=== PATIENT | female | born 1960 | race Caucasian/White ===

== ENCOUNTER → 2019-12-22 09:54 | Outpatient (BNVA) | payer BC, SELFPAY | PROVIDERS: Family Provider Family Medicine; PCP Family Medicine; Visit Provider Anesthesiology | DX: G89.29 Other chronic pain (principal); M54.2 Cervicalgia; M25.511 Pain in right shoulder; M25.512 Pain in left shoulder; M54.5 Low back pain; Z79.891 Long term (current) use of opiate analgesic | CPT/HCPCS: 99214 ==

== ENCOUNTER → 2020-03-27 11:39 | Outpatient (BNVA) | payer BC, SELFPAY | PROVIDERS: Family Provider Family Medicine; PCP Family Medicine; Visit Provider Internal Medicine Cardiovascular Disease | DX: I50.32 Chronic diastolic (congestive) heart failure (principal); E78.5 Hyperlipidemia, unspecified; G45.9 Transient cerebral ischemic attack, unspecified; I74.9 Embolism and thrombosis of unspecified artery; I65.29 Occlusion and stenosis of unspecified carotid artery; I65.22 Occlusion and stenosis of left carotid artery; I10 Essential (primary) hypertension; E87.6 Hypokalemia; R06.02 Shortness of breath | CPT/HCPCS: 80048; 80061; 83880 ==

== ENCOUNTER → 2020-04-01 10:58 | Outpatient (BNVA) | payer BC, SELFPAY | PROVIDERS: Family Provider Family Medicine; PCP Family Medicine; Visit Provider Internal Medicine Cardiovascular Disease | DX: E87.6 Hypokalemia (principal) | CPT/HCPCS: 80048 ==

== ENCOUNTER → 2020-04-03 09:43 | Outpatient (BNVA) | payer BC, SELFPAY | PROVIDERS: Family Provider Family Medicine; PCP Family Medicine; Visit Provider Nurse Practitioner | DX: G89.29 Other chronic pain (principal); M54.41 Lumbago with sciatica, right side; M54.42 Lumbago with sciatica, left side; M54.2 Cervicalgia; Z79.891 Long term (current) use of opiate analgesic | CPT/HCPCS: 99213; 99214 ==

== ENCOUNTER → 2020-06-20 12:54 | Outpatient (BNVA) | payer BC, SELFPAY | PROVIDERS: Family Provider Family Medicine; PCP Family Medicine; Visit Provider Anesthesiology | DX: G89.29 Other chronic pain (principal); M54.42 Lumbago with sciatica, left side; M54.41 Lumbago with sciatica, right side; M54.2 Cervicalgia; Z79.891 Long term (current) use of opiate analgesic | CPT/HCPCS: 99213; 99214 ==

== ENCOUNTER → 2020-08-21 13:11 | Outpatient (BNVA) | payer BC, SELFPAY | PROVIDERS: Family Provider Family Medicine; PCP Family Medicine; Visit Provider Anesthesiology | DX: G89.29 Other chronic pain (principal); M54.5 Low back pain; M54.2 Cervicalgia; Z79.891 Long term (current) use of opiate analgesic | CPT/HCPCS: 99213; 99214 ==

== ENCOUNTER → 2020-10-18 12:56 | Outpatient (BNVA) | payer BC, SELFPAY | PROVIDERS: Family Provider Family Medicine; PCP Family Medicine; Visit Provider Nurse Practitioner | DX: G89.29 Other chronic pain (principal); M54.42 Lumbago with sciatica, left side; M54.41 Lumbago with sciatica, right side; M54.2 Cervicalgia; Z79.891 Long term (current) use of opiate analgesic | CPT/HCPCS: 99213 ==

== ENCOUNTER → 2020-12-18 12:06 | Outpatient (BNVA) | payer OTHER, SELFPAY | PROVIDERS: Family Provider Family Medicine; PCP Family Medicine; Visit Provider Anesthesiology | DX: G89.29 Other chronic pain (principal); M54.5 Low back pain; M54.2 Cervicalgia; J43.1 Panlobular emphysema; Z79.891 Long term (current) use of opiate analgesic | CPT/HCPCS: 99214 ==

== ENCOUNTER → 2021-02-07 13:01 | Outpatient (BNVA) | payer OTHER, SELFPAY | PROVIDERS: Family Provider Family Medicine; PCP Family Medicine; Visit Provider Anesthesiology | DX: G89.29 Other chronic pain (principal); M54.5 Low back pain; M54.2 Cervicalgia; Z79.891 Long term (current) use of opiate analgesic | CPT/HCPCS: 99214 ==

== ENCOUNTER → 2021-03-06 13:11 | Outpatient (BNVA) | payer OTHER, SELFPAY | PROVIDERS: Family Provider Family Medicine; PCP Family Medicine; Visit Provider Family Medicine | DX: E78.5 Hyperlipidemia, unspecified (principal); Z79.899 Other long term (current) drug therapy | CPT/HCPCS: 80053; 85025 ==

== ENCOUNTER → 2021-04-17 13:29 | Outpatient (BNVA) | payer OTHER, SELFPAY | PROVIDERS: Family Provider Family Medicine; PCP Family Medicine; Visit Provider Nurse Practitioner | DX: G89.29 Other chronic pain (principal); M54.2 Cervicalgia; M54.5 Low back pain; Z79.891 Long term (current) use of opiate analgesic; Z79.1 Long term (current) use of non-steroidal anti-inflammatories (NSAID); Z87.891 Personal history of nicotine dependence | CPT/HCPCS: 99214 ==

== ENCOUNTER → 2021-05-08 08:10 | Outpatient (BNVA) | payer OTHER, SELFPAY | PROVIDERS: Family Provider Family Medicine; PCP Family Medicine; Visit Provider Anesthesiology | DX: G89.29 Other chronic pain (principal); M54.2 Cervicalgia; Z79.891 Long term (current) use of opiate analgesic; Z87.891 Personal history of nicotine dependence | CPT/HCPCS: 62321; J1040 ==

== ENCOUNTER → 2021-06-17 15:35 | Outpatient (BNVA) | payer OTHER, SELFPAY | PROVIDERS: Family Provider Family Medicine; PCP Family Medicine; Visit Provider Internal Medicine Cardiovascular Disease | DX: I77.9 Disorder of arteries and arterioles, unspecified (principal); I65.22 Occlusion and stenosis of left carotid artery; E78.5 Hyperlipidemia, unspecified; R06.02 Shortness of breath; I50.33 Acute on chronic diastolic (congestive) heart failure; I50.32 Chronic diastolic (congestive) heart failure; N18.9 Chronic kidney disease, unspecified | CPT/HCPCS: 80048; 83880; 84443 ==

== ENCOUNTER → 2021-06-18 12:34 | Outpatient (BNVA) | payer OTHER, SELFPAY | PROVIDERS: Family Provider Family Medicine; PCP Family Medicine; Visit Provider Nurse Practitioner | DX: G89.29 Other chronic pain (principal); M54.5 Low back pain; M54.2 Cervicalgia; Z79.891 Long term (current) use of opiate analgesic | CPT/HCPCS: 99214 ==

== ENCOUNTER → 2021-07-10 08:36 | Outpatient (BNVA) | payer OTHER, SELFPAY | PROVIDERS: Family Provider Family Medicine; PCP Family Medicine; Visit Provider Anesthesiology | DX: G89.29 Other chronic pain (principal); M54.5 Low back pain; Z79.891 Long term (current) use of opiate analgesic | CPT/HCPCS: 62323; J1040; J3490 ==

== ENCOUNTER 2021-08-11 07:11 | Outpatient (CLI) | payer OTHER, SELFPAY ==
--- NOTE | 2021-08-11 07:15 | USCV_ITS ---
Kaela Sanchez Age: 61 Gender: F : 1960 Exam Date: 08/11/2021 07:24 Ordering Phys: Tom Chu MD ([email or web address]) Technologist: CARLO Exam Location: [facility] Indication: CAROTID STENOSIS Risk Factors: Previous Vascular Surgery: Right Brachial BP: / Left Brachial BP: / Right Left Velocity (cm/s) Spectral Plaque Velocity (cm/s) Spectral Plaque Syst/Diast Broadening Syst/Diast Broadening 102.20/25.30 Prox CCA 99.40 / 27.20 86.00/ 24.30 Mid CCA 111.10/ 26.50 78.30/ 25.40 Distal CCA 67.50 / 17.10 89.30/ 30.30 Prox ICA 74.30 / 29.90 82.30/ 26.40 Mid ICA 67.50 / 23.90 73.00/ 26.40 Distal ICA 103.40/ 34.20 89.30 ECA 92.30 0.96 ICA/CCA 0.61 Antegrade Vertebral Antegrade 59.00/ 17.10 cm/s 54.70/ 19.70 cm/s Tri Subclavian Tri 102.5 100.0 0 0 FINDINGS Minimal intimal thickening in the common carotid, bifurcation and internal carotid arteries bilaterally Antegrade flow in the vertebral arteries bilaterally. Normal Doppler velocities in the external carotid, vertebral and subclavian arteries bilaterally CONCLUSIONS Minimal intimal thickening in the common carotid, bifurcation and internal carotid arteries bilaterally. No significant stenosis or unstable lesions based on the above Dr Tom Chu MD [facility] (Electronically Signed) Final Date: 12 August 2021 09:10 S
== END 2021-08-11 07:12 | disposition home or self-care (01) ==
PROVIDERS: PCP Family Medicine; Visit Provider Internal Medicine Cardiovascular Disease
DX: I77.9 Disorder of arteries and arterioles, unspecified (principal); I65.23 Occlusion and stenosis of bilateral carotid arteries
CPT/HCPCS: 93880

== ENCOUNTER → 2021-08-15 12:51 | Outpatient (BNVA) | payer OTHER, SELFPAY | PROVIDERS: PCP Family Medicine; Visit Provider Anesthesiology | DX: G89.29 Other chronic pain (principal); M54.50 Low back pain, unspecified; M54.2 Cervicalgia; Z79.891 Long term (current) use of opiate analgesic | CPT/HCPCS: 99214 ==

== ENCOUNTER → 2021-09-04 14:12 | Outpatient (BNVA) | payer OTHER, SELFPAY | PROVIDERS: PCP Family Medicine; Visit Provider Family Medicine | DX: E78.5 Hyperlipidemia, unspecified (principal) | CPT/HCPCS: 80053; 80061 ==

== ENCOUNTER 2021-11-28 14:35 | Inpatient (IN) | payer OTHER, SELFPAY ==
[2021-11-28 14:43] VITALS: BP 140/90; PULSE 99; RESP 19; TEMP 37.3; O2SAT 91; BMI 25.0
--- NOTE | 2021-11-28 15:00 | CT_ITS ---
WS: [id number] CT HEAD NONCONTRAST HISTORY: AMS TECHNIQUE: Contiguous axial imaging performed through the brain in 2.5 mm imaging. Bone and soft tiss ue windows. Sagittal and coronal reformats reviewed. All CT scans at [facility] use at least one of these dose optimization techniques: automated exposure control; mA and/or kV adjustment per pa tient size (includes targeted exams where dose is matched to clinical indication); or iterative recon struction. DLP: 739.7 mGy.cm COMPARISON: None available. No acute intracranial hemorrhage, midline shift or mass effect. Mild atrophy and mild chronic microvascular ischemic disease. Partial obscuration of the posterior fo ssa due to beam hardening artifact. Ventricles: Normal size with no hydrocephalus. Paranasal sinuses: Small air-fluid level in the LEFT sphenoid sinus. Mastoid air cells: Well pneumatized. Calvarium and scalp: Skull is intact with no soft tissue edema or swelling. CT/CT head wo con* [id number] IMPRESSION: 1. No acute intracranial hemorrhage or edema. 2. Mild atrophy and mild chronic microvascular ischemic type changes.
[2021-11-28 15:08] LABS: Basophils % 0.1 %; Lymphocytes # 0.9 10^3/uL (0.8-4.8); Lymphocytes % 9.6 %; Mean Corpuscular Hemoglobin 29.3 pg (28.0-34.0); Mean Corpuscular Volume 86.2 fl (81-99); Mean Platelet Volume 10.6 fL (7.4-10.4); Monocytes # 1.3 10^3/uL (0.2-0.9); Monocytes % 15.1 %; Neutrophils % 74.5 %; Nucleated Red Blood Cells % 0 %; Platelet Count 354 10^3/cmm (130-400); Red Blood Count 6.15 10^6/uL (4.1-5.3); Red Cell Distribution Width 14.1 % (12.1-15.1); White Blood Count 8.9 10^3/uL (4.0-10.0)
--- NOTE | 2021-11-28 15:13 | CTR_ITS ---
PROCEDURE INFORMATION: Exam: CT Abdomen And Pelvis With Contrast Exam date and time: 11/28/2021 3:13 PM Age: 61 years old Clinical indication: Abdominal pain; Patient HX: PT very confused; Additional info: Abd pain TECHNIQUE: Imaging protocol: Computed tomography of the abdomen and pelvis with contrast. Sagittal and coronal reformatted images were created and reviewed. Radiation optimization: All CT scans at this facility use at least one of these dose optimization techniques: automated exposure control; mA and/or kV adjustment per patient size (includes targeted exams where dose is matched to clinical indication); or iterative reconstruction. Contrast material: OMNI 300; Contrast volume: 75 ml; Contrast route: INTRAVENOUS (IV); COMPARISON: No relevant prior studies available. RADIATION DOSE METRICS: Total DLP (mGy-cm): 1054.71 FINDINGS: Lungs: Dependent atelectasis in the lungs bilaterally. Pleural spaces: No pleural effusion. Heart: Visualized portions of the heart are mildly enlarged. Liver: The liver is unremarkable. Gallbladder and bile ducts: The gallbladder is unremarkable. No biliary ductal dilatation. Pancreas: Mild atrophy of the pancreatic parenchyma. No pancreatic ductal dilatation. Spleen: Multiple splenules in the left upper quadrant. Adrenal glands: The right and left adrenal glands are unremarkable. Kidneys and ureters: The right and left kidneys are unremarkable. The right and left ureters are unremarkable. Stomach and bowel: Fluid within the small bowel and colon without evidence of bowel wall thickening. Fatty infiltration of the wall of the proximal colon. Findings suggest sequela of chronic inflammation. Appendix: The appendix is visualized and is unremarkable. No findings to suggest acute appendicitis. Intraperitoneal space: No free intraperitoneal air. No ascites. No loculated fluid collections to suggest an abscess. Vasculature: Moderate atherosclerotic changes in the visualized arteries. No evidence for aortic aneurysm or aortic dissection. Hepatic veins, portal veins, splenic vein, and SMV are patent. Lymph nodes: No lymphadenopathy. Urinary bladder: Unremarkable as visualized. Reproductive: Patient has had a previous hysterectomy. The right and left ovaries are unremarkable. Bones/joints: Degenerative changes in the spine, sacroiliac joints, and hips. Grade I anterolisthesis of L4 on L5, likely due to facet degenerative change. Moderate spinal canal stenosis at L4-L5. Multilevel foraminal stenosis of varying severity in the lumbar spine. Soft tissues: No acute abnormality in the extra-abdominal soft tissues. CT/CT abdomen pelvis w con* [id number] IMPRESSION: 1. Fluid within the small bowel and colon without evidence of bowel wall thickening. This may reflect viral gastroenteritis in the appropriate clinical situation. 2. Incidental/nonacute findings are listed in the report.
[2021-11-28 15:21] VITALS: BP 135/83
[2021-11-28 15:34] LABS: Troponin(5th) Baseline 12 ng/L (0-10)
[2021-11-28 15:41] LABS: Alanine Aminotransferase 28 U/L (0-33); Albumin Level 4.5 g/dL (3.5-5.2); Alkaline Phosphatase 150 IU/L (35-105); Anion Gap 23.6 (5-19); Aspartate Amino Transferase 54 U/L (0-32); Blood Urea Nitrogen 17 mg/dL (6-20); Calcium 8.4 mg/dL (8.5-10.5); Carbon Dioxide 19 mmol/L (22-29); Chloride 108 mmol/L (98-107); Creatinine Clr Calc Pharmacy 104.0993; Globulin 2.3 g/dL (1.3-4.6); Glomerular Filtration Rate 126.3 mL/min (90-130); Glucose 115 mg/dL (65-115); Lipase 42 U/L (13-60); Magnesium 2.9 mg/dL (1.7-2.3); Osmolality Calculated 306 mOsm/kg (285-295); Potassium 3.6 mmol/L (3.5-5.1); Sodium 147 mmol/L (136-145); Total Bilirubin 0.6 mg/dL (0.15-1.2); Total Protein 6.8 g/dL (6.6-8.7)
[2021-11-28 15:42] LABS: Acetaminophen < 5.0 ug/mL (10-30); Salicylate < 0.3 mg/dL (3-10)
[2021-11-28 15:43] LABS: Creatine Phosphokinase 497 U/L (26-192)
[2021-11-28] MEDS: ondansetron 2 mg/ML SDV 2 mL 4 MG IVP (15:43)
[2021-11-28] MEDS: naloxone 0.4 mg/ml SDV IVP (15:43)
--- NOTE | 2021-11-28 15:44 | ED_ITS ---
HPI - Altered Mental Status General: Chief Complaint: Altered Mental Status Stated Complaint: AMS Time Seen by Provider: 11/28/21 14:37 History of Present Illness: 61-year-old female presents emergency room via EMS with altered mental status. Unable to get any history from her whatsoever EMS reported that they were called to the scene her referred him to a bedroom without really give any other history. She will not answer any questions she will follow a few simple commands such as squeezing hands. She has no focal neurologic deficits noted on that are obvious. When she is touched in her chest abdomen or any of her proximal extremities even she screams out and is mildly combative. MD complaint: altered mental status and confusion Onset (ago): unknown Severity: severe Consistency of symptoms: Constant Review of Systems General: Reports: ROS unobtainable due to mental status PFSH ED PFSH: Medical History Anxiety and depression Benign essential hypertension with target blood pressure below 140/90 Carotid artery stenosis without cerebral infarction Chronic bronchitis Chronic cervical pain Chronic diastolic heart failure Chronic diastolic heart failure Chronic lumbosacral pain COPD (chronic obstructive pulmonary disease) Dyslipidemia Encounter for long-term use of opiate analgesic Fibromyalgia GERD (gastroesophageal reflux disease) Heart failure Hypertension Hypoxia care home (current) use of non-steroidal anti-inflammatories (nsaid) Opioid contract exists TIA due to embolism Surgical History H/O section H/O hemorrhoidectomy H/O rotator cuff surgery History of hysterectomy Family History Sister Anesthesia complication Father CAD (coronary artery disease) Grandmother CAD (coronary artery disease) Grandfather Cancer Mother Dementia Lung disease Denies family history of Diabetes Clotting disorder Chronic kidney disease (CKD) Suicide Bleeding disorder Stroke Social History Smoking and tobacco status: former smoker Second hand smoke exposure: Yes Alcohol intake: never History of recent travel: No Physical Exam Const: EXAM LIMITATIONS: altered mental status HENMT: COMMON NORMALS: normocephalic, atraumatic and hearing grossly normal bilaterally HEAD & SCALP: normocephalic and atraumatic Neck/C-Spine: COMMON NORMALS: full ROM, no lymphadenopathy, supple and no JVD Resp: COMMON NORMALS: normal respiratory effort, No retractions and No use of accessory muscles Cardio: COMMON NORMALS: no JVD, regular rate and regular rhythm RATE: regular rate RHYTHM: regular rhythm Course Vital Signs: Vital signs: Vital Signs Temperature 99.2 F 11/28/21 14:43 Pulse Rate 99 11/28/21 14:43 Respiratory Rate 19 H 11/28/21 14:43 Blood Pressure 135/83 11/28/21 15:21 Pulse Oximetry 91 11/28/21 14:43 MDM - Altered Mental Status Medical Decision Making Altered mental status CT of the head and abdomen are unremarkable she has some fluid-filled loops of bowel. There is a mild rhabdomyolysis we did give her so me Narcan early on but she had only minimal improvement. Discussed with hospitalist orders written. Admit for acute encephalopathy as well as rhabdomyolysis. Medical Records I reviewed the patient's medical records. Lab Data I reviewed the patient's lab results. : 11/28/21 14:20 11/28/21 14:[address] 11/28/21 15:00 IMPRESSION: 1. No acute intracranial hemorrhage or edema. 2. Mild atrophy and mild chronic microvascular ischemic type changes. Abdomen/Pelvis CT 11/28/21 15:13 IMPRESSION: 1. Fluid within the small bowel and colon without evidence of bowel wall thickening. This may reflect viral gastroenteritis in the appropriate clinical situation. 2. Incidental/nonacute findings are listed in the report. Laboratory Results WBC 8.9 10^3/uL (4.0-10.0) 11/28/21 14:20 RBC 6.15 10^6/uL (4.1-5.3) H 11/28/21 14:20 Hgb 18.0 g/dL (11.5-15.3) H 11/28/21 14:20 Hct 53.0 % (37.0-47.0) H 11/28/21 14:20 MCV 86.2 fl (81-99) 11/28/21 14:20 MCH 29.3 pg (28.0-34.0) 11/28/21 14:20 MCHC 34.0 g/dL (30.0-36.0) 11/28/21 14:20 RDW 14.1 % (12.1-15.1) 11/28/21 14:20 Plt Count 354 10^3/cmm (130-400) 11/28/21 14:20 MPV 10.6 fL (7.4-10.4) H 11/28/21 14:20 Neut % (Auto) 74.5 % 11/28/21 14:20 Lymph % (Auto) 9.6 % 11/28/21 14:20 [place] % (Auto) 15.1 % 11/28/21 14:20 Eos % (Auto) 0.0 % 11/28/21 14:20 Baso % (Auto) 0.1 % 11/28/21 14:20 Neut # (Auto) 6.60 10^3/uL (1.8-7.7) 11/28/21 14:20 Lymph # (Auto) 0.9 10^3/uL (0.8-4.8) 11/28/21 14:20 [place] # (Auto) 1.3 10^3/uL (0.2-0.9) H 11/28/21 14:20 Eos # (Auto) 0.0 10^3/uL (0.0-0.8) 11/28/21 14:20 Baso # (Auto) 0.0 10^3/uL (0.0-0.1) 11/28/21 14:20 Nucleated RBC % (auto) 0 % 11/28/21 14:20 Nucleated RBCs # 0.0 /100WBC 11/28/21 14:20 Specimen Type Arterial 11/28/21 15:40 Sample Site Radial, left 11/28/21 15:40 ABG pH 7.51 (7.35-7.45) H 11/28/21 15:40 ABG pCO2 24.8 mmHg (35-45) L 11/28/21 15:40 ABG pO2 61.2 mmHg (80.0-100.0) L 11/28/21 15:40 ABG HCO3 19.7 mmol/L (22-26) L 11/28/21 15:40 ABG O2 Saturation 95.7 11/28/21 15:40 ABG Base Excess -1.4 mmol/L (-2.0-2.0) 11/28/21 15:40 [place] Test Pos 11/28/21 15:40 A-a O2 Gradient 7.6 mmHg (5-10) 11/28/21 15:40 Hematocrit 50.4 % (37-47) H 11/28/21 15:40 Hgb O2 Saturation 94.5 % (95-100) L 11/28/21 15:40 Carboxyhemoglobin 0.5 %THgb (0.4-20.1) 11/28/21 15:40 Methemoglobin 0.7 % (0.4-1.5) 11/28/21 15:40 Total Hemoglobin 16.5 g/dL (12-16) H 11/28/21 15:40 Sodium 147.0 mmol/L (131-143) H 11/28/21 15:40 Potassium 3.1 mmol/L (3.5-5.0) L 11/28/21 15:40 Glucose 110.0 mg/dL (70-115) 11/28/21 15:40 Ionized Calcium 1.1 mmol/L (1.1-1.4) 11/28/21 15:40 O2 Delivery Device Room air 11/28/21 15:40 FiO2 21.0 % 11/28/21 15:40 [employer] ID Cak 11/28/21 15:40 Sodium 147 mmol/L (136-145) H 11/28/21 14:20 Potassium 3.6 mmol/L (3.5-5.1) 11/28/21 14:20 Chloride 108 mmol/L (98-107) H 11/28/21 14:20 Carbon Dioxide 19 mmol/L (22-29) L 11/28/21 14:20 Anion Gap 23.6 (5-19) H 11/28/21 14:20 BUN 17 mg/dL (6-20) 11/28/21 14:20 Creatinine 0.5 mg/dL (0.5-0.9) 11/28/21 14:20 GFR Calculation 126.3 mL/min (90-130) 11/28/21 14:20 Glucose 115 mg/dL (65-115) 11/28/21 14:20 Calculated Osmolality 306 mOsm/kg (285-295) H 11/28/21 14:20 Lactic Acid 2.1 mmol/L (0.5-2.2) 11/28/21 16:04 Calcium 8.4 mg/dL (8.5-10.5) L 11/28/21 14:20 Magnesium 2.9 mg/dL (1.7-2.3) H 11/28/21 14:20 Total Bilirubin 0.6 mg/dL (0.15-1.2) 11/28/21 14:20 AST 54 U/L (0-32) H 11/28/21 14:20 ALT 28 U/L (0-33) 11/28/21 14:20 Alkaline Phosphatase 150 IU/L (35-105) H 11/28/21 14:20 Ammonia Cancelled 11/28/21 16:04 Creatine Kinase 497 U/L (26-192) H* 11/28/21 14:20 CK-MB (CK-2) 13.4 ng/mL (0-5.34) H 11/28/21 14:20 CK-MB (CK-2) Rel Index 2.6 % (0.0-10.4) 11/28/21 14:20 Troponin T Baseline 12 ng/L (0-10) H 11/28/21 14:20 Total Protein 6.8 g/dL (6.6-8.7) 11/28/21 14:20 Albumin 4.5 g/dL (3.5-5.2) 11/28/21 14:20 Globulin 2.3 g/dL (1.3-4.6) 11/28/21 14:20 Lipase 42 U/L (13-60) 11/28/21 14:20 Salicylates < 0.3 mg/dL (3-10) L 11/28/21 14:20 Acetaminophen < 5.0 ug/mL (10-30) L 11/28/21 14:20 Discharge Plan Discharge Patient Disposition: Admitted As Inpatient Clinical Impression: Acute encephalopathy, Rhabdomyolysis Condition: Stable Coding Level of Care Code ED Gynecological Assistant for Kyleigh Seals
[2021-11-28 15:51] LABS: ABG PCO2 24.8 mmHg (35-45); ABG PH Result 7.51 (7.35-7.45); Alveolar-Arterial Oxygen Gradi 7.6 mmHg (5-10); Arterial Blood Gas Hematocrit 50.4 % (37-47); Base Excess ABG -1.4 mmol/L (-2.0-2.0); Blood Gas Allen Test Pos; Blood Gas Operator Identificat CAK; Blood Gas Sample Site Radial, left; Blood Gas Sample Type Arterial; Carboxyhemoglobin 0.5 %THgb (0.4-20.1); HCO3 ABG 19.7 mmol/L (22-26); HGB O2 Sat 94.5 % (95-100); Ionized Calcium Level - ABG 1.1 mmol/L (1.1-1.4); Methemoglobin 0.7 % (0.4-1.5); Oxygen Device ROOM AIR; Oxygen Saturation ABG 95.7; PO2 ABG 61.2 mmHg (80.0-100.0); Potassium Level - ABG 3.1 mmol/L (3.5-5.0); Total Hemoglobin 16.5 g/dL (12-16)
--- NOTE | 2021-11-28 15:51 | PC.PHAR ---
PT UNABLE TO VERIFY MEDICATIONS-MEDICATIONS ENTERED ARE WHAT SHOWS HAS BEEN FILLED ON EXT MED HISTORY RECENTLY AND SOME MEDS WERE FROM A PREVIOUS ENTERED MED LIST
[2021-11-28 16:33] LABS: CKMB 13.4 ng/mL (0-5.34); CKMB Relative Index 2.6 % (0.0-10.4)
[2021-11-28] MEDS: LORazepam 2 mg/mL INJ 1 mL 1 MG IVP (16:40)
[2021-11-28] MEDS: sodium chloride 0.9% 1,000 ML 999 ML IV (16:41)
[2021-11-28] MEDS: iohexol 300 mg/mL 100 mL Btl IV (16:52)
[2021-11-28 16:55] LABS: Lactic Sepsis W/Reflex 2.1 mmol/L (0.5-2.2)
--- NOTE | 2021-11-28 17:00 | ECG_ITS ---
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
[2021-11-28 17:54] LABS: Alcohol Level < 10 mg/dL (0-10)
[2021-11-28 17:59] LABS: Reflex Lactate Order REFLEX LACTIC ORDERD
[2021-11-28 18:04] LABS: Troponin 5 2HR 10.61 ng/L (0-10)
[2021-11-28 18:07] LABS: Troponin 5 2HR Delta -1.39 ABS# (0-10)
--- NOTE | 2021-11-28 18:25 | P.HP_ITS ---
Providers/Chief Complaint Primary Care Provider: Iman Galo DO Chief Complaint: AMS History of Present Illness History limited as taken through chart review and conversation through ER physician and daughter at bedside who lives at [place]. Kaela Sanchez is a 61 year old female with past medical history of anxiety, diastolic heart failure, COPD, fibromyalgia, hypertension on chronic opiates was brought into the ER by EMS today for altered mental status. As per the history EMS was called and mother today because patient has been behaving oddly for last few days and not answering. As per EMS when they arrived at home was sitting outside the room and he disappointed. During gait the patient is and patient was directed to the ER. In the ER patient was only following simple commands like squeezing hands but not able to have any conversation or follow any extensive commands. On examination when touched in chest or abdomen patient would scream out in pain. Patient's daughter is at bedside who states last he saw her was in [place] and after that spoke to her was on first week of November and at that time she had no complaint. Daughter states she seems to have lost a lot of weight since [place]. Patient has soiled her bed during examination with copious green-colored foul-smelling bowel movements. Blood work in the ER showed hemoglobin of 18, white count of 8.9, ABG showing a pH of 7.5, PCO2 of 24, PO2 of 61, chemistry showing a sodium of 147, chloride of 108, creatinine of 0.5, CPK of 497, alkaline phosphatase of 150, alcohol level, salicylate and acetaminophen level negative with CT abdomen pelvis as below. In the ER tonight she received 1 dose of Narcan and Ativan. Review of Systems General: Reports: ROS unobtainable due to mental status Medications/Allergies Home Medications Medication Instructions Recorded Confirmed Last Taken Type aspirin 81 mg tablet,delayed 81 mg PO DAILY 12/22/19 11/28/21 Unknown History release (Adult Aspirin Regimen) furosemide 20 mg tablet 20 mg PO DAILY PRN #90 tab 06/18/21 11/28/21 Unknown Rx ibuprofen 800 mg tablet 800 mg PO TID PRN 30 Days #90 tab 06/19/21 11/28/21 Unknown Rx potassium chloride 10 mEq 20 meq PO DAILY #180 tab 07/03/21 11/28/21 Unknown Rx tablet,extended release albuterol sulfate 90 mcg/actuation 2 puff INHALATION QID PRN #8.5 g 09/04/21 11/28/21 Unknown Rx aerosol inhaler (ProAir HFA) budesonide-formoterol HFA 160 2 puff INHALATION BID #10.2 gm 10/09/21 11/28/21 Unknown Rx mcg-4.5 mcg/actuation aerosol inhaler (Symbicort) methocarbamol 750 mg tablet 750 mg PO TID #90 tab 10/09/21 11/28/21 Unknown Rx pregabalin 300 mg capsule (Lyrica) 300 mg PO BID 30 Days #60 cap 10/09/21 11/28/21 Unknown Rx tiotropium bromide 2.5 2 puff INHALATION DAILY #4 gm 10/09/21 11/28/21 Unknown Rx mcg/actuation mist for inhalation (Spiriva Respimat) atorvastatin 40 mg tablet 40 mg PO DAILY 90 Days #90 tab 10/17/21 11/28/21 Unknown Rx bupropion HCl 200 mg tablet,12 hr 200 mg PO BID #60 tab 10/17/21 11/28/21 Unknown Rx sustained-release (Wellbutrin SR) omeprazole 40 mg capsule,delayed 40 mg PO DAILY 30 Days #90 cap 10/20/21 11/28/21 Unknown Rx release metoprolol tartrate 25 mg tablet 25 mg PO BID #60 tab 10/27/21 11/28/21 Unknown Rx oxycodone 15 mg tablet 15 mg PO .6 times a day PRN 3 Days 11/13/21 11/28/21 Unknown Rx #18 tab Allergies Allergy/AdvReac Type Severity Reaction Status Date / Time No Known Allergies Allergy Verified 10/09/21 13:07 PFSH Acute PFSH: Medical History (Updated 11/28/21 @ 18:39 by Jose Washington MD) Anxiety and depression Benign essential hypertension with target blood pressure below 140/90 Carotid artery stenosis without cerebral infarction Chronic bronchitis Chronic cervical pain Chronic diastolic heart failure Chronic diastolic heart failure Chronic lumbosacral pain Chronic prescription opiate use COPD (chronic obstructive pulmonary disease) Dyslipidemia Encounter for long-term use of opiate analgesic Fibromyalgia GERD (gastroesophageal reflux disease) Heart failure Hypertension Hypoxia residential (current) use of non-steroidal anti-inflammatories (nsaid) Opioid contract exists Strain of right trapezius muscle TIA due to embolism Surgical History H/O section H/O hemorrhoidectomy H/O rotator cuff surgery History of hysterectomy Family History Sister Anesthesia complication Father CAD (coronary artery disease) Grandmother CAD (coronary artery disease) Grandfather Cancer Mother Dementia Lung disease Denies family history of Diabetes Clotting disorder Chronic kidney disease (CKD) Suicide Bleeding disorder Stroke Social History Smoking and tobacco status: former smoker Second hand smoke exposure: Yes Alcohol intake: never History of recent travel: No Vitals/I&O/Wt Last Vital Signs Temp 99.2 F 11/28/21 14:43 Pulse 99 11/28/21 14:43 Resp 19 H 11/28/21 14:43 BP 135/83 11/28/21 15:21 Pulse Ox 91 11/28/21 14:43 Weight last 48 hrs Weight 54.431 kg Physical Exam Narrative: EXAM NARRATIVE: General: Altered, awake, complaining of abdominal pain, no distress, tremulous HEENT: PERRLA, pupils bilaterally equal and reactive Chest: Normal vesicular breath sounds, no added sounds, equal good air entry bilaterally CVS: S1-S2 regular, no murmurs, no tachycardia, no gallops, no rubs Abdomen: Bowel sounds hyperactive, guarding present Neuro: No focal deficits, no facial deformity, moving all 4 limbs Data : 11/28/21 14:20 11/28/21 14:20 A&P Assessment and plan (1) Acute encephalopathy: Status: Acute (2) Diarrhea: Status: Acute (3) Hypernatremia: Status: Acute (4) Dehydration: Status: Acute (5) Rhabdomyolysis: Status: Acute (6) Benign essential hypertension with target blood pressure below 140/90: Status: Acute (7) Carotid artery stenosis without cerebral infarction: Status: Acute Qualifiers: Laterality: left Qualified Code(s): I65.22 - Occlusion and stenosis of left carotid artery (8) Chronic prescription opiate use: Status: Acute (9) Anxiety and depression: Status: Chronic Plan Acute metabolic encephalopathy: Unclear etiology at present. Could be secondary to drug overdose versus secondary to hypernatremia from dehydration or could be secondary to metabolic encephalopathy from sepsis. CT head results appreciated. No acute abnormality. Check urine drug screen, ammonia levels, vitamin B12, folate level, TSH level. For dehydration/hypernatremia start patient on D5 NS at 75 cc/h. Check urine lites, urinalysis. BMP every 8 hourly. Ro. For now hold off on chronic home medications including bupropion, methocarbamol, chronic oxycodone. Switch to Dilaudid 0.5 every 6 hours as needed to avoid withdrawal. Frequent reorientation, fall precaution Sitter at bedside. Diarrhea: Check C. difficile. For now start patient on Zosyn. Check CT abdomen pelvis. Rhabdomyolysis: Secondary dehydration: IV fluids as above. If does not improve can check CTA head and neck given history of carotid artery stenosis in past for further evaluation to rule out stroke though unlikely at present. We will change medications as per clinical picture and results of the labs. Check iron panel, TSH, lipid panel, A1c Care discussed in detail with patient's daughter at bedside. Full code. NPO. Famotidine for PUD prophylaxis. Lovenox for DVT prophylaxis. Attestations Medical Necessity Statement*: For more than 2 midnights for management of altered mental status of unknown etiology Time Spent in Patient Care: Greater than 35 minutes Coding Level of Care Code Acute [employer] Airspace Officer for [facility] Fwd Diagnoses Acute encephalopathy G93.40 Diarrhea R19.7 Hypernatremia E87.0 Dehydration E86.0 Rhabdomyolysis M62.82 Benign essential hypertension with target blood pressure below 140/90 I10 Carotid artery stenosis without cerebral infarction I65.22 Laterality: left Chronic prescription opiate use Z79.891 Anxiety and depression F41.9; F32.9
[2021-11-28 18:44] LABS: Amphetamines Screen Urine Negative (Negative); Barbiturates Screen Urine Negative (Negative); Benzodiazepines Screen Urine Negative (Negative); Cocaine Screen Urine Negative (Negative); Opiate Screen Urine Negative (Negative); PCP Screen Urine Negative (Negative); THC Screen Urine Negative (Negative)
[2021-11-28 18:55] LABS: Bilirubin Urine 1+ (Negative); Blood Urine 2+ (Negative); Glucose Urine UA Norm (Normal); Ketones Urine 2+ (Negative); Leukocyte Esterase Urine Negative (Negative); Nitrate Urine Negative (Negative); Protein Urine 2+ (Negative); Urine Appearance Hazy (CLEAR); Urine Color Amber (Yellow); Urobilinogen Urine 1 mg/dL (Negative); pH Urine 7 (5-7)
[2021-11-28 18:57] LABS: Add Urine Microscopic? YES; RBC Urine 0-4 /hpf (0-2); Squamous Epithelial Cell Urine 0-4 /hpf (0-5)
[2021-11-28 18:58] LABS: Add Urine Culture? No; Mucus Urine 2+ /hpf
[2021-11-28 19:32] LABS: Lactic Acid level (Lactate) 1.2 mmol/L (0.5-2.2)
[2021-11-28 19:33] LABS: Ammonia 72 umol/L (11-51)
[2021-11-28 19:39] LABS: Blood Urea Nitrogen 15 mg/dL (6-20); Calcium 7.8 mg/dL (8.5-10.5); Carbon Dioxide 13 mmol/L (22-29); Chloride 113 mmol/L (98-107); Glomerular Filtration Rate 227.7 mL/min (90-130); Glucose 88 mg/dL (65-115); Osmolality Calculated 296 mOsm/kg (285-295); Sodium 143 mmol/L (136-145)
[2021-11-28 19:43] LABS: Anion Gap 20.5 (5-19); Potassium 3.5 mmol/L (3.5-5.1)
[2021-11-28 19:54] LABS: NT Pro B Type Natriuretic Pept 285 pg/mL (0-125); Procalcitonin 0.04 ng/mL (0-0.5); Thyroid Stimulating Hormone 0.18 uIU/mL (0.27-4.20); Vitamin B12 493 pg/mL (232-1245)
[2021-11-28 19:56] LABS: Folate Level 8.2 ng/mL (4.8-37.3)
[2021-11-28 20:05] LABS: Iron 37 ug/dL (37-145); Percent Saturation 12.8 % (20-50); Total Iron Binding Capacity 287 mcg/dl; Unsaturated Iron Binding 250 ug/dL (112-347)
[2021-11-28 20:31] LABS: Adenovirus Not Detected (NOT DETECT); Chlamydia Pneumoniae Not Detected (NOT DETECT); Coronavirus 229E,HKU1,NL63,OC4 Not Detected (NOT DETECT); Human Metapneumovirus Not Detected (NOT DETECT); Human Rhinovirus/Enterovirus Not Detected (NOT DETECT); Influenza A Not Detected (NOT DETECT); Influenza A H1 Not Detected (NOT DETECT); Influenza A H1-2009 Not Detected (NOT DETECT); Influenza A H3 Not Detected (NOT DETECT); Influenza B Not Detected (NOT DETECT); Mycoplasma Pneumoniae Not Detected (NOT DETECT); Parainfluenza Virus Type 1 Not Detected (NOT DETECT); Parainfluenza Virus Type 2 Not Detected (NOT DETECT); Parainfluenza Virus Type 3 Not Detected (NOT DETECT); Parainfluenza Virus Type 4 Not Detected (NOT DETECT); Respiratory Syncytial Virus A Not Detected (NOT DETECT); Respiratory Syncytial Virus B Not Detected (NOT DETECT); SARS-COV-2 Detected (NOT DETECT)
[2021-11-28 20:48] LABS: Potassium, Radom Urine 67 mmol/L; Urine Random Chloride 47 mmol/L; Urine Random Sodium 40 mmol/L
[2021-11-28 20:49] VITALS: RESP 20
[2021-11-28] MEDS: HYDROmorphone 1 mg/mL INJ 1 mL IVP (20:49)
--- NOTE | 2021-11-28 21:00 | ECG_ITS ---
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: : 1960 Requested By: Volodymyr Lynn Order Number: [id number] Reading MD: TANNER MCCRAY Measurements Intervals [place] Rate: 51 P: 58 [place]: 135 QRS: 18 QRSD: 78 T: 10 QT: 392 QTc: 362 Interpretive Statements SINUS BRADYCARDIA NONSPECIFIC T-WAVE ABNORMALITY Compared to ECG 11/28/2021 17:07:04 T-wave abnormality now present Intraventricular conduction delay no longer present Electronically Signed On 11-30-2021 19:19:56 KITCHEN BATH DESIGNER by TANNER MCCRAY [id number]
[2021-11-28 21:09] VITALS: BP 166/71; PULSE 91; RESP 18; TEMP 36.6; O2SAT 90
[2021-11-28 21:28] LABS: Troponin 5 6HR 27.72 ng/L (0-10)
[2021-11-28 21:30] LABS: Troponin 5 6HR Delta 15.72 ng/L (0-12)
[2021-11-28] MEDS: dextrose 5%-ns + KCl 20 20 MEQ/1,000 ML BAG 75 MEQ IV (22:57)
[2021-11-28] MEDS: piperacillin-tazobactam 3.375 GM in sodium chloride 0.9% (plus) 50 ML IV (22:59)
[2021-11-28] MEDS: famotidine 20 mg/2 mL INJ IVP (23:06)
[2021-11-29] VITALS (46 sets, daily range): BP systolic 126–163; BP diastolic 61–102; PULSE 48–98; RESP 16–33; TEMP 36.8–37.7; O2SAT 84–100
--- NOTE | 2021-11-29 00:55 | PC.NURSE ---
Pt confused and resistant to care. Unable to obtain blood pressure reading due to patient refusal. RN notified of low reading on pulse ox.
[2021-11-29] MEDS: haloperidol inj 5 mg/mL INJ 1 mL 1 MG IVP ×5 (00:57→17:19)
[2021-11-29] MEDS: HYDROmorphone 1 mg/mL INJ 1 mL 0.5 MG IVP ×4 (02:37→17:11)
[2021-11-29 03:29] LABS: Basophils % 0.1 %; Hematocrit 42.3 % (37.0-47.0); Hemoglobin 14.2 g/dL (11.5-15.3); Lymphocytes % 11.5 %; Mean Corpuscular HGB Conc 33.6 g/dL (30.0-36.0); Mean Corpuscular Hemoglobin 29.2 pg (28.0-34.0); Mean Corpuscular Volume 86.9 fl (81-99); Mean Platelet Volume 10.5 fL (7.4-10.4); Monocytes # 1.3 10^3/uL (0.2-0.9); Monocytes % 14.9 %; Neutrophils # 6.25 10^3/uL (1.8-7.7); Nucleated Red Blood Cells % 0 %; Platelet Count 320 10^3/cmm (130-400); Red Blood Count 4.87 10^6/uL (4.1-5.3); Red Cell Distribution Width 14.1 % (12.1-15.1); White Blood Count 8.6 10^3/uL (4.0-10.0)
[2021-11-29 03:54] LABS: Estmated Average Glucose 120; Hemoglobin A1C 5.8 % (4.0-6.0)
[2021-11-29 03:56] LABS: Alanine Aminotransferase 23 U/L (0-33); Albumin Level 3.5 g/dL (3.5-5.2); Alkaline Phosphatase 114 IU/L (35-105); Anion Gap 15.8 (5-19); Aspartate Amino Transferase 47 U/L (0-32); Blood Urea Nitrogen 14 mg/dL (6-20); Calcium 7.2 mg/dL (8.5-10.5); Carbon Dioxide 20 mmol/L (22-29); Chloride 118 mmol/L (98-107); Chol HDL Ratio 4.72 mg/dL (0.0-4.40); Cholesterol 137 mg/dL (0-200); Glomerular Filtration Rate 163.4 mL/min (90-130); Glucose 91 mg/dL (65-115); HDL Cholesterol 29 mg/dL (60-100); LDL Cholesterol Calculated 77 mg/dL (50-129); Osmolality Calculated 312 mOsm/kg (285-295); Sodium 151 mmol/L (136-145); Total Bilirubin 0.4 mg/dL (0.15-1.2); Total Protein 5.5 g/dL (6.6-8.7); Triglycerides 156 mg/dL (0-150); VLDL Cholestrol Calculation 31 mg/dL (0-30)
[2021-11-29 03:58] LABS: Potassium 2.8 mmol/L (3.5-5.1)
--- NOTE | 2021-11-29 04:46 | PC.NURSE ---
Abnormal PO2 levels reported to RN.
[2021-11-29] MEDS: piperacillin-tazobactam 3.375 GM in sodium chloride 0.9% (plus) 50 ML IV ×2 (06:18→11:06)
[2021-11-29] MEDS: famotidine 20 mg/2 mL INJ IVP ×2 (07:47→22:49)
[2021-11-29 11:34] LABS: Anion Gap 16.8 (5-19); Blood Urea Nitrogen 13 mg/dL (6-20); Carbon Dioxide 17 mmol/L (22-29); Chloride 117 mmol/L (98-107); Glomerular Filtration Rate 163.4 mL/min (90-130); Glucose 98 mg/dL (65-115); Osmolality Calculated 306 mOsm/kg (285-295); Sodium 148 mmol/L (136-145)
[2021-11-29 11:45] LABS: Potassium 2.8 mmol/L (3.5-5.1)
[2021-11-29 11:50] LABS: Glucose Point of Care 96 mg/dL (70-110)
[2021-11-29] MEDS: HYDROmorphone 1 mg/mL INJ 1 mL IVP (11:59)
[2021-11-29] MEDS: dexamethasone 10 mg/mL INJ 6 MG IVP (12:18)
--- NOTE | 2021-11-29 13:16 | XRR_ITS ---
PROCEDURE INFORMATION: Exam: XR Chest Exam date and time: 11/29/2021 1:16 PM Age: 61 years old Clinical indication: Device placement; Ng tube; Additional info: Ngt placement TECHNIQUE: Imaging protocol: XR of the chest. Views: 1 view. COMPARISON: CT chest con [id number] 02/09/2018 4:38 PM FINDINGS: Tubes, catheters and devices: NG tube terminates in the stomach. Lungs: Hyperinflated, emphysematous changes of the lungs. No consolidation. Pleural spaces: No pleural effusion. No pneumothorax. Heart/Mediastinum: No cardiomegaly. Bones/joints: Rotator cuff anchor noted in the right humeral head. Visualized osseous structures are intact. XR/XR chest 1V portable [id number] IMPRESSION: NG tube terminates in the stomach.
[2021-11-29] MEDS: remdesivir 200 MG in sodium chloride 0.9% (100 ml) 60 ML 100 MG IV (14:12)
[2021-11-29] MEDS: lactulose oral liq 20 gm/30 mL UDC 30 GM PO ×3 (15:06→22:48)
[2021-11-29 15:17] LABS: Glucose Point of Care 114 mg/dL (70-110)
[2021-11-29 15:51] LABS: Influenza A by IFA Negative (Negative); Influenza B by IFA Negative (Negative)
--- NOTE | 2021-11-29 16:40 | PM.PN ---
Subjective Subjective: Interval history: Today morning patient seen with daughter at bedside. Overnight patient continues to remain delirious. Pulling out IV lines, has not been getting any dose of oral medication including lactulose. No bowel movements overnight. Did not get IV fluids overnight. Sodium worsening. Discussed with daughter at bedside that unfortunately not able to block because of patient being agitated. Daughter for now is agreeable for soft restraints so that NG tube can be placed and patient can be given oral lactulose, continuous IV fluids as patient is at high risk of pulling out lines. Vitals/I&O/Wt Last Vital Signs Temp 99.9 F H 11/29/21 15:12 Pulse 92 11/29/21 15:13 Resp 18 11/29/21 15:13 BP 147/75 11/29/21 15:12 Pulse Ox 96 11/29/21 15:13 11/29/21 11/29/21 11/29/21 06:59 14:59 22:59 Intake Total 1050 / 1050 50 / 50 Output Total 350 / 350 Balance 700 / 700 50 / 50 Weight last 48 hrs Weight 54.431 kg Physical Exam Narrative: EXAM NARRATIVE: General: Altered, awake, complaining of abdominal pain, no distress, tremulous HEENT: PERRLA, pupils bilaterally equal and reactive Chest: Normal vesicular breath sounds, no added sounds, equal good air entry bilaterally CVS: S1-S2 regular, no murmurs, no tachycardia, no gallops, no rubs Abdomen: Bowel sounds hyperactive, guarding present Neuro: No focal deficits, no facial deformity, moving all 4 limbs Urinary Catheter Management: Ro: Cath Placed During This Visit: no Reason for Continuing Indwelling Catheter: Accurate Measurement of Urinary Output in Critically Ill Patients Data : 11/29/21 02:45 11/29/21 10:47 Micro: Microbiology 11/28/21 18:10 Bacterial Antigens - Final Urine Kidney 11/28/21 18:10 Legionella Urinary Antigen - Final Urine Catheterized 11/28/21 19:00 Blood Culture - Preliminary Blood SPECIMEN COLLECTED 11/28/21 19:02 Blood Culture - Preliminary Blood SPECIMEN COLLECTED A&P Assessment and plan (1) Acute encephalopathy: Status: Acute (2) COVID-19: Status: Acute (3) Hepatic encephalopathy: Status: Acute (4) Hypernatremia: Status: Acute (5) Diarrhea: Status: Acute (6) Dehydration: Status: Acute (7) Rhabdomyolysis: Status: Acute (8) Benign essential hypertension with target blood pressure below 140/90: Status: Acute (9) Carotid artery stenosis without cerebral infarction: Status: Acute Qualifiers: Laterality: left Qualified Code(s): I65.22 - Occlusion and stenosis of left carotid artery (10) Chronic prescription opiate use: Status: Acute (11) Anxiety and depression: Status: Chronic (12) Hypokalemia: Status: Acute Plan Acute metabolic encephalopathy: Multifactorial including hypernatremia, hepatic encephalopathy with elevated ammonia levels and COVID-19. Cannot safely rule out withdrawal from multiple psych medications including bupropion, Lyrica and oxycodone which she takes 15 mg 6 times a day. NG tube placement. Soft restraints. Agreeable with family. If possible Precedex drip. Otherwise can do Haldol 1 mg IV every 4 hours. Takes 15 mg of oxycodone 6 times a day. For now we will change to Dilaudid 0.5 mg every 2 hourly as needed as per conversion to prevent withdrawal. Lactulose 30 mg every 6 hours till patient at least has 1 good bowel movement a shift. Rifampin 300 mg twice daily Continue with D5 NS with 40 mEq of potassium at 100 cc/h. Check BMP q. 8 hourly. Repeat ammonia levels every morning. Hypokalemia/hypernatremia: Fluid as above. Once NG tube in place can give 40 mEq of potassium chloride liquid 3 doses spaced out over 1 hour. Ro catheterization, strict input output charting. Frequent orientation, fall precaution. Sitter at bedside Infectious cause so far unlikely. Check stool studies for C. difficile. Blood cultures sent. So far negative. Pro-Vin negative. Urine Legionella, bacterial antigen negative. Continue with Zosyn for now. CT abdomen pelvis results appreciated. COVID-19: No requirement of oxygen for now. But as patient is an encephalopathy we will start with treatment. Dexamethasone 6 mg IV daily. Remdesivir to finish a 5-day course. Monitor inflammatory markers. DuoNebs every 6 hour, budesonide twice daily. Rhabdomyolysis: Secondary dehydration: IV fluids as above. If does not improve can check CTA head and neck given history of carotid artery stenosis in past for further evaluation to rule out stroke though unlikely at present. Care discussed in detail with patient's daughter at bedside. transfer patient to [facility] for Precedex drip. Full code. NPO. Famotidine for PUD prophylaxis. Lovenox for DVT prophylaxis. Discussed in detail with patient's family at bedside and her daughter Tigist separately. Discussed etiology. All the questions were answered. Attestations Medical Necessity Statement*: Requires further hospitalization for management of acute metabolic encephalopathy secondary to hypernatremia, hepatic encephalopathy, COVID-19, hypokalemia Critical Care Time: The high probability of a clinically significant, sudden or life threatening deterioration of the patient's neurological, GI, multiple discussions with family system(s) required my full and direct attention, intervention and personal management. The critical care time is as shown. 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
[2021-11-29] MEDS: ferrous gluconate 324 mg Tablet PO (17:19)
[2021-11-29] MEDS: metoprolol tartrate 25 mg Tablet PO (17:24)
[2021-11-29] MEDS: rifAMPin 300 mg Capsule PO (17:42)
[2021-11-29 18:26] LABS: Anion Gap 14.7 (5-19); Blood Urea Nitrogen 11 mg/dL (6-20); Calcium 7.7 mg/dL (8.5-10.5); Carbon Dioxide 19 mmol/L (22-29); Chloride 120 mmol/L (98-107); Glomerular Filtration Rate 227.7 mL/min (90-130); Glucose 154 mg/dL (65-115); Lactate Dehydrogenase 510 U/L (135-214); Osmolality Calculated 314 mOsm/kg (285-295); Sodium 151 mmol/L (136-145)
[2021-11-29 18:29] LABS: Potassium 2.7 mmol/L (3.5-5.1)
[2021-11-29] MEDS: potassium chloride oral liq 20 mEq/15 mL UDC 40 MEQ PO ×2 (18:33→19:15)
--- NOTE | 2021-11-29 20:30 | PC.NURSE ---
11/29/212029, Dr. Thomas paged for danny red blood in NGT and issues with bradycardia with precedex. Physician notified of severe AMS. Orders received to hold lovenox, repeat labs, ativan IVP PRN, and geodon
--- NOTE | 2021-11-29 20:38 | PC.NURSE ---
report given to Layla and patient taken down via bed with daughter and PSA
[2021-11-29] MEDS: ziprasidone 20 mg/mL SDV IM (20:45)
[2021-11-29 21:46] LABS: Basophils % 0.1 %; Hematocrit 43.7 % (37.0-47.0); Hemoglobin 14.4 g/dL (11.5-15.3); Lymphocytes # 0.8 10^3/uL (0.8-4.8); Lymphocytes % 8.4 %; Mean Corpuscular Hemoglobin 29.1 pg (28.0-34.0); Mean Corpuscular Volume 88.3 fl (81-99); Mean Platelet Volume 10.1 fL (7.4-10.4); Monocytes # 0.9 10^3/uL (0.2-0.9); Monocytes % 8.9 %; Neutrophils # 8.09 10^3/uL (1.8-7.7); Neutrophils % 82.2 %; Nucleated Red Blood Cells % 0 %; Platelet Count 310 10^3/cmm (130-400); Red Blood Count 4.95 10^6/uL (4.1-5.3); Red Cell Distribution Width 14.4 % (12.1-15.1); White Blood Count 9.9 10^3/uL (4.0-10.0)
[2021-11-29 22:08] LABS: Alanine Aminotransferase 30 U/L (0-33); Albumin Level 3.6 g/dL (3.5-5.2); Alkaline Phosphatase 103 IU/L (35-105); Aspartate Amino Transferase 66 U/L (0-32); Blood Urea Nitrogen 10 mg/dL (6-20); Calcium 7.9 mg/dL (8.5-10.5); Carbon Dioxide 18 mmol/L (22-29); Chloride 123 mmol/L (98-107); Globulin 2.2 g/dL (1.3-4.6); Glomerular Filtration Rate 227.7 mL/min (90-130); Glucose 95 mg/dL (65-115); Osmolality Calculated 313 mOsm/kg (285-295); Sodium 152 mmol/L (136-145); Total Bilirubin 0.5 mg/dL (0.15-1.2); Total Protein 5.8 g/dL (6.6-8.7)
[2021-11-29] MEDS: dextrose 5%-ns + KCl 20 20 MEQ/1,000 ML BAG 100 MEQ IV (22:48)
[2021-11-29] MEDS: LORazepam 2 mg/mL INJ 1 mL 1 MG IVP (22:57)
[2021-11-30] VITALS (91 sets, daily range): BP systolic 112–174; BP diastolic 61–104; PULSE 43–72; RESP 16–39; TEMP 36.4–37.9; O2SAT 89–100
[2021-11-30 00:13] LABS: Glucose Point of Care 74 mg/dL (70-110)
[2021-11-30 03:58] LABS: Hematocrit 45.8 % (37.0-47.0); Lymphocytes % 9.5 %; Mean Corpuscular HGB Conc 32.8 g/dL (30.0-36.0); Mean Corpuscular Hemoglobin 29.3 pg (28.0-34.0); Mean Corpuscular Volume 89.5 fl (81-99); Mean Platelet Volume 10.2 fL (7.4-10.4); Monocytes # 1.2 10^3/uL (0.2-0.9); Monocytes % 11.7 %; Neutrophils # 7.81 10^3/uL (1.8-7.7); Neutrophils % 78.3 %; Nucleated Red Blood Cells % 0 %; Platelet Count 320 10^3/cmm (130-400); Red Blood Count 5.12 10^6/uL (4.1-5.3); Red Cell Distribution Width 14.6 % (12.1-15.1)
[2021-11-30 04:07] LABS: Anion Gap 13.3 (5-19); Blood Urea Nitrogen 10 mg/dL (6-20); Calcium 7.7 mg/dL (8.5-10.5); Carbon Dioxide 21 mmol/L (22-29); Chloride 126 mmol/L (98-107); Creatinine Clr Calc Pharmacy 104.0993; Glomerular Filtration Rate 126.3 mL/min (90-130); Glucose 111 mg/dL (65-115); Osmolality Calculated 324 mOsm/kg (285-295); Potassium 3.3 mmol/L (3.5-5.1); Sodium 157 mmol/L (136-145)
[2021-11-30 04:08] LABS: Ammonia 33 umol/L (11-51)
[2021-11-30 04:19] LABS: Procalcitonin 0.04 ng/mL (0-0.5)
[2021-11-30 04:31] LABS: Magnesium 2.7 mg/dL (1.7-2.3); Phosphorus 1.4 mg/dL (2.5-4.5)
[2021-11-30] MEDS: piperacillin-tazobactam 3.375 GM in sodium chloride 0.9% (plus) 50 ML IV ×3 (04:47→20:43)
[2021-11-30 04:49] LABS: Creatine Phosphokinase 798 U/L (26-192)
[2021-11-30 06:47] LABS: D Dimer 0.83 ug/mIFEU (0-0.59)
[2021-11-30] MEDS: ipratropium-albuterol 3 mL Neb INHALATION ×2 (08:58→20:17)
[2021-11-30] MEDS: budesonide 0.5 mg/2 mL Neb INHALATION ×2 (08:58→20:17)
[2021-11-30] MEDS: dextrose 5% + KCl 20 mEq 20 MEQ/1,000 ML BAG 125 MEQ IV ×2 (10:03→20:44)
[2021-11-30] MEDS: pregabalin 150 mg Capsule 300 MG PO ×2 (10:03→17:59)
[2021-11-30] MEDS: rifAMPin 300 mg Capsule PO ×2 (10:03→17:59)
[2021-11-30] MEDS: aspirin 81 mg EC Tablet PO (10:03)
[2021-11-30] MEDS: ferrous gluconate 324 mg Tablet PO ×2 (10:04→17:59)
[2021-11-30] MEDS: metoprolol tartrate 25 mg Tablet PO (10:04)
[2021-11-30] MEDS: pantoprazole 40 mg SDV IVP ×2 (10:05→20:43)
[2021-11-30 10:44] LABS: Blood Urea Nitrogen 9 mg/dL (6-20); Calcium 7.2 mg/dL (8.5-10.5); Carbon Dioxide 19 mmol/L (22-29); Chloride 127 mmol/L (98-107); Glomerular Filtration Rate 163.4 mL/min (90-130); Glucose 150 mg/dL (65-115); Osmolality Calculated 326 mOsm/kg (285-295); Sodium 157 mmol/L (136-145)
[2021-11-30 10:48] LABS: Free T4 Free Thyroxine 1.29 ng/dL (0.82-1.77); T3 Free 1.7 PG/ML (2.0-4.4)
[2021-11-30 10:49] LABS: Glucose Point of Care 109 mg/dL (70-110)
[2021-11-30 10:49] LABS: Anion Gap 14.5 (5-19); Potassium 3.5 mmol/L (3.5-5.1)
[2021-11-30 12:23] LABS: Glucose Point of Care 112 mg/dL (70-110)
[2021-11-30] MEDS: dexamethasone 10 mg/mL INJ 6 MG IVP (12:46)
--- NOTE | 2021-11-30 13:54 | PM.PN ---
Subjective Subjective: Interval history: Overnight patient was transferred to ICU for Precedex drip. She was given Geodon. She has remained on D5 NS with 20 mg of potassium at 100 cc/h. She is currently on Precedex of 0.2 with heart rate in low 60s to high 50s. Because of bradycardia Precedex was stopped. Patient is less fidgety, more calm today. Sleeping. Wakes up to physical touch. NG tube in place. Has remained hemodynamically stable and afebrile. On 5 L Oxymizer saturating 99%. Turned down to 3 L continues to maintain at 94%. Vitals/I&O/Wt Last Vital Signs Temp 97.6 F 11/30/21 04:05 Pulse 60 11/30/21 09:03 Resp 20 H 11/30/21 08:58 BP 150/88 11/30/21 04:35 Pulse Ox 100 11/30/21 08:58 11/29/21 11/30/21 11/30/21 22:59 06:59 14:59 Intake Total 1150 / 1200 50 / 50 Output Total 450 / 450 Balance 700 / 750 50 / 50 Weight last 48 hrs Weight 54.431 kg Weight 54.431 kg Physical Exam Narrative: EXAM NARRATIVE: General: Sleeping, wakes up to physical stimulus, tremulous HEENT: PERRLA, pupils bilaterally equal and reactive Chest: Normal vesicular breath sounds, no added sounds, equal good air entry bilaterally CVS: S1-S2 regular, no murmurs, no tachycardia, no gallops, no rubs Abdomen: Bowel sounds hyperactive, guarding present Neuro: No focal deficits, no facial deformity, moving all 4 limbs Urinary Catheter Management: Ro: Cath Placed During This Visit: no Reason for Continuing Indwelling Catheter: Accurate Measurement of Urinary Output in Critically Ill Patients Data : 11/30/21 02:50 11/30/21 10:00 Micro: Microbiology 11/28/21 19:00 Blood Culture - Preliminary Blood NEGATIVE TO DATE 11/28/21 19:02 Blood Culture - Preliminary Blood NEGATIVE TO DATE 11/28/21 18:10 Bacterial Antigens - Final Urine Kidney 11/28/21 18:10 Legionella Urinary Antigen - Final Urine Catheterized A&P Assessment and plan (1) Acute encephalopathy: Status: Acute (2) COVID-19: Status: Acute (3) Hepatic encephalopathy: Status: Acute (4) Hypernatremia: Status: Acute (5) Diarrhea: Status: Acute (6) Dehydration: Status: Acute (7) Rhabdomyolysis: Status: Acute (8) Benign essential hypertension with target blood pressure below 140/90: Status: Acute (9) Carotid artery stenosis without cerebral infarction: Status: Acute Qualifiers: Laterality: left Qualified Code(s): I65.22 - Occlusion and stenosis of left carotid artery (10) Chronic prescription opiate use: Status: Acute (11) Anxiety and depression: Status: Chronic (12) Hypokalemia: Status: Acute Plan Acute metabolic encephalopathy: Multifactorial including hypernatremia, hepatic encephalopathy with elevated ammonia levels and COVID-19. Cannot safely rule out withdrawal from multiple psych medications including bupropion, Lyrica and oxycodone which she takes 15 mg 6 times a day. Continue with Haldol 1 mg every 4 hours as needed, Dilaudid 0.5 every 2 hours as needed and Dilaudid 0.5 every 4 hours to avoid withdrawal as patient takes 15 mg of oxycodone 6 times a day which she supposed to take on as-needed basis. Hepatic encephalopathy/ammonia levels back to normal level. Change lactulose to twice daily to be given through NG tube Target 1 soft bowl bowel movement per shift. For hypernatremia switch fluid to D5W with 20 mg of potassium at 125 cc/h. Start on free water flush to 50 cc every 4 hours. Check BMP at 3 PM and then every 8 hours. Repeat ammonia levels every morning. Hypokalemia has resolved. Ro catheterization, strict input output charting. Frequent orientation, fall precaution. Sitter at bedside Infectious cause so far unlikely. Check stool studies for C. difficile. Blood cultures sent. So far negative. Pro-Vin negative. Urine Legionella, bacterial antigen negative. Continue with Zosyn for now. CT abdomen pelvis results appreciated. COVID-19: Dexamethasone 6 mg IV daily. Remdesivir to finish a 5-day course. Monitor inflammatory markers. DuoNebs every 12 hour, budesonide twice daily. Rhabdomyolysis: Secondary dehydration: IV fluids as above. If does not improve can check CTA head and neck given history of carotid artery stenosis in past for further evaluation to rule out stroke though unlikely at present. Full code. NPO. Protonix for PUD prophylaxis. Lovenox for DVT prophylaxis. Discussed in detail with patient's family at bedside and her daughter Tigist sheehan. Discussed etiology. All the questions were answered. Attestations Medical Necessity Statement*: Requires further hospitalization for management of acute metabolic encephalopathy secondary to hypernatremia, COVID-19, hepatic encephalopathy, possible drug withdrawal Critical Care Time: The high probability of a clinically significant, sudden or life threatening deterioration of the patient's [Renal, GI, neurological system(s) required my full and direct attention, intervention and personal management. The critical care time is as shown. 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
[2021-11-30] MEDS: HYDROmorphone 1 mg/mL INJ 1 mL 0.5 MG IVP ×3 (15:07→22:14)
[2021-11-30] MEDS: dextrose 5%-ns + KCl 20 20 MEQ/1,000 ML BAG 100 MEQ IV (15:11)
[2021-11-30 15:21] LABS: Glucose Point of Care 137 mg/dL (70-110)
[2021-11-30 18:02] LABS: Alanine Aminotransferase 29 U/L (0-33); Albumin Level 3.2 g/dL (3.5-5.2); Alkaline Phosphatase 91 IU/L (35-105); Anion Gap 17.3 (5-19); Aspartate Amino Transferase 58 U/L (0-32); Blood Urea Nitrogen 10 mg/dL (6-20); Calcium 7.6 mg/dL (8.5-10.5); Carbon Dioxide 20 mmol/L (22-29); Chloride 118 mmol/L (98-107); Glomerular Filtration Rate 163.4 mL/min (90-130); Glucose 150 mg/dL (65-115); Osmolality Calculated 316 mOsm/kg (285-295); Potassium 3.3 mmol/L (3.5-5.1); Sodium 152 mmol/L (136-145); Total Bilirubin 0.7 mg/dL (0.15-1.2); Total Protein 5.2 g/dL (6.6-8.7)
[2021-11-30] MEDS: remdesivir 100 MG in sodium chloride 0.9% (100 ml) 80 ML IV (18:20)
[2021-11-30] MEDS: lactulose oral liq 20 gm/30 mL UDC 30 GM PO (18:20)
--- NOTE | 2021-11-30 20:14 | PC.NURSE ---
Shift Note: Pt remained in bed throughout shift. She only responded to her name twice earlier in the shift. She is less restless at end of shift the Dilaudid and Lyrica seem to be helping her comfort level. She has been bradycardic throughout shift. respirations even and unlabored but wheezing audible at bedside at times. called for updat, so did Colleen her daughter. Urine is orange, 450ml this shift. No Bm this shift Frequent safety and comfort rounds continue. Orders and/or nursing care completed as indicated. Patient monitored for response to intervention and treatment(s). Education provided includes Lyrica, Encephalopathy and plan of care. Patient's family verbalized understanding of plan of care, medications and condition. Will continue to monitor.
[2021-11-30 21:08] LABS: Glucose Point of Care 97 mg/dL (70-110)
[2021-11-30 23:26] LABS: Glucose Point of Care 106 mg/dL (70-110)
[2021-12-01] VITALS (53 sets, daily range): BP systolic 123–183; BP diastolic 67–113; PULSE 53–102; RESP 16–41; TEMP 36.7–37.3; O2SAT 88–97; BMI 25.0
[2021-12-01] MEDS: HYDROmorphone 1 mg/mL INJ 1 mL 0.5 MG IVP ×6 (01:52→19:53)
[2021-12-01 02:46] LABS: Basophils % 0.1 %; Hematocrit 44.9 % (37.0-47.0); Mean Corpuscular HGB Conc 31.2 g/dL (30.0-36.0); Mean Platelet Volume 10.4 fL (7.4-10.4); Monocytes # 1.2 10^3/uL (0.2-0.9); Monocytes % 7.3 %; Neutrophils # 13.18 10^3/uL (1.8-7.7); Neutrophils % 80.3 %; Nucleated Red Blood Cells % 0 %; Platelet Count 245 10^3/cmm (130-400); Red Blood Count 4.83 10^6/uL (4.1-5.3); White Blood Count 16.4 10^3/uL (4.0-10.0)
[2021-12-01 04:46] LABS: Ammonia 103 umol/L (11-51)
[2021-12-01 04:56] LABS: Anion Gap 14.3 (5-19); Blood Urea Nitrogen 10 mg/dL (6-20); Carbon Dioxide 20 mmol/L (22-29); Chloride 114 mmol/L (98-107); Glomerular Filtration Rate 227.7 mL/min (90-130); Glucose 102 mg/dL (65-115); Osmolality Calculated 299 mOsm/kg (285-295); Potassium 3.3 mmol/L (3.5-5.1); Sodium 145 mmol/L (136-145)
[2021-12-01 05:03] LABS: Creatine Phosphokinase 709 U/L (26-192)
[2021-12-01] MEDS: lactulose oral liq 20 gm/30 mL UDC 30 GM PO ×3 (05:40→15:36)
[2021-12-01] MEDS: piperacillin-tazobactam 3.375 GM in sodium chloride 0.9% (plus) 50 ML IV ×3 (05:40→19:54)
[2021-12-01] MEDS: aspirin 81 mg EC Tablet PO (08:51)
[2021-12-01] MEDS: ferrous gluconate 324 mg Tablet PO ×2 (08:51→17:22)
[2021-12-01] MEDS: rifAMPin 300 mg Capsule PO ×2 (08:51→17:22)
[2021-12-01] MEDS: pregabalin 150 mg Capsule 300 MG PO ×2 (08:51→17:22)
[2021-12-01] MEDS: pantoprazole 40 mg SDV IVP (08:52)
[2021-12-01] MEDS: ipratropium-albuterol 3 mL Neb INHALATION ×2 (08:59→20:22)
[2021-12-01] MEDS: budesonide 0.5 mg/2 mL Neb INHALATION ×2 (08:59→20:23)
[2021-12-01 09:10] LABS: Glucose Point of Care 102 mg/dL (70-110)
--- NOTE | 2021-12-01 09:24 | PC.CHAP ---
Pastoral Care Encounter/Spiritual Assessment Type of Contact [] Declined assembler liquid center visit [] Patient/Family/Request visit [] Outpatient visit [] Follow-up visit [] Physician referral [] Code/Alert [x] Routine visit [] Staff referral [] Actively dying [] Patient sleeping [] Family support [] [] Out of room [] Palliative care [] [x] Receiving care in room [] Pre-surgical visit [] Trauma [] Long length of stay [x] ICU visit [] Other: Relational/Emotional Strength [] Patient feels connected with others/family/visitors/staff [] Distress [] Loneliness/isolation [] Abandonment Spirituality of Patient [] Person of Nahed [] Attends Scientology of their Nahed [] Believes in Prayer [] Reads Bible or Cheondoism materials [] There are Spiritual issues to be addressed Shaker Out Interventions [x] Prayer [] Active listening [] Non-anxious presence [] Spiritual/emotional support [] Crisis/trauma care [] Spiritual counseling [] Bereavement support [] Provided bereavement packet [] Provided Bible/devotional materials [] Provided toy/stuffed animal, coloring book to patient or family member [] Provided Communion [] Anointing/[place] [] Salvation [x] Completed spiritual assessment [] Other: Impact on Illness or Injury [] Angry [] Fearful [] Anxious [] Often cries [] Exhaustion [] Unable to work [] Unable to attend congregation [] Unable to walk/stand [] Unable to read [] Unable to drive [] Unable to eat/drink [] Unable to sleep [] Unable to be with family [] Patient intubated [] Other: Summary Time spent with patient
[2021-12-01] MEDS: potassium chloride oral liq 20 mEq/15 mL UDC 40 MEQ PO ×2 (10:49→11:32)
[2021-12-01] MEDS: levothyroxine 25 mcg Tablet PO (10:50)
[2021-12-01] MEDS: dexamethasone 10 mg/mL INJ 6 MG IVP (10:51)
[2021-12-01 11:00] LABS: Anion Gap 14.5 (5-19); Blood Urea Nitrogen 7 mg/dL (6-20); Calcium 7.1 mg/dL (8.5-10.5); Carbon Dioxide 24 mmol/L (22-29); Chloride 106 mmol/L (98-107); Glomerular Filtration Rate 363.6 mL/min (90-130); Glucose 115 mg/dL (65-115); Magnesium 1.9 mg/dL (1.7-2.3); Osmolality Calculated 291 mOsm/kg (285-295); Phosphorus 1.7 mg/dL (2.5-4.5); Potassium 3.5 mmol/L (3.5-5.1); Sodium 141 mmol/L (136-145)
[2021-12-01 11:13] LABS: Glucose Point of Care 80 mg/dL (70-110)
[2021-12-01] MEDS: dextrose 5% + KCl 20 mEq 20 MEQ/1,000 ML BAG 125 MEQ IV (15:33)
[2021-12-01 15:46] LABS: Glucose Point of Care 104 mg/dL (70-110)
--- NOTE | 2021-12-01 15:57 | PM.PN ---
Subjective Subjective: Interval history: No acute events overnight. Seen with RN at bedside. Sitter at bedside. Had 2 bowel movements today morning. Less agitated. Has not required Precedex. Last Haldol and Ativan given on 11/29. Still altered. Vitals/I&O/Wt Last Vital Signs Temp 99.1 F 12/01/21 04:00 Pulse 74 12/01/21 13:41 Resp 17 12/01/21 12:00 BP 140/82 12/01/21 12:00 Pulse Ox 93 12/01/21 12:00 12/01/21 12/01/21 12/01/21 06:59 14:59 22:59 Intake Total 150.000 / 3105.000 1050 / 1050 50 / 1100 Output Total 225 / 875 Balance -75.000 / 2230.000 1050 / 1050 50 / 1100 Weight last 48 hrs Weight 54.431 kg Weight 54.431 kg Physical Exam Narrative: EXAM NARRATIVE: General: Sleeping, wakes up to physical stimulus, tremulous HEENT: PERRLA, pupils bilaterally equal and reactive Chest: Normal vesicular breath sounds, no added sounds, equal good air entry bilaterally CVS: S1-S2 regular, no murmurs, no tachycardia, no gallops, no rubs Abdomen: Bowel sounds hyperactive, guarding present Neuro: No focal deficits, no facial deformity, moving all 4 limbs Urinary Catheter Management: Ro: Cath Placed During This Visit: no Reason for Continuing Indwelling Catheter: Accurate Measurement of Urinary Output in Critically Ill Patients Data : 12/01/21 02:34 12/01/21 10:05 A&P Assessment and plan (1) Acute encephalopathy: Status: Acute (2) COVID-19: Status: Acute (3) Hepatic encephalopathy: Status: Acute (4) Hypernatremia: Status: Acute (5) Diarrhea: Status: Acute (6) Dehydration: Status: Acute (7) Rhabdomyolysis: Status: Acute (8) Benign essential hypertension with target blood pressure below 140/90: Status: Acute (9) Carotid artery stenosis without cerebral infarction: Status: Acute Qualifiers: Laterality: left Qualified Code(s): I65.22 - Occlusion and stenosis of left carotid artery (10) Chronic prescription opiate use: Status: Acute (11) Anxiety and depression: Status: Chronic (12) Hypokalemia: Status: Acute Plan Acute metabolic encephalopathy: Multifactorial including hypernatremia, hepatic encephalopathy with elevated ammonia levels and COVID-19. Cannot safely rule out withdrawal from multiple psych medications including bupropion, Lyrica and oxycodone which she takes 15 mg 6 times a day. History of 12 pack beer weekly intact. As per daughter is not a current alcohol drinker. Continue with Haldol 1 mg every 4 hours as needed, Dilaudid 0.5 every 2 hours as needed and Dilaudid 0.5 every 4 hours to avoid withdrawal as patient takes 15 mg of oxycodone 6 times a day which she supposed to take on as-needed basis. Hepatic encephalopathy/ammonia elevated again today to 103. Lactulose 30 every 6 hourly. If needed can do rectal tube. For hypernatremia: Resolving. Continue with D5W with 20 mg of potassium at 125 cc/h and free water flush to 50 cc every 4 hours. Check BMP at 3 PM and then every 8 hours. Repeat ammonia levels every morning. Hypokalemia has resolved. Ro catheterization, strict input output charting. Frequent orientation, fall precaution. Sitter at bedside Infectious cause so far unlikely. Check stool studies for C. difficile. Blood cultures sent. So far negative. Pro-Vin negative. Urine Legionella, bacterial antigen negative. Continue with Zosyn for now. CT abdomen pelvis results appreciated. COVID-19: Dexamethasone 6 mg IV daily. Remdesivir to finish a 5-day course. Monitor inflammatory markers. DuoNebs every 12 hour, budesonide twice daily. Rhabdomyolysis: Secondary dehydration: IV fluids as above. If does not improve can check CTA head and neck given history of carotid artery stenosis in past for further evaluation to rule out stroke though unlikely at present. Full code. NPO. Protonix for PUD prophylaxis. Lovenox for DVT prophylaxis. Patient's daughter Ms. Escoto has been updated in detail. We also discussed that DPOA would be her in case any medical decisions needed to be made. They verbalized understanding. All the questions were answered. Attestations Medical Necessity Statement*: Requires further hospitalization for management of acute metabolic encephalopathy in setting of COVID-19, hypernatremia, hepatic encephalopathy Critical Care Time: The high probability of a clinically significant, sudden or life threatening deterioration of the patient's [renal, GI system(s) required my full and direct attention, intervention and personal management. The critical care time is as shown. 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
[2021-12-01] MEDS: remdesivir 100 MG in sodium chloride 0.9% (100 ml) 80 ML IV (17:23)
[2021-12-01 17:32] LABS: Glucose Point of Care 127 mg/dL (70-110)
[2021-12-01 17:49] LABS: Gamma Glutamyl Transferase 26 U/L (5-36)
[2021-12-01] MEDS: enoxaparin 40 mg/0.4 mL Syringe SUBCUT (19:54)
[2021-12-01 21:31] LABS: Anion Gap 13.3 (5-19); Blood Urea Nitrogen 4 mg/dL (6-20); Calcium 7.1 mg/dL (8.5-10.5); Carbon Dioxide 22 mmol/L (22-29); Chloride 107 mmol/L (98-107); Glomerular Filtration Rate 227.7 mL/min (90-130); Glucose 96 mg/dL (65-115); Osmolality Calculated 285 mOsm/kg (285-295); Potassium 3.3 mmol/L (3.5-5.1); Sodium 139 mmol/L (136-145)
[2021-12-01 21:46] LABS: HIV 1 & 2 Antibody Non-Reactive (Non-Reactiv); HIV 1 & 2 Antigen Non-Reactive (Non-Reactiv)
[2021-12-01 21:48] LABS: Hepatitis A Antibody IgM Non-Reactive (Nonreactive); Hepatitis B Core AB, Total Non-Reactive (Nonreactive); Hepatitis B Surface AB 7.8 (11.5-1000); Hepatitis B Surface Antigen Non-Reactive (Nonreactive); Hepatitis C Virus Antibody Non-Reactive (Nonreactive)
[2021-12-02] VITALS (56 sets, daily range): BP systolic 89–189; BP diastolic 53–123; PULSE 73–141; RESP 17–37; TEMP 36.9–37.2; O2SAT 83–100
[2021-12-02] MEDS: HYDROmorphone 1 mg/mL INJ 1 mL 0.5 MG IVP ×8 (00:30→21:55)
[2021-12-02] MEDS: lactulose oral liq 20 gm/30 mL UDC 30 GM PO ×5 (02:06→21:56)
[2021-12-02] MEDS: pantoprazole 40 mg SDV IVP ×2 (02:06→21:55)
[2021-12-02] MEDS: dextrose 5% + KCl 20 mEq 20 MEQ/1,000 ML BAG 125 MEQ IV ×2 (02:07→08:32)
[2021-12-02 03:38] LABS: Basophils % 0.1 %; Eosinophils % 0.1 %; Hematocrit 47.7 % (37.0-47.0); Lymphocytes % 13.9 %; Mean Corpuscular HGB Conc 33.5 g/dL (30.0-36.0); Mean Corpuscular Hemoglobin 28.9 pg (28.0-34.0); Mean Corpuscular Volume 86.1 fl (81-99); Mean Platelet Volume 10.3 fL (7.4-10.4); Monocytes % 7.3 %; Neutrophils # 10.92 10^3/uL (1.8-7.7); Neutrophils % 78.1 %; Nucleated Red Blood Cells % 0 %; Platelet Count 282 10^3/cmm (130-400); Red Blood Count 5.54 10^6/uL (4.1-5.3); Red Cell Distribution Width 13.9 % (12.1-15.1)
[2021-12-02 03:52] LABS: INR 1.64 (0.8-1.2)
[2021-12-02 04:01] LABS: Ammonia 61 umol/L (11-51)
[2021-12-02 04:04] LABS: Alanine Aminotransferase 34 U/L (0-33); Albumin Level 3.1 g/dL (3.5-5.2); Alkaline Phosphatase 117 IU/L (35-105); Anion Gap 16.2 (5-19); Aspartate Amino Transferase 55 U/L (0-32); Blood Urea Nitrogen 3 mg/dL (6-20); Calcium 8.2 mg/dL (8.5-10.5); Carbon Dioxide 20 mmol/L (22-29); Chloride 104 mmol/L (98-107); Globulin 2.6 g/dL (1.3-4.6); Glomerular Filtration Rate 227.7 mL/min (90-130); Glucose 97 mg/dL (65-115); Magnesium 1.7 mg/dL (1.7-2.3); Osmolality Calculated 280 mOsm/kg (285-295); Phosphorus 1.8 mg/dL (2.5-4.5); Potassium 3.2 mmol/L (3.5-5.1); Sodium 137 mmol/L (136-145); Total Protein 5.7 g/dL (6.6-8.7)
[2021-12-02] MEDS: piperacillin-tazobactam 3.375 GM in sodium chloride 0.9% (plus) 50 ML IV ×3 (04:25→19:47)
[2021-12-02] MEDS: levothyroxine 25 mcg Tablet PO (04:26)
[2021-12-02 07:53] LABS: Glucose Point of Care 142 mg/dL (70-110)
[2021-12-02] MEDS: pregabalin 150 mg Capsule 300 MG PO ×2 (08:06→18:17)
[2021-12-02] MEDS: aspirin 81 mg EC Tablet PO (08:06)
[2021-12-02] MEDS: ferrous gluconate 324 mg Tablet PO ×2 (08:06→18:17)
[2021-12-02] MEDS: budesonide 0.5 mg/2 mL Neb INHALATION ×2 (08:20→20:05)
[2021-12-02] MEDS: ipratropium-albuterol 3 mL Neb INHALATION ×2 (08:20→20:05)
[2021-12-02] MEDS: rifAMPin 300 mg Capsule PO (08:32)
[2021-12-02] MEDS: insulin lispro 100 unit/1 mL SUBCUT ×2 (08:33→16:45)
[2021-12-02 11:00] LABS: Glucose Point of Care 109 mg/dL (70-110)
[2021-12-02] MEDS: dexamethasone 10 mg/mL INJ 6 MG IVP (12:35)
--- NOTE | 2021-12-02 13:07 | USCV_ITS ---
Kaela Sanchez Age: 61 Gender: F : 1960 Exam Date: 12/02/2021 14:20 Ordering Phys: Damian Thomas MD Technologist: Ann Rios Exam Location: [facility] – [place]_ Indication: AMS Risk Factors: Previous Vascular Surgery: Right Brachial BP: / Left Brachial BP: / Right Left Velocity (cm/s) Spectral Plaque Velocity (cm/s) Spectral Plaque Syst/Diast Broadening Syst/Diast Broadening 83.50/ 18.40 Prox CCA 90.90 / 17.10 73.50/ 22.20 Mid CCA 67.10 / 17.50 67.50/ 18.80 Distal CCA 67.10 / 21.30 61.50/ 17.10 Prox ICA 37.40 / 14.20 44.00/ 12.20 Mid ICA 47.80 / 16.80 56.20/ 19.00 Distal ICA 54.90 / 21.30 61.50 ECA 43.90 0.74 ICA/CCA 0.60 Antegrade Vertebral Antegrade 35.00/ 12.40 cm/s 34.20/ 9.30 cm/s Tri Subclavian Bi 67.60 83.10 FINDINGS Comparison:. 08/11/21. No significant elevation of systolic or diastolic velocities. Waveforms are normal. Minimal bilateral, intimal thickening and plaque with no elevation of velocity. Antegrade vertebral arteries. CONCLUSIONS No change seen from prior study. Bilateral ICA stenosis less than 50%. Dr. Jessica Willoughby DO (Electronically Signed) Final Date: 02 December 2021 15:45 S
--- NOTE | 2021-12-02 13:17 | USCV_ITS ---
Kaela Sanchez Age: 61 Gender: F : 1960 Exam Date: 12/02/2021 13:46 Ordering Phys: Damian Thomas MD Technologist: SHAD [place] [facility] [place]ication: AMS BP: 147 / 100 HR: 119 Rhythm: Sinus Technical Quality: Technically difficult study MEASUREMENTS (Male / Female) Normal Values 2D ECHO LV Diastolic Diameter PLAX 3.2 cm 4.2 - 5.9 / 3.9 - 5.3 cm LV Systolic Diameter PLAX 2.1 cm IVS Diastolic Thickness 1.7 cm 0.6 - 1.0 / 0.6 - 0.9 cm IVS Systolic Thickness 2.0 cm LVPW Diastolic Thickness 1.3 cm 0.6 - 1.0 / 0.6 - 0.9 cm LVPW Systolic Thickness 1.8 cm LVOT Diameter 2.0 cm LV Ejection Fraction 2D Teich 64.7 % LV Ejection Fraction MOD 2C 54.4 % LV Ejection Fraction 2C AL 54.4 % LA Diameter 2.7 cm LA Width 2.6 cm LA Height 3.1 cm RA Width 2.0 cm RA Height 3.4 cm Aorta at Sinotubular Diameter 2.4 cm M-MODE Aortic Annulus Diameter 2.7 cm LA Ao Ratio MM 1.1 DOPPLER AV Peak Velocity 92.0 cm/s LVOT Peak Velocity 80.0 cm/s AV Area Cont Eq vti 3.3 cm squared AV Area Cont Eq pk 2.8 cm squared MV Area PHT 5.0 cm squared Mitral E to A Ratio 0.8 MV E' Velocity 44.0 cm/s TR Peak Velocity 229.0 cm/s TR Peak Gradient 21.0 mmHg TR Mean Velocity 165.7 cm/s TR Mean Gradient 11.5 mmHg TR Velocity Time Integral 38.0 cm TV Peak E Velocity 46.0 cm/s Right Atrial Pressure 3.0 mmHg Pulmonary Artery Systolic Pressu 24.0 mmHg PV Peak Velocity 82.0 cm/s RV Acceleration Time 0.0 s RV Ejection Time 0.2 s RV AcT/ET 0.1 FINDINGS Left Ventricle Technically difficult study because of poor ultrasonic windows. Grossly LV systolic function is normal. Diastolic function is indeterminate because of tachycardia. Right Ventricle Grossly normal in size and function Right Atrium Grossly normal Left Atrium Grossly normal Mitral Valve Not well-visualized Aortic Valve Not well-visualized Tricuspid Valve Not well visualized Pulmonic Valve Not well-visualized Pericardium Normal pericardium without effusion. Aorta Normal ascending aorta dimension. CONCLUSIONS This is technically limited quality echocardiogram because of poor ultrasonic windows. Grossly LV systolic function is normal. Diastolic function is indeterminate because of tachycardia. Valvular structures are not well-visualized. Comparison with prior echocardiogram is not possible because of limited quality images. Morro Mota MD (Electronically Signed) Final Date: 03 December 2021 11:44 S
--- NOTE | 2021-12-02 13:17 | US_ITS ---
WS: [id number] ULTRASOUND ABDOMEN LIMITED CLINICAL INFORMATION: hepatic encepa COMPARISON: CT November 28, 2021 FINDINGS: Technically difficult examination due to bowel gas and patient motion due to pain Liver Size: Normal. Craniocaudal length: 13.2 cm. Echogenicity: Fatty infiltration Surface nodularity: None. Mass (size and location): None. Bile ducts Intrahepatic ducts: Normal. Common bile duct diameter: 0.6 cm. Gallbladder Normal. Gallstones: None. Gallbladder sludge: None. Gallbladder wall thickening: None. Pericholecystic fluid: None. Sonographic Aly sign: Absent. Pancreas Normal as visualized. Right kidney: Normal. Hydronephrosis: None. Size: 11.2 cm x 5.0 cm x 4.1 cm. Abdominal aorta and IVC Visualized portions are normal. Ascites: None. US/US liver [id number] IMPRESSION: Technically difficult examination due to bowel gas and patient braulio on due to pain. 1. Diffuse fatty infiltration of the liver. 2. Normal gallbladder. 3. Normal common bile duct measuring 5.9 mm. 4. No hydronephrosis in right kidney. 5. No ascites.
--- NOTE | 2021-12-02 13:21 | ECG_ITS ---
[facility] Test Date: 2021-12-02 Pat Name: Kaela Sanchez Department: Room: ICU12 Gender: Female Primary Care Md: : 1960 Requested By: Damian Thomas Order Number: [id number] Michael MD: Ana Nugent M.D. Measurements Intervals [place] Rate: 117 P: 62 [place]: 125 QRS: 5 QRSD: 67 T: 52 QT: 303 QTc: 423 Interpretive Statements SINUS TACHYCARDIA MODERATE ST DEPRESSION [0.05+ mV ST DEPRESSION] Compared to ECG 11/29/2021 21:58:13 ST (T wave) deviation now present Sinus bradycardia no longer present T-wave abnormality no longer present Electronically Signed On 12-02-2021 17:08:05 STEAMBOAT INSPECTOR by Ana Nugent M.D. [id number]
--- NOTE | 2021-12-02 14:05 | PM.PN ---
Subjective Subjective: Interval history: Patient was seen early this morning, currently is on oxygen mask, is on Precedex, NG tube in place, she had episodes of agitation overnight, pulling at her lines, this morning she is alert to person, not to place, not to time, she does not follow commands, when asked what is going on with her if she is in pain, she looks at them he does not really respond, she is moaning, she is trying to verbalize something, but I cannot make it out, she is spontaneous movement upper and lower extremities, no facial droop, no slurring of her words, has a rectal tube in place, Vitals/I&O/Wt Last Vital Signs Temp 98.6 F 12/02/21 07:30 Pulse 125 H 12/02/21 09:00 Resp 20 H 12/02/21 09:36 BP 147/100 12/02/21 09:00 Pulse Ox 94 12/02/21 09:00 12/01/21 12/02/21 12/02/21 22:59 06:59 14:59 Intake Total 400 / 1950 1050 / 3000 852.083 / 852.083 Output Total 1300 / 1300 800 / 2100 Balance -900 / 650 250 / 900 852.083 / 852.083 Weight last 48 hrs Weight 53.977 kg Weight 54.431 kg Physical Exam Const: COMMON NORMALS: no acute distress EXAM LIMITATIONS: altered mental status and behavioral limitations ORIENTATION/CONSCIOUSNESS: Yes awake, Yes oriented to person and Yes confused; not oriented to place and not oriented to time HENMT: COMMON NORMALS: normocephalic HEAD & SCALP: normocephalic Eye: COMMON NORMALS: Equal, round and reactive pupils present PUPIL: Yes Equal, round and reactive pupils present Resp: COMMON NORMALS: normal respiratory effort, No retractions, No use of accessory muscles and clear to auscultation bilaterally AUSCULTATION: clear to auscultation bilaterally Cardio: COMMON NORMALS: regular rate, regular rhythm, S1 normal heart sound present and S2 normal heart sound present RATE: regular rate RHYTHM: regular rhythm HEART SOUNDS: S1 normal heart sound present and S2 normal heart sound present GI: COMMON NORMALS: Normal to inspection, nondistended, normoactive bowel sounds present, Soft to palpation, non-tender, No hepatosplenomegaly present and no masses PALPATION: Yes Soft to palpation and Yes No hepatosplenomegaly present Extremity: COMMON NORMALS: no pedal edema Neuro: SENSORIUM/ORIENTATION: Yes oriented to person, No oriented to place and No oriented to time OTHER: Does not follow neurologic testing, has spontaneous movement upper lower extremities, good strength, Urinary Catheter Management: Ro: Cath Placed During This Visit: no Reason for Continuing Indwelling Catheter: Accurate Measurement of Urinary Output in Critically Ill Patients Data : 12/02/21 03:08 12/02/21 03:08 A&P Assessment and plan (1) Acute encephalopathy: Status: Acute (2) COVID-19: Status: Acute (3) Hepatic encephalopathy: Status: Acute (4) Hypernatremia: Status: Acute (5) Diarrhea: Status: Acute (6) Dehydration: Status: Acute (7) Rhabdomyolysis: Status: Acute (8) Benign essential hypertension with target blood pressure below 140/90: Status: Acute (9) Carotid artery stenosis without cerebral infarction: Status: Acute Qualifiers: Laterality: left Qualified Code(s): I65.22 - Occlusion and stenosis of left carotid artery (10) Chronic prescription opiate use: Status: Acute (11) Anxiety and depression: Status: Chronic (12) Hypokalemia: Status: Acute (13) Hyperammonemia: Status: Acute (14) Opiate withdrawal: Status: Acute Plan Acute metabolic encephalopathy: Etiology unclear Has hepatic encephalopathy, serum ammonia levels 103 Hypernatremia, resolved COVID-19 Chest x-ray no focal pneumonia CT of abdomen pelvis Possible opiate withdrawal, takes Lyrica, oxycodone 15 every 6, Robaxin History of alcohol consumption Lungs: Dependent atelectasis in the lungs bilaterally. Pleural spaces: No pleural effusion. Heart: Visualized portions of the heart are mildly enlarged. Liver: The liver is unremarkable. Gallbladder and bile ducts: The gallbladder is unremarkable. No biliary ductal dilatation. Pancreas: Mild atrophy of the pancreatic parenchyma. No pancreatic ductal dilatation. Spleen: Multiple splenules in the left upper quadrant. Adrenal glands: The right and left adrenal glands are unremarkable. Kidneys and ureters: The right and left kidneys are unremarkable. The right and left ureters are unremarkable. Stomach and bowel: Fluid within the small bowel and colon without evidence of bowel wall thickening. Fatty infiltration of the wall of the proximal colon. Findings suggest sequela of chronic inflammation. Appendix: The appendix is visualized and is unremarkable. No findings to suggest acute appendicitis. Intraperitoneal space: No free intraperitoneal air. No ascites. No loculated fluid collections to suggest an abscess. Vasculature: Moderate atherosclerotic changes in the visualized arteries. No evidence for aortic aneurysm or aortic dissection. Hepatic veins, portal veins, splenic vein, and SMV are patent. Lymph nodes: No lymphadenopathy. Urinary bladder: Unremarkable as visualized. Reproductive: Patient has had a previous hysterectomy. The right and left ovaries are unremarkable. Bones/joints: Degenerative changes in the spine, sacroiliac joints, and hips. Grade I anterolisthesis of L4 on L5, likely due to facet degenerative change. Moderate spinal canal stenosis at L4-L5. Multilevel foraminal stenosis of varying severity in the lumbar spine. CT of the head No acute intracranial hemorrhage, midline shift or mass effect. Mild atrophy and mild chronic microvascular ischemic disease. Partial obscuration of the posterior fossa due to beam hardening artifact. Ventricles:? Normal size with no hydrocephalus. Paranasal sinuses: Small air-fluid level in the LEFT sphenoid sinus. Mastoid air cells: Well pneumatized. Calvarium and scalp: Skull is intact with no soft tissue edema or swelling. -Blood culture negative today, urine bacterial antigens negative to date Plan: -Has a history of carotid artery stenosis, will do carotid artery ultrasound -Cardiac echo for possible endocarditis -Has hyperammonemia, continue lactulose, rectal tube in place -Follow urine cultures, blood cultures, sputum cultures, urine bacterial antigens, blood work -So far infectious markers have been unremarkable, did have a low-grade temperature 100.3 11/30/2021, continue Zosyn -Will schedule lumbar puncture later on this afternoon -MRI of the brain -Schedule Dilaudid for possible withdrawal -Haldol and Ativan as needed for agitation -Currently in nonviolent restraints, de-escalate as per protocol COVID-19 pneumonia -Currently on oxygen mask -Continue Decadron -Continue remdesivir -Monitor respiratory status closely -DuoNebs, budesonide Hypothyroidism continue levothyroxine 25 mcg, TSH 0.18 Hyperammonemia -Etiology unclear -Possibly hypoxia -CT scan of the abdomen pelvis does not show any radiographic evidence of cirrhosis -Elevated alk phos at 117, AST 55, ALT 34, INR 1.64, GGT 26 -We will do a right upper quadrant ultrasound to reevaluate liver, intra and extrahepatic bile ducts for possible acute ascending cholangitis -Continue lactulose 30 every 6, rectal tube Hyponatremia, resolving -Likely hypovolemic -Discontinue D5 water at 125 cc an hour with free water flushes 50 cc every 4 hours Hypokalemia has resolved. Ro catheterization, strict input output charting. Frequent orientation, fall precaution. Sitter at bedside Rhabdomyolysis: Secondary dehydration, agitation Full code. NPO. Protonix for PUD prophylaxis. Lovenox for DVT prophylaxis. Patient's daughter Ms. Escoto has been updated in detail. We also discussed that DPOA would be her in case any medical decisions needed to be made. They verbalized understanding. All the questions were answered. Attestations Medical Necessity Statement*: Patient requires hospitalization for encephalopathy, hyperammonemia, leukocytosis, hypernatremia, COVID-19 Critical Care Time: Over 1 hour Coding Level of Care Code Acute Extra Gang Supervisor for Chg Fwd History Comprehensive Exam Comprehensive Medical Decision Making High Complexity Diagnoses Acute encephalopathy G93.40 COVID-19 U07.1 Hepatic encephalopathy K72.90 Hypernatremia E87.0 Diarrhea R19.7 Dehydration E86.0 Rhabdomyolysis M62.82 Benign essential hypertension with target blood pressure below 140/90 I10 Carotid artery stenosis without cerebral infarction I65.22 Laterality: left Chronic prescription opiate use Z79.891 Anxiety and depression F41.9; F32.9 Hypokalemia E87.6 Hyperammonemia E72.20 Opiate withdrawal F11.23 Time Spent (min) 55
[2021-12-02 14:13] LABS: Blood Gas Sample Type Arterial
[2021-12-02] MEDS: dexmedeTOMIDine 0.9 % NaCL 400 MCG/100 ML PREMIX IV (14:56)
--- NOTE | 2021-12-02 15:21 | ECG_ITS ---
[facility] Test Date: 2021-12-02 Pat Name: Kaela Sanchez Department: Room: ICU12 Gender: Female Clerk Stenographer: : 1960 Requested By: Damian Thomsa Order Number: [id number] Michael MD: Ana Nugent M.D. Measurements Intervals [place] Rate: 129 P: 60 [place]: 164 QRS: -8 QRSD: 61 T: 62 QT: 283 QTc: 415 Interpretive Statements SINUS TACHYCARDIA MODERATE ST DEPRESSION [0.05+ mV ST DEPRESSION] Compared to ECG 12/02/2021 14:08:25 No significant changes Electronically Signed On 12-02-2021 17:10:55 TEACHER OF THE DEAF/HARD OF HEARING by Ana Nugent M.D. [id number]
[2021-12-02 15:39] LABS: Glucose Point of Care 143 mg/dL (70-110)
[2021-12-02 16:03] LABS: Basophils % 0.1 %; Hematocrit 48.8 % (37.0-47.0); Hemoglobin 16.7 g/dL (11.5-15.3); Lymphocytes # 0.9 10^3/uL (0.8-4.8); Lymphocytes % 5.5 %; Mean Corpuscular HGB Conc 34.2 g/dL (30.0-36.0); Mean Corpuscular Hemoglobin 28.9 pg (28.0-34.0); Mean Corpuscular Volume 84.6 fl (81-99); Mean Platelet Volume 10.4 fL (7.4-10.4); Monocytes # 1.3 10^3/uL (0.2-0.9); Monocytes % 7.4 %; Neutrophils # 14.67 10^3/uL (1.8-7.7); Neutrophils % 86.4 %; Nucleated Red Blood Cells % 0 %; Platelet Count 294 10^3/cmm (130-400); Red Blood Count 5.77 10^6/uL (4.1-5.3); Red Cell Distribution Width 13.7 % (12.1-15.1)
[2021-12-02] MEDS: LORazepam 2 mg/mL INJ 1 mL 1 MG IVP (16:22)
[2021-12-02 16:37] LABS: Erythrocyte Sedimentation Rate 17 mm/hr (0-15); Troponin(5th) Baseline 12 ng/L (0-10)
[2021-12-02 16:45] LABS: INR 1.87 (0.8-1.2)
[2021-12-02] MEDS: phytonadione (ADULT) 10 mg/mL Ampule 1 mL SUBCUT (16:57)
[2021-12-02 17:01] LABS: ABG PCO2 27.8 mmHg (35-45); ABG PH Result 7.51 (7.35-7.45); Arterial Blood Gas Hematocrit 51.5 % (37-47); Base Excess ABG 0.7 mmol/L (-2.0-2.0); Blood Gas Operator Identificat AMH; Blood Gas Sample Site Brachial, left; HCO3 ABG 22.2 mmol/L (22-26); Oxygen Device OXY MASK
[2021-12-02] MEDS: OLANZapine 10 mg VIAL IM (17:12)
[2021-12-02] MEDS: acyclovir 500 MG in sodium chloride 0.9% (100 ml) 100 ML 110 MG IV (18:16)
[2021-12-02] MEDS: remdesivir 100 MG in sodium chloride 0.9% (100 ml) 80 ML IV (18:20)
[2021-12-02 18:22] LABS: NT Pro B Type Natriuretic Pept 1231 pg/mL (0-125); Procalcitonin 0.09 ng/mL (0-0.5)
[2021-12-02 18:41] LABS: Troponin 5 2HR 11.25 ng/L (0-10)
[2021-12-02 18:42] LABS: Troponin 5 2HR Delta -0.75 ABS# (0-10)
[2021-12-02 18:45] LABS: Alanine Aminotransferase 31 U/L (0-33); Alkaline Phosphatase 115 IU/L (35-105); Amylase 65 U/L (28-100); Anion Gap 19.5 (5-19); Aspartate Amino Transferase 39 U/L (0-32); Blood Urea Nitrogen 4 mg/dL (6-20); C Reactive Protein 159.4 mg/L (0.0-4.9); Calcium 7.8 mg/dL (8.5-10.5); Carbon Dioxide 15 mmol/L (22-29); Chloride 106 mmol/L (98-107); Creatine Phosphokinase 225 U/L (26-192); Gamma Glutamyl Transferase 27 U/L (5-36); Glomerular Filtration Rate 227.7 mL/min (90-130); Glucose 138 mg/dL (65-115); Lipase 19 U/L (13-60); Osmolality Calculated 283 mOsm/kg (285-295); Potassium 3.5 mmol/L (3.5-5.1); Sodium 137 mmol/L (136-145)
--- NOTE | 2021-12-02 19:21 | ECG_ITS ---
[facility] Test Date: 2021-12-02 Pat Name: Kaela Sanchez Department: Room: ICU12 Gender: Female Seo Strategist: : 1960 Requested By: Damian Thomas Order Number: [id number] Michael MD: Morro Mota M.D. Measurements Intervals [place] Rate: 111 P: 56 [place]: 132 QRS: -9 QRSD: 73 T: 82 QT: 315 QTc: 429 Interpretive Statements SINUS TACHYCARDIA WITH FREQUENT VENTRICULAR PREMATURE COMPLEXES NONSPECIFIC ST & T-WAVE ABNORMALITY Compared to ECG 12/02/2021 16:53:02 Ventricular premature complex(es) now present T-wave abnormality now present ST (T wave) deviation no longer present Electronically Signed On 12-03-2021 18:38:36 PROFESSOR OF BUSINESS by Morro Mota M.D. [id number]
[2021-12-02] MEDS: vancomycin 1,000 MG in sodium chloride 0.9% 250 ML 250 MG IV (19:44)
[2021-12-02 22:15] LABS: Troponin 5 6HR 12.87 ng/L (0-10); Troponin 5 6HR Delta 0.87 ng/L (0-12)
[2021-12-03] VITALS (40 sets, daily range): BP systolic 87–137; BP diastolic 61–101; PULSE 84–141; RESP 20–39; TEMP 36.6–37.2; O2SAT 65–98
[2021-12-03] MEDS: HYDROmorphone 1 mg/mL INJ 1 mL 0.5 MG IVP ×2 (01:24→06:06)
[2021-12-03] MEDS: acyclovir 500 MG in sodium chloride 0.9% (100 ml) 100 ML 110 MG IV ×2 (01:25→09:29)
[2021-12-03] MEDS: dextrose 5% + KCl 20 mEq 20 MEQ/1,000 ML BAG 125 MEQ IV (03:25)
[2021-12-03] MEDS: piperacillin-tazobactam 3.375 GM in sodium chloride 0.9% (plus) 50 ML IV ×3 (03:30→20:58)
[2021-12-03] MEDS: lactulose oral liq 20 gm/30 mL UDC 30 GM PO ×3 (03:30→20:58)
[2021-12-03 03:40] LABS: Basophils % 0.1 %; Eosinophils % 0.1 %; Hematocrit 45.4 % (37.0-47.0); Hemoglobin 15.2 g/dL (11.5-15.3); Lymphocytes # 1.5 10^3/uL (0.8-4.8); Lymphocytes % 9.9 %; Mean Corpuscular HGB Conc 33.5 g/dL (30.0-36.0); Mean Corpuscular Hemoglobin 28.7 pg (28.0-34.0); Mean Corpuscular Volume 85.8 fl (81-99); Mean Platelet Volume 11.1 fL (7.4-10.4); Monocytes # 1.1 10^3/uL (0.2-0.9); Monocytes % 7.2 %; Neutrophils # 12.61 10^3/uL (1.8-7.7); Neutrophils % 82.1 %; Nucleated Red Blood Cells % 0 %; Platelet Count 294 10^3/cmm (130-400); Red Blood Count 5.29 10^6/uL (4.1-5.3); Red Cell Distribution Width 13.7 % (12.1-15.1); White Blood Count 15.4 10^3/uL (4.0-10.0)
[2021-12-03 04:07] LABS: Lactate (Lactic Acid level) 2.2 mmol/L (0.5-2.2)
[2021-12-03 04:08] LABS: Blood Urea Nitrogen 7 mg/dL (6-20)
[2021-12-03 04:13] LABS: NT Pro B Type Natriuretic Pept 992 pg/mL (0-125); Procalcitonin 0.11 ng/mL (0-0.5)
[2021-12-03 04:26] LABS: Creatine Phosphokinase 169 U/L (26-192)
[2021-12-03 04:34] LABS: INR 1.52 (0.8-1.2)
[2021-12-03 05:02] LABS: Alanine Aminotransferase 27 U/L (0-33); C Reactive Protein 206.9 mg/L (0.0-4.9); Calcium 7.5 mg/dL (8.5-10.5); Carbon Dioxide 16 mmol/L (22-29); Glomerular Filtration Rate 227.7 mL/min (90-130); Glucose 128 mg/dL (65-115); Osmolality Calculated 280 mOsm/kg (285-295); Phosphorus 2.5 mg/dL (2.5-4.5); Sodium 135 mmol/L (136-145)
[2021-12-03 05:10] LABS: Alkaline Phosphatase 105 IU/L (35-105); Chloride 103 mmol/L (98-107); Magnesium 1.7 mg/dL (1.7-2.3); Total Bilirubin 0.7 mg/dL (0.15-1.2)
[2021-12-03 05:12] LABS: Aspartate Amino Transferase 40 U/L (0-32)
[2021-12-03 05:45] LABS: Ammonia 85 umol/L (11-51)
[2021-12-03] MEDS: vancomycin 1,000 MG in sodium chloride 0.9% 250 ML 250 MG IV ×2 (06:06→20:56)
[2021-12-03] MEDS: levothyroxine 25 mcg Tablet PO (06:07)
--- NOTE | 2021-12-03 07:00 | XR_ITS ---
WS: [id number] XR chest 1V portable [id number] REASON FOR EXAM: sob FINDINGS: Nasogastric tube remains in position distal to the fundus of the stomach. Mild cardiomegaly. Compared to the previous examination of 11/29/2021 there are coarse reticular interstitial changes in the right lung and likely the left lung as well. There is a more confluent area of lung opacity in th e mid right lower lung. No other interval change or new finding. XR/XR chest 1V portable [id number] IMPRESSION: Interval development of lung opacities as above. Pneumonitis versus congestive heart failure. Findings favor pneumonitis. Correlate clinically.
[2021-12-03 08:10] LABS: Glucose Point of Care 90 mg/dL (70-110)
[2021-12-03] MEDS: ipratropium-albuterol 3 mL Neb INHALATION ×3 (08:29→20:55)
[2021-12-03] MEDS: budesonide 0.5 mg/2 mL Neb INHALATION ×2 (08:29→20:55)
[2021-12-03] MEDS: ferrous gluconate 324 mg Tablet PO ×2 (09:10→18:41)
[2021-12-03] MEDS: pregabalin 150 mg Capsule 300 MG PO ×2 (09:10→18:42)
[2021-12-03] MEDS: FUROsemide 10 mg/mL SDV 4mL 40 MG IVP (09:11)
[2021-12-03] MEDS: LORazepam 2 mg/mL INJ 1 mL 1 MG IVP (09:11)
[2021-12-03] MEDS: pantoprazole 40 mg SDV IVP ×2 (09:11→20:58)
--- NOTE | 2021-12-03 09:15 | PC.CHAP ---
Pastoral Care Encounter/Spiritual Assessment Type of Contact [] Declined adult remedial education instructor visit [] Patient/Family/Request visit [] Outpatient visit [] Follow-up visit [] Physician referral [] Code/Alert [x] Routine visit [] Staff referral [] Actively dying [] Patient sleeping [] Family support [] [] Out of room [] Palliative care [] [x] Receiving care in room [] Pre-surgical visit [] Trauma [] Long length of stay [x] ICU visit [x] Other: sitter Relational/Emotional Strength [] Patient feels connected with others/family/visitors/staff [] Distress [] Loneliness/isolation [] Abandonment Spirituality of Patient [] Person of Nahed [] Attends Faith of their Nahed [] Believes in Prayer [] Reads Bible or Denominational materials [] There are Spiritual issues to be addressed Healthcare Management Interventions [x] Prayer [] Active listening [] Non-anxious presence [] Spiritual/emotional support [] Crisis/trauma care [] Spiritual counseling [] Bereavement support [] Provided bereavement packet [] Provided Bible/devotional materials [] Provided toy/stuffed animal, coloring book to patient or family member [] Provided Communion [] Anointing/[place] [] Salvation [x] Completed spiritual assessment [] Other: Impact on Illness or Injury [] Angry [] Fearful [] Anxious [] Often cries [] Exhaustion [] Unable to work [] Unable to attend buddhist [] Unable to walk/stand [] Unable to read [] Unable to drive [] Unable to eat/drink [] Unable to sleep [] Unable to be with family [] Patient intubated [] Other: Summary Time spent with patient
[2021-12-03 09:43] LABS: Glucose Point of Care 123 mg/dL (70-110)
[2021-12-03] MEDS: OLANZapine 10 mg VIAL IM (10:57)
[2021-12-03 11:12] LABS: Glucose Point of Care 126 mg/dL (70-110)
--- NOTE | 2021-12-03 12:28 | ECG_ITS ---
[facility] Test Date: 2021-12-03 Pat Name: Kaela Sanchez Department: Room: ICU12 Gender: Female Burlap Spreader: : 1960 Requested By: Damian Thomas Order Number: [id number] Rodriguez MD: Morro Mota M.D. Measurements Intervals [place] Rate: 135 P: 146 [place]: 126 QRS: -28 QRSD: 94 T: 151 QT: 288 QTc: 432 Interpretive Statements ECTOPIC ATRIAL TACHYCARDIA BORDERLINE LEFT AXIS DEVIATION [QRS AXIS < -20] NONSPECIFIC ST & T-WAVE ABNORMALITY Compared to ECG 12/02/2021 21:23:30 Sinus tachycardia no longer present Ventricular premature complex(es) no longer present T-wave abnormality still present Electronically Signed On 12-03-2021 18:27:53 SUPERINTENDENT QUARRY by Morro Mota M.D. [id number]
--- NOTE | 2021-12-03 12:57 | PC.NUTR ---
TF consult received. When medically appropriate, recommend Jevity 1.2 starting @ 10 mls/hr advancing 10 mls/hr Q8H as tolerated until goal rate of 35 mls/hr is reached, with flushes 100 mls Q6H. Details in RD assessment.
[2021-12-03 13:12] LABS: Cytomegalovirus Antibody (IGM) <30.00 AU/mL
[2021-12-03] MEDS: dexamethasone 10 mg/mL INJ 6 MG IVP (13:54)
[2021-12-03 14:06] LABS: ABG PCO2 23.1 mmHg (35-45); ABG PH Result 7.55 (7.35-7.45); Arterial Blood Gas Hematocrit 48.9 % (37-47); Base Excess ABG 0.1 mmol/L (-2.0-2.0); Blood Gas Allen Test Pos; Blood Gas Operator Identificat CAK; Blood Gas Sample Site Brachial, left; Blood Gas Sample Type Arterial; HCO3 ABG 20.3 mmol/L (22-26); Oxygen Device OXY MASK; PO2 ABG 56.6 mmHg (80.0-100.0)
[2021-12-03] MEDS: ondansetron 2 mg/ML SDV 2 mL 4 MG IVP (15:05)
[2021-12-03] MEDS: dexmedeTOMIDine 0.9 % NaCL 400 MCG/100 ML PREMIX IV (15:16)
[2021-12-03] MEDS: lanolin oint 7 gm 1 APPLIC TOPICAL (15:45)
[2021-12-03 15:46] LABS: Glucose Point of Care 136 mg/dL (70-110)
--- NOTE | 2021-12-03 17:08 | PM.CONSULT ---
Providers/Reason For Consult Consulting Physician/Specialty*: Dr. Thomas; Hospitalist Reason for Consult*: Encephalopathy Requesting Physician: Dr. Thomas Attending Physician: Damian Thomas MD Primary Care Provider: Iman Galo DO History of Present Illness History of Present Illness Kaela Sanchez is a 61 year old female who has altered mental status and a Covid infection. She presented here 11/28/2021 via EMS. She was called to the scene by her and was not answering questions but had no neurologic deficit. She was screaming and mildly combative. Her CT scan of the head was unremarkable. She had no focal findings in the emergency department but she was hypoxic and was observed to have copious green foul-smelling diarrhea. Further information from Dr. Thomson indicated that the patient was on chronic high-dose opioids through the pain clinic Dr. Palencia, 15 mg oxycodone No. 1 180/month with her last prescription administered 08/15/2021 and 09/17/2021 along with pregabalin 300 mg twice daily. Her daughter had not talked with her since and she was fine then but lost a lot of weight. She saw Dr. Galo 10/09/2021 and ask for referral to Dr. Sanchez and at that time Dr. Galo gave her a 1 month prescription for oxycodone 15 mg #180 so she should not have been in withdrawal. She was alert and her exam was unremarkable except for her emphysema at that time. Since her arrival on 11/28 her exam is been very consistent according to the nurses who have been taking care of her and according to Dr. Ruiz and Dr. Thomas. The patient has not answered questions. She has been wildly restless and following no commands. She has not verbalized except reportedly to say ow ow ow. She has not at any time had any focal neurologic findings. Her CT scan of the head was normal and I reviewed those images. Her CT of the abdomen did not show any abnormalities of the liver but her ammonia was high on arrival (72) and peaked at 103 on 12/01, this morning. INR elevated (1.87 yesterday). Her Covid test was positive. Review of Systems Narrative: She has a long history of COPD. She is still having profuse liquid green foul-smelling diarrhea and she has a rectal tube in place. Medications/Allergies Home Medications Medication Instructions Recorded Confirmed Last Taken Type aspirin 81 mg tablet,delayed 81 mg PO DAILY 12/22/19 11/28/21 Unknown History release (Adult Aspirin Regimen) furosemide 20 mg tablet 20 mg PO DAILY PRN #90 tab 06/18/21 11/28/21 Unknown Rx ibuprofen 800 mg tablet 800 mg PO TID PRN 30 Days #90 tab 06/19/21 11/28/21 Unknown Rx potassium chloride 10 mEq 20 meq PO DAILY #180 tab 07/03/21 11/28/21 Unknown Rx tablet,extended release albuterol sulfate 90 mcg/actuation 2 puff INHALATION QID PRN #8.5 g 09/04/21 11/28/21 Unknown Rx aerosol inhaler (ProAir HFA) budesonide-formoterol HFA 160 2 puff INHALATION BID #10.2 gm 10/09/21 11/28/21 Unknown Rx mcg-4.5 mcg/actuation aerosol inhaler (Symbicort) methocarbamol 750 mg tablet 750 mg PO TID #90 tab 10/09/21 11/28/21 Unknown Rx pregabalin 300 mg capsule (Lyrica) 300 mg PO BID 30 Days #60 cap 10/09/21 11/28/21 Unknown Rx tiotropium bromide 2.5 2 puff INHALATION DAILY #4 gm 10/09/21 11/28/21 Unknown Rx mcg/actuation mist for inhalation (Spiriva Respimat) atorvastatin 40 mg tablet 40 mg PO DAILY 90 Days #90 tab 10/17/21 11/28/21 Unknown Rx bupropion HCl 200 mg tablet,12 hr 200 mg PO BID #60 tab 10/17/21 11/28/21 Unknown Rx sustained-release (Wellbutrin SR) omeprazole 40 mg capsule,delayed 40 mg PO DAILY 30 Days #90 cap 10/20/21 11/28/21 Unknown Rx release metoprolol tartrate 25 mg tablet 25 mg PO BID #60 tab 10/27/21 11/28/21 Unknown Rx oxycodone 15 mg tablet 15 mg PO .6 times a day PRN 3 Days 11/13/21 11/28/21 Unknown Rx #18 tab Allergies Allergy/AdvReac Type Severity Reaction Status Date / Time No Known Allergies Allergy Verified 10/09/21 13:07 Current Medications Generic Name Dose Route Start Last Admin Trade Name Freq PRN Reason Stop Dose Admin Albuterol/Ipratropium 3 ml 11/30/21 21:00 12/03/21 08:29 Ipratropium-Albuterol 3 Ml Neb INHALATION 3 ml Q12H BIA Administration Albuterol/Ipratropium 3 ml 12/01/21 09:24 12/03/21 13:53 Ipratropium-Albuterol 3 Ml Neb INHALATION 3 ml Q6H PRN Administration SHORTNESS OF BREATH Aspirin 81 mg 11/29/21 09:00 12/02/21 08:06 Aspirin 81 Mg Ec Tablet PO 81 mg DAILY BIA Administration Budesonide 0.5 mg 11/28/21 20:00 12/03/21 08:29 Budesonide 0.5 Mg/2 Ml Neb INHALATION 0.5 mg BID.RESPIRATORY BIA Administration Dexamethasone 6 mg 11/29/21 11:30 12/03/21 13:54 Dexamethasone 10 Mg/Ml Inj IVP 6 mg Q24H BIA Administration Enoxaparin Sodium 40 mg 11/28/21 20:00 12/01/21 19:54 Enoxaparin 40 Mg/0.4 Ml Syringe SUBCUT 40 mg Q24H BIA Administration Ferrous Gluconate 324 mg 11/29/21 08:00 12/03/21 09:10 Ferrous Gluconate 324 Mg Tablet PO 324 mg BIDWM BIA Administration Hydromorphone HCl 0.5 mg 11/29/21 13:46 12/02/21 19:44 Hydromorphone 1 Mg/Ml Inj 1 Ml IVP 0.5 mg Q2H PRN Administration pain, anxiety Hydromorphone HCl 0.5 mg 11/30/21 14:00 12/03/21 10:34 Hydromorphone 1 Mg/Ml Inj 1 Ml IVP Not Given Q4H BIA Piperacillin Sod/Tazobactam 50 mls @ 12.5 mls/hr 11/28/21 20:00 12/03/21 13:53 Sod 3.375 gm/ Sodium Chloride IV 12.5 mls/hr Q8H BIA Administration Protocol Remdesivir 100 mg/ Sodium 100 mls @ 100 mls/hr 11/30/21 18:00 12/02/21 19:20 Chloride IV 12/03/21 18:59 Infused Q24H BIA Infusion dexmedeTOMIDine 0.9 % NaCL 400 mcg in 100 mls @ 0 mls/hr 11/29/21 16:45 12/03/21 15:16 Precedex IV 0.3 mcg/kg/hr .Q0M BIA 4.08 mls/hr Administration Protocol Per Protocol Acyclovir 500 mg/ Sodium 110 mls @ 110 mls/hr 12/02/21 17:15 12/03/21 09:29 Chloride IV 110 mls/hr Q8H BIA Administration Vancomycin HCl 1,000 mg/ 250 mls @ 250 mls/hr 12/02/21 19:00 12/03/21 06:06 Sodium Chloride IV 250 mls/hr Q12H BIA Administration Insulin Human Lispro 0 unit 11/29/21 11:15 12/03/21 15:46 Insulin Lispro 100 Unit/1 Ml SUBCUT Not Given Q4H [facility] Protocol Lactulose 30 gm 12/01/21 09:30 12/03/21 09:11 Lactulose Oral Liq 20 Gm/30 Ml Udc PO 30 gm Q6H BIA Administration Lanolin 1 applic 12/03/21 15:10 12/03/21 15:45 Lanolin Oint 7 Gm TOPICAL 1 applic PRN PRN Administration DRYNESS Levothyroxine Sodium 25 mcg 12/01/21 09:25 12/03/21 06:07 Levothyroxine 25 Mcg Tablet PO 25 mcg QAM BIA Administration Lorazepam 1 mg 11/29/21 20:33 12/03/21 09:11 Lorazepam 2 Mg/Ml Inj 1 Ml IVP 1 mg Q8H PRN Administration ANXIETY Metoprolol Tartrate 25 mg 11/29/21 09:00 11/30/21 10:04 Metoprolol Tartrate 25 Mg Tablet PO 25 mg BID BIA Administration Olanzapine 10 mg 12/02/21 14:31 12/03/21 10:57 Olanzapine 10 Mg Vial IM 10 mg Q6H PRN Administration SEVERE AGITATION Ondansetron HCl 4 mg 11/28/21 18:32 12/03/21 15:05 Ondansetron 2 Mg/Ml Sdv 2 Ml IVP 4 mg Q6H PRN Administration NAUSEA AND VOMITING Pantoprazole Sodium 40 mg 11/30/21 09:30 12/03/21 09:11 Pantoprazole 40 Mg Sdv IVP 40 mg Q12H BIA Administration Pregabalin 300 mg 11/29/21 09:00 12/03/21 09:10 Pregabalin 150 Mg Capsule PO 300 mg BID BIA Administration Rifampin 300 mg 11/28/21 19:50 12/02/21 08:32 Rifampin 300 Mg Capsule PO 300 mg BID BIA Administration PFSH Acute PFSH: Medical History Anxiety and depression Benign essential hypertension with target blood pressure below 140/90 Carotid artery stenosis without cerebral infarction Chronic bronchitis Chronic cervical pain Chronic diastolic heart failure Chronic diastolic heart failure Chronic lumbosacral pain Chronic prescription opiate use COPD (chronic obstructive pulmonary disease) Dyslipidemia Encounter for long-term use of opiate analgesic Fibromyalgia GERD (gastroesophageal reflux disease) Heart failure Hypertension Hypoxia FPC (current) use of non-steroidal anti-inflammatories (nsaid) Opioid contract exists Strain of right trapezius muscle TIA due to embolism Surgical History H/O section H/O hemorrhoidectomy H/O rotator cuff surgery History of hysterectomy Family History Sister Anesthesia complication Father CAD (coronary artery disease) Grandmother CAD (coronary artery disease) Grandfather Cancer Mother Dementia Lung disease Denies family history of Diabetes Clotting disorder Chronic kidney disease (CKD) Suicide Bleeding disorder Stroke Social History Smoking and tobacco status: former smoker Second hand smoke exposure: Yes Alcohol intake: never History of recent travel: No Vitals/I&O/Wt Last Vital Signs Temp 98.9 F 12/03/21 04:00 Pulse 123 H 12/03/21 14:30 Resp 35 H 12/03/21 14:30 BP 89/67 12/03/21 14:30 Pulse Ox 93 12/03/21 14:30 12/03/21 12/03/21 12/03/21 06:59 14:59 22:59 Intake Total 1170 / 3641.1739 50 / 50 33.093 / 83.093 Output Total 400 / 2850 1250 / 1250 Balance 770 / 791.1739 -1200 / -1200 33.093 / -1166.907 Weight last 48 hrs Weight 119 lb Physical Exam Narrative: EXAM NARRATIVE: General: Thin woman who looks her age or older. She was laying quietly in the bed in ICU. Mental status exam: She does not respond to commands. She does not open her eyes to the examiner. She was moderately agitated with any stimulation but quiets down quickly. Cranial nerves: She does not open her eyes but her eyes are midline. Oculocephalic movements absent because she appears to alert. She responds to orbital stimulation with grimace bilaterally. Tongue and palate midline and she is managing her own secretions. Motor: She withdraws vigorously from any kind of stimulation including noxious. She responds in all 4 extremities to sensory stimulation. Toes downgoing. Chest: Clear to auscultation. Peugh cardiovascular: S1 and S2 normal without murmur or gallop. Extremities: She has a little bit of petechial rash over the chest. CT scan of the head 11/28/2021 was reviewed and that study is unremarkable. Liver ultrasound from 12/02 showed no ascites. There was diffuse fatty infiltration of the liver. Urinary Catheter Management: Ro: Cath Placed During This Visit: no Reason for Continuing Indwelling Catheter: Accurate Measurement of Urinary Output in Critically Ill Patients Data : 12/03/21 03:11 12/03/21 03:11 Micro: Microbiology 12/02/21 15:38 Blood Culture - Preliminary Blood NEGATIVE TO DATE 12/02/21 15:45 Blood Culture - Preliminary Blood NEGATIVE TO DATE 12/03/21 03:30 Stool Lactoferrin - Final Stool Enteric Pathogens (PCR) - Final Parasite Antigen Panel - Final C.difficile Toxin B Gene (PCR) - Final Occult Blood (FIT) - Final 12/03/21 08:45 MRSA Culture - Final Nose A&P Assessment and plan (1) Opiate withdrawal: This patient should not have run out of oxycodone even though she was on a massive dose of 180 tablets of 15 mg/month, she was given a recent prescription from Dr. Galo that should have tide her over through the current date. She presents with diffuse encephalopathy that may be Covid related. Her symptoms are nonspecific though profound. She has no focal findings. Supportive care is indicated. I talked with Dr. Thomas and we agreed that because of her prolonged encephalopathy, spinal fluid should be obtained to make sure there is no sign of an underlying [employer] infection. CSF was obtained with difficulty. Lumbar puncture was performed using sterile technique. The patient was bucking and wiggling. I was only able to get 5 mL of spinal fluid and I did not feel safe to perform an opening pressure but that did not seem to be under pressure. She tolerated the procedure well. Her spinal fluid was clear. I sent for routine studies and save tube for for esoteric's in case her spinal fluid contains an unusual number of white blood cells. I would recommend Zyprexa 10 mg twice daily, which the nurses report has had a positive effect on her agitation and I would wean her from opioids at this point. 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
[2021-12-03 17:54] LABS: CSF Mononuclear # 0.001 10^3/uL (50-90); Mononuclear WBC CSF % 50 % (50-90); Polynuclear Cells ,CSF # 0.001 10^3/uL (0-10); Polynuclear WBC CSF % 50 % (0-10); Red Blood Cell CSF 0 10^3/uL (0-0); White Blood Cell CSF 2 /uL (0-5)
[2021-12-03 18:03] LABS: Appearance CSF CLEAR (CLEAR); Color CSF COLORLESS (COLORLESS)
[2021-12-03 18:17] LABS: Glucose CSF 75 mg/dL (40-70); Total Protein CSF 24 mg/dL (15-45)
[2021-12-03 18:54] LABS: Glucose Point of Care 130 mg/dL (70-110)
--- NOTE | 2021-12-03 18:56 | P.PN_ITS ---
Subjective Subjective: Interval history: Patient was seen this morning, she is quite drowsy, she does awaken open her eyes, she does not groan, she vocalizes, but her speech does not make any sense, she is able to turn in bed, she moves her upper and lower extremities, overnight no fevers, remains on oxygen mask, 10 L, intermittent episodes of sinus tachycardia, afebrile, continues to have depressed mentation Vitals/I&O/Wt Last Vital Signs Temp 98.9 F 12/03/21 04:00 Pulse 123 H 12/03/21 14:30 Resp 35 H 12/03/21 14:30 BP 89/67 12/03/21 14:30 Pulse Ox 93 12/03/21 14:30 12/03/21 12/03/21 12/03/21 06:59 14:59 22:59 Intake Total 1170 / 3641.1739 50 / 50 33.093 / 83.093 Output Total 400 / 2850 1250 / 1250 Balance 770 / 791.1739 -1200 / -1200 33.093 / -1166.907 Weight last 48 hrs Weight 53.977 kg Physical Exam Narrative: EXAM NARRATIVE: Alert to person, not to place, not to time, Eye: COMMON NORMALS: Equal, round and reactive pupils present PUPIL: Yes Equal, round and reactive pupils present Chest: COMMONS NORMALS: normal inspection of the chest Resp: COMMON NORMALS: normal respiratory effort, No retractions and No use of accessory muscles Cardio: COMMON NORMALS: regular rate, regular rhythm, S1 normal heart sound present and S2 normal heart sound present RATE: regular rate RHYTHM: regular rhythm HEART SOUNDS: S1 normal heart sound present and S2 normal heart sound present GI: COMMON NORMALS: Normal to inspection, nondistended, normoactive bowel sounds present, Soft to palpation and non-tender PALPATION: Yes Soft to palpation Neuro: MANUEL COMA SCALE: document GCS findings [place] coma scale eye opening: Spontaneous [place] coma scale verbal response: Confused [place] coma scale motor response: Localising [place] coma scale total score: 13 Urinary Catheter Management: Ro: Cath Placed During This Visit: no Reason for Continuing Indwelling Catheter: Accurate Measurement of Urinary Output in Critically Ill Patients Data : 12/03/21 03:11 12/03/21 03:11 Micro: Microbiology 12/02/21 15:38 Blood Culture - Preliminary Blood NEGATIVE TO DATE 12/02/21 15:45 Blood Culture - Preliminary Blood NEGATIVE TO DATE 12/03/21 03:30 Stool Lactoferrin - Final Stool Enteric Pathogens (PCR) - Final Parasite Antigen Panel - Final C.difficile Toxin B Gene (PCR) - Final Occult Blood (FIT) - Final 12/03/21 08:45 MRSA Culture - Final Nose A&P Assessment and plan (1) Acute encephalopathy: Status: Acute (2) COVID-19: Status: Acute (3) Hepatic encephalopathy: Status: Acute (4) Hypernatremia: Status: Acute (5) Diarrhea: Status: Acute (6) Dehydration: Status: Acute (7) Rhabdomyolysis: Status: Acute (8) Benign essential hypertension with target blood pressure below 140/90: Status: Acute (9) Carotid artery stenosis without cerebral infarction: Status: Acute Qualifiers: Laterality: left Qualified Code(s): I65.22 - Occlusion and stenosis of left carotid artery (10) Chronic prescription opiate use: Status: Acute (11) Anxiety and depression: Status: Chronic (12) Hypokalemia: Status: Acute (13) Hyperammonemia: Status: Acute (14) Opiate withdrawal: Status: Acute Plan Acute metabolic encephalopathy: Etiology unclear Has hepatic encephalopathy, serum ammonia levels 103 Hypernatremia, resolved COVID-19 Chest x-ray no focal pneumonia CT of abdomen pelvis Possible opiate withdrawal, takes Lyrica, oxycodone 15 every 6, Robaxin History of alcohol consumption Lungs: Dependent atelectasis in the lungs bilaterally. Pleural spaces: No pleural effusion. Heart: Visualized portions of the heart are mildly enlarged. Liver: The liver is unremarkable. Gallbladder and bile ducts: The gallbladder is unremarkable. No biliary ductal dilatation. Pancreas: Mild atrophy of the pancreatic parenchyma. No pancreatic ductal dilatation. Spleen: Multiple splenules in the left upper quadrant. Adrenal glands: The right and left adrenal glands are unremarkable. Kidneys and ureters: The right and left kidneys are unremarkable. The right and left ureters are unremarkable. Stomach and bowel: Fluid within the small bowel and colon without evidence of bowel wall thickening. Fatty infiltration of the wall of the proximal colon. Findings suggest sequela of chronic inflammation. Appendix: The appendix is visualized and is unremarkable. No findings to suggest acute appendicitis. Intraperitoneal space: No free intraperitoneal air. No ascites. No loculated fluid collections to suggest an abscess. Vasculature: Moderate atherosclerotic changes in the visualized arteries. No evidence for aortic aneurysm or aortic dissection. Hepatic veins, portal veins, splenic vein, and SMV are patent. Lymph nodes: No lymphadenopathy. Urinary bladder: Unremarkable as visualized. Reproductive: Patient has had a previous hysterectomy. The right and left ovaries are unremarkable. Bones/joints: Degenerative changes in the spine, sacroiliac joints, and hips. Grade I anterolisthesis of L4 on L5, likely due to facet degenerative change. Moderate spinal canal stenosis at L4-L5. Multilevel foraminal stenosis of varying severity in the lumbar spine. CT of the head No acute intracranial hemorrhage, midline shift or mass effect. Mild atrophy and mild chronic microvascular ischemic disease. Partial obscuration of the posterior fossa due to beam hardening artifact. Ventricles:? Normal size with no hydrocephalus. Paranasal sinuses: Small air-fluid level in the LEFT sphenoid sinus. Mastoid air cells: Well pneumatized. Calvarium and scalp: Skull is intact with no soft tissue edema or swelling. -Blood culture negative today, urine bacterial antigens negative to date -Carotid artery stenosis No change seen from prior study. ?Bilateral ICA stenosis less than 50% -Cardiac echocardiogram This is technically limited quality echocardiogram because of ?poor ultrasonic windows. ?Grossly LV systolic function is normal.? Diastolic function is ?indeterminate because of tachycardia. ?Valvular structures are not well-visualized. ?Comparison with prior echocardiogram is not possible because of ?limited quality images. Plan -Has hyperammonemia, continue lactulose, rectal tube in place -Follow urine cultures, blood cultures, sputum cultures, urine bacterial antigens, blood work -So far infectious markers have been unremarkable, did have a low-grade temperature 100.3 11/30/2021, continue Zosyn -We will add on vancomycin -Add on acyclovir for encephalitis -Will schedule lumbar puncture later on this afternoon -MRI of the brain -Stop Dilaudid -Scheduled Zyprexa 10 every 12 hours, Ativan as needed -Currently in nonviolent restraints, de-escalate as per protocol COVID-19 pneumonia -Currently on oxygen mask -Continue Decadron -Continue remdesivir -Monitor respiratory status closely -DuoNebs, budesonide Hypothyroidism continue levothyroxine 25 mcg, TSH 0.18 Hyperammonemia -Etiology unclear -Possibly hypoxia -CT scan of the abdomen pelvis does not show any radiographic evidence of cirrhosis -Elevated alk phos at 117, AST 55, ALT 34, INR 1.64, GGT 26 -Continue lactulose 30 every 6, rectal tube Hyponatremia, resolving -Likely hypovolemic -Discontinue D5 water at 125 cc an hour with free water flushes 50 cc every 4 hours Hypokalemia has resolved. Ro catheterization, strict input output charting. Frequent orientation, fall precaution. Sitter at bedside Rhabdomyolysis: Secondary dehydration, agitation Start tube feeds Full code. NPO. Protonix for PUD prophylaxis. Lovenox for DVT prophylaxis. Patient's daughter Ms. Escoto has been updated in detail. We also discussed that DPOA would be her in case any medical decisions needed to be made. They verbalized understanding. All the questions were answered. Attestations Medical Necessity Statement*: Patient requires hospitalization for altered mental status Critical Care Time: 55 Coding Level of Care Code Acute Exploitation Analyst for g Fwd Diagnoses Acute encephalopathy G93.40 COVID-19 U07.1 Hepatic encephalopathy K72.90 Hypernatremia E87.0 Diarrhea R19.7 Dehydration E86.0 Rhabdomyolysis M62.82 Benign essential hypertension with target blood pressure below 140/90 I10 Carotid artery stenosis without cerebral infarction I65.22 Laterality: left Chronic prescription opiate use Z79.891 Anxiety and depression F41.9; F32.9 Hypokalemia E87.6 Hyperammonemia E72.20 Opiate withdrawal F11.23
--- NOTE | 2021-12-03 19:00 | PC.NURSE ---
IV line occluded. Multiple attempts to restart IV unsuccessful. Will attempt at a later time if unable to obtain central placement. Dr Thomas notified at 1315. Central line request made. Notified that pt vomited while at bedside. Was able to assist pt in sitting upright. Suctioned mouth. Pt able to cough appropriately. Zofran administered per order. All info left on physician's voicemail. No response the remainder of shift. notified again per lab's request. Lab has enough CSF to complete current orders. If physician wishes to order additional tests, orders need to be prioritized. answered call and gave no new orders. MRSA nare positive swab relayed. Extensive oral care performed on this shift.
--- NOTE | 2021-12-03 20:08 | PC.NURSE ---
Tube Feeding started at 1500. Jevity 1.2 10mls/hr with 100mls of water q 4 hours. Pt tolerated well thus far. 15 mls residual amount after two hours. 31 mls of residual at 1900.
[2021-12-03] MEDS: remdesivir 100 MG in sodium chloride 0.9% (100 ml) 80 ML IV (20:34)
[2021-12-03 20:54] LABS: Glucose Point of Care 117 mg/dL (70-110)
[2021-12-03] MEDS: midodrine 5 mg TABLET 10 MG PO (21:00)
[2021-12-03] MEDS: OLANZapine 10 mg TABLET PO (21:00)
[2021-12-03] MEDS: acyclovir 500 MG in sodium chloride 0.9% (plus) 100 ML 110 MG IV (21:15)
[2021-12-03 23:48] LABS: Glucose Point of Care 100 mg/dL (70-110)
[2021-12-04] VITALS (79 sets, daily range): BP systolic 80–123; BP diastolic 54–91; PULSE 71–145; RESP 21–47; TEMP 36.4–38.9; O2SAT 86–98
[2021-12-04] MEDS: lactulose oral liq 20 gm/30 mL UDC 30 GM PO ×4 (03:16→21:22)
[2021-12-04] MEDS: midodrine 5 mg TABLET 10 MG PO ×3 (03:16→14:58)
[2021-12-04] MEDS: piperacillin-tazobactam 3.375 GM in sodium chloride 0.9% (plus) 50 ML IV ×3 (03:17→20:00)
[2021-12-04] MEDS: acyclovir 500 MG in sodium chloride 0.9% (plus) 100 ML 110 MG IV ×3 (03:56→22:44)
[2021-12-04 04:09] LABS: Glucose Point of Care 91 mg/dL (70-110)
[2021-12-04] MEDS: dexmedeTOMIDine 0.9 % NaCL 400 MCG/100 ML PREMIX 9.53 MCG IV (05:24)
[2021-12-04] MEDS: levothyroxine 25 mcg Tablet PO (05:24)
[2021-12-04 05:37] LABS: ABG PCO2 30.3 mmHg (35-45); ABG PH Result 7.48 (7.35-7.45); Arterial Blood Gas Hematocrit 41.3 % (37-47); Blood Gas Operator Identificat JB; Blood Gas Sample Site Brachial, right; Blood Gas Sample Type Arterial; HCO3 ABG 22.7 mmol/L (22-26); Oxygen Device OXY MASK; PO2 ABG 46.6 mmHg (80.0-100.0)
[2021-12-04 06:38] LABS: Basophils % 0.2 %; Eosinophils % 0.1 %; Hematocrit 41.7 % (37.0-47.0); Hemoglobin 13.8 g/dL (11.5-15.3); Lymphocytes # 1.5 10^3/uL (0.8-4.8); Mean Corpuscular HGB Conc 33.1 g/dL (30.0-36.0); Mean Corpuscular Hemoglobin 28.5 pg (28.0-34.0); Mean Corpuscular Volume 86.2 fl (81-99); Mean Platelet Volume 11.6 fL (7.4-10.4); Monocytes # 1.7 10^3/uL (0.2-0.9); Monocytes % 7.9 %; Neutrophils # 18.27 10^3/uL (1.8-7.7); Nucleated Red Blood Cells % 0 %; Platelet Count 287 10^3/cmm (130-400); Red Blood Count 4.84 10^6/uL (4.1-5.3); Red Cell Distribution Width 13.7 % (12.1-15.1); White Blood Count 21.8 10^3/uL (4.0-10.0)
[2021-12-04 06:43] LABS: INR 1.22 (0.8-1.2)
[2021-12-04 06:51] LABS: Lactate (Lactic Acid level) 1.3 mmol/L (0.5-2.2)
[2021-12-04 06:54] LABS: Ammonia 67 umol/L (11-51); Vancomycin Trough 15.9 ug/mL (10-15)
[2021-12-04 06:59] LABS: Alanine Aminotransferase 30 U/L (0-33); Albumin Level 2.4 g/dL (3.5-5.2); Alkaline Phosphatase 97 IU/L (35-105); Anion Gap 15.2 (5-19); Aspartate Amino Transferase 53 U/L (0-32); Blood Urea Nitrogen 12 mg/dL (6-20); C Reactive Protein 252.3 mg/L (0.0-4.9); Calcium 7.1 mg/dL (8.5-10.5); Carbon Dioxide 20 mmol/L (22-29); Chloride 111 mmol/L (98-107); Globulin 2.5 g/dL (1.3-4.6); Glomerular Filtration Rate 73.4 mL/min (90-130); Glucose 116 mg/dL (65-115); Osmolality Calculated 297 mOsm/kg (285-295); Phosphorus 2.4 mg/dL (2.5-4.5); Potassium 3.2 mmol/L (3.5-5.1); Sodium 143 mmol/L (136-145); Total Bilirubin 0.5 mg/dL (0.15-1.2); Total Protein 4.9 g/dL (6.6-8.7)
[2021-12-04 07:17] LABS: NT Pro B Type Natriuretic Pept 379 pg/mL (0-125); Procalcitonin 0.34 ng/mL (0-0.5)
--- NOTE | 2021-12-04 07:49 | XR_ITS ---
WS: [id number] XR chest 1V portable [id number] REASON FOR EXAM: sob FINDINGS: Nasogastric tube remains in place beyond the fundus of the stomach. Diffuse reticular lung opacities, predominating on the right are unchanged compared to examination of 12/03/2021. No new findings. XR/XR chest 1V portable [id number] IMPRESSION: Stable abnormal chest.
[2021-12-04 07:51] LABS: Creatine Phosphokinase 928 U/L (26-192)
[2021-12-04] MEDS: budesonide 0.5 mg/2 mL Neb INHALATION ×2 (08:07→19:33)
[2021-12-04] MEDS: ipratropium-albuterol 3 mL Neb INHALATION ×3 (08:07→19:33)
[2021-12-04 08:34] LABS: Glucose Point of Care 146 mg/dL (70-110)
[2021-12-04] MEDS: pregabalin 150 mg Capsule 300 MG PO (08:48)
[2021-12-04] MEDS: ferrous gluconate 324 mg Tablet PO ×2 (08:48→17:47)
[2021-12-04] MEDS: OLANZapine 10 mg TABLET PO ×2 (08:48→17:47)
[2021-12-04] MEDS: pantoprazole 40 mg SDV IVP ×2 (08:49→21:21)
[2021-12-04] MEDS: vancomycin 750 MG in sodium chloride 0.9% 250 ML 250 MG IV (08:49)
[2021-12-04] MEDS: insulin lispro 100 unit/1 mL SUBCUT (08:49)
[2021-12-04] MEDS: acetaminophen 325 mg Tablet 650 MG PO ×2 (08:56→20:00)
--- NOTE | 2021-12-04 08:57 | XR_ITS ---
WS: [id number] XR KUB portable [id number] REASON FOR EXAM: ABD tenderness FINDINGS: No free air is identified. There is mild to moderate gaseous distention of the colon. The right abdomen there is a somewhat mottled bowel gas pattern in relation to the hepatic flexure. T here also appears to be separation of gas filled colonic lumen from the properitoneal fat line. No urinary tract calculi are identified. No mass identified. XR/XR KUB portable [id number] IMPRESSION: Findings in the right abdomen as above. Review of CT scan of 11/28/2021 reveals bowel wall thickening with mild hyperenhancement of the mucosa. (Images 27 thro ugh 50 on the axial images and images 21 through 32 on the coronal images.). Th paige findings may be due to subacute inflammation change and edema. The CT findi ngs would account for the plain film findings.
--- NOTE | 2021-12-04 09:50 | PC.CHAP ---
Pastoral Care Encounter/Spiritual Assessment Type of Contact [] Declined auto tester visit [] Patient/Family/Request visit [] Outpatient visit [] Follow-up visit [] Physician referral [] Code/Alert [x] Routine visit [] Staff referral [] Actively dying [] Patient sleeping [] Family support [] [] Out of room [] Palliative care [] [] Receiving care in room [] Pre-surgical visit [] Trauma [] Long length of stay [x] ICU visit [x] Other: sitter Relational/Emotional Strength [] Patient feels connected with others/family/visitors/staff [] Distress [] Loneliness/isolation [] Abandonment Spirituality of Patient [] Person of Nahed [] Attends [employer] of their Nahed [] Believes in Prayer [] Reads Bible or Episcopalian materials [] There are Spiritual issues to be addressed 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 [x] Prayer [] Active listening [] Non-anxious presence [] Spiritual/emotional support [] Crisis/trauma care [] Spiritual counseling [] Bereavement support [] Provided bereavement packet [] Provided Bible/devotional materials [] Provided toy/stuffed animal, coloring book to patient or family member [] Provided Communion [] Anointing/Sidney [] Salvation [x] Completed spiritual assessment [] Other: Impact on Illness or Injury [] Angry [] Fearful [] Anxious [] Often cries [] Exhaustion [] Unable to work [] Unable to attend latter-day [] Unable to walk/stand [] Unable to read [] Unable to drive [] Unable to eat/drink [] Unable to sleep [] Unable to be with family [] Patient intubated [] Other: Summary Time spent with patient
[2021-12-04 10:05] LABS: ABG PCO2 25.8 mmHg (35-45); Alveolar-Arterial Oxygen Gradi 43.6 mmHg (5-10); Base Excess ABG -1.3 mmol/L (-2.0-2.0); Blood Gas Allen Test Pos; Blood Gas Operator Identificat CAK; Blood Gas Sample Site Brachial, left; Blood Gas Sample Type Arterial; Carboxyhemoglobin 0.6 %THgb (0.4-20.1); HCO3 ABG 20.3 mmol/L (22-26); Ionized Calcium Level - ABG 1.1 mmol/L (1.1-1.4); Methemoglobin 0.6 % (0.4-1.5); Oxygen Device BIPAP; PO2 ABG 60.3 mmHg (80.0-100.0); Potassium Level - ABG 2.7 mmol/L (3.5-5.0); Total Hemoglobin 13.7 g/dL (12-16)
[2021-12-04] MEDS: dexamethasone 10 mg/mL INJ 6 MG IVP (10:50)
[2021-12-04 11:10] LABS: Glucose Point of Care 108 mg/dL (70-110)
--- NOTE | 2021-12-04 12:53 | CTR_ITS ---
PROCEDURE INFORMATION: Exam: CT Abdomen And Pelvis With Contrast Exam date and time: 12/04/2021 12:53 PM Age: 61 years old Clinical indication: Other: Abd distention; Additional info: Abdomina distention, confusion, SOB TECHNIQUE: Imaging protocol: Computed tomography of the abdomen and pelvis with contrast. Radiation optimization: All CT scans at this facility use at least one of these dose optimization techniques: automated exposure control; mA and/or kV adjustment per patient size (includes targeted exams where dose is matched to clinical indication); or iterative reconstruction. Contrast material: OMNI 300; Contrast volume: 95 ml; Contrast route: INTRAVENOUS (IV); COMPARISON: CT abdomen pelvis w con* [id number] 11/28/2021 4:53 PM RADIATION DOSE METRICS: Total DLP (mGy-cm): 863.05 FINDINGS: Limitations: Study is significantly limited by patient respiratory motion. Tubes, catheters and devices: Rectal tube is in place. Nasogastric tube tip is in the stomach. Lungs: There is some partial atelectasis at both lung bases. May also be ground-glass infiltrate but this is difficult to evaluate due to the respiratory motion. Liver: There is a diffuse decrease in hepatic parenchymal density, consistent with mild fatty infiltration. There is no focal abnormality within the liver. Gallbladder and bile ducts: Gallbladder not well seen due to motion artifact. Pancreas: The pancreas is normal. Spleen: The spleen is normal. Adrenal glands: The adrenal glands are normal. Kidneys and ureters: The kidneys are normal. There is no evidence of hydronephrosis. Stomach and bowel: There is suggestion of fluid throughout the colon which is a nonspecific finding but could be related to enteritis. There is no gross evidence for diverticulitis. Appendix: Not identified Intraperitoneal space: Unremarkable. No free air. No significant fluid collection. Vasculature: The aorta demonstrates moderate atherosclerotic calcification. There is no evidence of an abdominal aortic aneurysm. Lymph nodes: There is no evidence of lymphadenopathy. Urinary bladder: Urinary bladder is drained by Ro catheter. Reproductive: There has been a hysterectomy. Bones/joints: Lumbar degenerative changes unchanged from 11/28/2021. Soft tissues: Unremarkable. CT/CT abdomen pelvis w con* [id number] IMPRESSION: 1. Very limited examination due to patient respiratory motion. 2. Basilar atelectasis and question of new basilar pulmonary infiltrates. 3. Findings of new Ro catheter, rectal tube and nasogastric tube. 4. Fluid in the colon which could represent enteritis.
[2021-12-04 15:20] LABS: Glucose Point of Care 128 mg/dL (70-110)
--- NOTE | 2021-12-04 16:08 | PM.PN ---
Subjective Subjective: Interval history: Overnight patient had lumbar puncture This morning, patient was alert, did not follow commands, falls back asleep, has spontaneous movement upper lower extremities, does not follow commands, pupils equal round reactive to light, She was reexamined, on ABG, continues to be hypoxic, was placed on BiPAP, repeat ABG shows improving PO2 on BiPAP Continues to be alert, does awaken, spontaneous movement of upper lower extremity, but does not follow commands, is febrile, blood pressure are soft Vitals/I&O/Wt Last Vital Signs Temp 101.1 F H 12/04/21 08:00 Pulse 88 12/04/21 14:29 Resp 24 H 12/04/21 14:29 BP 123/77 12/04/21 14:01 Pulse Ox 95 12/04/21 14:29 12/04/21 12/04/21 12/04/21 06:59 14:59 22:59 Intake Total 1007.581 / 1408.626 300 / 598 513.5044 / 409.0909 Output Total 950 / 3250 Balance 57.581 / -1841.374 300 / 052 519.5032 / 409.0909 Weight last 48 hrs Weight 52.98 kg Physical Exam Const: COMMON NORMALS: no acute distress OTHER: She opens her eyes to her name, does not follow commands, pupils equal round reactive to light, Spontaneous movement upper lower extremities She often will take her fall her knees, and keep them up near her chest Resp: COMMON NORMALS: normal respiratory effort, No retractions, No use of accessory muscles and clear to auscultation bilaterally AUSCULTATION: clear to auscultation bilaterally Cardio: COMMON NORMALS: regular rate, regular rhythm, S1 normal heart sound present and S2 normal heart sound present RATE: regular rate RHYTHM: regular rhythm HEART SOUNDS: S1 normal heart sound present and S2 normal heart sound present GI: COMMON NORMALS: Soft to palpation INSPECTION: Yes abdominal distension AUSCULTATION: Yes Hypoactive bowel sounds present PALPATION: Yes Soft to palpation, No Tenderness to palpation present (GI), No Guarding due to palpation present (GI) and No Rigid due to palpation Extremity: COMMON NORMALS: no pedal edema Urinary Catheter Management: Ro: Cath Placed During This Visit: no Reason for Continuing Indwelling Catheter: Accurate Measurement of Urinary Output in Critically Ill Patients Data : 12/04/21 06:11 12/04/21 06:11 Micro: Microbiology 12/03/21 17:01 Gram Stain - Final Cerebrospinal Fluid CSF Culture - Preliminary 11/28/21 19:00 Blood Culture - Final Blood NO GROWTH AFTER 5 DAYS 11/28/21 19:02 Blood Culture - Final Blood NO GROWTH AFTER 5 DAYS 12/03/21 17:01 Cryptococcal Antigen - Final Cerebrospinal Fluid 12/02/21 15:38 Blood Culture - Preliminary Blood NEGATIVE TO DATE 12/02/21 15:45 Blood Culture - Preliminary Blood NEGATIVE TO DATE 12/03/21 03:30 Stool Lactoferrin - Final Stool Enteric Pathogens (PCR) - Final Parasite Antigen Panel - Final C.difficile Toxin B Gene (PCR) - Final Occult Blood (FIT) - Final 12/03/21 08:45 MRSA Culture - Final Nose A&P Assessment and plan (1) Acute encephalopathy: Status: Acute (2) COVID-19: Status: Acute (3) Hepatic encephalopathy: Status: Acute (4) Hypernatremia: Status: Acute (5) Diarrhea: Status: Acute (6) Dehydration: Status: Acute (7) Rhabdomyolysis: Status: Acute (8) Benign essential hypertension with target blood pressure below 140/90: Status: Acute (9) Carotid artery stenosis without cerebral infarction: Status: Acute Qualifiers: Laterality: left Qualified Code(s): I65.22 - Occlusion and stenosis of left carotid artery (10) Chronic prescription opiate use: Status: Acute (11) Anxiety and depression: Status: Chronic (12) Hypokalemia: Status: Acute (13) Hyperammonemia: Status: Acute (14) Opiate withdrawal: Status: Acute Plan Acute metabolic encephalopathy: Etiology unclear Has hepatic encephalopathy, elevated serum ammonia levels Possible drug withdrawal from oxycodone, Lyrica, Robaxin Hypernatremia, resolved COVID-19 Chest x-ray no focal pneumonia CT of abdomen pelvis Possible opiate withdrawal, takes Lyrica, oxycodone 15 every 6, Robaxin History of alcohol consumption Lungs: Dependent atelectasis in the lungs bilaterally. Pleural spaces: No pleural effusion. Heart: Visualized portions of the heart are mildly enlarged. Liver: The liver is unremarkable. Gallbladder and bile ducts: The gallbladder is unremarkable. No biliary ductal dilatation. Pancreas: Mild atrophy of the pancreatic parenchyma. No pancreatic ductal dilatation. Spleen: Multiple splenules in the left upper quadrant. Adrenal glands: The right and left adrenal glands are unremarkable. Kidneys and ureters: The right and left kidneys are unremarkable. The right and left ureters are unremarkable. Stomach and bowel: Fluid within the small bowel and colon without evidence of bowel wall thickening. Fatty infiltration of the wall of the proximal colon. Findings suggest sequela of chronic inflammation. Appendix: The appendix is visualized and is unremarkable. No findings to suggest acute appendicitis. Intraperitoneal space: No free intraperitoneal air. No ascites. No loculated fluid collections to suggest an abscess. Vasculature: Moderate atherosclerotic changes in the visualized arteries. No evidence for aortic aneurysm or aortic dissection. Hepatic veins, portal veins, splenic vein, and SMV are patent. Lymph nodes: No lymphadenopathy. Urinary bladder: Unremarkable as visualized. Reproductive: Patient has had a previous hysterectomy. The right and left ovaries are unremarkable. Bones/joints: Degenerative changes in the spine, sacroiliac joints, and hips. Grade I anterolisthesis of L4 on L5, likely due to facet degenerative change. Moderate spinal canal stenosis at L4-L5. Multilevel foraminal stenosis of varying severity in the lumbar spine. CT of the head No acute intracranial hemorrhage, midline shift or mass effect. Mild atrophy and mild chronic microvascular ischemic disease. Partial obscuration of the posterior fossa due to beam hardening artifact. Ventricles:? Normal size with no hydrocephalus. Paranasal sinuses: Small air-fluid level in the LEFT sphenoid sinus. Mastoid air cells: Well pneumatized. Calvarium and scalp: Skull is intact with no soft tissue edema or swelling. -Blood culture negative today, urine bacterial antigens negative to date -Carotid artery stenosis No change seen from prior study. ?Bilateral ICA stenosis less than 50% -Cardiac echocardiogram This is technically limited quality echocardiogram because of ?poor ultrasonic windows. ?Grossly LV systolic function is normal.? Diastolic function is ?indeterminate because of tachycardia. ?Valvular structures are not well-visualized. ?Comparison with prior echocardiogram is not possible because of ?limited quality images. -Status post lumbar puncture clear, colorless, 2 WBCs, 0 RBCs, glucose 75, LDH 28, total protein 24, albumin 0.2 -White blood cell count 21.8, febrile, pro-Vin 0.34 Plan -Has hyperammonemia, continue lactulose, rectal tube in place -Follow urine cultures, blood cultures, sputum cultures, urine bacterial antigens, blood work -Start Levophed, maintain map around 65, midline to be placed -So far infectious markers have been unremarkable, febrile, -continue Zosyn -Continue vancomycin -Will schedule lumbar puncture later on this afternoon -MRI of the brain -Scheduled Zyprexa 10 every 12 hours, Ativan as needed -Hold Lyrica, Robaxin, oxycodone -Currently in nonviolent restraints, de-escalate as per protocol Acute hypoxic respiratory failure secondary to COVID-19 pneumonia, possible aspiration -currently on BiPAP -pH 7.5, PO2 60.3, PCO2 25.8, on 60% BiPAP -High risk of intubation the next 24 hours -Continue Decadron -Continue remdesivir -Monitor respiratory status closely -DuoNebs, budesonide Abdomen distended, decreased bowel sounds, will do CT abdomen and pelvis, hold tube feedings Hypothyroidism continue levothyroxine 25 mcg, TSH 0.18 Hyperammonemia -Etiology unclear -Possibly hypoxia -CT scan of the abdomen pelvis does not show any radiographic evidence of cirrhosis -Continue lactulose 30 every 6, rectal tube Hyponatremia, resolved -Likely hypovolemic Hypokalemia, potassium 3.2 Ro catheterization, strict input output charting. Frequent orientation, fall precaution. Sitter at bedside Rhabdomyolysis: Secondary dehydration, agitation Start tube feeds Full code. NPO. Protonix for PUD prophylaxis. Lovenox for DVT prophylaxis. Patient's daughter Ms. Escoto has been updated in detail. We also discussed that DPILIANA would be her in case any medical decisions needed to be made. They verbalized understanding. All the questions were answered. Attestations Medical Necessity Statement*: Patient requires hospitalization for acute encephalopathy, COVID-19 Coding Level of Care Code Acute Advanced Manufacturing Engineer for [facility] Fwd Diagnoses Acute encephalopathy G93.40 COVID-19 U07.1 Hepatic encephalopathy K72.90 Hypernatremia E87.0 Diarrhea R19.7 Dehydration E86.0 Rhabdomyolysis M62.82 Benign essential hypertension with target blood pressure below 140/90 I10 Carotid artery stenosis without cerebral infarction I65.22 Laterality: left Chronic prescription opiate use Z79.891 Anxiety and depression F41.9; F32.9 Hypokalemia E87.6 Hyperammonemia E72.20 Opiate withdrawal F11.23
[2021-12-04] MEDS: iohexol 300 mg/mL 100 mL Btl IV (17:08)
[2021-12-04] MEDS: ondansetron 2 mg/ML SDV 2 mL 4 MG IVP (17:47)
[2021-12-04] MEDS: bumetanide 0.25 mg/mL SDV 4 mL 1 MG IVP (17:47)
[2021-12-04] MEDS: LORazepam 2 mg/mL INJ 1 mL 1 MG IVP (19:27)
[2021-12-04 20:00] LABS: Glucose Point of Care 91 mg/dL (70-110)
[2021-12-04] MEDS: enoxaparin 40 mg/0.4 mL Syringe SUBCUT (20:00)
[2021-12-04] MEDS: dexmedeTOMIDine 0.9 % NaCL 400 MCG/100 ML PREMIX 5.44 MCG IV (21:22)
[2021-12-04 23:16] LABS: Glucose Point of Care 103 mg/dL (70-110)
[2021-12-05] VITALS (63 sets, daily range): BP systolic 90–137; BP diastolic 60–93; PULSE 75–132; RESP 18–45; TEMP 36.1–38.3; O2SAT 82–100
[2021-12-05] MEDS: LORazepam 2 mg/mL INJ 1 mL 1 MG IVP ×2 (02:34→18:38)
[2021-12-05] MEDS: insulin lispro 100 unit/1 mL SUBCUT ×2 (04:03→20:50)
[2021-12-05] MEDS: piperacillin-tazobactam 3.375 GM in sodium chloride 0.9% (plus) 50 ML IV ×3 (04:04→20:02)
[2021-12-05] MEDS: lactulose oral liq 20 gm/30 mL UDC 30 GM PO ×4 (04:04→21:44)
[2021-12-05 04:06] LABS: Glucose Point of Care 171 mg/dL (70-110)
[2021-12-05 04:06] LABS: Glucose Point of Care 195 mg/dL (70-110)
[2021-12-05 05:10] LABS: Basophils # 0.1 10^3/uL (0.0-0.1); Basophils % 0.3 %; Hematocrit 40.5 % (37.0-47.0); Hemoglobin 13.4 g/dL (11.5-15.3); Lymphocytes # 1.5 10^3/uL (0.8-4.8); Lymphocytes % 4.8 %; Mean Corpuscular HGB Conc 33.1 g/dL (30.0-36.0); Mean Corpuscular Hemoglobin 28.8 pg (28.0-34.0); Mean Corpuscular Volume 87.1 fl (81-99); Mean Platelet Volume 12.5 fL (7.4-10.4); Monocytes # 2.5 10^3/uL (0.2-0.9); Neutrophils # 27.12 10^3/uL (1.8-7.7); Neutrophils % 85.7 %; Nucleated Red Blood Cells % 0 %; Platelet Count 391 10^3/cmm (130-400); Red Blood Count 4.65 10^6/uL (4.1-5.3); Red Cell Distribution Width 14.1 % (12.1-15.1)
[2021-12-05 05:24] LABS: INR 1.42 (0.8-1.2)
[2021-12-05 05:27] LABS: Lactate (Lactic Acid level) 2.4 mmol/L (0.5-2.2)
[2021-12-05] MEDS: levothyroxine 25 mcg Tablet PO (05:30)
[2021-12-05 05:32] LABS: White Blood Count 31.6 10^3/uL (4.0-10.0)
[2021-12-05] MEDS: acyclovir 500 MG in sodium chloride 0.9% (plus) 100 ML 110 MG IV ×2 (07:54→16:06)
[2021-12-05] MEDS: vancomycin 750 MG in sodium chloride 0.9% 250 ML 250 MG IV ×2 (07:55→20:07)
[2021-12-05] MEDS: ferrous gluconate 324 mg Tablet PO ×2 (07:57→17:17)
[2021-12-05] MEDS: OLANZapine 10 mg TABLET PO ×2 (07:57→18:39)
[2021-12-05 08:15] LABS: Glucose Point of Care 135 mg/dL (70-110)
[2021-12-05 08:17] LABS: Basophils % 0.1 %; Hematocrit 39.1 % (37.0-47.0); Hemoglobin 13.1 g/dL (11.5-15.3); Lymphocytes # 1.9 10^3/uL (0.8-4.8); Lymphocytes % 6.1 %; Mean Corpuscular HGB Conc 33.5 g/dL (30.0-36.0); Mean Corpuscular Hemoglobin 29.1 pg (28.0-34.0); Mean Corpuscular Volume 86.9 fl (81-99); Mean Platelet Volume 11.6 fL (7.4-10.4); Monocytes # 2.3 10^3/uL (0.2-0.9); Monocytes % 7.5 %; Neutrophils # 26.38 10^3/uL (1.8-7.7); Neutrophils % 85.7 %; Nucleated Red Blood Cells % 0 %; Platelet Count 394 10^3/cmm (130-400)
[2021-12-05 08:19] LABS: White Blood Count 30.8 10^3/uL (4.0-10.0)
[2021-12-05 08:39] LABS: Ammonia 27 umol/L (11-51)
[2021-12-05] MEDS: pantoprazole 40 mg SDV IVP ×2 (08:48→21:44)
[2021-12-05] MEDS: aspirin 81 mg EC Tablet PO (08:48)
[2021-12-05 08:50] LABS: NT Pro B Type Natriuretic Pept 421 pg/mL (0-125); Procalcitonin 11.21 ng/mL (0-0.5)
[2021-12-05 08:52] LABS: NT Pro B Type Natriuretic Pept 438 pg/mL (0-125); Procalcitonin 11.28 ng/mL (0-0.5)
[2021-12-05 09:02] LABS: Alanine Aminotransferase 33 U/L (0-33); Albumin Level 2.4 g/dL (3.5-5.2); Alkaline Phosphatase 97 IU/L (35-105); Anion Gap 19.4 (5-19); Aspartate Amino Transferase 37 U/L (0-32); Blood Urea Nitrogen 19 mg/dL (6-20); C Reactive Protein 325.6 mg/L (0.0-4.9); Calcium 7.6 mg/dL (8.5-10.5); Carbon Dioxide 20 mmol/L (22-29); Chloride 115 mmol/L (98-107); Globulin 2.8 g/dL (1.3-4.6); Glomerular Filtration Rate 38.5 mL/min (90-130); Glucose 139 mg/dL (65-115); Magnesium 2.2 mg/dL (1.7-2.3); Osmolality Calculated 317 mOsm/kg (285-295); Potassium 3.4 mmol/L (3.5-5.1); Sodium 151 mmol/L (136-145); Total Bilirubin 0.5 mg/dL (0.15-1.2); Total Protein 5.2 g/dL (6.6-8.7)
[2021-12-05 09:03] LABS: Magnesium 2.2 mg/dL (1.7-2.3); Phosphorus 2.9 mg/dL (2.5-4.5)
[2021-12-05 09:08] LABS: Creatine Phosphokinase 347 U/L (26-192)
[2021-12-05] MEDS: ipratropium-albuterol 3 mL Neb INHALATION ×3 (09:13→20:58)
[2021-12-05] MEDS: budesonide 0.5 mg/2 mL Neb INHALATION ×2 (09:13→20:58)
[2021-12-05] MEDS: dexamethasone 10 mg/mL INJ 6 MG IVP (11:00)
[2021-12-05] MEDS: metroNIDAZOLE IV 500 MG/100 ML PREMIX 100 MG IV ×2 (11:00→17:18)
[2021-12-05] MEDS: dexmedeTOMIDine 0.9 % NaCL 400 MCG/100 ML PREMIX 9.53 MCG IV (11:00)
[2021-12-05 13:20] LABS: Glucose Point of Care 122 mg/dL (70-110)
[2021-12-05] MEDS: acetaminophen 325 mg Tablet 650 MG PO (13:26)
--- NOTE | 2021-12-05 15:00 | P.PN_ITS ---
Subjective Subjective: Interval history: Yesterday evening, correct nursing staff patient was much more alert, awake, much more responsive, this morning she is a bit drowsy, has received sedating medications on Precedex, she does awaken, but does not follow commands, pupils equal round reactive to light, febrile overnight as high as 102, continues to have diarrhea, no abdominal pain complaints, did have episodes of sinus tachycardia overnight heart rates in the 150s which resolved, she is on 4 of Levophed Vitals/I&O/Wt Last Vital Signs Temp 99.0 F 12/05/21 13:00 Pulse 88 12/05/21 14:39 Resp 24 H 12/05/21 14:34 BP 128/86 12/05/21 13:00 Pulse Ox 99 12/05/21 14:34 12/05/21 12/05/21 12/05/21 06:59 14:59 22:59 Intake Total 337.130 / 997.1789 235.737 / 235.737 Output Total 150 / 1725 200 / 200 Balance 187.130 / -727.8211 35.737 / 35.737 Weight last 48 hrs Weight 52.481 kg Weight 52.98 kg Physical Exam Const: COMMON NORMALS: no acute distress EXAM LIMITATIONS: altered mental status ORIENTATION/CONSCIOUSNESS: Yes awake and Yes oriented to person; not oriented to place and not oriented to time Resp: COMMON NORMALS: normal respiratory effort, No retractions, No use of accessory muscles and clear to auscultation bilaterally AUSCULTATION: clear to auscultation bilaterally Cardio: COMMON NORMALS: regular rate, regular rhythm, S1 normal heart sound present and S2 normal heart sound present RATE: regular rate RHYTHM: r egular rhythm HEART SOUNDS: S1 normal heart sound present and S2 normal heart sound present GI: COMMON NORMALS: Normal to inspection, nondistended, normoactive bowel sounds present, Soft to palpation and non-tender PALPATION: Yes Soft to palpation Extremity: COMMON NORMALS: no pedal edema Neuro: SENSORIUM/ORIENTATION: Yes oriented to person, No oriented to place and No oriented to time Urinary Catheter Management: Ro: Cath Placed During This Visit: no Reason for Continuing Indwelling Catheter: Accurate Measurement of Urinary Output in Critically Ill Patients Data : 12/05/21 08:06 12/05/21 08:06 Micro: Microbiology 02/02/22 17:01 Gram Stain - Final Cerebrospinal Fluid CSF Culture - Preliminary 12/03/21 13:00 Urine Culture - Preliminary Urine,Clean Catch A&P Assessment and plan (1) Acute encephalopathy: Status: Acute (2) COVID-19: Status: Acute (3) Hepatic encephalopathy: Status: Acute (4) Hypernatremia: Status: Acute (5) Diarrhea: Status: Acute (6) Dehydration: Status: Acute (7) Rhabdomyolysis: Status: Acute (8) Benign essential hypertension with target blood pressure below 140/90: Status: Acute (9) Carotid artery stenosis without cerebral infarction: Status: Acute Qualifiers: Laterality: left Qualified Code(s): I65.22 - Occlusion and stenosis of left carotid artery (10) Chronic prescription opiate use: Status: Acute (11) Anxiety and depression: Status: Chronic (12) Hypokalemia: Status: Acute (13) Hyperammonemia: Status: Acute (14) Opiate withdrawal: Status: Acute Plan Acute metabolic encephalopathy: Etiology unclear Has hepatic encephalopathy, elevated serum ammonia levels, currently 24 Possible drug withdrawal from oxycodone, Lyrica, Robaxin Hypernatremia, now increased to 151, likely secondary dehydration COVID-19 Chest x-ray no focal pneumonia CT of abdomen pelvis Possible opiate withdrawal, takes Lyrica, oxycodone 15 every 6, Robaxin History of alcohol consumption Lungs: Dependent atelectasis in the lungs bilaterally. Pleural spaces: No pleural effusion. Heart: Visualized portions of the heart are mildly enlarged. Liver: The liver is unremarkable. Gallbladder and bile ducts: The gallbladder is unremarkable. No biliary ductal dilatation. Pancreas: Mild atrophy of the pancreatic parenchyma. No pancreatic ductal dilatation. Spleen: Multiple splenules in the left upper quadrant. Adrenal glands: The right and left adrenal glands are unremarkable. Kidneys and ureters: The right and left kidneys are unremarkable. The right and left ureters are unremarkable. Stomach and bowel: Fluid within the small bowel and colon without evidence of bowel wall thickening. Fatty infiltration of the wall of the proximal colon. Findings suggest sequela of chronic inflammation. Appendix: The appendix is visualized and is unremarkable. No findings to suggest acute appendicitis. Intraperitoneal space: No free intraperitoneal air. No ascites. No loculated fluid collections to suggest an abscess. Vasculature: Moderate atherosclerotic changes in the visualized arteries. No evidence for aortic aneurysm or aortic dissection. Hepatic veins, portal veins, splenic vein, and SMV are patent. Lymph nodes: No lymphadenopathy. Urinary bladder: Unremarkable as visualized. Reproductive: Patient has had a previous hysterectomy. The right and left ovaries are unremarkable. Bones/joints: Degenerative changes in the spine, sacroiliac joints, and hips. Grade I anterolisthesis of L4 on L5, likely due to facet degenerative change. Moderate spinal canal stenosis at L4-L5. Multilevel foraminal stenosis of varying severity in the lumbar spine. CT of the head No acute intracranial hemorrhage, midline shift or mass effect. Mild atrophy and mild chronic microvascular ischemic disease. Partial obscuration of the posterior fossa due to beam hardening artifact. Ventricles:? Normal size with no hydrocephalus. Paranasal sinuses: Small air-fluid level in the LEFT sphenoid sinus. Mastoid air cells: Well pneumatized. Calvarium and scalp: Skull is intact with no soft tissue edema or swelling. -Blood culture negative today, urine bacterial antigens negative to date -Carotid artery stenosis No change seen from prior study. ?Bilateral ICA stenosis less than 50% -Cardiac echocardiogram This is technically limited quality echocardiogram because of ?poor ultrasonic windows. ?Grossly LV systolic function is normal.? Diastolic function is ?indeterminate because of tachycardia. ?Valvular structures are not well-visualized. ?Comparison with prior echocardiogram is not possible because of ?limited quality images. -Status post lumbar puncture clear, colorless, 2 WBCs, 0 RBCs, glucose 75, LDH 28, total protein 24, albumin 0.2 -White blood cell count 21.8, febrile, pro-Vin 0.34 Plan -Has hyperammonemia, continue lactulose, rectal tube in place -Follow urine cultures, blood cultures, sputum cultures, urine bacterial antigens, CSF studies, also for negative -Start Levophed, maintain map around 65, midline placed -So far infectious markers have been unremarkable, however febrile, white blood cell count greater than 30,000, will start on p.o. vancomycin for possible C. di fficile, stool studies -continue Zosyn -Continue vancomycin -MRI of the brain -Scheduled Zyprexa 10 every 12 hours, Ativan as needed -Hold Lyrica, Robaxin, oxycodone -Currently in nonviolent restraints, de-escalate as per protocol Acute hypoxic respiratory failure secondary to COVID-19 pneumonia, possible aspiration -currently on BiPAP -pH 7.5, PO2 60.3, on 60% FiO2 -High risk of intubation the next 24 hours -Continue Decadron -Continue remdesivir -Monitor respiratory status closely -DuoNebs, budesonide Abdomen abdomen less distended today, has moderate bowel sounds, CT scan findings show evidence of enteritis Hypothyroidism continue levothyroxine 25 mcg, TSH 0.18 Hyperammonemia -Etiology unclear -Possibly hypoxia -CT scan of the abdomen pelvis does not show any radiographic evidence of cirrhosis -Continue lactulose 30 every 6, rectal tube Hyponatremia, resolved -Likely hypovolemic Hypokalemia, Ro catheterization, strict input output charting. Frequent orientation, fall precaution. Sitter at bedside Rhabdomyolysis: Secondary dehydration, agitation Stop tube feeds due to risk of aspiration, start TPN Full code. NPO. Protonix for PUD prophylaxis. Lovenox for DVT prophylaxis. Patient's daughter Ms. Escoto has been updated in detail. We also discussed that DPOA would be her in case any medical decisions needed to be made. They verbalized understanding. All the questions were answered. Attestations Medical Necessity Statement*: Patient requires hospitalization for acute encephalopathy, critical care time spent over 35 minutes Coding Level of Care Code Acute Staffing Program Manager for g Fwd Diagnoses Acute encephalopathy G93.40 COVID-19 U07.1 Hepatic encephalopathy K72.90 Hypernatremia E87.0 Diarrhea R19.7 Dehydration E86.0 Rhabdomyolysis M62.82 Benign essential hypertension with target blood pressure below 140/90 I10 Carotid artery stenosis without cerebral infarction I65.22 Laterality: left Chronic prescription opiate use Z79.891 Anxiety and depression F41.9; F32.9 Hypokalemia E87.6 Hyperammonemia E72.20 Opiate withdrawal F11.23
[2021-12-05] MEDS: dextrose 5%-ns + KCl 20 20 MEQ/1,000 ML BAG 75 MEQ IV (16:07)
[2021-12-05 16:28] LABS: Glucose Point of Care 116 mg/dL (70-110)
[2021-12-05 19:37] LABS: Vancomycin Trough 13.1 ug/mL (10-15)
[2021-12-05] MEDS: enoxaparin 40 mg/0.4 mL Syringe SUBCUT (20:02)
--- NOTE | 2021-12-05 20:38 | PC.NURSE ---
Pt increasingly restless, constant observer at bedside. Pt turns self in bed despite being in bilateral soft wrist restraints. PICC line is in right upper arm.
[2021-12-05 20:48] LABS: Glucose Point of Care 165 mg/dL (70-110)
[2021-12-05] MEDS: dexmedeTOMIDine 0.9 % NaCL 400 MCG/100 ML PREMIX 10.89 MCG IV (22:14)
--- NOTE | 2021-12-05 22:21 | PC.NURSE ---
PSA in place at bedside. Pt's rectal tube leaking. Pads under patient changed and yaz/collins care performed.
[2021-12-05] MEDS: acyclovir 500 MG in sodium chloride 0.9% (plus) 100 ML 100 MG IV (23:11)
--- NOTE | 2021-12-05 23:45 | PC.NURSE ---
Pt thrashing and moaning in bed. Precedex titrated. Pt repositioned. Bed straightened and partial linen changed. Kalli care provided. PSA at bedside.
[2021-12-06] VITALS (103 sets, daily range): BP systolic 76–174; BP diastolic 47–113; PULSE 76–134; RESP 18–94; TEMP 36.4–37.7; O2SAT 79–100
[2021-12-06] MEDS: metroNIDAZOLE IV 500 MG/100 ML PREMIX 100 MG IV ×3 (00:26→17:39)
[2021-12-06 00:35] LABS: Glucose Point of Care 130 mg/dL (70-110)
[2021-12-06] MEDS: LORazepam 2 mg/mL INJ 1 mL 1 MG IVP (02:35)
[2021-12-06 03:26] LABS: Glucose Point of Care 142 mg/dL (70-110)
[2021-12-06] MEDS: lactulose oral liq 20 gm/30 mL UDC 30 GM PO ×2 (03:28→21:44)
[2021-12-06] MEDS: insulin lispro 100 unit/1 mL SUBCUT ×4 (03:28→23:30)
[2021-12-06] MEDS: piperacillin-tazobactam 3.375 GM in sodium chloride 0.9% (plus) 50 ML IV ×3 (03:29→19:30)
[2021-12-06 04:51] LABS: Basophils % 0.1 %; Lymphocytes # 1.6 10^3/uL (0.8-4.8); Lymphocytes % 7.1 %; Mean Corpuscular HGB Conc 32.4 g/dL (30.0-36.0); Mean Corpuscular Hemoglobin 28.5 pg (28.0-34.0); Mean Corpuscular Volume 87.9 fl (81-99); Mean Platelet Volume 11.7 fL (7.4-10.4); Monocytes # 1.5 10^3/uL (0.2-0.9); Monocytes % 6.6 %; Neutrophils # 19.23 10^3/uL (1.8-7.7); Neutrophils % 85.5 %; Nucleated Red Blood Cells % 0 %; Platelet Count 462 10^3/cmm (130-400); Red Blood Count 4.21 10^6/uL (4.1-5.3); Red Cell Distribution Width 14.3 % (12.1-15.1); White Blood Count 22.5 10^3/uL (4.0-10.0)
[2021-12-06 04:58] LABS: INR 1.41 (0.8-1.2)
[2021-12-06 05:06] LABS: Ammonia 64 umol/L (11-51); Lactate (Lactic Acid level) 1.8 mmol/L (0.5-2.2)
--- NOTE | 2021-12-06 05:09 | XRR_ITS ---
PROCEDURE INFORMATION: Exam: XR Chest Exam date and time: 12/06/2021 5:09 AM Age: 61 years old Clinical indication: Shortness of breath; Patient HX: F/u covid pneumonia. ; Additional info: SOB TECHNIQUE: Imaging protocol: XR of the chest. Views: 1 view. COMPARISON: CR XR chest 1V portable [id number] 12/04/2021 8:01 AM FINDINGS: Tubes, catheters and devices: Enteric tube tip is over the body of the stomach (mid stomach). Lungs: Increased moderate to severe right pneumonia and stable moderate left pneumonia. Pleural spaces: Unremarkable. No pleural effusion. No pneumothorax. Heart/Mediastinum: Increased heart size which is borderline cardiomegaly. Bones/joints: Unremarkable. XR/XR chest 1V portable [id number] IMPRESSION: 1. Increased moderate to severe right pneumonia and stable moderate left pneumonia. 2. Increased heart size which is borderline cardiomegaly. 3. Enteric tube tip is over the body of the stomach (mid stomach).
[2021-12-06 05:11] LABS: ABG PCO2 28.4 mmHg (35-45); ABG PH Result 7.45 (7.35-7.45); Arterial Blood Gas Hematocrit 48.4 % (37-47); Blood Gas Allen Test Pos; Blood Gas Operator Identificat JB; Blood Gas Sample Site Brachial, left; Blood Gas Sample Type Arterial; HCO3 ABG 19.5 mmol/L (22-26); Oxygen Device BIPAP; PO2 ABG 51.6 mmHg (80.0-100.0)
[2021-12-06] MEDS: LORazepam 2 mg/mL INJ 1 mL IVP (05:15)
[2021-12-06 05:17] LABS: NT Pro B Type Natriuretic Pept 294 pg/mL (0-125); Procalcitonin 6.74 ng/mL (0-0.5)
--- NOTE | 2021-12-06 05:20 | PC.NURSE ---
Pt thrashing in bed and screaming, HR elevated, BP elevated, SP02 decreased.
[2021-12-06 05:30] LABS: Alanine Aminotransferase 30 U/L (0-33); Albumin Level 2.3 g/dL (3.5-5.2); Alkaline Phosphatase 101 IU/L (35-105); Blood Urea Nitrogen 22 mg/dL (6-20); C Reactive Protein 269.3 mg/L (0.0-4.9); Calcium 8.2 mg/dL (8.5-10.5); Carbon Dioxide 14 mmol/L (22-29); Chloride 133 mmol/L (98-107); Creatine Phosphokinase 289 U/L (26-192); Globulin 2.9 g/dL (1.3-4.6); Glucose 116 mg/dL (65-115); Magnesium 2.5 mg/dL (1.7-2.3); Osmolality Calculated 328 mOsm/kg (285-295); Phosphorus 1.3 mg/dL (2.5-4.5); Sodium 157 mmol/L (136-145); Total Bilirubin 0.4 mg/dL (0.15-1.2); Total Protein 5.2 g/dL (6.6-8.7)
[2021-12-06 05:56] LABS: Anion Gap 13.1 (5-19)
[2021-12-06 05:57] LABS: Aspartate Amino Transferase 31 U/L (0-32); Potassium 3.1 mmol/L (3.5-5.1)
--- NOTE | 2021-12-06 06:00 | ECG_ITS ---
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 Measurements Intervals [place] Rate: 101 P: 70 DC: 135 QRS: 27 QRSD: 78 T: 88 QT: 275 QTc: 358 Interpretive Statements SINUS TACHYCARDIA NONSPECIFIC ST & T-WAVE ABNORMALITY ABNORMAL RHYTHM ECG Compared to ECG 12/03/2021 13:02:37 No significant changes Electronically Signed On 12-08-2021 8:56:36 [employer]ASTEW[employer] PROJECT ENGINEER by Ana Nugent M.D. [id number]
[2021-12-06] MEDS: levothyroxine 25 mcg Tablet PO (06:24)
[2021-12-06] MEDS: OLANZapine 10 mg TABLET PO (06:24)
[2021-12-06] MEDS: dextrose 5%-ns + KCl 20 20 MEQ/1,000 ML BAG 75 MEQ IV (06:24)
[2021-12-06] MEDS: dexmedeTOMIDine 0.9 % NaCL 400 MCG/100 ML PREMIX 16.33 MCG IV (06:36)
[2021-12-06] MEDS: succinylcholine 20 mg/mL SDV 10mL 100 MG IVP (06:48)
[2021-12-06] MEDS: midazolam 1 mg/mL INJ 2 mL 2 MG IVP (06:49)
[2021-12-06] MEDS: fentaNYL 50 mcg/mL INJ 2mL 25 MCG IVP (06:49)
--- NOTE | 2021-12-06 07:03 | XRR_ITS ---
PROCEDURE INFORMATION: Exam: XR Chest Exam date and time: 12/06/2021 7:03 AM Age: 61 years old Clinical indication: Device placement; Other: Et and ng placement; Additional info: S/P e/t tube placement check TECHNIQUE: Imaging protocol: XR of the chest. Views: 1 view. COMPARISON: CR (CHEST, ) 12/06/2021 5:32 AM FINDINGS: Tubes, catheters and devices: Stable enteric tube tip over the gastric body. Endotracheal tube tip over the proximal portion of the ramirez. This could be pulled back 1.5 cm. Lungs: Moderate bilateral perihilar and basilar pneumonia. Pleural spaces: Unremarkable. No pleural effusion. No pneumothorax. Heart/Mediastinum: Unremarkable. No cardiomegaly. Bones/joints: Unremarkable. XR/XR chest 1V portable [id number] IMPRESSION: 1. Stable enteric tube tip over the gastric body. 2. Endotracheal tube tip over the proximal portion of the ramirez. This could be pulled back 1.5 cm. 3. Moderate bilateral perihilar and basilar pneumonia.
[2021-12-06] MEDS: propofol 1,000 MG/100 ML INJ 12.6 MG IV (07:20)
--- NOTE | 2021-12-06 07:30 | PC.NURSE ---
Dr. Petit present on unit at 0630. Pt remains tachypneic, hypertensive, tachycardic, and hypoxic. Pt successfully intubated with a #8 ETT at 0650. Bilateral lung sounds auscultated, color change CO2 detected, CXR confirmation of placement. Dr. Petit at bedside until after 0740. He has called pt's and updated on her condition.
--- NOTE | 2021-12-06 07:57 | PC.NURSE ---
Fentanyl 25 mcg given at 0649. Pyxis will not allow this nurse to waste full 75 mcg. 25 mcg was administered as ordered, and 75 mcg was wasted with a witness.
[2021-12-06 09:00] LABS: Glucose Point of Care 179 mg/dL (70-110)
[2021-12-06] MEDS: ferrous gluconate 324 mg Tablet PO ×2 (09:07→17:39)
[2021-12-06] MEDS: aspirin 81 mg EC Tablet PO (09:07)
[2021-12-06] MEDS: pantoprazole 40 mg SDV IVP ×2 (09:07→21:44)
[2021-12-06] MEDS: vancomycin 750 MG in sodium chloride 0.9% 250 ML 250 MG IV ×2 (09:09→21:00)
[2021-12-06] MEDS: ipratropium-albuterol 3 mL Neb INHALATION ×3 (09:12→20:01)
[2021-12-06] MEDS: budesonide 0.5 mg/2 mL Neb INHALATION ×2 (09:12→20:01)
[2021-12-06] MEDS: acyclovir 500 MG in sodium chloride 0.9% (plus) 100 ML 110 MG IV ×3 (09:12→23:29)
[2021-12-06] MEDS: dextrose 5% 1,000 ML 75 ML IV (10:30)
[2021-12-06] MEDS: dexamethasone 10 mg/mL INJ 6 MG IVP (10:31)
--- NOTE | 2021-12-06 10:35 | PC.NUTR ---
TF consult received. When medically appropriate, recommend Jevity 1.2 starting @ 10 mls/hr advancing 10 mls/hr Q8H as tolerated until goal rate of 30 mls/hr is reached, with water flushes 100 mls Q6H. Details in RD assessment.
[2021-12-06 10:40] LABS: Glucose Point of Care 122 mg/dL (70-110)
[2021-12-06 11:12] LABS: Sodium 166 mmol/L (136-145)
--- NOTE | 2021-12-06 11:49 | XRR_ITS ---
PROCEDURE INFORMATION: Exam: XR Chest Exam date and time: 12/06/2021 11:49 AM Age: 61 years old Clinical indication: Shortness of breath; Additional info: SOB TECHNIQUE: Imaging protocol: XR of the chest. Views: 1 view. Total images: 1 COMPARISON: CR XR chest 1V portable [id number] 12/06/2021 6:56 AM FINDINGS: Tubes, catheters and devices: Tubes and catheters are unchanged from the prior exam. Lungs: Stable bilateral pleuroparenchymal disease. Pleural spaces: No pneumothorax. Heart/Mediastinum: Heart size is stable when compared to the prior exam. Bones/joints: Osseous structures are unchanged from the prior exam. XR/XR chest 1V portable [id number] IMPRESSION: 1. Tubes and catheters are unchanged from the prior exam. 2. Stable bilateral pleuroparenchymal disease.
--- NOTE | 2021-12-06 11:49 | XRR_ITS ---
PROCEDURE INFORMATION: Exam: XR Abdomen Exam date and time: 12/06/2021 11:49 AM Age: 61 years old Clinical indication: Other: Abominal distention TECHNIQUE: Imaging protocol: XR of the abdomen. Views: Frontal supine view of the abdomen. 1 View. Total images: 1 COMPARISON: CT abdomen pelvis w con* [id number] 12/04/2021 5:08 PM FINDINGS: Tubes, catheters and devices: Nasogastric tube has its proximal port at GE junction, recommend advancement by 7-10 cm. Lungs: Stable bilateral pleuroparenchymal disease. Pleural space: No pneumothorax. Gastrointestinal tract: There is gaseous distention of the stomach noted. Bowel gas pattern is mildly distended but nonobstructive. Bones/joints: Unremarkable. XR/XR KUB portable [id number] IMPRESSION: 1. Nasogastric tube has its proximal port at GE junction, recommend advancement by 7-10 cm. 2. Stable bilateral pleuroparenchymal disease. 3. There is gaseous distention of the stomach noted. 4. Bowel gas pattern is mildly distended but nonobstructive.
[2021-12-06] MEDS: cisatracurium 100 MG in sodium chloride 0.9% 50 ML IV (12:50)
[2021-12-06] MEDS: propofol 1,000 MG/100 ML INJ 9.45 MG IV (14:24)
--- NOTE | 2021-12-06 14:31 | PC.NURSE ---
Tube feedings on hold per physician's orders- patient to prone first and when patient placed supine restart feedings.
--- NOTE | 2021-12-06 14:47 | P.PN_ITS ---
Subjective Subjective: Interval history: Early in the morning, patient developed respiratory distress, increase respiratory rate, drop in her O2 sats, was less responsive though she was intubated by Dr. Petit Currently she is intubated, sedated on 100% FiO2, suctioning has revealed a lot of mucus plugging, currently on Levophed Vitals/I&O/Wt Last Vital Signs Temp 97.5 F L 12/06/21 11:00 Pulse 115 H 12/06/21 12:30 Resp 43 H 12/06/21 14:00 BP 96/60 12/06/21 12:30 Pulse Ox 91 12/06/21 14:00 12/05/21 12/06/21 12/06/21 22:59 06:59 14:59 Intake Total 793.175 / 2315.758 0989.450 / 2840.954 977.3686 / 876.1549 Output Total 475 / 675 900 / 1575 550 / 550 Balance 318.175 / 472.784 792.450 / 1265.052 365.9973 / 326.1549 Weight last 48 hrs Weight 52.481 kg Physical Exam Const: COMMON NORMALS: no acute distress OTHER: Intubated, sedated on mechanical ventilation Orogastric tube in place Peripheral PICC line in place Rectal tube in place Ro catheter in place Eye: COMMON NORMALS: Equal, round and reactive pupils present PUPIL: Yes Equal, round and reactive pupils present Resp: COMMON NORMALS: normal respiratory effort, No retractions, No use of accessory muscles and clear to auscultation bilaterally AUSCULTATION: clear to auscultation bilaterally Cardio: COMMON NORMALS: regular rate, regular rhythm, S1 normal heart sound present and S2 normal heart sound present RATE: regular rate RHYTHM: regular rhythm HEART SOUNDS: S1 normal heart sound present and S2 normal heart sound present GI: COMMON NORMALS: Normal to inspection, nondistended, normoactive bowel sounds present, Soft to palpation, non-tender and No hepatosplenomegaly present PALPATION: Yes Soft to palpation and Yes No hepatosplenomegaly present OTHER: Rectal tube in place Extremity: COMMON NORMALS: no pedal edema Urinary Catheter Management: Ro: Cath Placed During This Visit: no Reason for Continuing Indwelling Catheter: Accurate Measurement of Urinary Output in Critically Ill Patients Data : 12/06/21 04:29 12/06/21 09:27 Micro: Microbiology 12/03/21 17:01 Gram Stain - Final Cerebrospinal Fluid CSF Culture - Final 12/03/21 13:00 Urine Culture - Final Urine,Clean Catch A&P Assessment and plan (1) Acute encephalopathy: Status: Acute (2) COVID-19: Status: Acute (3) Hepatic encephalopathy: Status: Acute (4) Hypernatremia: Status: Acute (5) Diarrhea: Status: Acute (6) Dehydration: Status: Acute (7) Rhabdomyolysis: Status: Acute (8) Benign essential hypertension with target blood pressure below 140/90: Status: Acute (9) Carotid artery stenosis without cerebral infarction: Status: Acute Qualifiers: Laterality: left Qualified Code(s): I65.22 - Occlusion and stenosis of left carotid artery (10) Chronic prescription opiate use: Status: Acute (11) Anxiety and depression: Status: Chronic (12) Hypokalemia: Status: Acute (13) Hyperammonemia: Status: Acute (14) Opiate withdrawal: Status: Acute Plan Acute hypoxic respiratory failure secondary to COVID-19 pneumonia, possible aspiration, with developing -Intubated, sedated on mechanical ventilation -Minimize tidal volume, minimize FiO2 -Propofol, fentanyl, Versed for sedation -We will prone today, Nimbex -Continue Levophed, midline in place, maintain MAP more than 65 -Consult pulmonary -Completed remdesivir -Continue Decadron -Hold off on Actemra as there is concerns for secondary infection -On vancomycin, Zosyn -All cultures so far have been unremarkable -Fever trend has decreased -Ipratropium, budesonide -Protonix for GI prophylaxis -Lovenox for DVT prophylaxis -Full code Hypernatremia, serum sodium 166 -Likely secondary to dehydration -Start D5 water at 125 cc -Check serum sodiums every 6 hours -Nephrology consulted Acute renal failure, creatinine 1.2 -Likely secondary to COVID-19 pneumonia, dehydration -Receiving D5 water as above, monitor urine output, avoid nephrotoxic agents Acute metabolic encephalopathy: Likely secondary to COVID-19 pneumonia, drug withdrawal, hyperammonemia Has hepatic encephalopathy, elevated serum ammonia levels, currently 24 Possible drug withdrawal from oxycodone, Lyrica, Robaxin Hypernatremia, now increased to 166, likely secondary dehydration COVID-19 CT of abdomen pelvis Possible opiate withdrawal, takes Lyrica, oxycodone 15 every 6, Robaxin History of alcohol consumption Lungs: Dependent atelectasis in the lungs bilaterally. Pleural spaces: No pleural effusion. Heart: Visualized portions of the heart are mildly enlarged. Liver: The liver is unremarkable. Gallbladder and bile ducts: The gallbladder is unremarkable. No biliary ductal dilatation. Pancreas: Mild atrophy of the pancreatic parenchyma. No pancreatic ductal dilatation. Spleen: Multiple splenules in the left upper quadrant. Adrenal glands: The right and left adrenal glands are unremarkable. Kidneys and ureters: The right and left kidneys are unremarkable. The right and left ureters are unremarkable. Stomach and bowel: Fluid within the small bowel and colon without evidence of bowel wall thickening. Fatty infiltration of the wall of the proximal colon. Findings suggest sequela of chronic inflammation. Appendix: The appendix is visualized and is unremarkable. No findings to suggest acute appendicitis. Intraperitoneal space: No free intraperitoneal air. No ascites. No loculated fluid collections to suggest an abscess. Vasculature: Moderate atherosclerotic changes in the visualized arteries. No evidence for aortic aneurysm or aortic dissection. Hepatic veins, portal veins, splenic vein, and SMV are patent. Lymph nodes: No lymphadenopathy. Urinary bladder: Unremarkable as visualized. Reproductive: Patient has had a previous hysterectomy. The right and left ovaries are unremarkable. Bones/joints: Degenerative changes in the spine, sacroiliac joints, and hips. Grade I anterolisthesis of L4 on L5, likely due to facet degenerative change. Moderate spinal canal stenosis at L4-L5. Multilevel foraminal stenosis of varying severity in the lumbar spine. CT of the head No acute intracranial hemorrhage, midline shift or mass effect. Mild atrophy and mild chronic microvascular ischemic disease. Partial obscuration of the posterior fossa due to beam hardening artifact. Ventricles:? Normal size with no hydrocephalus. Paranasal sinuses: Small air-fluid level in the LEFT sphenoid sinus. Mastoid air cells: Well pneumatized. Calvarium and scalp: Skull is intact with no soft tissue edema or swelling. -Blood culture negative today, urine bacterial antigens negative to date -Carotid artery stenosis No change seen from prior study. ?Bilateral ICA stenosis less than 50% -Cardiac echocardiogram This is technically limited quality echocardiogram because of ?poor ultrasonic windows. ?Grossly LV systolic function is normal.? Diastolic function is ?indeterminate because of tachycardia. ?Valvular structures are not well-visualized. ?Comparison with prior echocardiogram is not possible because of ?limited quality images. -Status post lumbar puncture clear, colorless, 2 WBCs, 0 RBCs, glucose 75, LDH 28, total protein 24, albumin 0.2 Plan -Has hyperammonemia, improving, hold lactulose given hyponatremia, rectal tube in place -Follow urine cultures, blood cultures, sputum cultures, urine bacterial antigens, CSF studies, also for negative -Start Levophed, maintain map around 65, midline placed -So far infectious markers have been unremarkable, however febrile, white blood cell count has trended downwards since starting p.o. vancomycin for possible C. difficile, stool studies -continue Zosyn -Continue vancomycin -On acyclovir for possible HSV meningitis/encephalitis -MRI of the brain cannot be obtained -Hold Lyrica, Robaxin, oxycodone -Currently in nonviolent restraints, de-escalate as per protocol Abdomen abdomen less distended today, has moderate bowel sounds, CT scan findings show evidence of enteritis, once supine will start tube feeds Hypothyroidism continue levothyroxine 25 mcg, TSH 0.18 Hyperammonemia -Etiology unclear -Possibly hypoxia -CT scan of the abdomen pelvis does not show any radiographic evidence of cirrhosis -Lactulose on hold Hypokalemia, Ro catheterization, strict input output charting. Frequent orientation, fall precaution. Sitter at bedside Rhabdomyolysis: Secondary dehydration, agitation Full code. NPO. Protonix for PUD prophylaxis. Lovenox for DVT prophylaxis. 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
--- NOTE | 2021-12-06 14:50 | P.CONIM_ITS ---
Providers/Reason For Consult Consulting Physician/Specialty*: Nephrology Reason for Consult*: Hypernatremia Attending Physician: Damian Thomas MD Primary Care Provider: Iman Galo DO History of Present Illness History of Present Illness Thank you for consultation, today had the pleasure of reviewing this unfortunate 61-year-old female for evaluation of acute kidney injury and hyponatremia. She originally presented on 11/28/2021 with altered mental status, diarrhea, apparent opioid withdrawal. It became evident that she had Covid positivity as well. Evalauted by Neuro, underwent LP. Continue to do poorly, is actually intubated and mechanically ventilated this today. With chest x-ray which demonstrates worsening bilateral infiltrates. She received lactulose for hypera mmonemia, with some improvement in her ammonia levels, however, this did worsen her diarrhea. She received combination therapy for COVID including Decadron, remdesivir, budesonide and duo nebs. She ruled out for C. difficile, CT of the abdomen pelvis demonstrated no evidence of enteritis, and of note showed unremarkable kidneys. She is now intubated and mechanically ventilated since this morning. Difficulty maintaining her oxygen levels, currently on FiO2 100% and she is about to be pronated. Over the last few days sodium level has been drifting up, sodium is now 166, equivalent to a free water deficit of 4.9 L. Creatinine noted to be slightly elevated, 1.4 yesterday and 1.2 today. Urine output has not been overwhelming i.e. ~1025 mL recorded over the last 24 hours, from what I can see. Review of Systems Narrative: Unobtainable due to clinical condition Medications/Allergies Home Medications Medication Instructions Recorded Confirmed Last Taken Type aspirin 81 mg tablet,delayed 81 mg PO DAILY 12/22/19 11/28/21 Unknown History release (Adult Aspirin Regimen) furosemide 20 mg tablet 20 mg PO DAILY PRN #90 tab 06/18/21 11/28/21 Unknown Rx ibuprofen 800 mg tablet 800 mg PO TID PRN 30 Days #90 tab 06/19/21 11/28/21 Unknown Rx potassium chloride 10 mEq 20 meq PO DAILY #180 tab 07/03/21 11/28/21 Unknown Rx tablet,extended release albuterol sulfate 90 mcg/actuation 2 puff INHALATION QID PRN #8.5 g 09/04/21 11/28/21 Unknown Rx aerosol inhaler (ProAir HFA) budesonide-formoterol HFA 160 2 puff INHALATION BID #10.2 gm 10/09/21 11/28/21 Unknown Rx mcg-4.5 mcg/actuation aerosol inhaler (Symbicort) methocarbamol 750 mg tablet 750 mg PO TID #90 tab 10/09/21 11/28/21 Unknown Rx pregabalin 300 mg capsule (Lyrica) 300 mg PO BID 30 Days #60 cap 10/09/21 11/28/21 Unknown Rx tiotropium bromide 2.5 2 puff INHALATION DAILY #4 gm 10/09/21 11/28/21 Unknown Rx mcg/actuation mist for inhalation (Spiriva Respimat) atorvastatin 40 mg tablet 40 mg PO DAILY 90 Days #90 tab 10/17/21 11/28/21 Unknown Rx bupropion HCl 200 mg tablet,12 hr 200 mg PO BID #60 tab 10/17/21 11/28/21 Unknown Rx sustained-release (Wellbutrin SR) omeprazole 40 mg capsule,delayed 40 mg PO DAILY 30 Days #90 cap 10/20/21 11/28/21 Unknown Rx release metoprolol tartrate 25 mg tablet 25 mg PO BID #60 tab 10/27/21 11/28/21 Unknown Rx oxycodone 15 mg tablet 15 mg PO .6 times a day PRN 3 Days 11/13/21 11/28/21 Unknown Rx #18 tab Allergies Allergy/AdvReac Type Severity Reaction Status Date / Time No Known Allergies Allergy Verified 10/09/21 13:07 Current Medications Generic Name Dose Route Start Last Admin Trade Name Avelq PRN Reason Stop Dose Admin Acetaminophen 650 mg 11/28/21 18:32 12/05/21 13:26 Acetaminophen 325 Mg Tablet PO 650 mg Q6H PRN Administration Mild/Mod Pain Or Temp >/= 101 Albuterol/Ipratropium 3 ml 11/30/21 21:00 12/06/21 09:12 Ipratropium-Albuterol 3 Ml Neb INHALATION 3 ml Q12H BIA Administration Albuterol/Ipratropium 3 ml 12/01/21 09:24 12/05/21 14:34 Ipratropium-Albuterol 3 Ml Neb INHALATION 3 ml Q6H PRN Administration SHORTNESS OF BREATH Aspirin 81 mg 11/29/21 09:00 12/06/21 09:07 Aspirin 81 Mg Ec Tablet PO 81 mg DAILY BIA Administration Budesonide 0.5 mg 11/28/21 20:00 12/06/21 09:12 Budesonide 0.5 Mg/2 Ml Neb INHALATION 0.5 mg BID.RESPIRATORY BIA Administration Dexamethasone 6 mg 11/29/21 11:30 12/06/21 10:31 Dexamethasone 10 Mg/Ml Inj IVP 6 mg Q24H IBA Administration Enoxaparin Sodium 40 mg 11/28/21 20:00 12/05/21 20:02 Enoxaparin 40 Mg/0.4 Ml Syringe SUBCUT 40 mg Q24H BIA Administration Ferrous Gluconate 324 mg 11/29/21 08:00 12/06/21 09:07 Ferrous Gluconate 324 Mg Tablet PO 324 mg BIDWM BIA Administration Hydromorphone HCl 0.5 mg 11/30/21 14:00 12/03/21 10:34 Hydromorphone 1 Mg/Ml Inj 1 Ml IVP Not Given Q4H BIA Piperacillin Sod/Tazobactam 50 mls @ 12.5 mls/hr 11/28/21 20:00 12/06/21 1 2:07 Sod 3.375 gm/ Sodium Chloride IV 12.5 mls/hr Q8H BIA Administration Protocol dexmedeTOMIDine 0.9 % NaCL 400 mcg in 100 mls @ 0 mls/hr 11/29/21 16:45 12/06/21 14:26 Precedex IV Infused .Q0M BIA Titration Protocol Per Protocol Vancomycin HCl 750 mg/ Sodium 250 mls @ 250 mls/hr 12/05/21 08:00 12/06/21 10:09 Chloride IV Infused Q12H BIA Infusion Acyclovir 500 mg/ Sodium 110 mls @ 110 mls/hr 12/05/21 07:00 12/06/21 10:15 Chloride IV Infused Q8H BIA Infusion Metronidazole 500 mg in 100 mls @ 100 mls/hr 12/05/21 09:00 12/06/21 11:30 Flagyl Iv IV Infused Q8H BIA Infusion Protocol Potassium Chloride/Dextrose/Sod Cl 20 meq in 1,000 mls @ 75 mls/hr 12/05/21 15:30 12/06/21 06:24 Dextrose 5%-Ns + Kcl 20 IV 75 mls/hr .[id number] BIA Administration Fentanyl 2,500 mcg/ Sodium 250 mls @ 0 mls/hr 12/06/21 06:45 12/06/21 07:00 Chloride IV 75 mcg/hr .Q0M BIA 7.5 mls/hr Administration Protocol Per Protocol Midazolam HCl 100 mg/ Sodium 100 mls @ 0 mls/hr 12/06/21 06:45 12/06/21 07:18 Chloride IV 2 mg/hr .Q0M BIA 2 mls/hr Administration Protocol Per Protocol Propofol 1,000 mg in 100 mls @ 0 mls/hr 12/06/21 07:15 12/06/21 14:28 Diprivan IV 35 mcg/kg/min .Q0M BIA 11.02 mls/hr Titration Protocol Per Protocol Norepinephrine Bitartrate 4 mg 254 mls @ 0 mls/hr 12/06/21 07:45 12/06/21 14:00 / Dextrose IV 4 mcg/min .Q0M BIA 15.24 mls/hr Titration Protocol Per Protocol Dextrose 1,000 mls @ 125 mls/hr 12/06/21 09:15 12/06/21 10:30 D5w IV 75 mls/hr .Q8H BIA Administration Cisatracurium Besylate 100 mg/ 100 mls @ 0 mls/hr 12/06/21 11:30 12/06/21 14:42 Sodium Chloride IV 1.05 mcg/kg/min .Q0M BIA 3.31 mls/hr Titration Protocol Per Protocol Insulin Human Lispro 0 unit 11/29/21 11:15 12/06/21 10:28 Insulin Lispro 100 Unit/1 Ml SUBCUT Not Given Q4H REPLACED BY [facility] Protocol Lactulose 30 gm 12/01/21 09:30 12/06/21 14:33 Lactulose Oral Liq 20 Gm/30 Ml Udc PO Not Given Q6H BIA Lanolin 1 applic 12/03/21 15:10 12/03/21 15:45 Lanolin Oint 7 Gm TOPICAL 1 applic PRN PRN Administration DRYNESS Levothyroxine Sodium 25 mcg 12/01/21 09:25 12/06/21 06:24 Levothyroxine 25 Mcg Tablet PO 25 mcg QAM BIA Administration Lorazepam 1 mg 11/29/21 20:33 12/06/21 02:35 Lorazepam 2 Mg/Ml Inj 1 Ml IVP 1 mg Q8H PRN Administration ANXIETY Metoprolol Tartrate 25 mg 11/29/21 09:00 11/30/21 10:04 Metoprolol Tartrate 25 Mg Tablet PO 25 mg BID BIA Administration Olanzapine 10 mg 12/03/21 19:00 12/06/21 06:24 Olanzapine 10 Mg Tablet PO 10 mg Q12H BIA Administration Ondansetron HCl 4 mg 11/28/21 18:32 12/04/21 17:47 Ondansetron 2 Mg/Ml Sdv 2 Ml IVP 4 mg Q6H PRN Administration NAUSEA AND VOMITING Pantoprazole Sodium 40 mg 11/30/21 09:30 12/06/21 09:07 Pantoprazole 40 Mg Sdv IVP 40 mg Q12H BIA Administration Pregabalin 300 mg 11/29/21 09:00 12/04/21 08:48 Pregabalin 150 Mg Capsule PO 300 mg BID BIA Administration Rifampin 300 mg 11/28/21 19:50 12/02/21 08:32 Rifampin 300 Mg Capsule PO 300 mg BID BIA Administration Vancomycin HCl 250 mg 12/05/21 09:00 12/06/21 12:07 Vancomycin 1,000 Mg Oral Nohelia (Btl) PO 2.5 ml QID BIA Administration PFSH Acute PFSH: Medical History Anxiety and depression Benign essential hypertension with target blood pressure below 140/90 Carotid artery stenosis without cerebral infarction Chronic bronchitis Chronic cervical pain Chronic diastolic heart failure Chronic diastolic heart failure Chronic lumbosacral pain Chronic prescription opiate use COPD (chronic obstructive pulmonary disease) Dyslipidemia Encounter for long-term use of opiate analgesic Fibromyalgia GERD (gastroesophageal reflux disease) Heart failure Hypertension 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 (nsaid) Opioid contract exists Strain of right trapezius muscle TIA due to embolism Surgical History H/O section H/O hemorrhoidectomy H/O rotator cuff surgery History of hysterectomy Family History Sister Anesthesia complication Father CAD (coronary artery disease) Grandmother CAD (coronary artery disease) Grandfather Cancer Mother Dementia Lung disease Denies family history of Diabetes Clotting disorder Chronic kidney disease (CKD) Suicide Bleeding disorder Stroke Social History Smoking and tobacco status: former smoker Second hand smoke exposure: Yes Alcohol intake: never History of recent travel: No Vitals/I&O/Wt Last Vital Signs Temp 97.5 F L 12/06/21 11:00 Pulse 115 H 12/06/21 12:30 Resp 43 H 12/06/21 14:00 BP 96/60 12/06/21 12:30 Pulse Ox 91 12/06/21 14:00 12/05/21 12/06/21 12/06/21 22:59 06:59 14:59 Intake Total 793.175 / 6779.701 3638.450 / 2840.231 542.1442 / 876.1549 Output Total 475 / 675 900 / 1575 550 / 550 Balance 318.175 / 472.784 792.450 / 1265.143 720.7333 / 326.1549 Weight last 48 hrs Weight 52.481 kg Physical Exam Narrative: EXAM NARRATIVE: Constitutional: Sedated and vented HEENT: Wet mucosa, no jvp, non icteric Lungs: Bilaterally diminished CVS: S1 S2, no murmurs Abdo: Soft, BS ok Ext 4: Minimal edema, peripheral perfusion with no cyanosis Neurological: Grossly non-focal Urinary Catheter Management: Ro: Cath Placed During This Visit: no Reason for Continuing Indwelling Catheter: Accurate Measurement of Urinary Output in Critically Ill Patients Data : 12/06/21 04:29 12/06/21 09:27 Micro: Microbiology 12/03/21 17:01 Gram Stain - Final Cerebrospinal Fluid CSF Culture - Final 12/03/21 13:00 Urine Culture - Final Urine,Clean Catch A&P Assessment and plan (1) Hypernatremia: Status: Acute Plan 1. Acute kidney injury Relatively mild acute kidney injury at this time with a creatinine of 1.2, likely secondary to prerenal azotemia in the setting of dehydration, Covid pneumonitis, volume depletion. As the renal dysfunction is relatively mild at this time we will continue to follow labs without doing any other additional diagnostic testing. No further imaging is required. Avoid usual nephrotoxic agents, close monitoring of renal function. Strict I's and O's 2. Hypernatremia Quite a marked increase in the sodium over the last few days, free water deficit now calculated to be 4.9 L. We will have difficulty giving her liberal IV hydration given her high oxygen needs on the ventilator, currently on D5W at 75 cc/h, to increase to 125 cc/h, free water flushes, 100 cc every 4 hours and we will increase this as she tolerates. Lactulose has now been stopped, hopefully this will decrease free water losses from the GI tract. Potentially we could do a electrolyte free water loss from stool if this gets much worse. 3. Vent dependent respiratory failure Secondary to altered mental status in the setting of Covid pneumonitis. Currently on FiO2 100%, pending pronation Status post remdesivir, Decadron Management per ICU team Thank you for consultation, it is a pleasure to follow these cases with you Exam and interview performed with aid of bedside RN using telemedicine Time spent 20 min inc > 50% of time in face to face counseling Efraín Ibarra MD [facility] [phone] Consult Attestations Medical Necessity Statement: eval for electrolyte derangement and ALEKSANDRA Coding Level of Care Code Acute Research/Program Director for Chg Fwd Diagnoses Hypernatremia E87.0
[2021-12-06 14:54] LABS: Glucose Point of Care 149 mg/dL (70-110)
[2021-12-06] MEDS: metoprolol tartrate 1 mg/1 mL SDV 5 mL 5 MG IVP (17:10)
[2021-12-06 17:13] LABS: Sodium 159 mmol/L (136-145)
[2021-12-06] MEDS: acetaminophen 325 mg Tablet 650 MG PO (17:39)
[2021-12-06 17:41] LABS: Glucose Point of Care 122 mg/dL (70-110)
[2021-12-06] MEDS: enoxaparin 40 mg/0.4 mL Syringe SUBCUT (19:31)
[2021-12-06 19:46] LABS: Glucose Point of Care 169 mg/dL (70-110)
--- NOTE | 2021-12-06 19:58 | PM.CCNAC ---
Critical Care Event Note 61 year old female with past medical history of anxiety, diastolic heart failure, COPD, fibromyalgia, hypertension on chronic opiates was brought into the ER by EMS for altered mental status currently being managed for Acute hypoxic respiratory failure secondary to COVID-19 pneumonia, possible aspiration , Acute metabolic encephalopathy,Hypernatremia,was intubated last night because of worseing respiratory status,she was extremely tachypenic,tachycardic, hypertensive, persistent desaturation on BIPAP, high risk for aspiration,extreme agitation even on maxed dose precedex as well not responding appropiately to I.V ativan PRN.She was intubated last night and was placed on mechanical ventilation. Post intubation she required quite a bit of sedation ( she was placed on versed, propofol, fentanyl ) She had to be also started on levophed likely 2/2 to propofol effect.Patient tolerated the procedure well. Xray chest was reviewed and adhustment to E.T locations were made. Her Am labs were reveiwed it showed worseing hypernatremia, patient is on D5 Water. was updated of her current condition. The high probability of a clinically significant, sudden or life threatening deterioration of the patient's [] system(s) required my full and direct attention, intervention and personal management. The critical care time is as shown. This time is in addition to time spent performing any reported procedures but includes the following: [x] Data and vital sign review and interpretation [x] Patient assessment, examination and intervention [x] Documentation [x] Medication orders and management Critical Care Time Code activated: No Critical Care Time (min): 45 Procedures Intubation Time out performed: Yes Sedative: etomidate Mg given: 20 Paralytic: succinylcholine Mg given: 100 Assist device used: fiber optic device ET tube size: 8 ET tube uncuffed: Yes Tube secured depth (cm): 21 Tube secured location: lips Tube placement confirmation: visualized tube passing through cords, equal breath sounds bilaterally, no breath sounds over epigastrium and color change noted Patient tolerated procedure: well Intubation complications: none Coding Level of Care Code Acute Transportation Supervisor for Kyleigh Seals
--- NOTE | 2021-12-06 20:06 | PC.NURSE ---
Nimbex increased due to pt breathing over the ventilator after ETT suctioning.
--- NOTE | 2021-12-06 20:11 | PM.ACPR ---
Acute Procedures Intubation: Time out performed: Yes Sedative: etomidate Mg given: 20 Laryngoscope: fiber optic video scope ET tube size: 8 ET tube uncuffed: Yes Tube secured depth (cm): 21 Tube secured location: lips Tube placement confirmation: visualized tube passing through cords, equal breath sounds bilaterally, no breath sounds over epigastrium and color change noted Patient tolerated procedure: well Intubation complications: none Additional comments: Patient was also given 2 Mg of versed and 25 Mg of fentanyl in addition to 20 mg of etomidate.
--- NOTE | 2021-12-06 21:24 | PC.NURSE ---
Attempted to return call to Amalia Guajardo, no answer.
--- NOTE | 2021-12-06 21:24 | PC.NURSE ---
Pt successfully proned at 2039 this evening with a team of 5 staff members. Medications titrated for adequate BIS score and MAP.
[2021-12-06] MEDS: dextrose 5% 1,000 ML 125 ML IV (22:48)
--- NOTE | 2021-12-06 22:54 | PC.NURSE ---
Addendum entered by Daysi Ma RN 12/06/21 23:30: Witnessed 230 mL of versed gtt waste with primary RN Original Note: 230 mls of Versed wasted with a second RN as a witness at 2200.
[2021-12-06 23:27] LABS: Glucose Point of Care 215 mg/dL (70-110)
[2021-12-06 23:33] LABS: Anion Gap 13.6 (5-19); Blood Urea Nitrogen 15 mg/dL (6-20); Carbon Dioxide 18 mmol/L (22-29); Chloride 119 mmol/L (98-107); Glomerular Filtration Rate 50.8 mL/min (90-130); Glucose 382 mg/dL (65-115); Magnesium 2.2 mg/dL (1.7-2.3); Osmolality Calculated 321 mOsm/kg (285-295); Potassium 3.6 mmol/L (3.5-5.1); Sodium 147 mmol/L (136-145)
[2021-12-07] VITALS (92 sets, daily range): BP systolic 84–127; BP diastolic 51–91; PULSE 82–143; RESP 18–27; TEMP 36.6–37.6; O2SAT 83–100
[2021-12-07] MEDS: potassium chloride premix 100 ML 50 MEQ IV (00:23)
[2021-12-07] MEDS: propofol 1,000 MG/100 ML INJ 11.02 MG IV ×2 (00:30→08:55)
[2021-12-07] MEDS: norepinephrine 8 MG in dextrose 5 % 500 ML 45.72 MG IV (00:32)
[2021-12-07] MEDS: metroNIDAZOLE IV 500 MG/100 ML PREMIX 100 MG IV ×2 (00:33→08:54)
--- NOTE | 2021-12-07 00:39 | PC.NURSE ---
TOF 1/4. This nurse was unable to find a working peripheral nerve stimulator until this time. Pt has been synchronous with the ventilator, and continues to be.
--- NOTE | 2021-12-07 00:55 | PC.NURSE ---
Dressings placed over bony prominences to protect from pressure wounds while proning.
--- NOTE | 2021-12-07 01:38 | PC.NURSE ---
Restraint reduction due to paralytic.
--- NOTE | 2021-12-07 01:42 | PC.NURSE ---
TOF remains 1/4, Nimbex titrated.
[2021-12-07] MEDS: ipratropium-albuterol 3 mL Neb INHALATION ×4 (03:10→20:42)
[2021-12-07 03:24] LABS: Glucose Point of Care 173 mg/dL (70-110)
[2021-12-07] MEDS: insulin lispro 100 unit/1 mL SUBCUT ×3 (03:31→18:34)
[2021-12-07] MEDS: lactulose oral liq 20 gm/30 mL UDC 30 GM PO ×2 (03:33→11:09)
[2021-12-07] MEDS: piperacillin-tazobactam 3.375 GM in sodium chloride 0.9% (plus) 50 ML IV ×3 (03:33→20:01)
[2021-12-07 03:41] LABS: Basophils # 0.1 10^3/uL (0.0-0.1); Basophils % 0.2 %; Hematocrit 36.4 % (37.0-47.0); Hemoglobin 11.1 g/dL (11.5-15.3); Lymphocytes # 3.4 10^3/uL (0.8-4.8); Lymphocytes % 12.6 %; Mean Corpuscular HGB Conc 30.5 g/dL (30.0-36.0); Mean Corpuscular Hemoglobin 28.9 pg (28.0-34.0); Mean Corpuscular Volume 94.8 fl (81-99); Mean Platelet Volume 11.6 fL (7.4-10.4); Monocytes # 2.2 10^3/uL (0.2-0.9); Monocytes % 8.3 %; Neutrophils # 19.63 10^3/uL (1.8-7.7); Neutrophils % 74.1 %; Nucleated Red Blood Cells % 0.1 %; Platelet Count 470 10^3/cmm (130-400); Red Blood Count 3.84 10^6/uL (4.1-5.3); Red Cell Distribution Width 15.5 % (12.1-15.1); White Blood Count 26.5 10^3/uL (4.0-10.0)
--- NOTE | 2021-12-07 03:50 | PC.NURSE ---
TOF 2/4. Attempted to obtain weight, however, will all of the pillows for proning, pt's weight is 11 lbs up from yesterday. I do not feel this is accurate, and will therefore not adjust my weight based drips at this time.
[2021-12-07 03:55] LABS: Ammonia 60 umol/L (11-51); Lactate (Lactic Acid level) 1.4 mmol/L (0.5-2.2)
[2021-12-07 04:03] LABS: NT Pro B Type Natriuretic Pept 364 pg/mL (0-125); Procalcitonin 3.56 ng/mL (0-0.5)
[2021-12-07 04:14] LABS: Alanine Aminotransferase 19 U/L (0-33); Albumin Level 2.2 g/dL (3.5-5.2); Alkaline Phosphatase 100 IU/L (35-105); Aspartate Amino Transferase 15 U/L (0-32); Blood Urea Nitrogen 14 mg/dL (6-20); C Reactive Protein 118.8 mg/L (0.0-4.9); Calcium 6.7 mg/dL (8.5-10.5); Carbon Dioxide 19 mmol/L (22-29); Chloride 118 mmol/L (98-107); Creatine Phosphokinase 96 U/L (26-192); Globulin 2.5 g/dL (1.3-4.6); Glomerular Filtration Rate 56.7 mL/min (90-130); Glucose 227 mg/dL (65-115); Magnesium 2.2 mg/dL (1.7-2.3); Osmolality Calculated 308 mOsm/kg (285-295); Sodium 145 mmol/L (136-145); Total Bilirubin 0.2 mg/dL (0.15-1.2); Total Protein 4.7 g/dL (6.6-8.7)
[2021-12-07 04:17] LABS: Anion Gap 11.5 (5-19); Potassium 3.5 mmol/L (3.5-5.1)
[2021-12-07 04:36] LABS: Arterial Blood Gas Hematocrit 37.7 % (37-47); Blood Gas Allen Test Pos; Blood Gas Sample Site Radial, left; Blood Gas Sample Type Arterial; HCO3 ABG 22.1 mmol/L (22-26); Oxygen Device VENT; PO2 ABG 71.1 mmHg (80.0-100.0)
[2021-12-07 04:45] LABS: INR 1.28 (0.8-1.2)
[2021-12-07 04:48] LABS: ABG PCO2 67.5 mmHg (35-45); ABG PH Result 7.12 (7.35-7.45)
[2021-12-07] MEDS: lidocaine 1% 5 ML in potassium chloride premix 100 ML 50 ML IV (05:32)
[2021-12-07] MEDS: levothyroxine 25 mcg Tablet PO (05:32)
[2021-12-07] MEDS: cisatracurium 100 MG in sodium chloride 0.9% 50 ML IV (05:38)
--- NOTE | 2021-12-07 06:14 | PC.NURSE ---
TOF 11/04, Nimbex decreased
[2021-12-07] MEDS: acyclovir 500 MG in sodium chloride 0.9% (plus) 100 ML 110 MG IV (06:27)
[2021-12-07 06:37] LABS: ABG PCO2 49.1 mmHg (35-45); ABG PH Result 7.25 (7.35-7.45); Arterial Blood Gas Hematocrit 35.3 % (37-47); Base Excess ABG -5.9 mmol/L (-2.0-2.0); Blood Gas Allen Test Pos; Blood Gas Sample Site Radial, left; Blood Gas Sample Type Arterial; Blood Gas Tidal Volume 0.35; HCO3 ABG 21.4 mmol/L (22-26); Oxygen Device VENT; PO2 ABG 68.7 mmHg (80.0-100.0)
--- NOTE | 2021-12-07 07:00 | XRR_ITS ---
PROCEDURE INFORMATION: Exam: XR Chest Exam date and time: 12/07/2021 7:00 AM Age: 61 years old Clinical indication: Shortness of breath; Patient HX: SOB TECHNIQUE: Imaging protocol: XR of the chest. Views: 1 view. COMPARISON: CR XR chest 1V portable [id number] 12/06/2021 12:21 PM FINDINGS: Tubes, catheters and devices: Endotracheal tube is located 1.5 cm above the ramirez. Enteric tube terminates in the stomach. Lungs: Emphysematous changes of the lungs. Ill-defined peripheral opacities throughout both lungs, mostly centered in the mid and lower lungs. This is more conspicuous from prior study. Pleural spaces: No pleural effusion. No pneumothorax. Heart/Mediastinum: Mild cardiomegaly. Bones/joints: Rotator cuff anchor noted in the right humeral head. Visualized osseous structures are intact. XR/XR chest 1V portable [id number] IMPRESSION: Redemonstrated emphysematous changes of the lungs. More conspicuous ill-defined opacities throughout both lungs suggestive of multifocal pneumonia.
[2021-12-07 07:41] LABS: Glucose Point of Care 111 mg/dL (70-110)
--- NOTE | 2021-12-07 08:41 | P.PN_ITS ---
Subjective Subjective: Interval history: More stable this morning, venting better on FiO2 40%, still has significant diarrhea. Tolerating free water flushes and remains on D5w. Levophed tapered off this morning Vitals/I&O/Wt Last Vital Signs Temp 99.1 F 12/07/21 04:00 Pulse 137 H 12/07/21 08:03 Resp 22 H 12/07/21 08:03 BP 113/68 12/07/21 06:30 Pulse Ox 97 12/07/21 08:03 12/06/21 12/07/21 12/07/21 22:59 06:59 14:59 Intake Total 1781.944 / 2667.1189 1415.230 / 4082.3489 1265 / 1265 Output Total 300 / 850 1300 / 2150 Balance 1481.944 / 1817.1189 115.230 / 1932.3489 1265 / 1265 Physical Exam Narrative: EXAM NARRATIVE: Constitutional: Sedated and vented HEENT: Wet mucosa, no jvp, non icteric Lungs: Bilaterally diminished CVS: S1 S2, no murmurs Abdo: Soft, BS ok Ext 4: Minimal edema, peripheral perfusion with no cyanosis Neurological: Grossly non-focal Urinary Catheter Management: Ro: Cath Placed During This Visit: no Reason for Continuing Indwelling Catheter: Accurate Measurement of Urinary Output in Critically Ill Patients Data : 12/07/21 03:15 12/07/21 03:15 Micro: Microbiology 12/03/21 17:01 Gram Stain - Final Cerebrospinal Fluid CSF Culture - Final 12/03/21 13:00 Urine Culture - Final Urine,Clean Catch A&P Assessment and plan (1) Hypernatremia: Status: Acute Plan 1. Acute kidney injury Creatinine 1.2 > 1.0, looks good Avoid usual nephrotoxic agents, close monitoring of renal function. Strict I's and O's 2. Hypernatremia Sodium has come down nicely Cont free water flushes Decrease D5w to 50mL/hr ok for daily labs now 3. Vent dependent respiratory failure Secondary to altered mental status in the setting of Covid pneumonitis. Currently on FiO2 40%, much improved Status post remdesivir, Decadron Management per ICU team Thank you for consultation, it is a pleasure to follow these cases with you Exam and interview performed with aid of bedside RN using telemedicine Time spent 20 min inc > 50% of time in face to face counseling Efraín Ibarra MD [place] [phone] Attestations Medical Necessity Statement*: Eval for electrolyte disturbance Coding Level of Care Code Acute Human Resources Technician for Chg Fwd Diagnoses Hypernatremia E87.0
[2021-12-07] MEDS: vancomycin 750 MG in sodium chloride 0.9% 250 ML 250 MG IV ×2 (08:53→20:02)
[2021-12-07] MEDS: pantoprazole 40 mg SDV IVP ×2 (08:53→20:35)
[2021-12-07] MEDS: ferrous gluconate 324 mg Tablet PO ×2 (08:54→17:23)
[2021-12-07] MEDS: aspirin 81 mg EC Tablet PO (08:54)
[2021-12-07] MEDS: dextrose 5% 1,000 ML 50 ML IV (08:59)
[2021-12-07] MEDS: budesonide 0.5 mg/2 mL Neb INHALATION ×2 (09:00→20:41)
[2021-12-07 11:08] LABS: Glucose Point of Care 104 mg/dL (70-110)
[2021-12-07] MEDS: dexamethasone 10 mg/mL INJ 6 MG IVP (11:10)
--- NOTE | 2021-12-07 11:28 | CTR_ITS ---
PROCEDURE INFORMATION: Exam: CTA Chest With Contrast Exam date and time: 12/07/2021 11:28 AM Age: 61 years old Clinical indication: Other: Sepsis; Patient HX: Covid, diarrhea, liver dysfunction; Additional info: Covid, ards, possible pe TECHNIQUE: Imaging protocol: Computed tomographic angiography of the chest with contrast. 3D rendering (Not supervised by radiologist): MIP and/or 3D reconstructed images were created by the technologist. Radiation optimization: All CT scans at this facility use at least one of these dose optimization techniques: automated exposure control; mA and/or kV adjustment per patient size (includes targeted exams where dose is matched to clinical indication); or iterative reconstruction. Contrast material: OMNI 350; Contrast volume: 75 ml; Contrast route: INTRAVENOUS (IV); COMPARISON: CT chest wo con [id number] 02/09/2018 4:38 PM RADIATION DOSE METRICS: Total DLP (mGy-cm): 1393.54 FINDINGS: Tubes, catheters and devices: Tip of the ET tube is positioned superior to the ramirez. Distal aspect of the G-tube is positioned in the stomach body. Pulmonary arteries: Normal. No pulmonary emboli. Aorta: Unremarkable. No aortic aneurysm. No aortic dissection. Lungs: There are centrilobular emphysematous changes in the bilateral lungs. There are scattered perihilar and bibasilar infiltrates. Pleural spaces: Unremarkable. No pneumothorax. No pleural effusion. Heart: Unremarkable. No cardiomegaly. No pericardial effusion. Lymph nodes: Unremarkable. No enlarged lymph nodes. Bones/joints: Unremarkable. No acute fracture. Soft tissues: Unremarkable. of infectious and noninfectious processes. (Reference: Yehuda) 2. There are centrilobular emphysematous changes in the bilateral lungs. REFERENCES: Yehuda Acuña et al., [employer]iological Society of [place] Expert Consensus Statement on Reporting Chest CT Findings Related to COVID-19. Endorsed by the Society of Thoracic Radiology, the [place] [employer], and RSNA. Published January 24, 2020. PROCEDURE INFORMATION: Exam: CT Abdomen And Pelvis With Contrast Exam date and time: 12/07/2021 11:28 AM Age: 61 years old Clinical indication: Other: Sepsis; Patient HX: Covid, diarrhea, liver dysfunction; Additional info: Covid, ards, possible pe TECHNIQUE: Imaging protocol: Computed tomography of the abdomen and pelvis with contrast. Radiation optimization: All CT scans at this facility use at least one of these dose optimization techniques: automated exposure control; mA and/or kV adjustment per patient size (includes targeted exams where dose is matched to clinical indication); or iterative reconstruction. Contrast material: OMNI 350; Contrast volume: 75 ml; Contrast route: INTRAVENOUS (IV); COMPARISON: CT chest wo con [id number] 02/09/2018 4:38 PM RADIATION DOSE METRICS: Total DLP (mGy-cm): 1393.54 FINDINGS: Liver: Normal. No mass. Gallbladder and bile ducts: The gallbladder is distended measuring 10.1 cm. Pancreas: Mild fatty atrophy of the pancreas. Spleen: Normal. No splenomegaly. Adrenal glands: Normal. No mass. Kidneys and ureters: Normal. No hydronephrosis. Stomach and bowel: There are air-fluid levels in the distal colon suggesting mild nonspecific colitis versus other diarrheal illness. There is rectal tube in place. Appendix: No evidence of appendicitis. Intraperitoneal space: Unremarkable. No free air. No significant fluid collection. Vasculature: There is scattered atherosclerotic plaque in the aorta and iliac arteries. Lymph nodes: Unremarkable. No enlarged lymph nodes. Urinary bladder: There is a Ro catheter and air in the bladder. Reproductive: Unremarkable as visualized. Bones/joints: Grade 1 degenerative anterolisthesis of L4 on L5. A disc bulge at the L4-L5 level contributes to bilateral mild neural foraminal narrowing. There are degenerative changes in the lumbar spine. Soft tissues: Unremarkable. CT/CT angio chest w abd pel w con IMPRESSION: 1. Scattered perihilar and bibasal infiltrates.Imaging features can be seen with COVID-19 pneumonia, though are nonspecific and can occur with a variety IMPRESSION: There are air-fluid levels in the distal colon suggesting mild nonspecific colitis versus other diarrheal illness. A rectal tube is in place.
--- NOTE | 2021-12-07 11:28 | CTR_ITS ---
PROCEDURE INFORMATION: Exam: CT Angiography Head With Contrast, Arteriography Exam date and time: 12/07/2021 11:28 AM Age: 61 years old Clinical indication: Cognitive deficit; Altered mental status; Patient HX: AMS TECHNIQUE: Imaging protocol: Computed tomography angiography of the head with contrast. Exam focused on the arteries. 3D rendering (Not supervised by radiologist): MIP and/or 3D reconstructed images were created by the technologist. Radiation optimization: All CT scans at this facility use at least one of these dose optimization techniques: automated exposure control; mA and/or kV adjustment per patient size (includes targeted exams where dose is matched to clinical indication); or iterative reconstruction. Contrast material: OMNI 350; Contrast volume: 75 ml; Contrast route: INTRAVENOUS (IV); COMPARISON: CT head wo con* [id number] 11/28/2021 3:31 PM RADIATION DOSE METRICS: Total DLP (mGy-cm): 2166.64 FINDINGS: ANTERIOR CIRCULATION: Right internal carotid artery: Unremarkable. Intracranial segment is patent with no significant stenosis. No aneurysm. Right middle cerebral artery: Unremarkable. No occlusion or significant stenosis. No aneurysm. Right anterior cerebral artery: Unremarkable. No occlusion or significant stenosis. No aneurysm. Left internal carotid artery: Unremarkable. Intracranial segment is patent with no significant stenosis. No aneurysm. Left middle cerebral artery: Unremarkable. No occlusion or significant stenosis. No aneurysm. Left anterior cerebral artery: Unremarkable. No occlusion or significant stenosis. No aneurysm. POSTERIOR CIRCULATION: Right vertebral artery: Unremarkable. No occlusion or significant stenosis. No aneurysm. Left vertebral artery: Unremarkable. No occlusion or significant stenosis. No aneurysm. Basilar artery: Unremarkable. No occlusion or significant stenosis. No aneurysm. Right posterior cerebral artery: Unremarkable. No occlusion or significant stenosis. No aneurysm. Left posterior cerebral artery: Unremarkable. No occlusion or significant stenosis. No aneurysm. Brain: No intracranial hemorrhage. No cerebral edema. No significant white matter disease. No mass effect. Cerebral ventricles: No ventriculomegaly. Bones/joints: Unremarkable. No acute fracture. Soft tissues: Unremarkable. PROCEDURE INFORMATION: Exam: CT Angiography Neck With Contrast Exam date and time: 12/07/2021 11:28 AM Age: 61 years old Clinical indication: Cognitive deficit; Altered mental status; Patient HX: AMS TECHNIQUE: Imaging protocol: Computed tomography angiography of the neck with contrast. 3D rendering (Not supervised by radiologist): MIP and/or 3D reconstructed images were created by the technologist. Radiation optimization: All CT scans at this facility use at least one of these dose optimization techniques: automated exposure control; mA and/or kV adjustment per patient size (includes targeted exams where dose is matched to clinical indication); or iterative reconstruction. Contrast material: OMNI 350; Contrast volume: 75 ml; Contrast route: INTRAVENOUS (IV); COMPARISON: CT head wo con* [id number] 11/28/2021 3:31 PM RADIATION DOSE METRICS: Total DLP (mGy-cm): 2166.64 FINDINGS: Right common carotid artery: No stenosis. No dissection or occlusion. Right internal carotid artery: No stenosis of the extracranial segment. No dissection or occlusion. Right external carotid artery: No occlusion or stenosis of the origin. Left common carotid artery: No stenosis. No dissection or occlusion. Left internal carotid artery: No stenosis of the extracranial segment. No dissection or occlusion. Left external carotid artery: No occlusion or stenosis of the origin. Right vertebral artery: No stenosis. No dissection or occlusion. Left vertebral artery: No stenosis. No dissection or occlusion. Soft tissues: Normal. No significant soft tissue swelling. Bones/joints: No acute fracture. CT/CT angio headneck* [id number] IMPRESSION: No large vessel stenosis or occlusion. IMPRESSION: No stenosis or occlusion. REFERENCES: NASCET CRITERIA. The degree of internal carotid artery stenosis is based on NASCET criteria. Normal is no stenosis. Mild is less than 50% stenosis. Moderate is 50-69% stenosis. Severe is 70% to 99% stenosis. Total occlusion is no detectable patent lumen.
[2021-12-07 11:47] LABS: D Dimer 2.46 ug/mIFEU (0-0.59)
--- NOTE | 2021-12-07 12:59 | P.CONIM_ITS ---
Providers/Reason For Consult Consulting Physician/Specialty*: Xavier Ricketts MD/Pulmonary Critical Care Reason for Consult*: Acute hypoxic respiratory failure secondary to ARDS from COVID-19 pneumonia and altered mentation likely secondary to Covid encephalopathy Requesting Physician: Jose Washington MD Attending Physician: Jose Washington MD Primary Care Provider: Iman Galo DO History of Present Illness History of Present Illness Upon review of the chart, Ms. Kaela Sanchez is a 61 year old female with past medical history of anxiety, diastolic heart failure, COPD, fibromyalgia, hypertension on chronic opiates [facility] brought into the ER on 11/28/2021 by EMS and was admitted for management of altered mental status presumed secondary metabolic VS sepsis VS chronic opioid use withdrawal. As per history, patient was on chronic high-dose opioids through the pain clinic Dr. Palencia, 15 mg oxycodone No. 1 180/month with her last prescription administered 08/15/2021 and 09/17/2021 along with pregabalin 300 mg twice daily. Her daughter had not talked with her since and she was fine then but lost a lot of weight. She saw Dr. Galo 10/09/2021 and ask for referral to Dr. Sanchez and at that time Dr. Galo gave her a 1 month prescription for oxycodone 15 mg #180 so she should not have been in withdrawal.Metabolic causes were entertained based on labs which showed hyperammonemia 103, hypernatremia at some point . And sepsis was entertained in the context of Covid PCR positive (Covid encephalopathy) and profuse foul- smelling greenish diarrhea suspicious for C. difficile diarrhea. C. difficile PCR was negative. So far blood cultures are negative. Patient even underwent lumbar puncture which was clear with only 2 WBC. Her CMV IgG antibodies were high but IgM is negative and testing for HSV is pending. CT head and CTA head were unremarkable. She received lactulose for hyperammonemia and ammonia normalized at some point, liver ultrasound showed diffuse fatty infiltration wit h no features of cirrhosis. As for his COVID-19 pneumonia-her oxygen requirements have gradually increased and was in respiratory distress even on BiPAP, on Precedex for anxiety-she was intubated early hours of 12/06/2021 and connected to ventilator. After intubation she was paralyzed and prone for first session yesterday evening. MRSA nares is positive.. She is currently receiving vancomycin and Zosyn. Today patient seen in prone position -FiO2 down to 40% -Plan is to supine her-and will continue with second proning session tonight -Her heart rate has been persistently greater than 145 bpm despite receiving 2 metoprolol IV push yesterday night-started on amnio drip -Other labs and imaging reviewed Review of Systems General: Reports: ROS unobtainable due to endotracheal tube, ROS unobtainable due to medical condition and ROS unobtainable due to mental status Medications/Allergies Home Medications Medication Instructions Recorded Confirmed Last Taken Type aspirin 81 mg tablet,delayed 81 mg PO DAILY 12/22/19 11/28/21 Unknown History release (Adult Aspirin Regimen) furosemide 20 mg tablet 20 mg PO DAILY PRN #90 tab 06/18/21 11/28/21 Unknown Rx ibuprofen 800 mg tablet 800 mg PO TID PRN 30 Days #90 tab 06/19/21 11/28/21 Un known Rx potassium chloride 10 mEq 20 meq PO DAILY #180 tab 07/03/21 11/28/21 Unknown Rx tablet,extended release albuterol sulfate 90 mcg/actuation 2 puff INHALATION QID PRN #8.5 g 09/04/21 11/28/21 Unknown Rx aerosol inhaler (ProAir HFA) budesonide-formoterol HFA 160 2 puff INHALATION BID #10.2 gm 10/09/21 11/28/21 Unknown Rx mcg-4.5 mcg/actuation aerosol inhaler (Symbicort) methocarbamol 750 mg tablet 750 mg PO TID #90 tab 10/09/21 11/28/21 Unknown Rx pregabalin 300 mg capsule (Lyrica) 300 mg PO BID 30 Days #60 cap 10/09/21 11/28/21 Unknown Rx tiotropium bromide 2.5 2 puff INHALATION DAILY #4 gm 10/09/21 11/28/21 Unknown Rx mcg/actuation mist for inhalation (Spiriva Respimat) atorvastatin 40 mg tablet 40 mg PO DAILY 90 Days #90 tab 10/17/21 11/28/21 Unknown Rx bupropion HCl 200 mg tablet,12 hr 200 mg PO BID #60 tab 10/17/21 11/28/21 U nknown Rx sustained-release (Wellbutrin SR) omeprazole 40 mg capsule,delayed 40 mg PO DAILY 30 Days #90 cap 10/20/21 11/28/21 Unknown Rx release metoprolol tartrate 25 mg tablet 25 mg PO BID #60 tab 10/27/21 11/28/21 Unknown Rx oxycodone 15 mg tablet 15 mg PO .6 times a day PRN 3 Days 11/13/21 11/28/21 Unknown Rx #18 tab Allergies Allergy/AdvReac Type Severity Reaction Status Date / Time No Known Allergies Allergy Verified 10/09/21 13:07 Current Medications Generic Name Dose Route Start Last Admin Trade Name Freq PRN Reason Stop Dose Admin Acetaminophen 650 mg 11/28/21 18:32 12/06/21 17:39 Acetaminophen 325 Mg Tablet PO 650 mg Q6H PRN Administration Mild/Mod Pain Or Temp >/= 101 Albuterol/Ipratropium 3 ml 11/30/21 21:00 12/07/21 11:43 Ipratropium-Albuterol 3 Ml Neb INHALATION Not Given Q12H BIA Albuterol/Ipratropium 3 ml 12/06/21 15:15 12/07/21 09:00 Ipratropium-Albuterol 3 Ml Neb INHALATION 3 ml Q6H BIA Administration Aspirin 81 mg 11/29/21 09:00 12/07/21 08:54 Aspirin 81 Mg Ec Tablet PO 81 mg DAILY BIA Administration Budesonide 0.5 mg 11/28/21 20:00 12/07/21 09:00 Budesonide 0.5 Mg/2 Ml Neb INHALATION 0.5 mg BID.RESPIRATORY BIA Administration Dexamethasone 6 mg 11/29/21 11:30 12/07/21 11:10 Dexamethasone 10 Mg/Ml Inj IVP 12/09/21 11:29 6 mg Q24H BIA Administration Enoxaparin Sodium 40 mg 11/28/21 20:00 12/06/21 19:31 Enoxaparin 40 Mg/0.4 Ml Syringe SUBCUT 40 mg Q24H BIA Administration Ferrous Gluconate 324 mg 11/29/21 08:00 12/07/21 08:54 Ferrous Gluconate 324 Mg Tablet PO 324 mg BIDWM BIA Administration Hydromorphone HCl 0.5 mg 11/30/21 14:00 12/03/21 10:34 Hydromorphone 1 Mg/Ml Inj 1 Ml IVP Not Given Q4H BIA Piperacillin Sod/Tazobactam 50 mls @ 12.5 mls/hr 11/28/21 20:00 12/07/21 11:10 Sod 3.375 gm/ Sodium Chloride IV 12.5 mls/hr Q8H BIA Administration Protocol dexmedeTOMIDine 0.9 % NaCL 400 mcg in 100 mls @ 0 mls/hr 11/29/21 16:45 12/06/21 14:26 Precedex IV Infused .Q0M BIA Titration Protocol Per Protocol Vancomycin HCl 750 mg/ Sodium 250 mls @ 250 mls/hr 12/05/21 08:00 12/07/21 09:53 Chloride IV Infused Q12H BIA Infusion Metronidazole 500 mg in 100 mls @ 100 mls/hr 12/05/21 09:00 12/07/21 09:54 Flagyl Iv IV Infused Q8H BIA Infusion Protocol Fentanyl 2,500 mcg/ Sodium 250 mls @ 0 mls/hr 12/06/21 06:45 12/07/21 03:56 Chloride IV 100 mcg/hr .Q0M BIA 10 mls/hr Titration Protocol Per Protocol Midazolam HCl 100 mg/ Sodium 100 mls @ 0 mls/hr 12/06/21 06:45 12/06/21 08:00 Chloride IV 0 mg/hr .Q0M BIA 0 mls/hr Titration Protocol Per Protocol Propofol 1,000 mg in 100 mls @ 0 mls/hr 12/06/21 07:15 12/07/21 08:55 Diprivan IV 35 mcg/kg/min .Q0M BIA 11.02 mls/hr Administration Protocol Per Protocol Norepinephrine Bitartrate 4 mg 254 mls @ 0 mls/hr 12/06/21 07:45 12/07/21 01:41 / Dextrose IV Infused .Q0M BIA Titration Protocol Per Protocol Dextrose 1,000 mls @ 50 mls/hr 12/06/21 09:15 12/07/21 08:59 D5w IV 50 mls/hr .Q20H BIA Administration Cisatracurium Besylate 100 mg/ 100 mls @ 0 mls/hr 12/06/21 11:30 12/07/21 10:59 Sodium Chloride IV 1 mcg/kg/min .Q0M BIA 3.15 mls/hr Titration Protocol Per Protocol Norepinephrine Bitartrate 8 mg 508 mls @ 0 mls/hr 12/06/21 21:45 12/07/21 08:00 / Dextrose IV 0 mcg/min .Q0M BIA 0 mls/hr Titration Protocol Per Protocol Amiodarone HCl 900 mg/ 518 mls @ 0 mls/hr 12/07/21 08:45 12/07/21 09:42 Dextrose/ IV Miscellaneous IV 1 mg/min Supplies .Q0M BIA 34.53 mls/hr Administration Protocol Per Protocol Insulin Human Lispro 0 unit 11/29/21 11:15 12/07/21 11:06 Insulin Lispro 100 Unit/1 Ml SUBCUT Not Given Q4H BIA Protocol Lanolin 1 applic 12/03/21 15:10 12/03/21 15:45 Lanolin Oint 7 Gm TOPICAL 1 applic PRN PRN Administration DRYNESS Levothyroxine Sodium 25 mcg 12/01/21 09:25 12/07/21 05:32 Levothyroxine 25 Mcg Tablet PO 25 mcg QAM BIA Administration Metoprolol Tartrate 25 mg 11/29/21 09:00 11/30/21 10:04 Metoprolol Tartrate 25 Mg Tablet PO 25 mg BID BIA Administration Ondansetron HCl 4 mg 11/28/21 18:32 12/04/21 17:47 Ondansetron 2 Mg/Ml Sdv 2 Ml IVP 4 mg Q6H PRN Administration NAUSEA AND VOMITING Pantoprazole Sodium 40 mg 11/30/21 09:30 12/07/21 08:53 Pantoprazole 40 Mg Sdv IVP 40 mg Q12H BIA Administration Pregabalin 300 mg 11/29/21 09:00 12/04/21 08:48 Pregabalin 150 Mg Capsule PO 300 mg BID BIA Administration Rifampin 300 mg 11/28/21 19:50 12/02/21 08:32 Rifampin 300 Mg Capsule PO 300 mg BID BIA Administration PFSH Acute PFSH: Medical History Anxiety and depression Benign essential hypertension with target blood pressure below 140/90 Carotid artery stenosis without cerebral infarction Chronic bronchitis Chronic cervical pain Chronic diastolic heart failure Chronic diastolic heart failure Chronic lumbosacral pain Chronic prescription opiate use COPD (chronic obstructive pulmonary disease) Dyslipidemia Encounter for long-term use of opiate analgesic Fibromyalgia GERD (gastroesophageal reflux disease) Heart failure Hypertension Hypoxia registered nurse fetal (current) use of non-steroidal anti-inflammatories (nsaid) Opioid contract exists Strain of right trapezius muscle TIA due to embolism Surgical History H/O section H/O hemorrhoidectomy H/O rotator cuff surgery History of hysterectomy Family History Sister Anesthesia complication Father CAD (coronary artery disease) Grandmother CAD (coronary artery disease) Grandfather Cancer Mother Dementia Lung disease Denies family history of Diabetes Clotting disorder Chronic kidney disease (CKD) Suicide Bleeding disorder Stroke Social History Smoking and tobacco status: former smoker Second hand smoke exposure: Yes Alcohol intake: never History of recent travel: No Vitals/I&O/Wt Last Vital Signs Temp 99.4 F 12/07/21 07:30 Pulse 119 H 12/07/21 12:15 Resp 24 H 12/07/21 11:58 BP 127/91 12/07/21 12:15 Pulse Ox 83 L 12/07/21 12:15 12/06/21 12/07/21 12/07/21 22:59 06:59 14:59 Intake Total 1781.944 / 2667.1189 1415.230 / 4082.3489 1811.916 / 1811.916 Output Total 300 / 850 1300 / 2150 Balance 1481.944 / 1817.1189 115.230 / 1932.3489 1811.916 / 1811.916 Physical Exam Narrative: EXAM NARRATIVE: PHYSICAL EXAM: General: lying in bed, sedated and intubated. HEENT:NCAT, PERRLA, EOMI Neck: Supple Lungs: b Heart: s1/s2, RRR Abd: soft, NT, ND, BS + Normoactive Extremities: No edema FISH ROD MAKER: sedated and limited FISH ROD MAKER exam possible. SKIN: no rash Urinary Catheter Management: Ro: Cath Placed During This Visit: no Reason for Continuing Indwelling Catheter: Accurate Measurement of Urinary Output in Critically Ill Patients Data : 12/07/21 03:15 12/07/21 12:38 Other Labs: Radiology Impressions Head CT 11/28/21 15:00 IMPRESSION: 1. No acute intracranial hemorrhage or edema. 2. Mild atrophy and mild chronic microvascular ischemic type changes. Liver Ultrasound 12/02/21 13:17 IMPRESSION: Technically difficult examination due to bowel gas and patient motion due to pain. 1. Diffuse fatty infiltration of the liver. 2. Normal gallbladder. 3. Normal common bile duct measuring 5.9 mm. 4. No hydronephrosis in right kidney. 5. No ascites. Abdomen/Pelvis CT 12/04/21 12:53 IMPRESSION: 1. Very limited examination due to patient respiratory motion. 2. Basilar atelectasis and question of new basilar pulmonary infiltrates. 3. Findings of new Ro catheter, rectal tube and nasogastric tube. 4. Fluid in the colon which could represent enteritis. KUB X-Ray 12/06/21 11:49 IMPRESSION: 1. Nasogastric tube has its proximal port at GE junction, recommend advancement by 7-10 cm. 2. Stable bilateral pleuroparenchymal disease. 3. There is gaseous distention of the stomach noted. 4. Bowel gas pattern is mildly distended but nonobstructive. Chest X-Ray 12/07/21 07:00 IMPRESSION: Redemonstrated emphysematous changes of the lungs. More conspicuous ill-defined opacities throughout both lungs suggestive of multifocal pneumonia. Chest/Abdomen/Pelvis CT 12/07/21 11:28 IMPRESSION: 1. Scattered perihilar and bibasal infiltrates.Imaging features can be seen with COVID-19 pneumonia, though are nonspecific and can occur with a variety IMPRESSION: There are air-fluid levels in the distal colon suggesting mild nonspecific colitis versus other diarrheal illness. A rectal tube is in place. Head/Neck CTA 12/07/21 11:28 IMPRESSION: No large vessel stenosis or occlusion. IMPRESSION: No stenosis or occlusion. REFERENCES: NASCET CRITERIA. The degree of internal carotid artery stenosis is based on NASCET criteria. Normal is no stenosis. Mild is less than 50% stenosis. Moderate is 50-69% stenosis. Severe is 70% to 99% stenosis. Total occlusion is no detectable patent lumen. Laboratory Results WBC 26.5 10^3/uL (4.0-10.0) H 12/07/21 03:15 RBC 3.84 10^6/uL (4.1-5.3) L 12/07/21 03:15 Hgb 11.1 g/dL (11.5-15.3) L 12/07/21 03:15 Hct 36.4 % (37.0-47.0) L 12/07/21 03:15 MCV 94.8 fl (81-99) D 12/07/21 03:15 MCH 28.9 pg (28.0-34.0) 12/07/21 03:15 MCHC 30.5 g/dL (30.0-36.0) D 12/07/21 03:15 RDW 15.5 % (12.1-15.1) H 12/07/21 03:15 Plt Count 470 10^3/cmm (130-400) H 12/07/21 03:15 MPV 11.6 fL (7.4-10.4) H 12/07/21 03:15 Neut % (Auto) 74.1 % 12/07/21 03:15 Lymph % (Auto) 12.6 % 12/07/21 03:15 [place] % (Auto) 8.3 % 12/07/21 03:15 Eos % (Auto) 0.0 % 12/07/21 03:15 Baso % (Auto) 0.2 % 12/07/21 03:15 Neut # (Auto) 19.63 10^3/uL (1.8-7.7) H 12/07/21 03:15 Lymph # (Auto) 3.4 10^3/uL (0.8-4.8) 12/07/21 03:15 [place] # (Auto) 2.2 10^3/uL (0.2-0.9) H 12/07/21 03:15 Eos # (Auto) 0.0 10^3/uL (0.0-0.8) 12/07/21 03:15 Baso # (Auto) 0.1 10^3/uL (0.0-0.1) 12/07/21 03:15 Nucleated RBC % (auto) 0.1 % 12/07/21 03:15 Nucleated RBCs # 0.0 /100WBC 12/07/21 03:15 ESR 17 mm/hr (0-15) H 12/02/21 15:45 PT 16.30 SECONDS (12.1-14.9) H 12/07/21 03:15 INR 1.28 (0.8-1.2) H 12/07/21 03:15 D-Dimer 2.46 ug/mIFEU (0-0.59) H 12/07/21 03:15 Specimen Type Arterial 12/07/21 16:49 Sample Site Brachial, left 12/07/21 16:49 ABG pH 7.30 (7.35-7.45) L 12/07/21 16:49 ABG pCO2 40.6 mmHg (35-45) 12/07/21 16:49 ABG pO2 57.3 mmHg (80.0-100.0) L 12/07/21 16:49 ABG HCO3 20.1 mmol/L (22-26) L 12/07/21 16:49 ABG O2 Saturation 91.4 12/07/21 16:49 ABG Base Excess -6.0 mmol/L (-2.0-2.0) L 12/07/21 16:49 [place] Test Pos 12/07/21 16:49 A-a O2 Gradient 28.0 mmHg (5-10) H 12/07/21 16:49 Hematocrit 35.5 % (37-47) L 12/07/21 16:49 Hgb O2 Saturation 89.5 % (95-100) L 12/07/21 16:49 Carboxyhemoglobin 1.0 %THgb (0.4-20.1) 12/07/21 16:49 Methemoglobin 1.1 % (0.4-1.5) 12/07/21 16:49 Total Hemoglobin 11.6 g/dL (12-16) L 12/07/21 16:49 Sodium 145.0 mmol/L (131-143) H 12/07/21 16:49 Potassium 3.6 mmol/L (3.5-5.0) 12/07/21 16:49 Glucose 175.0 mg/dL (70-115) H 12/07/21 16:49 Ionized Calcium 1.1 mmol/L (1.1-1.4) 12/07/21 16:49 O2 Delivery Device Vent 12/07/21 16:49 O2 Liters/Min 14.0 % 12/04/21 05:10 FiO2 45.0 % 12/07/21 16:49 Tidal Volume 0.35 12/07/21 16:49 PEEP 10.0 cmH20 12/07/21 06:26 Waiver Analyst ID Cak 12/07/21 16:49 Sodium 141 mmol/L (136-145) 12/07/21 12:38 Potassium 3.7 mmol/L (3.5-5.1) 12/07/21 12:38 Chloride 113 mmol/L (98-107) H 12/07/21 12:38 Carbon Dioxide 19 mmol/L (22-29) L 12/07/21 12:38 Anion Gap 12.7 (5-19) 12/07/21 12:38 BUN 9 mg/dL (6-20) 12/07/21 12:38 Creatinine 1.0 mg/dL (0.5-0.9) H 12/07/21 12:38 GFR Calculation 56.7 mL/min (90-130) L 12/07/21 12:38 Glucose 315 mg/dL (65-115) H 12/07/21 12:38 POC Glucose 160 mg/dL (70-110) H 12/07/21 16:33 Estimat Average Glucose 120 11/29/21 02:45 Hemoglobin A1c 5.8 % (4.0-6.0) 11/29/21 02:45 Calculated Osmolality 303 mOsm/kg (285-295) H 12/07/21 12:38 Lactic Acid 2.1 mmol/L (0.5-2.2) 11/28/21 16:04 Lactic Acid (Sepsis) 1.2 mmol/L (0.5-2.2) 11/28/21 19:02 Lactate 1.4 mmol/L (0.5-2.2) 12/07/21 03:15 Calcium 6.5 mg/dL (8.5-10.5) L 12/07/21 12:38 Phosphorus 4.0 mg/dL (2.5-4.5) D 12/07/21 03:15 Magnesium 2.2 mg/dL (1.7-2.3) 12/07/21 03:15 Iron 37 ug/dL (37-145) 11/28/21 14:20 TIBC 287 mcg/dl 11/28/21 14:20 % Saturation 12.8 % (20-50) L 11/28/21 14:20 Unsat Iron Binding 250 ug/dL (112-347) 11/28/21 14:20 Total Bilirubin 0.2 mg/dL (0.15-1.2) 12/07/21 03:15 GGT 27 U/L (5-36) 12/02/21 15:45 GGT Cancelled 12/02/21 15:45 AST 15 U/L (0-32) 12/07/21 03:15 ALT 19 U/L (0-33) 12/07/21 03:15 Alkaline Phosphatase 100 IU/L (35-105) 12/07/21 03:15 Ammonia 60 umol/L (11-51) H 12/07/21 03:15 Lactate Dehydrogenase 510 U/L (135-214) H 11/29/21 18:00 Creatine Kinase 96 U/L (26-192) 12/07/21 03:15 CK-MB (CK-2) 13.4 ng/mL (0-5.34) H 11/28/21 14:20 CK-MB (CK-2) Rel Index 2.6 % (0.0-10.4) 11/28/21 14:20 Troponin T Baseline 12 ng/L (0-10) H 12/02/21 15:45 Troponin T 120 Minute 11.25 ng/L (0-10) H 12/02/21 17:45 Delta Troponin T -0.75 ABS# (0-10) L 12/02/21 17:45 Troponin T Hi Sens 6Hr 12.87 ng/L (0-10) H 12/02/21 21:40 Troponin T Hi Sens 6Hr Delta 0.87 ng/L (0-12) 12/02/21 21:40 C-Reactive Protein 118.8 mg/L (0.0-4.9) H 12/07/21 03:15 NT-Pro-B Natriuret Pep 364 pg/mL (0-125) H 12/07/21 03:15 Total Protein 4.7 g/dL (6.6-8.7) L 12/07/21 03:15 Albumin 2.2 g/dL (3.5-5.2) L 12/07/21 03:15 Globulin 2.5 g/dL (1.3-4.6) 12/07/21 03:15 Triglycerides 156 mg/dL (0-150) H 11/29/21 02:45 Cholesterol 137 mg/dL (0-200) 11/29/21 02:45 LDL Cholesterol, Calc 77 mg/dL (50-129) 11/29/21 02:45 Total VLDL Cholesterol 31 mg/dL (0-30) H 11/29/21 02:45 HDL Cholesterol 29 mg/dL (60-100) L 11/29/21 02:45 Cholesterol/HDL Ratio 4.72 mg/dL (0.0-4.40) H 11/29/21 02:45 Amylase 65 U/L (28-100) 12/02/21 15:45 Amylase Cancelled 12/02/21 15:45 Lipase 19 U/L (13-60) 12/02/21 15:45 Vitamin B12 Cancelled 11/28/21 19:02 Folate 8.2 ng/mL (4.8-37.3) 11/28/21 19:02 Procalcitonin 3.56 ng/mL (0-0.5) H 12/07/21 03:15 TSH Cancelled 11/28/21 19:02 Free T4 1.29 ng/dL (0.82-1.77) 11/30/21 10:00 Free T3 1.7 PG/ML (2.0-4.4) L 11/30/21 10:00 Urine Color [place] (Yellow) 11/28/21 18:10 Urine Appearance Hazy (CLEAR) A 11/28/21 18:10 Urine pH 7 (5-7) 11/28/21 18:10 Ur Specific [place] 1.010 (1.005-1.030) 11/28/21 18:10 Urine Protein 2+ (Negative) H 11/28/21 18:10 Urine Glucose (UA) Norm (Normal) 11/28/21 18:10 Urine Ketones 2+ (Negative) H 11/28/21 18:10 Urine Blood 2+ (Negative) H 11/28/21 18:10 Urine Nitrate Negative (Negative) 11/28/21 18:10 Urine Bilirubin 1+ (Negative) H 11/28/21 18:10 Urine Urobilinogen 1 mg/dL (Negative) H 11/28/21 18:10 Ur Leukocyte Esterase Negative (Negative) 11/28/21 18:10 Urine RBC 0-4 /hpf (0-2) H 11/28/21 18:10 Urine WBC None /hpf (0-5) 11/28/21 18:10 Ur Squamous Epith Cells 0-4 /hpf (0-5) H 11/28/21 18:10 Amorphous Sediment Not Reportable 11/28/21 18:10 Urine Bacteria None /hpf (NONE) 11/28/21 18:10 Urine Mucus 2+ /hpf 11/28/21 18:10 Ur Random Sodium 40 mmol/L 11/28/21 18:10 Ur Random Potassium 67 mmol/L 11/28/21 18:10 Ur Random Chloride 47 mmol/L 11/28/21 18:10 CSF Appearance Clear (CLEAR) 12/03/21 17:01 CSF Color Colorless (COLORLESS) 12/03/21 17:01 CSF Specific [place] 1.020 12/03/21 17:01 CSF WBC 2 /uL (0-5) 12/03/21 17:01 CSF RBC 0 10^3/uL (0-0) 12/03/21 17:01 CSF Mononuclear # Auto 0.001 10^3/uL (50-90) L 12/03/21 17:01 CSF Mononuclear WBCs % 50 % (50-90) 12/03/21 17:01 CSF Polynuclear WBCs # 0.001 10^3/uL (0-10) 12/03/21 17:01 CSF Polynuclear WBCs % 50 % (0-10) H 12/03/21 17:01 CSF Glucose 75 mg/dL (40-70) H 12/03/21 17:01 CSF LDH 28 U/L 12/03/21 17:01 CSF Total Protein 24 mg/dL (15-45) 12/03/21 17:01 CSF Albumin 0.2 mg/dL (20.0-40.0) L 12/03/21 17:01 Vancomycin Trough 13.1 ug/mL (10-15) 12/05/21 19:00 Salicylates < 0.3 mg/dL (3-10) L 11/28/21 14:20 Urine Opiates Screen Negative ng/mL (Negative) 11/28/21 18:10 Acetaminophen < 5.0 ug/mL (10-30) L 11/28/21 14:20 Ur Barbiturates Screen Negative ng/mL (Negative) 11/28/21 18:10 Ur Phencyclidine Scrn Negative ng/mL (Negative) 11/28/21 18:10 Ur Amphetamines Screen Negative ng/mL (Negative) 11/28/21 18:10 U Benzodiazepines Scrn Negative ng/mL (Negative) 11/28/21 18:10 Urine Cocaine Screen Negative ng/mL (Negative) 11/28/21 18:10 U Marijuana (THC) Screen Negative ng/mL (Negative) 11/28/21 18:10 Ethyl Alcohol < 10 mg/dL (0-10) 11/28/21 14:20 Coronavirus 229E (PCR) Not detected (NOT DETECT) 11/28/21 18:41 CMV IgG Ab 2.30 U/mL H 12/02/21 15:45 CMV IgM Ab <30.00 AU/mL 12/02/21 15:45 Hepatitis A IgM Ab Non-reactive (Nonreactive) 12/01/21 20:54 Hep Bs Antigen Non-reactive (Nonreactive) 12/01/21 20:54 Hep Bs Antibody 7.8 (11.5-1000) L 12/01/21 20:54 Hep B Core Total Ab Non-reactive (Nonreactive) 12/01/21 20:54 Hepatitis C Antibody Non-reactive (Nonreactive) 12/01/21 20:54 HIV 1&2 Ab & HIV 1 Ag Non-reactive (Non-Reactiv) 12/01/21 20:54 HIV 1&2 Antibody Non-reactive (Non-Reactiv) 12/01/21 20:54 Influenza Type A Ag Negative (Negative) 11/29/21 15:02 Influenza Type B Ag Negative (Negative) 11/29/21 15:02 SARS-CoV-2 (PCR) Detected (NOT DETECT) A 11/28/21 18:41 Micro: Microbiology 12/06/21 09:20 Sputum Culture - Preliminary Sputum - Endotracheal Tube Aspirate 12/03/21 17:01 Gram Stain - Final Cerebrospinal Fluid CSF Culture - Final 12/03/21 13:00 Urine Culture - Final Urine,Clean Catch A&P Assessment and plan (1) Respiratory failure with hypoxia: Status: Acute (2) COVID-19: Status: Acute (3) Hepatic encephalopathy: Status: Acute (4) Opiate withdrawal: Status: Acute (5) Chronic prescription opiate use: Status: Acute (6) Hypernatremia: Status: Acute (7) Acute encephalopathy: Status: Acute (8) Chronic diastolic heart failure: Status: Acute (9) GERD (gastroesophageal reflux disease): Status: Chronic Qualifiers: Esophagitis presence: esophagitis presence not specified Qualified Code(s): K21.9 - Gastro-esophageal reflux disease without esophagitis (10) COPD (chronic obstructive pulmonary disease): Status: Chronic Qualifiers: COPD type: emphysema Emphysema type: panlobular Qualified Code(s): J43.1 - Panlobular emphysema (11) Rhabdomyolysis: Status: Acute (12) ALEKSANDRA (acute kidney injury): Status: Acute Plan #Altered mental status-Sepsis (Covid encephalopathy) vs Metabolic (hyperammonemia) vs Chronic opiate withdrawl vs Hypoxic driven in the context of Covid 19 - CT head, CTA, LP - Unremarkable - DC Acyclovir - Admission Ammonia 103 >> normalized and back up again to 61 - On lactulose BID target 2-3 soft BM -Liver ultrasound showed diffuse fatty liver but no evidence of cirrhosis, and other causes of hyperammonemia can be underlying sepsis - Na down to 141 - monitor Na levels; nephrology on board and recommended to decrease D5 and continue free water flushes -C. difficile PCR negative (DC PO Vancomycin), cryptococcal antigen negative, HSV studies pending, CMV IgG high, CMV IgM low -MRSA nares negative-patient covered with vancomycin -She was intubated 12/06/2021 and currently on sedation and proned -registered nurse fetal use of Opiates - likely component of withdrawal; Currently holding pregabalin, Robaxin.? Takes oxycodone 15 mg 6 times a day at home.We minimize fentanyl and Versed and manage sedation with Precedex and propofol while supine - Hypothyroidism - continue levothyroxine 25 mcg, TSH 0.18 #Acute hypoxic respiratory failure in patient with COVID-19/MRSA nares positive/possible aspiration #Significant centrilobular emphysema as evidenced on CT chest #Chronic Diastolic heart failure - #Persistent Tachycardia > 145 bpm despite metoprolol pushes -She completed remdesivir 5 days; currently on dexamethasone 6 mg daily -On vancomycin and Zosyn- Procalcitonin elevated trending down in the absence of renal failure-;urine Legionella, bacterial antigen negative; sputum culture pending -Most recent ABG 7.3 0/40/57/20/91% on CMV 350/10/45% after the first proning session; plan is to do second proning session -DuoNebs every 6 hour, budesonide twice daily -Echo 12/02/2021:?Grossly LV systolic function is normal.? Diastolic function is ?indeterminate because of tachycardia. -Started on amnio drip for persistent tachycardia rate close to 145 to 150 bpm despite s/p metoprolol IV pushes -patient was requiring Levophed post intubation due to sedation; once we taper off Levophed-we can stop amiodarone # ALEKSANDRA: Resolved; Likely secondary to COVID-19 pneumonia, dehydration # Rhabdomyolysis - Avoid nephrotoxic agents.? Urine output good but still positive 1 L fluid balance yesterday - agree with gentle diruresis and today D5 cut down to 50 mls/hr - CK 928 >>> 96 We will taper off sedation after 2 proning sessions and slowly plan for awakening trial and breathing trial Recommendations conveyed to hospitalist, RN, RT taking care of the patient Consult Attestations Medical Necessity Statement: Altered mental status secondary to opioid withdrawal/metabolic encephalopathy/sepsis encephalopathy secondary to COVID-19 pneumonia and acute hypoxic respiratory failure secondary to ARDS due to COVID- 19 pneumonia in patient with underlying emphysema-currently on mechanical ventilation-needs at least 48 hours of close monitoring in ICU Time Spent in Patient Care: Greater than 35 minutes (>than 50% of time spent in counselling and/or direct pt care on unit) . Critical Care Time: The high probability of a clinically significant, sudden or life threatening deterioration of the patient's [neurological, pulmonary, cardiac, renal] system(s) required my full and direct attention, intervention and personal management. The critical care time is as shown. 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 Patient Type New History Comprehensive Exam Comprehensive Medical Decision Making High Complexity Diagnoses Respiratory failure with hypoxia J96.91 COVID-19 U07.1 Hepatic encephalopathy K72.90 Opiate withdrawal F11.23 Chronic prescription opiate use Z79.891 Hypernatremia E87.0 Acute encephalopathy G93.40 Chronic diastolic heart failure I50.32 GERD (gastroesophageal reflux disease) K21.9 Esophagitis presence: esophagitis presence not specified COPD (chronic obstructive pulmonary disease) J43.1 COPD type: emphysema Emphysema type: panlobular Rhabdomyolysis M62.82 ALEKSANDRA (acute kidney injury) N17.9 Time Spent (min) 65
[2021-12-07 13:38] LABS: Blood Urea Nitrogen 9 mg/dL (6-20); Calcium 6.5 mg/dL (8.5-10.5); Carbon Dioxide 19 mmol/L (22-29); Chloride 113 mmol/L (98-107); Glomerular Filtration Rate 56.7 mL/min (90-130); Glucose 315 mg/dL (65-115); Osmolality Calculated 303 mOsm/kg (285-295); Sodium 141 mmol/L (136-145)
[2021-12-07 14:21] LABS: Anion Gap 12.7 (5-19); Potassium 3.7 mmol/L (3.5-5.1)
[2021-12-07] MEDS: iohexol 350 mg/mL 100 mL Btl IV ×2 (15:11→15:12)
[2021-12-07 16:43] LABS: Glucose Point of Care 160 mg/dL (70-110)
[2021-12-07 17:03] LABS: ABG PCO2 40.6 mmHg (35-45); Arterial Blood Gas Hematocrit 35.5 % (37-47); Blood Gas Allen Test Pos; Blood Gas Operator Identificat CAK; Blood Gas Sample Site Brachial, left; Blood Gas Sample Type Arterial; HCO3 ABG 20.1 mmol/L (22-26); HGB O2 Sat 89.5 % (95-100); Ionized Calcium Level - ABG 1.1 mmol/L (1.1-1.4); Methemoglobin 1.1 % (0.4-1.5); Oxygen Device VENT; Oxygen Saturation ABG 91.4; PO2 ABG 57.3 mmHg (80.0-100.0); Potassium Level - ABG 3.6 mmol/L (3.5-5.0); Total Hemoglobin 11.6 g/dL (12-16)
[2021-12-07 17:04] LABS: Blood Gas Tidal Volume 0.35
--- NOTE | 2021-12-07 17:05 | PM.PN ---
Subjective Subjective: Interval history: Hospital course, labs appreciated. Today morning patient seen multiple times during the day. 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 Oxygen supplementation has been maintained. On minimal ventilator setting. Morning ABG appreciated. Tidal volume changed. Patient has remained hemodynamically stable. Off Levophed. Found to have tachycardia early in the morning. Started on amiodarone drip as per bonding supervisor. Rectal tube in place. Vitals/I&O/Wt Last Vital Signs Temp 99.4 F 12/07/21 07:30 Pulse 94 12/07/21 16:46 Resp 25 H 12/07/21 14:46 BP 101/57 12/07/21 16:46 Pulse Ox 91 12/07/21 16:46 12/07/21 12/07/21 12/07/21 06:59 14:59 22:59 Intake Total 1415.230 / 4082.3489 1811.916 / 1811.916 50 / 1861.916 Output Total 1300 / 2150 700 / 700 Balance 115.230 / 1932.3489 1811.916 / 1811.916 -650 / 1161.916 Physical Exam Narrative: EXAM NARRATIVE: General: Intubated, sedated, Ro in place, capital tube in place Chest: Bilateral coarse crackles present all over the lung brock more on the left than the right , equal good air entry bilaterally CVS: S1-S2 regular, no murmurs, no tachycardia, no gallops, no rubs Abdomen: Bowel sounds hyperactive, guarding present Neuro: Intubated, sedated Urinary Catheter Management: Ro: Cath Placed During This Visit: no Reason for Continuing Indwelling Catheter: Accurate Measurement of Urinary Output in Critically Ill Patients Data : 12/07/21 03:15 12/07/21 12:38 Micro: Microbiology 12/02/21 15:45 Blood Culture - Final Blood NO GROWTH AFTER 5 DAYS 12/02/21 15:38 Blood Culture - Final Blood NO GROWTH AFTER 5 DAYS 12/06/21 09:20 Sputum Culture - Preliminary Sputum - Endotracheal Tube Aspirate A&P Assessment and plan (1) Respiratory failure with hypoxia: Status: Acute (2) Acute encephalopathy: Status: Acute (3) COVID-19: Status: Acute (4) Hyperammonemia: Status: Acute (5) Hepatic encephalopathy: Status: Acute (6) Hypernatremia: Status: Acute (7) Diarrhea: Status: Acute (8) Dehydration: Status: Acute (9) Rhabdomyolysis: Status: Acute (10) Benign essential hypertension with target blood pressure below 140/90: Status: Acute (11) Carotid artery stenosis without cerebral infarction: Status: Acute Qualifiers: Laterality: left Qualified Code(s): I65.22 - Occlusion and stenosis of left carotid artery (12) Chronic prescription opiate use: Status: Acute (13) Anxiety and depression: Status: Chronic (14) Hypokalemia: Status: Acute (15) Opiate withdrawal: Status: Acute Plan Acute hypoxic respiratory failure secondary to COVID-19 pneumonia, possible aspiration: Severe disease Oxygen supplementation keeping saturation over 88%. Currently intubated, proned. 1st session. Dexamethasone 6 mg daily for 10 days Has finished remdesivir course of 5 days Vitamin C, zinc. DuoNebs every 6 hour, budesonide twice daily We will monitor inflammatory markers including D-dimer, CRP every 48 hours D-dimer elevated. Check CTA. We will follow-up D-dimer. D-dimer gets elevated will switch to full dose anticoagulation. Will monitor for anemia or blood loss. Procalcitonin elevated, urine Legionella, bacterial antigen negative. Sputum culture pending. CSF culture negative. MRSA positive. Continue with vancomycin, Zosyn. C. difficile negative. Recheck C. difficile. For now hold off on oral vancomycin or IV Flagyl. Acute metabolic encephalopathy: Most likely combination of COVID-19 encephalopathy along with hyperammonemia, hypernatremia and possible drug withdrawal. For hypernatremia: Sodium levels improving again. D5W at 50 cc/h. Continue with free water flushes at 100 cc every 4 hourly. Repeat BMP in evening. Nephrology consult appreciated. ALEKSANDRA: Resolving. Likely secondary to COVID-19 pneumonia, dehydration Avoid nephrotoxic agents. Urine output minimal. Hyperammonemia: Ammonia level 60. Lactulose 15 mg every 12 hourly. Monitor bowel movements. Rectal tube in place. Check CTA head and neck, CTA chest PE protocol, CT abdomen pelvis. Currently holding pregabalin, Robaxin. Takes oxycodone 15 mg 6 times a day at home. Acute metabolic encephalopathy: Hypothyroidism continue levothyroxine 25 mcg, TSH 0.18 Rhabdomyolysis: Secondary dehydration, agitation Full code. NPO. Protonix for PUD prophylaxis. Lovenox for DVT prophylaxis. Discussed patient's status with today, voiced understanding, all questions answered Attestations Medical Necessity Statement*: Requires further hospitalization for management of respiratory failure secondary COVID-19 pneumonia, intubated, proned, metabolic encephalopathy secondary to hyperammonemia, hypernatremia Critical Care Time: The high probability of a clinically significant, sudden or life threatening deterioration of the patient's respiratory, GI, neurological,] system(s) required my full and direct attention, intervention and personal management. The critical care time is as shown. 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
[2021-12-07] MEDS: lactulose oral liq 20 gm/30 mL UDC 15 GM PO (17:23)
[2021-12-07] MEDS: propofol 1,000 MG/100 ML INJ 12.6 MG IV (18:03)
[2021-12-07] MEDS: FUROsemide 10 mg/mL SDV 2mL 20 MG IVP (18:04)
[2021-12-07 18:36] LABS: Glucose Point of Care 158 mg/dL (70-110)
[2021-12-07] MEDS: enoxaparin 40 mg/0.4 mL Syringe SUBCUT (20:01)
[2021-12-07 20:31] LABS: Vancomycin Trough 21.3 ug/mL (10-15)
--- NOTE | 2021-12-07 21:53 | PC.NURSE ---
Patient not proned per Dr. Petit and RT due to Fio2 being 45%, Nimbex turned off
[2021-12-07 23:35] LABS: Glucose Point of Care 133 mg/dL (70-110)
[2021-12-08] VITALS (53 sets, daily range): BP systolic 86–134; BP diastolic 52–83; PULSE 70–107; RESP 22–34; TEMP 37.1–37.2; O2SAT 88–97
[2021-12-08] MEDS: propofol 1,000 MG/100 ML INJ 15.74 MG IV ×2 (02:34→07:05)
[2021-12-08] MEDS: ipratropium-albuterol 3 mL Neb INHALATION ×4 (02:50→20:15)
[2021-12-08 04:08] LABS: Glucose Point of Care 110 mg/dL (70-110)
[2021-12-08] MEDS: piperacillin-tazobactam 3.375 GM in sodium chloride 0.9% (plus) 50 ML IV ×3 (04:10→19:27)
[2021-12-08 04:22] LABS: ABG PCO2 39.4 mmHg (35-45); ABG PH Result 7.39 (7.35-7.45); Arterial Blood Gas Hematocrit 32.7 % (37-47); Blood Gas Allen Test Pos; Blood Gas Sample Site Radial, right; Blood Gas Sample Type Arterial; Blood Gas Tidal Volume 0.35; HCO3 ABG 23.9 mmol/L (22-26); Oxygen Device VENT
[2021-12-08] MEDS: dextrose 5% 1,000 ML 50 ML IV (05:15)
[2021-12-08] MEDS: levothyroxine 25 mcg Tablet PO (05:15)
[2021-12-08] MEDS: lactulose oral liq 20 gm/30 mL UDC 15 GM PO ×3 (05:16→20:22)
[2021-12-08 05:31] LABS: Basophils % 0.2 %; Eosinophils % 0.2 %; Hematocrit 33.1 % (37.0-47.0); Hemoglobin 10.5 g/dL (11.5-15.3); Lymphocytes # 3.2 10^3/uL (0.8-4.8); Lymphocytes % 18.8 %; Mean Corpuscular HGB Conc 31.7 g/dL (30.0-36.0); Mean Corpuscular Hemoglobin 28.8 pg (28.0-34.0); Mean Corpuscular Volume 90.9 fl (81-99); Mean Platelet Volume 11.5 fL (7.4-10.4); Neutrophils % 71.2 %; Nucleated Red Blood Cells % 0.1 %; Platelet Count 394 10^3/cmm (130-400); Red Blood Count 3.64 10^6/uL (4.1-5.3); Red Cell Distribution Width 15.8 % (12.1-15.1); White Blood Count 16.7 10^3/uL (4.0-10.0)
[2021-12-08 05:42] LABS: D Dimer 2.04 ug/mIFEU (0-0.59)
[2021-12-08 05:49] LABS: Glucose Point of Care 133 mg/dL (70-110)
[2021-12-08 05:55] LABS: Alanine Aminotransferase 16 U/L (0-33); Albumin Level 2.1 g/dL (3.5-5.2); Alkaline Phosphatase 80 IU/L (35-105); Aspartate Amino Transferase 15 U/L (0-32); Blood Urea Nitrogen 8 mg/dL (6-20); C Reactive Protein 46.8 mg/L (0.0-4.9); Calcium 7.4 mg/dL (8.5-10.5); Carbon Dioxide 19 mmol/L (22-29); Chloride 115 mmol/L (98-107); Globulin 2.5 g/dL (1.3-4.6); Glomerular Filtration Rate 56.7 mL/min (90-130); Glucose 117 mg/dL (65-115); Magnesium 1.8 mg/dL (1.7-2.3); Osmolality Calculated 301 mOsm/kg (285-295); Sodium 146 mmol/L (136-145); Total Bilirubin 0.3 mg/dL (0.15-1.2); Total Protein 4.6 g/dL (6.6-8.7)
--- NOTE | 2021-12-08 06:00 | ECG_ITS ---
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 Measurements Intervals [place] Rate: 104 P: MN: QRS: 1 QRSD: 90 T: 28 QT: 285 QTc: 376 Interpretive Statements SINUS TACHYCARDIA NONSPECIFIC T-WAVE ABNORMALITY ABNORMAL RHYTHM ECG Compared to ECG 12/06/2021 06:13:02 Sinus tachycardia no longer present T-wave abnormality still present Electronically Signed On 12-09-2021 5:34:22 DECORATING CONSULTANT by Ana Nugent M.D. [id number]
[2021-12-08 06:09] LABS: Ammonia 73 umol/L (11-51)
--- NOTE | 2021-12-08 07:07 | PC.NURSE ---
Gtt infusion rates corrected in MAR after report from off going nurse.
[2021-12-08] MEDS: ferrous gluconate 324 mg Tablet PO ×2 (08:31→17:30)
[2021-12-08] MEDS: pantoprazole 40 mg SDV IVP ×2 (08:31→20:22)
[2021-12-08] MEDS: budesonide 0.5 mg/2 mL Neb INHALATION ×2 (08:32→20:15)
[2021-12-08] MEDS: aspirin 81 mg EC Tablet PO (08:35)
--- NOTE | 2021-12-08 10:15 | PM.PN ---
Subjective Subjective: Interval history: Ms. Sanchez remains critically sick in the intensive care unit. She continues to have profuse watery diarrhea. Dextrose infusion was decreased yesterday. Sodium noted to be increased today. FiO2 45%. Hemodynamically remained stable overnight. Vitals/I&O/Wt Last Vital Signs Temp 99.0 F 12/08/21 08:01 Pulse 98 12/08/21 09:01 Resp 26 H 12/08/21 09:08 BP 120/69 12/08/21 09:01 Pulse Ox 90 12/08/21 09:08 12/07/21 12/08/21 12/08/21 22:59 06:59 14:59 Intake Total 1041.505 / 2860.370 1406.887 / 4267.257 967.120 / 967.120 Output Total 1050 / 1050 1900 / 2950 Balance -8.495 / 1810.370 -493.113 / 1317.257 967.120 / 967.120 Weight last 48 hrs Weight 53.977 kg Physical Exam Narrative: EXAM NARRATIVE: Constitutional: Sedated and vented HEENT: Wet mucosa, no jvp, non icteric Lungs: Bilaterally diminished CVS: S1 S2, no murmurs Abdo: Soft, BS ok Ext 4: Minimal edema, peripheral perfusion with no cyanosis Neurological: Grossly non-focal Urinary Catheter Management: Ro: Cath Placed During This Visit: no Reason for Continuing Indwelling Catheter: Accurate Measurement of Urinary Output in Critically Ill Patients Data : 12/08/21 05:11 12/08/21 05:11 Micro: Microbiology 12/06/21 09:20 Sputum Culture - Final Sputum - Endotracheal Tube Aspirate 12/07/21 19:10 Blood Culture - Preliminary Blood SPECIMEN COLLECTED 12/07/21 19:07 Blood Culture - Preliminary Blood SPECIMEN COLLECTED 12/07/21 15:30 C.difficile Toxin B Gene (PCR) - Final Stool Routine Collection 12/02/21 15:45 Blood Culture - Final Blood NO GROWTH AFTER 5 DAYS 12/02/21 15:38 Blood Culture - Final Blood NO GROWTH AFTER 5 DAYS A&P Assessment and plan (1) Hypernatremia: Status: Acute Plan 1. Acute kidney injury Creatinine 1.2 > 1.0, looks good Avoid usual nephrotoxic agents, close monitoring of renal function. Strict I's and O's 2. Hypernatremia Sodium has drifted up again Cont free water flushes > 100ml Q6 Increase D5w to 125mL/hr ok for daily labs now 3. Vent dependent respiratory failure Secondary to altered mental status in the setting of Covid pneumonitis. Currently on FiO2 45%, much improved Status post remdesivir, Decadron Management per ICU team 4. Diarrhea Mgmt per medical team fecal system Thank you for consultation, it is a pleasure to follow these cases with you Exam and interview performed with aid of bedside RN using telemedicine Time spent 20 min inc > 50% of time in face to face counseling Efraín Ibarra MD [facility] [phone] Attestations Medical Necessity Statement*: Eval for ALEKSANDRA / hypernatremia Coding Level of Care Code Acute Front End Architect for Chg Fwd Diagnoses Hypernatremia E87.0
--- NOTE | 2021-12-08 10:27 | PC.CHAP ---
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 [] Patient/Family/Request visit [] Outpatient visit [] Follow-up visit [] Physician referral [] Code/Alert [x] Routine visit [] Staff referral [] Actively dying [x] Patient sleeping [] Family support [] [] Out of room [] Palliative care [] [] Receiving care in room [] Pre-surgical visit [] Trauma [] Long length of stay [x] ICU visit [x] Other: vent Relational/Emotional Strength [] Patient feels connected with others/family/visitors/staff [] Distress [] Loneliness/isolation [] Abandonment Spirituality of Patient [] Person of Nahed [] Attends Anabaptism of their Nahed [] Believes in Prayer [] Reads Bible or Presybeterian materials [] There are Spiritual issues to be addressed Owner Interventions [x] Prayer [] Active listening [] Non-anxious presence [] Spiritual/emotional support [] Crisis/trauma care [] Spiritual counseling [] Bereavement support [] Provided bereavement packet [] Provided Bible/devotional materials [] Provided toy/stuffed animal, coloring book to patient or family member [] Provided Communion [] Anointing/[place] [] Salvation [x] Completed spiritual assessment [] Other: Impact on Illness or Injury [] Angry [] Fearful [] Anxious [] Often cries [] Exhaustion [] Unable to work [] Unable to attend gnosticism [] Unable to walk/stand [] Unable to read [] Unable to drive [] Unable to eat/drink [] Unable to sleep [] Unable to be with family [] Patient intubated [] Other: Summary Time spent with patient
[2021-12-08] MEDS: dexamethasone 10 mg/mL INJ 6 MG IVP (11:00)
[2021-12-08 11:49] LABS: Glucose Point of Care 137 mg/dL (70-110)
[2021-12-08] MEDS: propofol 1,000 MG/100 ML INJ 12.6 MG IV ×2 (12:01→17:56)
--- NOTE | 2021-12-08 15:00 | P.PN_ITS ---
Subjective Subjective: Interval history: -Patient seen at bedside today -Completed first proning session-FiO2 down to 45% and PaO2 on ABG 51 -She is on Nimbex, propofol 80, fentanyl 150-recommended to taper down sedation and do awakening trial -She also has profuse watery diarrhea-C. difficile PCR - 12/07/2021 -Other labs and imaging reviewed Medications: Reviewed: Yes Vitals/I&O/Wt Last Vital Signs Temp 99.0 F 12/08/21 12:00 Pulse 96 12/08/21 14:23 Resp 27 H 12/08/21 14:23 BP 108/64 12/08/21 12:30 Pulse Ox 91 12/08/21 14:23 12/08/21 12/08/21 12/08/21 06:59 14:59 22:59 Intake Total 1406.887 / 4267.257 1125.430 / 1125.430 Output Total 1900 / 2950 Balance -493.113 / 3890.672 5414.430 / 1125.430 Weight last 48 hrs Weight 119 lb Physical Exam Narrative: EXAM NARRATIVE: PHYSICAL EXAM: General: lying in bed, sedated and intubated. HEENT:NCAT, PERRLA, EOMI Neck: Supple Lungs: Bilateral mild diffuse crepitations Heart: s1/s2, RRR Abd: soft, NT, ND, BS + Normoactive Extremities: No edema MODELING AGENT: sedated and limited MODELING AGENT exam possible. SKIN: no rash Urinary Catheter Management: Ro: Cath Placed During This Visit: no Reason for Continuing Indwelling Catheter: Accurate Measurement of Urinary Output in Critically Ill Patients Data : 12/08/21 05:11 12/08/21 05:11 Other Labs: Radiology Impressions Head CT 11/28/21 15:00 IMPRESSION: 1. No acute intracranial hemorrhage or edema. 2. Mild atrophy and mild chronic microvascular ischemic type changes. Liver Ultrasound 12/02/21 13:17 IMPRESSION: Technically difficult examination due to bowel gas and patient motion due to pain. 1. Diffuse fatty infiltration of the liver. 2. Normal gallbladder. 3. Normal common bile duct measuring 5.9 mm. 4. No hydronephrosis in right kidney. 5. No ascites. Abdomen/Pelvis CT 12/04/21 12:53 IMPRESSION: 1. Very limited examination due to patient respiratory motion. 2. Basilar atelectasis and question of new basilar pulmonary infiltrates. 3. Findings of new Ro catheter, rectal tube and nasogastric tube. 4. Fluid in the colon which could represent enteritis. KUB X-Ray 12/06/21 11:49 IMPRESSION: 1. Nasogastric tube has its proximal port at GE junction, recommend advancement by 7-10 cm. 2. Stable bilateral pleuroparenchymal disease. 3. There is gaseous distention of the stomach noted. 4. Bowel gas pattern is mildly distended but nonobstructive. Chest X-Ray 12/07/21 07:00 IMPRESSION: Redemonstrated emphysematous changes of the lungs. More conspicuous ill-defined opacities throughout both lungs suggestive of multifocal pneumonia. Chest/Abdomen/Pelvis CT 12/07/21 11:28 IMPRESSION: 1. Scattered perihilar and bibasal infiltrates.Imaging features can be seen with COVID-19 pneumonia, though are nonspecific and can occur with a variety IMPRESSION: There are air-fluid levels in the distal colon suggesting mild nonspecific colitis versus other diarrheal illness. A rectal tube is in place. Head/Neck CTA 12/07/21 11:28 IMPRESSION: No large vessel stenosis or occlusion. IMPRESSION: No stenosis or occlusion. REFERENCES: NASCET CRITERIA. The degree of internal carotid artery stenosis is based on NASCET criteria. Normal is no stenosis. Mild is less than 50% stenosis. Moderate is 50-69% stenosis. Severe is 70% to 99% stenosis. Total occlusion is no detectable patent lumen. Laboratory Results WBC 16.7 10^3/uL (4.0-10.0) H 12/08/21 05:11 RBC 3.64 10^6/uL (4.1-5.3) L 12/08/21 05:11 Hgb 10.5 g/dL (11.5-15.3) L 12/08/21 05:11 Hct 33.1 % (37.0-47.0) L 12/08/21 05:11 MCV 90.9 fl (81-99) 12/08/21 05:11 MCH 28.8 pg (28.0-34.0) 12/08/21 05:11 MCHC 31.7 g/dL (30.0-36.0) 12/08/21 05:11 RDW 15.8 % (12.1-15.1) H 12/08/21 05:11 Plt Count 394 10^3/cmm (130-400) 12/08/21 05:11 MPV 11.5 fL (7.4-10.4) H 12/08/21 05:11 Neut % (Auto) 71.2 % 12/08/21 05:11 Lymph % (Auto) 18.8 % 12/08/21 05:11 [place] % (Auto) 6.0 % 12/08/21 05:11 Eos % (Auto) 0.2 % 12/08/21 05:11 Baso % (Auto) 0.2 % 12/08/21 05:11 Neut # (Auto) 11.90 10^3/uL (1.8-7.7) H 12/08/21 05:11 Lymph # (Auto) 3.2 10^3/uL (0.8-4.8) 12/08/21 05:11 [place] # (Auto) 1.0 10^3/uL (0.2-0.9) H 12/08/21 05:11 Eos # (Auto) 0.0 10^3/uL (0.0-0.8) 12/08/21 05:11 Baso # (Auto) 0.0 10^3/uL (0.0-0.1) 12/08/21 05:11 Nucleated RBC % (auto) 0.1 % 12/08/21 05:11 Nucleated RBCs # 0.0 /100WBC 12/08/21 05:11 ESR 17 mm/hr (0-15) H 12/02/21 15:45 PT 16.30 SECONDS (12.1-14.9) H 12/07/21 03:15 INR 1.28 (0.8-1.2) H 12/07/21 03:15 D-Dimer 2.04 ug/mIFEU (0-0.59) H 12/08/21 05:11 Specimen Type Arterial 12/08/21 04:00 Sample Site Radial, right 12/08/21 04:00 ABG pH 7.39 (7.35-7.45) 12/08/21 04:00 ABG pCO2 39.4 mmHg (35-45) 12/08/21 04:00 ABG pO2 51.0 mmHg (80.0-100.0) L 12/08/21 04:00 ABG HCO3 23.9 mmol/L (22-26) 12/08/21 04:00 ABG O2 Saturation 91.4 12/07/21 16:49 ABG Base Excess -1.0 mmol/L (-2.0-2.0) 12/08/21 04:00 [place] Test Pos 12/08/21 04:00 A-a O2 Gradient 28.0 mmHg (5-10) H 12/07/21 16:49 Hematocrit 32.7 % (37-47) L 12/08/21 04:00 Hgb O2 Saturation 89.5 % (95-100) L 12/07/21 16:49 Carboxyhemoglobin 1.0 %THgb (0.4-20.1) 12/07/21 16:49 Methemoglobin 1.1 % (0.4-1.5) 12/07/21 16:49 Total Hemoglobin 11.6 g/dL (12-16) L 12/07/21 16:49 Sodium 145.0 mmol/L (131-143) H 12/07/21 16:49 Potassium 3.6 mmol/L (3.5-5.0) 12/07/21 16:49 Glucose 175.0 mg/dL (70-115) H 12/07/21 16:49 Ionized Calcium 1.1 mmol/L (1.1-1.4) 12/07/21 16:49 O2 Delivery Device Vent 12/08/21 04:00 O2 Liters/Min 14.0 % 12/04/21 05:10 FiO2 45.0 % 12/08/21 04:00 Tidal Volume 0.35 12/08/21 04:00 PEEP 8.0 cmH20 12/08/21 04:00 Adolescent Psychiatrist ID [email or web address] 12/08/21 04:00 Sodium 146 mmol/L (136-145) H 12/08/21 05:11 Potassium 3.0 mmol/L (3.5-5.1) L 12/08/21 05:11 Chloride 115 mmol/L (98-107) H 12/08/21 05:11 Carbon Dioxide 19 mmol/L (22-29) L 12/08/21 05:11 Anion Gap 15.0 (5-19) 12/08/21 05:11 BUN 8 mg/dL (6-20) 12/08/21 05:11 Creatinine 1.0 mg/dL (0.5-0.9) H 12/08/21 05:11 GFR Calculation 56.7 mL/min (90-130) L 12/08/21 05:11 Glucose 117 mg/dL (65-115) H 12/08/21 05:11 POC Glucose 137 mg/dL (70-110) H 12/08/21 11:11 Estimat Average Glucose 120 11/29/21 02:45 Hemoglobin A1c 5.8 % (4.0-6.0) 11/29/21 02:45 Calculated Osmolality 301 mOsm/kg (285-295) H 12/08/21 05:11 Lactic Acid 2.1 mmol/L (0.5-2.2) 11/28/21 16:04 Lactic Acid (Sepsis) 1.2 mmol/L (0.5-2.2) 11/28/21 19:02 Lactate 1.4 mmol/L (0.5-2.2) 12/07/21 03:15 Calcium 7.4 mg/dL (8.5-10.5) L 12/08/21 05:11 Phosphorus 2.0 mg/dL (2.5-4.5) L 12/08/21 05:11 Magnesium 1.8 mg/dL (1.7-2.3) 12/08/21 05:11 Iron 37 ug/dL (37-145) 11/28/21 14:20 TIBC 287 mcg/dl 11/28/21 14:20 % Saturation 12.8 % (20-50) L 11/28/21 14:20 Unsat Iron Binding 250 ug/dL (112-347) 11/28/21 14:20 Total Bilirubin 0.3 mg/dL (0.15-1.2) 12/08/21 05:11 GGT 27 U/L (5-36) 12/02/21 15:45 GGT Cancelled 12/02/21 15:45 AST 15 U/L (0-32) 12/08/21 05:11 ALT 16 U/L (0-33) 12/08/21 05:11 Alkaline Phosphatase 80 IU/L (35-105) 12/08/21 05:11 Ammonia 73 umol/L (11-51) H 12/08/21 05:11 Lactate Dehydrogenase 510 U/L (135-214) H 11/29/21 18:00 Creatine Kinase 96 U/L (26-192) 12/07/21 03:15 CK-MB (CK-2) 13.4 ng/mL (0-5.34) H 11/28/21 14:20 CK-MB (CK-2) Rel Index 2.6 % (0.0-10.4) 11/28/21 14:20 Troponin T Baseline 12 ng/L (0-10) H 12/02/21 15:45 Troponin T 120 Minute 11.25 ng/L (0-10) H 12/02/21 17:45 Delta Troponin T -0.75 ABS# (0-10) L 12/02/21 17:45 Troponin T Hi Sens 6Hr 12.87 ng/L (0-10) H 12/02/21 21:40 Troponin T Hi Sens 6Hr Delta 0.87 ng/L (0-12) 12/02/21 21:40 C-Reactive Protein 46.8 mg/L (0.0-4.9) H 12/08/21 05:11 NT-Pro-B Natriuret Pep 364 pg/mL (0-125) H 12/07/21 03:15 Total Protein 4.6 g/dL (6.6-8.7) L 12/08/21 05:11 Albumin 2.1 g/dL (3.5-5.2) L 12/08/21 05:11 Globulin 2.5 g/dL (1.3-4.6) 12/08/21 05:11 Triglycerides 156 mg/dL (0-150) H 11/29/21 02:45 Cholesterol 137 mg/dL (0-200) 11/29/21 02:45 LDL Cholesterol, Calc 77 mg/dL (50-129) 11/29/21 02:45 Total VLDL Cholesterol 31 mg/dL (0-30) H 11/29/21 02:45 HDL Cholesterol 29 mg/dL (60-100) L 11/29/21 02:45 Cholesterol/HDL Ratio 4.72 mg/dL (0.0-4.40) H 11/29/21 02:45 Amylase 65 U/L (28-100) 12/02/21 15:45 Amylase Cancelled 12/02/21 15:45 Lipase 19 U/L (13-60) 12/02/21 15:45 Vitamin B12 Cancelled 11/28/21 19:02 Folate 8.2 ng/mL (4.8-37.3) 11/28/21 19:02 Procalcitonin 3.56 ng/mL (0-0.5) H 12/07/21 03:15 TSH Cancelled 11/28/21 19:02 Free T4 1.29 ng/dL (0.82-1.77) 11/30/21 10:00 Free T3 1.7 PG/ML (2.0-4.4) L 11/30/21 10:00 Urine Color [place] (Yellow) 11/28/21 18:10 Urine Appearance Hazy (CLEAR) A 11/28/21 18:10 Urine pH 7 (5-7) 11/28/21 18:10 Ur Specific [place] 1.010 (1.005-1.030) 11/28/21 18:10 Urine Protein 2+ (Negative) H 11/28/21 18:10 Urine Glucose (UA) Norm (Normal) 11/28/21 18:10 Urine Ketones 2+ (Negative) H 11/28/21 18:10 Urine Blood 2+ (Negative) H 11/28/21 18:10 Urine Nitrate Negative (Negative) 11/28/21 18:10 Urine Bilirubin 1+ (Negative) H 11/28/21 18:10 Urine Urobilinogen 1 mg/dL (Negative) H 11/28/21 18:10 Ur Leukocyte Esterase Negative (Negative) 11/28/21 18:10 Urine RBC 0-4 /hpf (0-2) H 11/28/21 18:10 Urine WBC None /hpf (0-5) 11/28/21 18:10 Ur Squamous Epith Cells 0-4 /hpf (0-5) H 11/28/21 18:10 Amorphous Sediment Not Reportable 11/28/21 18:10 Urine Bacteria None /hpf (NONE) 11/28/21 18:10 Urine Mucus 2+ /hpf 11/28/21 18:10 Ur Random Sodium 40 mmol/L 11/28/21 18:10 Ur Random Potassium 67 mmol/L 11/28/21 18:10 Ur Random Chloride 47 mmol/L 11/28/21 18:10 CSF Appearance Clear (CLEAR) 12/03/21 17:01 CSF Color Colorless (COLORLESS) 12/03/21 17:01 CSF Specific [place] 1.020 12/03/21 17:01 CSF WBC 2 /uL (0-5) 12/03/21 17:01 CSF RBC 0 10^3/uL (0-0) 12/03/21 17:01 CSF Mononuclear # Auto 0.001 10^3/uL (50-90) L 12/03/21 17:01 CSF Mononuclear WBCs % 50 % (50-90) 12/03/21 17:01 CSF Polynuclear WBCs # 0.001 10^3/uL (0-10) 12/03/21 17:01 CSF Polynuclear WBCs % 50 % (0-10) H 12/03/21 17:01 CSF Glucose 75 mg/dL (40-70) H 12/03/21 17:01 CSF LDH 28 U/L 12/03/21 17:01 CSF Total Protein 24 mg/dL (15-45) 12/03/21 17:01 CSF Albumin 0.2 mg/dL (20.0-40.0) L 12/03/21 17:01 CSF/Ser Oligoclon Bands Cancelled 12/02/21 15:45 Vancomycin Trough 21.3 ug/mL (10-15) H 12/07/21 19:54 Salicylates < 0.3 mg/dL (3-10) L 11/28/21 14:20 Urine Opiates Screen Negative ng/mL (Negative) 11/28/21 18:10 Acetaminophen < 5.0 ug/mL (10-30) L 11/28/21 14:20 Ur Barbiturates Screen Negative ng/mL (Negative) 11/28/21 18:10 Ur Phencyclidine Scrn Negative ng/mL (Negative) 11/28/21 18:10 Ur Amphetamines Screen Negative ng/mL (Negative) 11/28/21 18:10 U Benzodiazepines Scrn Negative ng/mL (Negative) 11/28/21 18:10 Urine Cocaine Screen Negative ng/mL (Negative) 11/28/21 18:10 U Marijuana (THC) Screen Negative ng/mL (Negative) 11/28/21 18:10 Ethyl Alcohol < 10 mg/dL (0-10) 11/28/21 14:20 Coronavirus 229E (PCR) Not detected (NOT DETECT) 11/28/21 18:41 CMV IgG Ab 2.30 U/mL H 12/02/21 15:45 CMV IgM Ab <30.00 AU/mL 12/02/21 15:45 Hepatitis A IgM Ab Non-reactive (Nonreactive) 12/01/21 20:54 Hep Bs Antigen Non-reactive (Nonreactive) 12/01/21 20:54 Hep Bs Antibody 7.8 (11.5-1000) L 12/01/21 20:54 Hep B Core Total Ab Non-reactive (Nonreactive) 12/01/21 20:54 Hepatitis C Antibody Non-reactive (Nonreactive) 12/01/21 20:54 HIV 1&2 Ab & HIV 1 Ag Non-reactive (Non-Reactiv) 12/01/21 20:54 HIV 1&2 Antibody Non-reactive (Non-Reactiv) 12/01/21 20:54 Influenza Type A Ag Negative (Negative) 11/29/21 15:02 Influenza Type B Ag Negative (Negative) 11/29/21 15:02 SARS-CoV-2 (PCR) Detected (NOT DETECT) A 11/28/21 18:41 Micro: Microbiology 12/06/21 09:20 Sputum Culture - Final Sputum - Endotracheal Tube Aspirate 12/07/21 19:10 Blood Culture - Preliminary Blood SPECIMEN COLLECTED 12/07/21 19:07 Blood Culture - Preliminary Blood SPECIMEN COLLECTED 12/07/21 15:30 C.difficile Toxin B Gene (PCR) - Final Stool Routine Collection 12/02/21 15:45 Blood Culture - Final Blood NO GROWTH AFTER 5 DAYS 12/02/21 15:38 Blood Culture - Final Blood NO GROWTH AFTER 5 DAYS A&P Assessment and plan (1) Respiratory failure with hypoxia: Status: Acute (2) COVID-19: Status: Acute (3) Hepatic encephalopathy: Status: Acute (4) Opiate withdrawal: Status: Acute (5) Chronic prescription opiate use: Status: Acute (6) Hypernatremia: Status: Acute (7) Acute encephalopathy: Status: Acute (8) Chronic diastolic heart failure: Status: Acute (9) GERD (gastroesophageal reflux disease): Status: Chronic Qualifiers: Esophagitis presence: esophagitis presence not specified Qualified Code(s): K21.9 - Gastro-esophageal reflux disease without esophagitis (10) COPD (chronic obstructive pulmonary disease): Status: Chronic Qualifiers: COPD type: emphysema Emphysema type: panlobular Qualified Code(s): J43.1 - Panlobular emphysema (11) Rhabdomyolysis: Status: Acute (12) ALEKSANDRA (acute kidney injury): Status: Acute Plan #Altered mental status-Sepsis (Covid encephalopathy) vs Metabolic (hyperammonemia) vs Chronic opiate withdrawl vs Hypoxic driven in the context of Covid 19 - CT head, CTA, LP - Unremarkable - DC Acyclovir - Admission Ammonia 103 >> normalized and back up again to 61 - On lactulose BID target 2-3 soft BM -Liver ultrasound showed diffuse fatty liver but no evidence of cirrhosis, and other causes of hyperammonemia can be underlying sepsis - Na 146- monitor Na levels; nephrology on board and recommended to increase D5- 1 25 mill/hour and continue free water flushes -C. difficile PCR negative (DC PO Vancomycin), cryptococcal antigen negative, HSV studies pending, CMV IgG high, CMV IgM low -MRSA nares negative-patient covered with vancomycin -She was intubated 12/06/2021 and currently on sedation and proned -intermediate designer use of Opiates - likely component of withdrawal; Currently holding pregabalin, Robaxin.? Takes oxycodone 15 mg 6 times a day at home.We minimize fentanyl and Versed and manage sedation with Precedex and propofol while supine - Hypothyroidism - continue levothyroxine 25 mcg, TSH 0.18 -Neurology follow-up #Acute hypoxic respiratory failure in patient with COVID-19/MRSA nares positive/possible aspiration #Significant centrilobular emphysema as evidenced on CT chest #Chronic Diastolic heart failure - #Persistent Tachycardia > 145 bpm despite metoprolol pushes -She completed remdesivir 5 days; currently on dexamethasone 6 mg daily -On vancomycin and Zosyn- Procalcitonin elevated trending down in the absence of renal failure-;urine Legionella, bacterial antigen negative; sputum culture pending -Most recent ABG 7.3 9/39/51/23 on CMV 350/8/40 5% after the first proning session; -DuoNebs every 6 hour, budesonide twice daily -Echo 12/02/2021:?Grossly LV systolic function is normal.? Diastolic function is ?indeterminate because of tachycardia. -Started on amnio drip for persistent tachycardia rate close to 145 to 150 bpm despite s/p metoprolol IV pushes -patient was requiring Levophed post intubation due to sedation; once we taper off Levophed-we can stop amiodarone # ALEKSANDRA: Resolved; Likely secondary to COVID-19 pneumonia, dehydration # Rhabdomyolysis - Avoid nephrotoxic agents.? Urine output good but still positive 1 L fluid balance yesterday - agree with gentle diruresis and today D5 cut down to 50 mls/hr - CK 928 >>> 96 We will taper off sedation and slowly plan for awakening trial and breathing trial Recommendations conveyed to hospitalist, RN, RT taking care of the patient Attestations Medical Necessity Statement*: Requires further hospitalization for management of respiratory failure secondary COVID-19 pneumonia, intubated, proned, metabolic encephalopathy secondary to hyperammonemia, hypernatremia Critical Care Time: The high probability of a clinically significant, sudden or life threatening deterioration of the patient's respiratory, renal, neurological,] system(s) required my full and direct attention, intervention and personal management. The critical care time is as shown. This time is in addition to time spent performing any reported procedures but includes the following: [x] Data and vital sign review and interpretation [x] Patient assessment, examination and intervention [x] Documentation [x] Medication orders and management Critical Care Time (min): 45 Coding Level of Care Code Established Pt Acute Continuous Drier Operator for Chg Fwd Patient Type Established History Comprehensive Exam Comprehensive Medical Decision Making High Complexity Diagnoses Respiratory failure with hypoxia J96.91 COVID-19 U07.1 Hepatic encephalopathy K72.90 Opiate withdrawal F11.23 Chronic prescription opiate use Z79.891 Hypernatremia E87.0 Acute encephalopathy G93.40 Chronic diastolic heart failure I50.32 GERD (gastroesophageal reflux disease) K21.9 Esophagitis presence: esophagitis presence not specified COPD (chronic obstructive pulmonary disease) J43.1 COPD type: emphysema Emphysema type: panlobular Rhabdomyolysis M62.82 ALEKSANDRA (acute kidney injury) N17.9 Time Spent (min) 45
[2021-12-08 15:30] LABS: Glucose Point of Care 191 mg/dL (70-110)
[2021-12-08] MEDS: insulin lispro 100 unit/1 mL SUBCUT ×3 (15:36→22:58)
[2021-12-08] MEDS: dextrose 5% 1,000 ML 125 ML IV (16:29)
[2021-12-08 17:03] LABS: St. Louis Enceph.Virus IGG CSF <1:1; St. Louis Enceph.Virus IGM CSF <1:1
--- NOTE | 2021-12-08 17:51 | PC.NURSE ---
Attempted to prepare pt for proning. nimbex started earlier per orders and sedation increased and BIS monitor placed on pt. BIS 32 at this time. Nimbex increased d/t pt being noncompliant with vent. Sedation had been weaned earlier in day per orders. Pulmonology suggested to prone x1. MD order to prone one more time. Tube feeds stopped around 1600. NGT clamped. Levophed restarted d/t soft BP. Will monitor.
--- NOTE | 2021-12-08 18:21 | PM.PN ---
Subjective Subjective: Interval history: Patient seen multiple times during the day. Care discussed multiple times with manufacturers agent. I am told overnight patient did not undergo proning session as a respiratory therapist thought it was not appropriate and confirmed with the physician. Today morning patient was seen back on Nimbex, propofol of 80, fentanyl 150. During the day Nimbex was stopped and propofol was weaned down to 30 and fentanyl to 75. Patient was mildly awake but not following any commands. ABG was reviewed with the manufacturers agent and given patient still slightly hypoxic on FiO2 of 45% with PEEP of 8 decision was made to do 1 more proning session and sedation and Nimbex was restarted. Urine output appropriate, more than 2.5 L, rectal tube in place with stool of more than 900 cc. Medications: Reviewed: Yes Vitals/I&O/Wt Last Vital Signs Temp 98.8 F 12/08/21 16:01 Pulse 101 H 12/08/21 16:01 Resp 25 H 12/08/21 16:25 BP 111/69 12/08/21 16:01 Pulse Ox 92 12/08/21 16:25 12/08/21 12/08/21 12/08/21 06:59 14:59 22:59 Intake Total 1406.887 / 4267.257 1125.430 / 0283.254 8572.593 / 2170.023 Output Total 1900 / 2950 1600 / 1600 Balance -493.113 / 6975.121 1577.430 / 1125.430 -555.407 / 570.023 Weight last 48 hrs Weight 53.977 kg Physical Exam Narrative: EXAM NARRATIVE: General: Intubated, sedated, Ro in place, rectal tube in place Chest: Bilateral coarse crackles present all over the lung brock more on the left than the right , equal good air entry bilaterally CVS: S1-S2 regular, no murmurs, no tachycardia, no gallops, no rubs Abdomen: Bowel sounds hyperactive, guarding present Neuro: Intubated, sedated Urinary Catheter Management: Ro: Cath Placed During This Visit: no Reason for Continuing Indwelling Catheter: Accurate Measurement of Urinary Output in Critically Ill Patients Data : 12/09/21 09:30 12/09/21 11:30 Micro: Microbiology 12/06/21 09:20 Sputum Culture - Final Sputum - Endotracheal Tube Aspirate 12/07/21 19:10 Blood Culture - Preliminary Blood SPECIMEN COLLECTED 12/07/21 19:07 Blood Culture - Preliminary Blood SPECIMEN COLLECTED 12/07/21 15:30 C.difficile Toxin B Gene (PCR) - Final Stool Routine Collection 12/02/21 15:45 Blood Culture - Final Blood NO GROWTH AFTER 5 DAYS 12/02/21 15:38 Blood Culture - Final Blood NO GROWTH AFTER 5 DAYS A&P Assessment and plan (1) Respiratory failure with hypoxia: Status: Acute (2) Acute encephalopathy: Status: Acute (3) COVID-19: Status: Acute (4) Hyperammonemia: Status: Acute (5) Hepatic encephalopathy: Status: Acute (6) Hypernatremia: Status: Acute (7) Diarrhea: Status: Acute (8) Dehydration: Status: Acute (9) Rhabdomyolysis: Status: Acute (10) Benign essential hypertension with target blood pressure below 140/90: Status: Acute (11) Carotid artery stenosis without cerebral infarction: Status: Acute Qualifiers: Laterality: left Qualified Code(s): I65.22 - Occlusion and stenosis of left carotid artery (12) Chronic prescription opiate use: Status: Acute (13) Anxiety and depression: Status: Chronic (14) Hypokalemia: Status: Acute (15) Opiate withdrawal: Status: Acute Plan Acute hypoxic respiratory failure secondary to COVID-19 pneumonia, possible aspiration: Severe disease Oxygen supplementation keeping saturation over 88%. Currently intubated. Continue with second proning session today. Try to wean ventilator settings keeping saturation over 88% when supine in a.m. Please do not increase sedation with propofol more than 50. If needed can switch Versed to Ativan drip. Restart Nimbex. Dexamethasone 6 mg daily for 10 days Has finished remdesivir course of 5 days Vitamin C, zinc. DuoNebs every 6 hour, budesonide twice daily We will monitor inflammatory markers including D-dimer, CRP every 48 hours D-dimer elevated. CTA negative for pulmonary embolism. Continue to monitor D-dimer. Continue with anticoagulation at prophylactic dose. Will monitor for anemia or blood loss. Procalcitonin elevated, urine Legionella, bacterial antigen negative. Sputum culture pending. CSF culture negative. MRSA positive. Continue with vancomycin, Zosyn. C. difficile negative. Acute metabolic encephalopathy: Most likely combination of COVID-19 encephalopathy along with hyperammonemia, hypernatremia and possible drug withdrawal. For hypernatremia: Worsening again. Appreciate nephrology recommendations. Continue D5W at 125 cc/h. Continue with free water flushes at 100 cc every 4 hourly. Repeat BMP in evening. Nephrology consult appreciated. ALEKSANDRA: Resolving. Likely secondary to COVID-19 pneumonia, dehydration Avoid nephrotoxic agents. Urine output minimal. Hyperammonemia: Ammonia level 60. Lactulose 15 mg every 8 hourly. Monitor bowel movements. Rectal tube in place. Currently holding pregabalin, Robaxin. Takes oxycodone 15 mg 6 times a day at home. Acute metabolic encephalopathy: Hypothyroidism: continue levothyroxine 25 mcg, TSH 0.18 Rhabdomyolysis: Secondary dehydration, agitation Full code. NPO. Protonix for PUD prophylaxis. Lovenox for DVT prophylaxis. Discussed patient's status with today, voiced understanding, all questions answered Attestations Medical Necessity Statement*: Requires further hospitalization for management of acute hypoxic respiratory failure secondary COVID-19 pneumonia, metabolic encephalopathy Secondary to hypernatremia, hyperammonemia and possible Covid encephalopathy. Critical Care Time: The high probability of a clinically significant, sudden or life threatening deterioration of the patient's [pulmonary, GI, neurological system(s) required my full and direct attention, intervention and personal management. The critical care time is as shown. This time is in addition to time spent performing any reported procedures but includes the following: [x] Data and vital sign review and interpretation [x] Patient assessment, examination and intervention [x] Documentation [x] Medication orders and management Critical Care Time (min): 60 Coding Level of Care Code Acute Safety And Health Manager for [facility] Fwd Diagnoses Respiratory failure with hypoxia J96.91 Acute encephalopathy G93.40 COVID-19 U07.1 Hyperammonemia E72.20 Hepatic encephalopathy K72.90 Hypernatremia E87.0 Diarrhea R19.7 Dehydration E86.0 Rhabdomyolysis M62.82 Benign essential hypertension with target blood pressure below 140/90 I10 Carotid artery stenosis without cerebral infarction I65.22 Laterality: left Chronic prescription opiate use Z79.891 Anxiety and depression F41.9; F32.9 Hypokalemia E87.6 Opiate withdrawal F11.23
--- NOTE | 2021-12-08 18:48 | PC.NURSE ---
Pt proned per staff. tolerated well.
[2021-12-08 19:22] LABS: Glucose Point of Care 170 mg/dL (70-110)
[2021-12-08] MEDS: enoxaparin 40 mg/0.4 mL Syringe SUBCUT (19:27)
[2021-12-08 22:58] LABS: Glucose Point of Care 175 mg/dL (70-110)
[2021-12-08 23:04] LABS: CMV DNA By PCR NOT DETECTED; CMV DNA, QN PCR NOT DETECTED Log IU/mL; SOURCE CEREBROSPINAL FLUID
[2021-12-09] VITALS (71 sets, daily range): BP systolic 68–189; BP diastolic 39–141; PULSE 59–115; RESP 22–38; TEMP 37.2–37.7; O2SAT 87–100
[2021-12-09] MEDS: propofol 1,000 MG/100 ML INJ 12.6 MG IV ×3 (01:06→22:56)
[2021-12-09] MEDS: dextrose 5% 1,000 ML 125 ML IV ×2 (01:07→12:02)
[2021-12-09] MEDS: ipratropium-albuterol 3 mL Neb INHALATION ×4 (03:12→20:12)
[2021-12-09 03:51] LABS: Glucose Point of Care 137 mg/dL (70-110)
[2021-12-09] MEDS: piperacillin-tazobactam 3.375 GM in sodium chloride 0.9% (plus) 50 ML IV ×3 (04:02→20:00)
[2021-12-09] MEDS: lactulose oral liq 20 gm/30 mL UDC 15 GM PO (04:03)
[2021-12-09] MEDS: cisatracurium 100 MG in sodium chloride 0.9% 50 ML IV (04:36)
[2021-12-09] MEDS: levothyroxine 25 mcg Tablet PO (05:00)
[2021-12-09 07:15] LABS: Glucose Point of Care 138 mg/dL (70-110)
[2021-12-09 07:15] LABS: Glucose Point of Care 147 mg/dL (70-110)
--- NOTE | 2021-12-09 07:50 | XR_ITS ---
WS: [id number] XR chest 1V portable [id number] REASON FOR EXAM: intubated FINDINGS: Endotracheal tube and nasogastric tube remain in place. The endotracheal tube is retracted above the level of the aortic arch compared to the previous examination of 12/07/2021. There appears to be decreasing density confluence of the diffuse pulmonary opacities. No new findings. XR/XR chest 1V portable [id number] IMPRESSION: Improving abnormal chest.
[2021-12-09] MEDS: aspirin 81 mg EC Tablet PO (08:09)
[2021-12-09] MEDS: ferrous gluconate 324 mg Tablet PO ×2 (08:09→17:19)
[2021-12-09] MEDS: rifAMPin 300 mg Capsule PO ×2 (08:09→17:19)
[2021-12-09] MEDS: pantoprazole 40 mg SDV IVP ×2 (08:10→21:07)
[2021-12-09] MEDS: vancomycin 750 MG in sodium chloride 0.9% 250 ML 250 MG IV (08:15)
[2021-12-09] MEDS: budesonide 0.5 mg/2 mL Neb INHALATION ×2 (08:55→20:10)
[2021-12-09 09:51] LABS: Basophils % 0.2 %; Eosinophils % 0.1 %; Hematocrit 34.5 % (37.0-47.0); Hemoglobin 11.3 g/dL (11.5-15.3); Lymphocytes # 2.1 10^3/uL (0.8-4.8); Lymphocytes % 10.1 %; Mean Corpuscular HGB Conc 32.8 g/dL (30.0-36.0); Mean Corpuscular Hemoglobin 28.6 pg (28.0-34.0); Mean Corpuscular Volume 87.3 fl (81-99); Mean Platelet Volume 11.6 fL (7.4-10.4); Monocytes # 1.3 10^3/uL (0.2-0.9); Monocytes % 6.2 %; Neutrophils # 16.85 10^3/uL (1.8-7.7); Neutrophils % 80.8 %; Nucleated Red Blood Cells % 0.2 %; Platelet Count 308 10^3/cmm (130-400); Red Blood Count 3.95 10^6/uL (4.1-5.3); Red Cell Distribution Width 15.1 % (12.1-15.1); White Blood Count 20.9 10^3/uL (4.0-10.0)
[2021-12-09 10:50] LABS: Alanine Aminotransferase 14 U/L (0-33); Albumin Level 2.1 g/dL (3.5-5.2); Alkaline Phosphatase 112 IU/L (35-105); Anion Gap 13.5 (5-19); Aspartate Amino Transferase 16 U/L (0-32); Blood Urea Nitrogen 7 mg/dL (6-20); Calcium 7.2 mg/dL (8.5-10.5); Carbon Dioxide 19 mmol/L (22-29); Chloride 97 mmol/L (98-107); Globulin 2.8 g/dL (1.3-4.6); Glomerular Filtration Rate 85.6 mL/min (90-130); Glucose 367 mg/dL (65-115); Osmolality Calculated 277 mOsm/kg (285-295); Sodium 127 mmol/L (136-145); Total Bilirubin 0.4 mg/dL (0.15-1.2); Total Protein 4.9 g/dL (6.6-8.7)
[2021-12-09 10:55] LABS: Potassium 2.5 mmol/L (3.5-5.1)
[2021-12-09 10:56] LABS: Procalcitonin 1.03 ng/mL (0-0.5)
--- NOTE | 2021-12-09 11:16 | PC.NURSE ---
0930 Pt supined per staff. Tolerated well. Nimbex turned off. Restraints in place. VSS. Sedation meds remain the same. Will attempt to wean as tolerated.
[2021-12-09 11:42] LABS: Glucose Point of Care 152 mg/dL (70-110)
[2021-12-09] MEDS: insulin lispro 100 unit/1 mL SUBCUT (11:58)
[2021-12-09 12:24] LABS: Alanine Aminotransferase 17 U/L (0-33); Albumin Level 2.4 g/dL (3.5-5.2); Alkaline Phosphatase 125 IU/L (35-105); Anion Gap 14.7 (5-19); Aspartate Amino Transferase 20 U/L (0-32); Blood Urea Nitrogen 6 mg/dL (6-20); Calcium 7.2 mg/dL (8.5-10.5); Carbon Dioxide 21 mmol/L (22-29); Chloride 101 mmol/L (98-107); Globulin 2.7 g/dL (1.3-4.6); Glomerular Filtration Rate 85.6 mL/min (90-130); Glucose 176 mg/dL (65-115); Osmolality Calculated 280 mOsm/kg (285-295); Sodium 134 mmol/L (136-145); Total Bilirubin 0.6 mg/dL (0.15-1.2); Total Protein 5.1 g/dL (6.6-8.7)
[2021-12-09 12:29] LABS: ABG PCO2 31.1 mmHg (35-45); ABG PH Result 7.48 (7.35-7.45); Alveolar-Arterial Oxygen Gradi 17.2 mmHg (5-10); Arterial Blood Gas Hematocrit 38.2 % (37-47); Base Excess ABG 0.2 mmol/L (-2.0-2.0); Blood Gas Allen Test Pos; Blood Gas Operator Identificat CAK; Blood Gas Sample Site Radial, right; Blood Gas Sample Type Arterial; Blood Gas Tidal Volume 0.35; Carboxyhemoglobin 1.3 %THgb (0.4-20.1); HGB O2 Sat 83.9 % (95-100); Ionized Calcium Level - ABG 1.1 mmol/L (1.1-1.4); Methemoglobin 0.5 % (0.4-1.5); Oxygen Device VENT; Oxygen Saturation ABG 85.5; PO2 ABG 43.2 mmHg (80.0-100.0); Potassium Level - ABG 2.8 mmol/L (3.5-5.0); Total Hemoglobin 12.5 g/dL (12-16)
[2021-12-09 12:32] LABS: Potassium 2.7 mmol/L (3.5-5.1)
[2021-12-09] MEDS: dexmedeTOMIDine 0.9 % NaCL 400 MCG/100 ML PREMIX IV (12:33)
[2021-12-09] MEDS: potassium chloride oral liq 20 mEq/15 mL UDC 80 MEQ PO (12:43)
--- NOTE | 2021-12-09 14:47 | P.PN_ITS ---
Subjective Subjective: Ms. Sanchez remains critically sick in the intensive care unit. Currently prone ventilation. Sodium level appears to be coming down with increased D5W. Tolerating free water flushes. Mild global extremity edema. Medications: Reviewed: Yes Vitals/I&O/Wt Last Vital Signs Temp 99.0 F 12/09/21 08:00 Pulse 95 12/09/21 13:49 Resp 32 H 12/09/21 13:44 BP 174/141 12/09/21 12:01 Pulse Ox 94 12/09/21 13:44 12/08/21 12/09/21 12/09/21 22:59 06:59 14:59 Intake Total 1044.593 / 2170.023 1456.036 / 3626.059 825 82 Output Total 1600 / 1600 1700 / 3300 Balance -555.407 / 570.023 -243.964 / 268.438 3778.825 825 Weight last 48 hrs Weight 55.792 kg Weight 53.977 kg Physical Exam Narrative: Constitutional: Sedated and vented HEENT: Wet mucosa, no jvp, non icteric Lungs: Bilaterally diminished CVS: S1 S2, no murmurs Abdo: Soft, BS ok Ext 4: Minimal edema, peripheral perfusion with no cyanosis Neurological: Grossly non-focal Urinary Catheter Management: Ro: Cath Placed During This Visit: no Reason for Continuing Indwelling Catheter: Accurate Measurement of Urinary Output in Critically Ill Patients Data : 12/09/21 09:30 12/09/21 11:30 Micro: Microbiology 12/07/21 19:10 Blood Culture - Preliminary Blood NEGATIVE TO DATE 12/07/21 19:07 Blood Culture - Preliminary Blood NEGATIVE TO DATE 12/06/21 09:20 Sputum Culture - Final Sputum - Endotracheal Tube Aspirate A&P Assessment and plan (1) Hypernatremia: Status: Acute Plan 1. Acute kidney injury Creatinine looks good Avoid usual nephrotoxic agents, close monitoring of renal function. Strict I's and O's 2. Hypernatremia Sodium has come down, now, slightly low. DC ivf 3. Vent dependent respiratory failure Secondary to altered mental status in the setting of Covid pneumonitis. Currently on FiO2 45%, much improved Status post remdesivir, Decadron Management per ICU team 4. Diarrhea Mgmt per medical team fecal system K replacement Acute renal issues have now resolved, will continue to follow this case peripherally at this time. Please not hesitate to call me should we be of further assistance. Thank you again for our involvement in her case. 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
[2021-12-09 15:05] LABS: Glucose Point of Care 119 mg/dL (70-110)
--- NOTE | 2021-12-09 15:45 | PM.PN ---
Subjective Subjective: -Seen in prone position -Remains critically ill -On fentanyl 100 MCG, propofol 25 MCG/hour -Other labs and imaging reviewed Medications: Reviewed: Yes Vitals/I&O/Wt Last Vital Signs Temp 99.0 F 12/09/21 08:00 Pulse 100 12/09/21 14:52 Resp 27 H 12/09/21 15:31 BP 174/141 12/09/21 12:01 Pulse Ox 94 12/09/21 15:31 12/09/21 12/09/21 12/09/21 06:59 14:59 22:59 Intake Total 1456.036 / 3626.059 825 2014.825 Output Total 1700 / 3300 Balance -243.964 / 407.687 9766.82825 Weight last 48 hrs Weight 123 lb Weight 119 lb Physical Exam Narrative: PHYSICAL EXAM: General: lying in bed, sedated and intubated. HEENT:NCAT, PERRLA, EOMI Neck: Supple Lungs: Bilateral mild diffuse crepitations Heart: s1/s2, RRR Abd: soft, NT, ND, BS + Normoactive Extremities: No edema [employer]STITCH ZIP[employer]TER: sedated and limited CHAINSTITCH ZIP[employer] SETTER exam possible. SKIN: no rash Urinary Catheter Management: Ro: Cath Placed During This Visit: no Reason for Continuing Indwelling Catheter: Accurate Measurement of Urinary Output in Critically Ill Patients Data : 12/09/21 09:30 12/09/21 11:30 Other Labs: Radiology Impressions Head CT 11/28/21 15:00 IMPRESSION: 1. No acute intracranial hemorrhage or edema. 2. Mild atrophy and mild chronic microvascular ischemic type changes. Liver Ultrasound 12/02/21 13:17 IMPRESSION: Technically difficult examination due to bowel gas and patient motion due to pain. 1. Diffuse fatty infiltration of the liver. 2. Normal gallbladder. 3. Normal common bile duct measuring 5.9 mm. 4. No hydronephrosis in right kidney. 5. No ascites. Abdomen/Pelvis CT 12/04/21 12:53 IMPRESSION: 1. Very limited examination due to patient respiratory motion. 2. Basilar atelectasis and question of new basilar pulmonary infiltrates. 3. Findings of new Ro catheter, rectal tube and nasogastric tube. 4. Fluid in the colon which could represent enteritis. KUB X-Ray 12/06/21 11:49 IMPRESSION: 1. Nasogastric tube has its proximal port at GE junction, recommend advancement by 7-10 cm. 2. Stable bilateral pleuroparenchymal disease. 3. There is gaseous distention of the stomach noted. 4. Bowel gas pattern is mildly distended but nonobstructive. Chest/Abdomen/Pelvis CT 12/07/21 11:28 IMPRESSION: 1. Scattered perihilar and bibasal infiltrates.Imaging features can be seen with COVID-19 pneumonia, though are nonspecific and can occur with a variety IMPRESSION: There are air-fluid levels in the distal colon suggesting mild nonspecific colitis versus other diarrheal illness. A rectal tube is in place. Head/Neck CTA 12/07/21 11:28 IMPRESSION: No large vessel stenosis or occlusion. IMPRESSION: No stenosis or occlusion. REFERENCES: NASCET CRITERIA. The degree of internal carotid artery stenosis is based on NASCET criteria. Normal is no stenosis. Mild is less than 50% stenosis. Moderate is 50-69% stenosis. Severe is 70% to 99% stenosis. Total occlusion is no detectable patent lumen. Chest X-Ray 12/09/21 07:50 IMPRESSION: Improving abnormal chest. Laboratory Results WBC 20.9 10^3/uL (4.0-10.0) H 12/09/21 09:30 RBC 3.95 10^6/uL (4.1-5.3) L 12/09/21 09:30 Hgb 11.3 g/dL (11.5-15.3) L 12/09/21 09:30 Hct 34.5 % (37.0-47.0) L 12/09/21 09:30 MCV 87.3 fl (81-99) 12/09/21 09:30 MCH 28.6 pg (28.0-34.0) 12/09/21 09:30 MCHC 32.8 g/dL (30.0-36.0) 12/09/21 09:30 RDW 15.1 % (12.1-15.1) 12/09/21 09:30 Plt Count 308 10^3/cmm (130-400) 12/09/21 09:30 MPV 11.6 fL (7.4-10.4) H 12/09/21 09:30 Neut % (Auto) 80.8 % 12/09/21 09:30 Lymph % (Auto) 10.1 % 12/09/21 09:30 Jay % (Auto) 6.2 % 12/09/21 09:30 Eos % (Auto) 0.1 % 12/09/21 09:30 Baso % (Auto) 0.2 % 12/09/21 09:30 Neut # (Auto) 16.85 10^3/uL (1.8-7.7) H 12/09/21 09:30 Lymph # (Auto) 2.1 10^3/uL (0.8-4.8) 12/09/21 09:30 Jay # (Auto) 1.3 10^3/uL (0.2-0.9) H 12/09/21 09:30 Eos # (Auto) 0.0 10^3/uL (0.0-0.8) 12/09/21 09:30 Baso # (Auto) 0.0 10^3/uL (0.0-0.1) 12/09/21 09:30 Nucleated RBC % (auto) 0.2 % 12/09/21 09:30 Nucleated RBCs # 0.0 /100WBC 12/09/21 09:30 ESR 17 mm/hr (0-15) H 12/02/21 15:45 PT 16.30 SECONDS (12.1-14.9) H 12/07/21 03:15 INR 1.28 (0.8-1.2) H 12/07/21 03:15 D-Dimer 2.04 ug/mIFEU (0-0.59) H 12/08/21 05:11 Specimen Type Arterial 12/09/21 12:18 Sample Site Radial, right 12/09/21 12:18 ABG pH 7.48 (7.35-7.45) H 12/09/21 12:18 ABG pCO2 31.1 mmHg (35-45) L 12/09/21 12:18 ABG pO2 43.2 mmHg (80.0-100.0) L 12/09/21 12:18 ABG HCO3 23.0 mmol/L (22-26) 12/09/21 12:18 ABG O2 Saturation 85.5 12/09/21 12:18 ABG Base Excess 0.2 mmol/L (-2.0-2.0) 12/09/21 12:18 Juaquin Test Pos 12/09/21 12:18 A-a O2 Gradient 17.2 mmHg (5-10) H 12/09/21 12:18 Hematocrit 38.2 % (37-47) 12/09/21 12:18 Hgb O2 Saturation 83.9 % (95-100) L 12/09/21 12:18 Carboxyhemoglobin 1.3 %THgb (0.4-20.1) 12/09/21 12:18 Methemoglobin 0.5 % (0.4-1.5) 12/09/21 12:18 Total Hemoglobin 12.5 g/dL (12-16) 12/09/21 12:18 Sodium 139.0 mmol/L (131-143) 12/09/21 12:18 Potassium 2.8 mmol/L (3.5-5.0) L 12/09/21 12:18 Glucose 134.0 mg/dL (70-115) H 12/09/21 12:18 Ionized Calcium 1.1 mmol/L (1.1-1.4) 12/09/21 12:18 O2 Delivery Device Vent 12/09/21 12:18 O2 Liters/Min 14.0 % 12/04/21 05:10 FiO2 30.0 % 12/09/21 12:18 Tidal Volume 0.35 12/09/21 12:18 PEEP 5.0 cmH20 12/09/21 12:18 Goggles Assembler ID Cak 12/09/21 12:18 Sodium 134 mmol/L (136-145) L 12/09/21 11:30 Potassium 2.7 mmol/L (3.5-5.1) L* 12/09/21 11:30 Chloride 101 mmol/L (98-107) 12/09/21 11:30 Carbon Dioxide 21 mmol/L (22-29) L 12/09/21 11:30 Anion Gap 14.7 (5-19) 12/09/21 11:30 BUN 6 mg/dL (6-20) 12/09/21 11:30 Creatinine 0.7 mg/dL (0.5-0.9) 12/09/21 11:30 GFR Calculation 85.6 mL/min (90-130) L 12/09/21 11:30 Glucose 176 mg/dL (65-115) H 12/09/21 11:30 POC Glucose 119 mg/dL (70-110) H 12/09/21 14:57 Estimat Average Glucose 120 11/29/21 02:45 Hemoglobin A1c 5.8 % (4.0-6.0) 11/29/21 02:45 Calculated Osmolality 280 mOsm/kg (285-295) L 12/09/21 11:30 Lactic Acid 2.1 mmol/L (0.5-2.2) 11/28/21 16:04 Lactic Acid (Sepsis) 1.2 mmol/L (0.5-2.2) 11/28/21 19:02 Lactate 1.4 mmol/L (0.5-2.2) 12/07/21 03:15 Calcium 7.2 mg/dL (8.5-10.5) L 12/09/21 11:30 Phosphorus 2.0 mg/dL (2.5-4.5) L 12/08/21 05:11 Magnesium 1.8 mg/dL (1.7-2.3) 12/08/21 05:11 Iron 37 ug/dL (37-145) 11/28/21 14:20 TIBC 287 mcg/dl 11/28/21 14:20 % Saturation 12.8 % (20-50) L 11/28/21 14:20 Unsat Iron Binding 250 ug/dL (112-347) 11/28/21 14:20 Total Bilirubin 0.6 mg/dL (0.15-1.2) 12/09/21 11:30 GGT 27 U/L (5-36) 12/02/21 15:45 GGT Cancelled 12/02/21 15:45 AST 20 U/L (0-32) 12/09/21 11:30 ALT 17 U/L (0-33) 12/09/21 11:30 Alkaline Phosphatase 125 IU/L (35-105) H 12/09/21 11:30 Ammonia 73 umol/L (11-51) H 12/08/21 05:11 Lactate Dehydrogenase 510 U/L (135-214) H 11/29/21 18:00 Creatine Kinase 96 U/L (26-192) 12/07/21 03:15 CK-MB (CK-2) 13.4 ng/mL (0-5.34) H 11/28/21 14:20 CK-MB (CK-2) Rel Index 2.6 % (0.0-10.4) 11/28/21 14:20 Troponin T Baseline 12 ng/L (0-10) H 12/02/21 15:45 Troponin T 120 Minute 11.25 ng/L (0-10) H 12/02/21 17:45 Delta Troponin T -0.75 ABS# (0-10) L 12/02/21 17:45 Troponin T Hi Sens 6Hr 12.87 ng/L (0-10) H 12/02/21 21:40 Troponin T Hi Sens 6Hr Delta 0.87 ng/L (0-12) 12/02/21 21:40 C-Reactive Protein 46.8 mg/L (0.0-4.9) H 12/08/21 05:11 NT-Pro-B Natriuret Pep 364 pg/mL (0-125) H 12/07/21 03:15 Total Protein 5.1 g/dL (6.6-8.7) L 12/09/21 11:30 Albumin 2.4 g/dL (3.5-5.2) L 12/09/21 11:30 Globulin 2.7 g/dL (1.3-4.6) 12/09/21 11:30 Triglycerides 156 mg/dL (0-150) H 11/29/21 02:45 Cholesterol 137 mg/dL (0-200) 11/29/21 02:45 LDL Cholesterol, Calc 77 mg/dL (50-129) 11/29/21 02:45 Total VLDL Cholesterol 31 mg/dL (0-30) H 11/29/21 02:45 HDL Cholesterol 29 mg/dL (60-100) L 11/29/21 02:45 Cholesterol/HDL Ratio 4.72 mg/dL (0.0-4.40) H 11/29/21 02:45 Amylase 65 U/L (28-100) 12/02/21 15:45 Amylase Cancelled 12/02/21 15:45 Lipase 19 U/L (13-60) 12/02/21 15:45 Vitamin B12 Cancelled 11/28/21 19:02 Folate 8.2 ng/mL (4.8-37.3) 11/28/21 19:02 Procalcitonin 1.03 ng/mL (0-0.5) H 12/09/21 09:30 TSH Cancelled 11/28/21 19:02 Free T4 1.29 ng/dL (0.82-1.77) 11/30/21 10:00 Free T3 1.7 PG/ML (2.0-4.4) L 11/30/21 10:00 Urine Color Ciara (Yellow) 11/28/21 18:10 Urine Appearance Hazy (CLEAR) A 11/28/21 18:10 Urine pH 7 (5-7) 11/28/21 18:10 Ur Specific [place] 1.010 (1.005-1.030) 11/28/21 18:10 Urine Protein 2+ (Negative) H 11/28/21 18:10 Urine Glucose (UA) Norm (Normal) 11/28/21 18:10 Urine Ketones 2+ (Negative) H 11/28/21 18:10 Urine Blood 2+ (Negative) H 11/28/21 18:10 Urine Nitrate Negative (Negative) 11/28/21 18:10 Urine Bilirubin 1+ (Negative) H 11/28/21 18:10 Urine Urobilinogen 1 mg/dL (Negative) H 11/28/21 18:10 Ur Leukocyte Esterase Negative (Negative) 11/28/21 18:10 Urine RBC 0-4 /hpf (0-2) H 11/28/21 18:10 Urine WBC None /hpf (0-5) 11/28/21 18:10 Ur Squamous Epith Cells 0-4 /hpf (0-5) H 11/28/21 18:10 Amorphous Sediment Not Reportable 11/28/21 18:10 Urine Bacteria None /hpf (NONE) 11/28/21 18:10 Urine Mucus 2+ /hpf 11/28/21 18:10 Ur Random Sodium 40 mmol/L 11/28/21 18:10 Ur Random Potassium 67 mmol/L 11/28/21 18:10 Ur Random Chloride 47 mmol/L 11/28/21 18:10 CSF Appearance Clear (CLEAR) 12/03/21 17:01 CSF Color Colorless (COLORLESS) 12/03/21 17:01 CSF Specific [place] 1.020 12/03/21 17:01 CSF WBC 2 /uL (0-5) 12/03/21 17:01 CSF RBC 0 10^3/uL (0-0) 12/03/21 17:01 CSF Mononuclear # Auto 0.001 10^3/uL (50-90) L 12/03/21 17:01 CSF Mononuclear WBCs % 50 % (50-90) 12/03/21 17:01 CSF Polynuclear WBCs # 0.001 10^3/uL (0-10) 12/03/21 17:01 CSF Polynuclear WBCs % 50 % (0-10) H 12/03/21 17:01 CSF Glucose 75 mg/dL (40-70) H 12/03/21 17:01 CSF LDH 28 U/L 12/03/21 17:01 CSF Total Protein 24 mg/dL (15-45) 12/03/21 17:01 CSF Albumin 0.2 mg/dL (20.0-40.0) L 12/03/21 17:01 CSF/Ser Oligoclon Bands Cancelled 12/02/21 15:45 CSF [facility] Enceph IgG <1:1 12/03/21 17:01 CSF [facility] Enc IgM IFA <1:1 12/03/21 17:01 CSF [facility] Enceph Intrp See note 12/03/21 17:01 Vancomycin Trough 21.3 ug/mL (10-15) H 12/07/21 19:54 Salicylates < 0.3 mg/dL (3-10) L 11/28/21 14:20 Urine Opiates Screen Negative ng/mL (Negative) 11/28/21 18:10 Acetaminophen < 5.0 ug/mL (10-30) L 11/28/21 14:20 Ur Barbiturates Screen Negative ng/mL (Negative) 11/28/21 18:10 Ur Phencyclidine Scrn Negative ng/mL (Negative) 11/28/21 18:10 Ur Amphetamines Screen Negative ng/mL (Negative) 11/28/21 18:10 U Benzodiazepines Scrn Negative ng/mL (Negative) 11/28/21 18:10 Urine Cocaine Screen Negative ng/mL (Negative) 11/28/21 18:10 U Marijuana (THC) Screen Negative ng/mL (Negative) 11/28/21 18:10 Ethyl Alcohol < 10 mg/dL (0-10) 11/28/21 14:20 Coronavirus 229E (PCR) Not detected (NOT DETECT) 11/28/21 18:41 CMV Culture Source Cerebrospinal fluid 12/03/21 17:01 CMV IgG Ab 2.30 U/mL H 12/02/21 15:45 CMV IgM Ab <30.00 AU/mL 12/02/21 15:45 CMV DNA Quant PCR Not detected IU/mL 12/03/21 17:01 CMV Qnt PCR Interp Not detected Log IU/mL 12/03/21 17:01 Hepatitis A IgM Ab Non-reactive (Nonreactive) 12/01/21 20:54 Hep Bs Antigen Non-reactive (Nonreactive) 12/01/21 20:54 Hep Bs Antibody 7.8 (11.5-1000) L 12/01/21 20:54 Hep B Core Total Ab Non-reactive (Nonreactive) 12/01/21 20:54 Hepatitis C Antibody Non-reactive (Nonreactive) 12/01/21 20:54 HIV 1&2 Ab & HIV 1 Ag Non-reactive (Non-Reactiv) 12/01/21 20:54 HIV 1&2 Antibody Non-reactive (Non-Reactiv) 12/01/21 20:54 Influenza Type A Ag Negative (Negative) 11/29/21 15:02 Influenza Type B Ag Negative (Negative) 11/29/21 15:02 SARS-CoV-2 (PCR) Detected (NOT DETECT) A 11/28/21 18:[address] 11/28/21 15:00 IMPRESSION: 1. No acute intracranial hemorrhage or edema. 2. Mild atrophy and mild chronic microvascular ischemic type changes. Liver Ultrasound 12/02/21 13:17 IMPRESSION: Technically difficult examination due to bowel gas and patient motion due to pain. 1. Diffuse fatty infiltration of the liver. 2. Normal gallbladder. 3. Normal common bile duct measuring 5.9 mm. 4. No hydronephrosis in right kidney. 5. No ascites. Abdomen/Pelvis CT 12/04/21 12:53 IMPRESSION: 1. Very limited examination due to patient respiratory motion. 2. Basilar atelectasis and question of new basilar pulmonary infiltrates. 3. Findings of new Ro catheter, rectal tube and nasogastric tube. 4. Fluid in the colon which could represent enteritis. KUB X-Ray 12/06/21 11:49 IMPRESSION: 1. Nasogastric tube has its proximal port at GE junction, recommend advancement by 7-10 cm. 2. Stable bilateral pleuroparenchymal disease. 3. There is gaseous distention of the stomach noted. 4. Bowel gas pattern is mildly distended but nonobstructive. Chest/Abdomen/Pelvis CT 12/07/21 11:28 IMPRESSION: 1. Scattered perihilar and bibasal infiltrates.Imaging features can be seen with COVID-19 pneumonia, though are nonspecific and can occur with a variety IMPRESSION: There are air-fluid levels in the distal colon suggesting mild nonspecific colitis versus other diarrheal illness. A rectal tube is in place. Head/Neck CTA 12/07/21 11:28 IMPRESSION: No large vessel stenosis or occlusion. IMPRESSION: No stenosis or occlusion. REFERENCES: NASCET CRITERIA. The degree of internal carotid artery stenosis is based on NASCET criteria. Normal is no stenosis. Mild is less than 50% stenosis. Moderate is 50-69% stenosis. Severe is 70% to 99% stenosis. Total occlusion is no detectable patent lumen. Chest X-Ray 12/09/21 07:50 IMPRESSION: Improving abnormal chest. Laboratory Results WBC 20.9 10^3/uL (4.0-10.0) H 12/09/21 09:30 RBC 3.95 10^6/uL (4.1-5.3) L 12/09/21 09:30 Hgb 11.3 g/dL (11.5-15.3) L 12/09/21 09:30 Hct 34.5 % (37.0-47.0) L 12/09/21 09:30 MCV 87.3 fl (81-99) 12/09/21 09:30 MCH 28.6 pg (28.0-34.0) 12/09/21 09:30 MCHC 32.8 g/dL (30.0-36.0) 12/09/21 09:30 RDW 15.1 % (12.1-15.1) 12/09/21 09:30 Plt Count 308 10^3/cmm (130-400) 12/09/21 09:30 MPV 11.6 fL (7.4-10.4) H 12/09/21 09:30 Neut % (Auto) 80.8 % 12/09/21 09:30 Lymph % (Auto) 10.1 % 12/09/21 09:30 Jay % (Auto) 6.2 % 12/09/21 09:30 Eos % (Auto) 0.1 % 12/09/21 09:30 Baso % (Auto) 0.2 % 12/09/21 09:30 Neut # (Auto) 16.85 10^3/uL (1.8-7.7) H 12/09/21 09:30 Lymph # (Auto) 2.1 10^3/uL (0.8-4.8) 12/09/21 09:30 Jay # (Auto) 1.3 10^3/uL (0.2-0.9) H 12/09/21 09:30 Eos # (Auto) 0.0 10^3/uL (0.0-0.8) 12/09/21 09:30 Baso # (Auto) 0.0 10^3/uL (0.0-0.1) 12/09/21 09:30 Nucleated RBC % (auto) 0.2 % 12/09/21 09:30 Nucleated RBCs # 0.0 /100WBC 12/09/21 09:30 ESR 17 mm/hr (0-15) H 12/02/21 15:45 PT 16.30 SECONDS (12.1-14.9) H 12/07/21 03:15 INR 1.28 (0.8-1.2) H 12/07/21 03:15 D-Dimer 2.04 ug/mIFEU (0-0.59) H 12/08/21 05:11 Specimen Type Arterial 12/09/21 12:18 Sample Site Radial, right 12/09/21 12:18 ABG pH 7.48 (7.35-7.45) H 12/09/21 12:18 ABG pCO2 31.1 mmHg (35-45) L 12/09/21 12:18 ABG pO2 43.2 mmHg (80.0-100.0) L 12/09/21 12:18 ABG HCO3 23.0 mmol/L (22-26) 12/09/21 12:18 ABG O2 Saturation 85.5 12/09/21 12:18 ABG Base Excess 0.2 mmol/L (-2.0-2.0) 12/09/21 12:18 Juaquin Test Pos 12/09/21 12:18 A-a O2 Gradient 17.2 mmHg (5-10) H 12/09/21 12:18 Hematocrit 38.2 % (37-47) 12/09/21 12:18 Hgb O2 Saturation 83.9 % (95-100) L 12/09/21 12:18 Carboxyhemoglobin 1.3 %THgb (0.4-20.1) 12/09/21 12:18 Methemoglobin 0.5 % (0.4-1.5) 12/09/21 12:18 Total Hemoglobin 12.5 g/dL (12-16) 12/09/21 12:18 Sodium 139.0 mmol/L (131-143) 12/09/21 12:18 Potassium 2.8 mmol/L (3.5-5.0) L 12/09/21 12:18 Glucose 134.0 mg/dL (70-115) H 12/09/21 12:18 Ionized Calcium 1.1 mmol/L (1.1-1.4) 12/09/21 12:18 O2 Delivery Device Vent 12/09/21 12:18 O2 Liters/Min 14.0 % 12/04/21 05:10 FiO2 30.0 % 12/09/21 12:18 Tidal Volume 0.35 12/09/21 12:18 PEEP 5.0 cmH20 12/09/21 12:18 Goggles Assembler ID Cak 12/09/21 12:18 Sodium 134 mmol/L (136-145) L 12/09/21 11:30 Potassium 2.7 mmol/L (3.5-5.1) L* 12/09/21 11:30 Chloride 101 mmol/L (98-107) 12/09/21 11:30 Carbon Dioxide 21 mmol/L (22-29) L 12/09/21 11:30 Anion Gap 14.7 (5-19) 12/09/21 11:30 BUN 6 mg/dL (6-20) 12/09/21 11:30 Creatinine 0.7 mg/dL (0.5-0.9) 12/09/21 11:30 GFR Calculation 85.6 mL/min (90-130) L 12/09/21 11:30 Glucose 176 mg/dL (65-115) H 12/09/21 11:30 POC Glucose 119 mg/dL (70-110) H 12/09/21 14:57 Estimat Average Glucose 120 11/29/21 02:45 Hemoglobin A1c 5.8 % (4.0-6.0) 11/29/21 02:45 Calculated Osmolality 280 mOsm/kg (285-295) L 12/09/21 11:30 Lactic Acid 2.1 mmol/L (0.5-2.2) 11/28/21 16:04 Lactic Acid (Sepsis) 1.2 mmol/L (0.5-2.2) 11/28/21 19:02 Lactate 1.4 mmol/L (0.5-2.2) 12/07/21 03:15 Calcium 7.2 mg/dL (8.5-10.5) L 12/09/21 11:30 Phosphorus 2.0 mg/dL (2.5-4.5) L 12/08/21 05:11 Magnesium 1.8 mg/dL (1.7-2.3) 12/08/21 05:11 Iron 37 ug/dL (37-145) 11/28/21 14:20 TIBC 287 mcg/dl 11/28/21 14:20 % Saturation 12.8 % (20-50) L 11/28/21 14:20 Unsat Iron Binding 250 ug/dL (112-347) 11/28/21 14:20 Total Bilirubin 0.6 mg/dL (0.15-1.2) 12/09/21 11:30 GGT 27 U/L (5-36) 12/02/21 15:45 GGT Cancelled 12/02/21 15:45 AST 20 U/L (0-32) 12/09/21 11:30 ALT 17 U/L (0-33) 12/09/21 11:30 Alkaline Phosphatase 125 IU/L (35-105) H 12/09/21 11:30 Ammonia 73 umol/L (11-51) H 12/08/21 05:11 Lactate Dehydrogenase 510 U/L (135-214) H 11/29/21 18:00 Creatine Kinase 96 U/L (26-192) 12/07/21 03:15 CK-MB (CK-2) 13.4 ng/mL (0-5.34) H 11/28/21 14:20 CK-MB (CK-2) Rel Index 2.6 % (0.0-10.4) 11/28/21 14:20 Troponin T Baseline 12 ng/L (0-10) H 12/02/21 15:45 Troponin T 120 Minute 11.25 ng/L (0-10) H 12/02/21 17:45 Delta Troponin T -0.75 ABS# (0-10) L 12/02/21 17:45 Troponin T Hi Sens 6Hr 12.87 ng/L (0-10) H 12/02/21 21:40 Troponin T Hi Sens 6Hr Delta 0.87 ng/L (0-12) 12/02/21 21:40 C-Reactive Protein 46.8 mg/L (0.0-4.9) H 12/08/21 05:11 NT-Pro-B Natriuret Pep 364 pg/mL (0-125) H 12/07/21 03:15 Total Protein 5.1 g/dL (6.6-8.7) L 12/09/21 11:30 Albumin 2.4 g/dL (3.5-5.2) L 12/09/21 11:30 Globulin 2.7 g/dL (1.3-4.6) 12/09/21 11:30 Triglycerides 156 mg/dL (0-150) H 11/29/21 02:45 Cholesterol 137 mg/dL (0-200) 11/29/21 02:45 LDL Cholesterol, Calc 77 mg/dL (50-129) 11/29/21 02:45 Total VLDL Cholesterol 31 mg/dL (0-30) H 11/29/21 02:45 HDL Cholesterol 29 mg/dL (60-100) L 11/29/21 02:45 Cholesterol/HDL Ratio 4.72 mg/dL (0.0-4.40) H 11/29/21 02:45 Amylase 65 U/L (28-100) 12/02/21 15:45 Amylase Cancelled 12/02/21 15:45 Lipase 19 U/L (13-60) 12/02/21 15:45 Vitamin B12 Cancelled 11/28/21 19:02 Folate 8.2 ng/mL (4.8-37.3) 11/28/21 19:02 Procalcitonin 1.03 ng/mL (0-0.5) H 12/09/21 09:30 TSH Cancelled 11/28/21 19:02 Free T4 1.29 ng/dL (0.82-1.77) 11/30/21 10:00 Free T3 1.7 PG/ML (2.0-4.4) L 11/30/21 10:00 Urine Color Ciara (Yellow) 11/28/21 18:10 Urine Appearance Hazy (CLEAR) A 11/28/21 18:10 Urine pH 7 (5-7) 11/28/21 18:10 Ur Specific [place] 1.010 (1.005-1.030) 11/28/21 18:10 Urine Protein 2+ (Negative) H 11/28/21 18:10 Urine Glucose (UA) Norm (Normal) 11/28/21 18:10 Urine Ketones 2+ (Negative) H 11/28/21 18:10 Urine Blood 2+ (Negative) H 11/28/21 18:10 Urine Nitrate Negative (Negative) 11/28/21 18:10 Urine Bilirubin 1+ (Negative) H 11/28/21 18:10 Urine Urobilinogen 1 mg/dL (Negative) H 11/28/21 18:10 Ur Leukocyte Esterase Negative (Negative) 11/28/21 18:10 Urine RBC 0-4 /hpf (0-2) H 11/28/21 18:10 Urine WBC None /hpf (0-5) 11/28/21 18:10 Ur Squamous Epith Cells 0-4 /hpf (0-5) H 11/28/21 18:10 Amorphous Sediment Not Reportable 11/28/21 18:10 Urine Bacteria None /hpf (NONE) 11/28/21 18:10 Urine Mucus 2+ /hpf 11/28/21 18:10 Ur Random Sodium 40 mmol/L 11/28/21 18:10 Ur Random Potassium 67 mmol/L 11/28/21 18:10 Ur Random Chloride 47 mmol/L 11/28/21 18:10 CSF Appearance Clear (CLEAR) 12/03/21 17:01 CSF Color Colorless (COLORLESS) 12/03/21 17:01 CSF Specific [place] 1.020 12/03/21 17:01 CSF WBC 2 /uL (0-5) 12/03/21 17:01 CSF RBC 0 10^3/uL (0-0) 12/03/21 17:01 CSF Mononuclear # Auto 0.001 10^3/uL (50-90) L 12/03/21 17:01 CSF Mononuclear WBCs % 50 % (50-90) 12/03/21 17:01 CSF Polynuclear WBCs # 0.001 10^3/uL (0-10) 12/03/21 17:01 CSF Polynuclear WBCs % 50 % (0-10) H 12/03/21 17:01 CSF Glucose 75 mg/dL (40-70) H 12/03/21 17:01 CSF LDH 28 U/L 12/03/21 17:01 CSF Total Protein 24 mg/dL (15-45) 12/03/21 17:01 CSF Albumin 0.2 mg/dL (20.0-40.0) L 12/03/21 17:01 CSF/Ser Oligoclon Bands Cancelled 12/02/21 15:45 CSF [facility] Enceph IgG <1:1 12/03/21 17:01 CSF [facility] Enc IgM IFA <1:1 12/03/21 17:01 CSF [facility] Enceph Intrp See note 12/03/21 17:01 Vancomycin Trough 21.3 ug/mL (10-15) H 12/07/21 19:54 Salicylates < 0.3 mg/dL (3-10) L 11/28/21 14:20 Urine Opiates Screen Negative ng/mL (Negative) 11/28/21 18:10 Acetaminophen < 5.0 ug/mL (10-30) L 11/28/21 14:20 Ur Barbiturates Screen Negative ng/mL (Negative) 11/28/21 18:10 Ur Phencyclidine Scrn Negative ng/mL (Negative) 11/28/21 18:10 Ur Amphetamines Screen Negative ng/mL (Negative) 11/28/21 18:10 U Benzodiazepines Scrn Negative ng/mL (Negative) 11/28/21 18:10 Urine Cocaine Screen Negative ng/mL (Negative) 11/28/21 18:10 U Marijuana (THC) Screen Negative ng/mL (Negative) 11/28/21 18:10 Ethyl Alcohol < 10 mg/dL (0-10) 11/28/21 14:20 Coronavirus 229E (PCR) Not detected (NOT DETECT) 11/28/21 18:41 CMV Culture Source Cerebrospinal fluid 12/03/21 17:01 CMV IgG Ab 2.30 U/mL H 12/02/21 15:45 CMV IgM Ab <30.00 AU/mL 12/02/21 15:45 CMV DNA Quant PCR Not detected IU/mL 12/03/21 17:01 CMV Qnt PCR Interp Not detected Log IU/mL 12/03/21 17:01 Hepatitis A IgM Ab Non-reactive (Nonreactive) 12/01/21 20:54 Hep Bs Antigen Non-reactive (Nonreactive) 12/01/21 20:54 Hep Bs Antibody 7.8 (11.5-1000) L 12/01/21 20:54 Hep B Core Total Ab Non-reactive (Nonreactive) 12/01/21 20:54 Hepatitis C Antibody Non-reactive (Nonreactive) 12/01/21 20:54 HIV 1&2 Ab & HIV 1 Ag Non-reactive (Non-Reactiv) 12/01/21 20:54 HIV 1&2 Antibody Non-reactive (Non-Reactiv) 12/01/21 20:54 Influenza Type A Ag Negative (Negative) 11/29/21 15:02 Influenza Type B Ag Negative (Negative) 11/29/21 15:02 SARS-CoV-2 (PCR) Detected (NOT DETECT) A 11/28/21 18:41 Micro: Microbiology 12/07/21 19:10 Blood Culture - Preliminary Blood NEGATIVE TO DATE 12/07/21 19:07 Blood Culture - Preliminary Blood NEGATIVE TO DATE A&P Assessment and plan (1) Respiratory failure with hypoxia: Status: Acute (2) COVID-19: Status: Acute (3) Hepatic encephalopathy: Status: Acute (4) Opiate withdrawal: Status: Acute (5) Chronic prescription opiate use: Status: Acute (6) Hypernatremia: Status: Acute (7) Acute encephalopathy: Status: Acute (8) Chronic diastolic heart failure: Status: Acute (9) GERD (gastroesophageal reflux disease): Status: Chronic Qualifiers: Esophagitis presence: esophagitis presence not specified Qualified Code(s): K21.9 - Gastro-esophageal reflux disease without esophagitis (10) COPD (chronic obstructive pulmonary disease): Status: Chronic Qualifiers: COPD type: emphysema Emphysema type: panlobular Qualified Code(s): J43.1 - Panlobular emphysema (11) Rhabdomyolysis: Status: Acute (12) ALEKSANDRA (acute kidney injury): Status: Acute Plan #Altered mental status-Sepsis (Covid encephalopathy) vs Metabolic (hyperammonemia) vs Chronic opiate withdrawl vs Hypoxic driven in the context of Covid 19 - CT head, CTA, LP - Unremarkable - - Admission Ammonia 103 >> normalized and back up again to 61 - On lactulose BID target 2-3 soft BM -Liver ultrasound showed diffuse fatty liver but no evidence of cirrhosis, and other causes of hyperammonemia can be underlying sepsis - Na 134- monitor Na levels; nephrology on board and recommended to DC D5 -C. difficile PCR negative (DC PO Vancomycin), cryptococcal antigen negative, HSV studies pending, CMV IgG high, CMV IgM low -She was intubated 12/06/2021 and currently on sedation and proned -FPC use of Opiates - likely component of withdrawal; Currently holding pregabalin, Robaxin.? Takes oxycodone 15 mg 6 times a day at home.We minimize fentanyl and Versed and manage sedation with Precedex and propofol while supine - Hypothyroidism - continue levothyroxine 25 mcg, TSH 0.18 -Neurology follow-up #Acute hypoxic respiratory failure in patient with COVID-19/MRSA nares positive/possible aspiration #Significant centrilobular emphysema as evidenced on CT chest #Chronic Diastolic heart failure - -She completed remdesivir 5 days; currently on dexamethasone 6 mg daily -On vancomycin and Zosyn- Procalcitonin elevated trending down in the absence of renal failure-;urine Legionella, bacterial antigen negative; sputum culture negative; blood cultures pending -Most recent ABG 7.4 07/01/43/23/85% on CMV 350/8/30 % after the second proning session; -DuoNebs every 6 hour, budesonide twice daily -Echo 12/02/2021:?Grossly LV systolic function is normal.? Diastolic function is ?indeterminate because of tachycardia. -Off Levophed-discontinued amnio drip-started back on her home dose metoprolol # ALEKSANDRA: Resolved; Likely secondary to COVID-19 pneumonia, dehydration # Rhabdomyolysis -resolved #Hypokalemia-supplemented - Avoid nephrotoxic agents.? Urine output good but still positive 300 cc-discontinued D5 - CK 928 >>> 96 - K-2.7; supplemented KCl 80;-monitor to keep> 3.5 We will taper off sedation and slowly plan for awakening trial and breathing trial Recommendations conveyed to hospitalist, RN, RT taking care of the patient Attestations Medical Necessity Statement*: Requires further hospitalization for management of respiratory failure secondary COVID-19 pneumonia, intubated, proned, metabolic encephalopathy secondary to hyperammonemia, hypernatremia Critical Care Time: The high probability of a clinically significant, sudden or life threatening deterioration of the patient's respiratory, renal, neurological,] system(s) required my full and direct attention, intervention and personal management. The critical care time is as shown. 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[facility] Patient Type Established History Comprehensive Exam Comprehensive Medical Decision Making High Complexity Diagnoses Respiratory failure with hypoxia J96.91 COVID-19 U07.1 Hepatic encephalopathy K72.90 Opiate withdrawal F11.23 Chronic prescription opiate use Z79.891 Hypernatremia E87.0 Acute encephalopathy G93.40 Chronic diastolic heart failure I50.32 GERD (gastroesophageal reflux disease) K21.9 Esophagitis presence: esophagitis presence not specified COPD (chronic obstructive pulmonary disease) J43.1 COPD type: emphysema Emphysema type: panlobular Rhabdomyolysis M62.82 ALEKSANDRA (acute kidney injury) N17.9 Time Spent (min) 45
[2021-12-09] MEDS: propofol 1,000 MG/100 ML INJ 15.74 MG IV (15:58)
--- NOTE | 2021-12-09 16:06 | P.PN_ITS ---
Subjective Subjective: Seen multiple times during the day today. Undergoing proning session during the day. When supinated patient's oxygen supplementation remained stable. After supination patient was on ventilator setting with FiO2 of 35%, PEEP of 8 saturating 91 to 92%. During the day patient was undergoing sedation medication. During the process patient was waking up but was not following commands, was hyper ventilating with episodes of tachycardia and desaturation so was placed back on sedation. ABG during sedation vacation appreciated. Medications: Reviewed: Yes Vitals/I&O/Wt Last Vital Signs Temp 99.0 F 12/09/21 08:00 Pulse 100 12/09/21 14:52 Resp 27 H 12/09/21 15:31 BP 174/141 12/09/21 12:01 Pulse Ox 94 12/09/21 15:31 12/09/21 12/09/21 12/09/21 06:59 14:59 22:59 Intake Total 1456.036 / 3626.059 825 / 82 52.991 / 2068.816 Output Total 1700 / 3300 Balance -243.964 / 927.457 9264.825 / 82 52.991 / 2068.816 Weight last 48 hrs Weight 55.792 kg Weight 53.977 kg Physical Exam Narrative: General: Intubated, sedated, Ro in place, rectal tube in place During sedation vacation patient is jittery, hyperventilating, tachycardic, not following commands, opening eyes in between Chest: Bilateral coarse crackles present all over the lung brock more on the left than the right , equal good air entry bilaterally CVS: S1-S2 regular, no murmurs, no tachycardia, no gallops, no rubs Abdomen: Bowel sounds hyperactive, guarding present Neuro: Intubated, sedated Urinary Catheter Management: Ro: Cath Placed During This Visit: no Reason for Continuing Indwelling Catheter: Accurate Measurement of Urinary Output in Critically Ill Patients Data : 12/09/21 09:30 12/09/21 11:30 Micro: Microbiology 12/07/21 19:10 Blood Culture - Preliminary Blood NEGATIVE TO DATE 12/07/21 19:07 Blood Culture - Preliminary Blood NEGATIVE TO DATE A&P Assessment and plan (1) Respiratory failure with hypoxia: Status: Acute (2) Acute encephalopathy: Status: Acute (3) COVID-19: Status: Acute (4) Encephalopathy due to COVID-19 virus: Status: Acute (5) Hyperammonemia: Status: Acute (6) Hepatic encephalopathy: Status: Acute (7) Hypernatremia: Status: Acute (8) Diarrhea: Status: Acute (9) Dehydration: Status: Acute (10) Rhabdomyolysis: Status: Acute (11) Benign essential hypertension with target blood pressure below 140/90: Status: Acute (12) Carotid artery stenosis without cerebral infarction: Status: Acute Qualifiers: Laterality: left Qualified Code(s): I65.22 - Occlusion and stenosis of left carotid artery (13) Chronic prescription opiate use: Status: Acute (14) Anxiety and depression: Status: Chronic (15) Hypokalemia: Status: Acute (16) Opiate withdrawal: Status: Acute Plan Acute hypoxic respiratory failure secondary to COVID-19 pneumonia, possible aspiration: Severe disease Oxygen supplementation keeping saturation over 88%. Currently intubated. Continue with propofol, fentanyl. Add Precedex. Plan for sedation vacation again tomorrow. Start on [place] 5 every 12 hourly. Dexamethasone 6 mg daily for 10 days. Day 10 on 12/09. Plan for 3 mg daily for next 5 days from tomorrow. Has finished remdesivir course of 5 days Vitamin C, zinc. DuoNebs every 6 hour, budesonide twice daily We will monitor inflammatory markers including D-dimer, CRP every 48 hours D-dimer elevated. CTA negative for pulmonary embolism. Continue to monitor D- dimer. Continue with anticoagulation at prophylactic dose. Will monitor for anemia or blood loss. Procalcitonin elevated but trending down. urine Legionella, bacterial antigen negative. Sputum culture shows no growth. CSF culture negative. MRSA positive. Continue with vancomycin, Zosyn. As all the cultures have remained negative so far we will plan to do overall 7-day course of antibiotics. Last dose of Zosyn on 12/10. Last dose of vancomycin on 12/11. C. difficile negative. Acute metabolic encephalopathy: Most likely combination of COVID-19 encephalopathy along with hyperammonemia, hypernatremia and possible drug withdrawal. For hypernatremia: Back to normal today. Decrease fluid to 50 cc/h. Change free water flushes to 100 cc every 6 hours. Repeat BMP in evening. Nephrology consult appreciated. ALEKSANDRA: Resolving. Likely secondary to COVID-19 pneumonia, dehydration Avoid nephrotoxic agents. Urine output minimal. Replace potassium with 120 mEq oral. Hyperammonemia: Having good bowel movements. Change lactulose to as needed for now. Monitor bowel movements. Rectal tube in place. Restart rifampin. Currently holding pregabalin, Robaxin. Takes oxycodone 15 mg 6 times a day at home. Hypothyroidism: continue levothyroxine 25 mcg, TSH 0.18 Rhabdomyolysis: Secondary dehydration, agitation Full code. NPO. Protonix for PUD prophylaxis. Lovenox for DVT prophylaxis. Discussed patient status in detail with over the phone. We discussed that patient has had 2 proning session is on minimal ventilation settings. Only thing keeping her intubated is her poor mentation. Plan for sedation vacation the next couple of days and if patient wakes up appropriately plan for extubation. Discussed that unfortunately patient does not recover appropriately the next 3 to 4 days we might have to go for tracheostomy and PEG tube placement. Discussed it is quite possible that patient mentation might improve within the next few weeks if it is secondary to Covid encephalopathy. verbalized understanding. He will discuss with his family regarding further goals of care. Attestations Medical Necessity Statement*: Requires further hospitalization for management of hypoxic respiratory failure secondary COVID-19 pneumonia, acute metabolic encephalopathy secondary to hypernatremia, hyperammonemia, possible Covid encephalopathy. Critical Care Time: The high probability of a clinically significant, sudden or life threatening deterioration of the patient's [respiratory, neurological, GI, renal system(s) required my full and direct attention, intervention and pers onal management. The critical care time is as shown. 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
[2021-12-09] MEDS: potassium chloride oral liq 20 mEq/15 mL UDC 40 MEQ PO (17:18)
[2021-12-09] MEDS: HYDROcodone-acetaminophen 7.5-325 mg Tablet 1 TAB PO (17:19)
[2021-12-09] MEDS: metoprolol tartrate 25 mg Tablet PO (17:19)
--- NOTE | 2021-12-09 18:24 | PC.NURSE ---
Shift Note Frequent safety and comfort rounds continue. Orders and/or nursing care completed as indicated. Patient monitored for response to intervention and treatment(s). Education provided includes treatment plan, medications and vent weaning. Family verbalizes understanding. Fentanyl, propofol and precedex infusing per orders. Attempted sedation vacation earlier and pt did not tolerate well. K+ repleted today, BMP scheduled for 0. Ro cath and FMS draining freely. Will continue to monitor.
[2021-12-09 18:55] LABS: Glucose Point of Care 115 mg/dL (70-110)
[2021-12-09] MEDS: norepinephrine 8 MG in dextrose 5 % 500 ML 7.62 MG IV (19:59)
[2021-12-09] MEDS: enoxaparin 40 mg/0.4 mL Syringe SUBCUT (20:00)
[2021-12-09 20:46] LABS: Anion Gap 11.5 (5-19); Blood Urea Nitrogen 7 mg/dL (6-20); Calcium 7.4 mg/dL (8.5-10.5); Carbon Dioxide 20 mmol/L (22-29); Chloride 111 mmol/L (98-107); Glomerular Filtration Rate 73.4 mL/min (90-130); Glucose 120 mg/dL (65-115); Osmolality Calculated 285 mOsm/kg (285-295); Potassium 4.5 mmol/L (3.5-5.1); Sodium 138 mmol/L (136-145)
[2021-12-09 20:54] LABS: West Nile Virus AB (IGG) <1.30 index; West Nile Virus AB (IGM) <0.90 index
--- NOTE | 2021-12-09 21:13 | PC.NURSE ---
Pt appears uncomfortable and is breathing 35 times per minute. Sedation titrated.
[2021-12-09] MEDS: dexmedeTOMIDine 0.9 % NaCL 400 MCG/100 ML PREMIX 9.53 MCG IV (22:56)
[2021-12-09 23:08] LABS: Glucose Point of Care 111 mg/dL (70-110)
[2021-12-10] VITALS (84 sets, daily range): BP systolic 89–170; BP diastolic 51–104; PULSE 61–94; RESP 22–37; TEMP 37.3–38.1; O2SAT 83–96
--- NOTE | 2021-12-10 00:47 | PC.NURSE ---
Pt's respiratory rate increased to 48 breaths per minute after being turned. Sedation titrated and Levophed restarted. RT notified.
[2021-12-10 01:04] LABS: VDRL on CSF NON-REACTIVE
--- NOTE | 2021-12-10 01:10 | PC.NURSE ---
Attempted to return call to pt's friend, Amalia. Left voicemail.
[2021-12-10] MEDS: ipratropium-albuterol 3 mL Neb INHALATION ×4 (02:26→20:27)
[2021-12-10 03:08] LABS: Glucose Point of Care 87 mg/dL (70-110)
[2021-12-10] MEDS: piperacillin-tazobactam 3.375 GM in sodium chloride 0.9% (plus) 50 ML IV ×3 (03:46→19:45)
--- NOTE | 2021-12-10 03:50 | XRR_ITS ---
PROCEDURE INFORMATION: Exam: XR Chest Exam date and time: 12/10/2021 3:50 AM Age: 61 years old Clinical indication: Shortness of breath; Patient HX: Worsening spo2 sats. Intubated. Covid +. Patient in soft restraints and would not keep still. Best image obtained. ; Additional info: Decreased oxygen saturation TECHNIQUE: Imaging protocol: XR of the chest. Views: 1 view. COMPARISON: CR XR chest 1V portable [id number] 12/09/2021 10:14 AM FINDINGS: Tubes, catheters and devices: Endotracheal tube terminates approximately 4 cm above the ramirez. NG tube passes into stomach. A vascular catheter projects over the right axillary region. Lungs: Similar bilateral interstitial and airspace opacities superimposed on a background of emphysema. Pleural spaces: Unremarkable. No pleural effusion. No pneumothorax. Heart/Mediastinum: Unremarkable. No cardiomegaly. Bones/joints: Unremarkable. XR/XR chest 1V portable [id number] IMPRESSION: 1. No substantial interval change. Similar patchy bibasilar opacities, which may reflect pneumonia. 2. Endotracheal tube terminates approximately 4 cm above the ramirez.
[2021-12-10 03:53] LABS: Basophils % 0.3 %; Eosinophils # 0.2 10^3/uL (0.0-0.8); Eosinophils % 0.9 %; Hematocrit 32.8 % (37.0-47.0); Hemoglobin 10.8 g/dL (11.5-15.3); Lymphocytes # 2.8 10^3/uL (0.8-4.8); Lymphocytes % 17.6 %; Mean Corpuscular HGB Conc 32.9 g/dL (30.0-36.0); Mean Corpuscular Hemoglobin 28.6 pg (28.0-34.0); Mean Platelet Volume 11.8 fL (7.4-10.4); Monocytes # 0.8 10^3/uL (0.2-0.9); Monocytes % 4.9 %; Neutrophils # 11.72 10^3/uL (1.8-7.7); Neutrophils % 73.8 %; Nucleated Red Blood Cells % 0.2 %; Platelet Count 251 10^3/cmm (130-400); Red Blood Count 3.77 10^6/uL (4.1-5.3); Red Cell Distribution Width 14.6 % (12.1-15.1); White Blood Count 15.9 10^3/uL (4.0-10.0)
[2021-12-10 04:02] LABS: D Dimer 1.25 ug/mIFEU (0-0.59)
[2021-12-10] MEDS: midazolam 1 mg/mL INJ 2 mL 2 MG IVP (04:24)
--- NOTE | 2021-12-10 04:32 | PC.NURSE ---
Pt's oxygen saturation 82%. Suctioning performed. Pt repositioned. RT notified. CXR obtained. Ventilator settings adjusted.
--- NOTE | 2021-12-10 04:35 | PC.NURSE ---
Pt's neck looks slightly swollen. Repositioning decreased appearance of swelling.
[2021-12-10 04:52] LABS: Alanine Aminotransferase 14 U/L (0-33); Albumin Level 2.4 g/dL (3.5-5.2); Alkaline Phosphatase 100 IU/L (35-105); Anion Gap 13.7 (5-19); Aspartate Amino Transferase 20 U/L (0-32); Blood Urea Nitrogen 10 mg/dL (6-20); Calcium 7.5 mg/dL (8.5-10.5); Carbon Dioxide 20 mmol/L (22-29); Chloride 110 mmol/L (98-107); Globulin 1.8 g/dL (1.3-4.6); Glomerular Filtration Rate 73.4 mL/min (90-130); Glucose 88 mg/dL (65-115); Osmolality Calculated 288 mOsm/kg (285-295); Potassium 3.7 mmol/L (3.5-5.1); Sodium 140 mmol/L (136-145); Total Bilirubin 0.9 mg/dL (0.15-1.2); Total Protein 4.2 g/dL (6.6-8.7)
[2021-12-10 04:55] LABS: Base Excess ABG 2.8 mmol/L (-2.0-2.0); Blood Gas Allen Test Pos; Blood Gas Operator Identificat JB; Blood Gas Sample Type Arterial; Ionized Calcium Level - ABG 1.1 mmol/L (1.1-1.4); Methemoglobin 1.3 % (0.4-1.5)
[2021-12-10 05:09] LABS: ABG PCO2 30.5 mmHg (35-45); ABG PH Result 7.53 (7.35-7.45); Arterial Blood Gas Hematocrit 34.1 % (37-47); Blood Gas Sample Site Radial, right; Carboxyhemoglobin 1.2 %THgb (0.4-20.1); HCO3 ABG 25.2 mmol/L (22-26); HGB O2 Sat 93.1 % (95-100); Oxygen Saturation ABG 95.5; Potassium Level - ABG 3.2 mmol/L (3.5-5.0); Total Hemoglobin 11.1 g/dL (12-16)
[2021-12-10 05:10] LABS: Blood Gas Tidal Volume 0.35; Oxygen Device VENT
--- NOTE | 2021-12-10 05:31 | PC.NURSE ---
Pt resting quietly in bed. Respiratory rate remains in the low 30s, but breathing appears easier and oxygen saturation is now 96%.
[2021-12-10 05:42] LABS: Glucose Point of Care 88 mg/dL (70-110)
[2021-12-10] MEDS: HYDROcodone-acetaminophen 7.5-325 mg Tablet 1 TAB PO ×3 (05:42→21:33)
[2021-12-10] MEDS: dexmedeTOMIDine 0.9 % NaCL 400 MCG/100 ML PREMIX 16.33 MCG IV (05:43)
[2021-12-10] MEDS: levothyroxine 25 mcg Tablet PO (05:43)
[2021-12-10] MEDS: propofol 1,000 MG/100 ML INJ 15.74 MG IV ×2 (05:48→20:21)
[2021-12-10 06:52] LABS: Glucose Point of Care 106 mg/dL (70-110)
[2021-12-10] MEDS: budesonide 0.5 mg/2 mL Neb INHALATION ×2 (08:09→20:27)
[2021-12-10] MEDS: vancomycin 750 MG in sodium chloride 0.9% 250 ML 250 MG IV (08:24)
[2021-12-10] MEDS: potassium chloride oral liq 20 mEq/15 mL UDC 40 MEQ PO (08:24)
[2021-12-10] MEDS: pantoprazole 40 mg SDV IVP ×2 (08:24→21:33)
[2021-12-10] MEDS: aspirin 81 mg EC Tablet PO (08:24)
[2021-12-10] MEDS: rifAMPin 300 mg Capsule PO ×2 (08:24→17:26)
[2021-12-10] MEDS: ferrous gluconate 324 mg Tablet PO ×2 (08:24→17:26)
[2021-12-10] MEDS: lactulose oral liq 20 gm/30 mL UDC 15 GM PO (09:38)
--- NOTE | 2021-12-10 10:05 | PC.CHAP ---
Pastoral Care Encounter/Spiritual Assessment Type of Contact [] Declined kettle girl visit [] Patient/Family/Request visit [] Outpatient visit [] Follow-up visit [] Physician referral [] Code/Alert [x] Routine visit [] Staff referral [] Actively dying [] Patient sleeping [] Family support [] [] Out of room [] Palliative care [] [x] Receiving care in room [] Pre-surgical visit [] Trauma [] Long length of stay [x] ICU visit [] Other: Relational/Emotional Strength [] Patient feels connected with others/family/visitors/staff [] Distress [] Loneliness/isolation [] Abandonment Spirituality of Patient [] Person of Nahed [] Attends Latter Day of their Nahed [] Believes in Prayer [] Reads Bible or Baptist materials [] There are Spiritual issues to be addressed 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 [x] Prayer [] Active listening [] Non-anxious presence [] Spiritual/emotional support [] Crisis/trauma care [] Spiritual counseling [] Bereavement support [] Provided bereavement packet [] Provided Bible/devotional materials [] Provided toy/stuffed animal, coloring book to patient or family member [] Provided Communion [] Anointing/[place] [] Salvation [x] Completed spiritual assessment [] Other: Impact on Illness or Injury [] Angry [] Fearful [] Anxious [] Often cries [] Exhaustion [] Unable to work [] Unable to attend voodoo [] Unable to walk/stand [] Unable to read [] Unable to drive [] Unable to eat/drink [] Unable to sleep [] Unable to be with family [] Patient intubated [] Other: Summary Time spent with patient
[2021-12-10 11:21] LABS: Glucose Point of Care 123 mg/dL (70-110)
[2021-12-10] MEDS: propofol 1,000 MG/100 ML INJ 12.6 MG IV (11:27)
[2021-12-10] MEDS: dexmedeTOMIDine 0.9 % NaCL 400 MCG/100 ML PREMIX 13.61 MCG IV ×2 (12:12→19:02)
--- NOTE | 2021-12-10 13:14 | PM.PN ---
Subjective Subjective: Overnight patient had episode of agitation again at that time ventilator settings and sedation was increased. Today morning she was on 125 of fentanyl, 50 of propofol. Overnight she received 2 mg of Versed. FiO2 has been increased and is being turned down currently. During examination she is on 350 of 30 volume, PEEP of 5, FiO2 of 60%. Urine output appropriate. Medications: Reviewed: Yes Vitals/I&O/Wt Last Vital Signs Temp 99.9 F H 12/10/21 12:00 Pulse 71 12/10/21 13:00 Resp 33 H 12/10/21 11:05 BP 138/87 12/10/21 13:00 Pulse Ox 93 12/10/21 13:00 12/09/21 12/10/21 12/10/21 22:59 06:59 14:59 Intake Total 633.526 / 2649.351 670.705 / 3320.056 1639.582 / 1639.582 Output Total 900 / 900 2300 / 3200 Balance -266.474 / 1749.351 -1629.295 / 112.665 7942.582 / 1639.582 Weight last 48 hrs Weight 56.472 kg Weight 55.792 kg Physical Exam Narrative: General: Intubated, sedated, Ro in place, rectal tube in place During sedation vacation patient is jittery, hyperventilating, tachycardic, not following commands, opening eyes in between Chest: Bilateral coarse crackles present all over the lung brcok more on the left than the right , equal good air entry bilaterally CVS: S1-S2 regular, no murmurs, no tachycardia, no gallops, no rubs Abdomen: Bowel sounds hyperactive, guarding present Neuro: Intubated, sedated Urinary Catheter Management: Ro: Cath Placed During This Visit: no Reason for Continuing Indwelling Catheter: Accurate Measurement of Urinary Output in Critically Ill Patients Data : 12/10/21 03:34 12/10/21 03:34 A&P Assessment and plan (1) Respiratory failure with hypoxia: Status: Acute (2) Acute encephalopathy: Status: Acute (3) COVID-19: Status: Acute (4) Encephalopathy due to COVID-19 virus: Status: Acute (5) Hyperammonemia: Status: Acute (6) Hepatic encephalopathy: Status: Acute (7) Hypernatremia: Status: Acute (8) Diarrhea: Status: Acute (9) Dehydration: Status: Acute (10) Rhabdomyolysis: Status: Acute (11) Benign essential hypertension with target blood pressure below 140/90: Status: Acute (12) Carotid artery stenosis without cerebral infarction: Status: Acute Qualifiers: Laterality: left Qualified Code(s): I65.22 - Occlusion and stenosis of left carotid artery (13) Chronic prescription opiate use: Status: Acute (14) Anxiety and depression: Status: Chronic (15) Hypokalemia: Status: Acute (16) Opiate withdrawal: Status: Acute Plan Acute hypoxic respiratory failure secondary to COVID-19 pneumonia, possible aspiration: Severe disease Oxygen supplementation keeping saturation over 88%. Currently intubated. Continue with propofol, fentanyl. Add Precedex. Plan for sedation vacation again tomorrow. Increase [place] to every 8 hours. Dexamethasone 3 mg daily for 5 days. Has finished remdesivir course of 5 days Vitamin C, zinc. DuoNebs every 6 hour, budesonide twice daily We will monitor inflammatory markers including D-dimer, CRP every 48 hours D-dimer elevated. CTA negative for pulmonary embolism. Continue to monitor D-dimer. Continue with anticoagulation at prophylactic dose. Will monitor for anemia or blood loss. Procalcitonin elevated but trending down. urine Legionella, bacterial antigen negative. Sputum culture shows no growth. CSF culture negative. MRSA positive. Continue with vancomycin, Zosyn. As all the cultures have remained negative so far we will plan to do overall 7-day course of antibiotics. Last dose of Zosyn on 12/10. C. difficile negative. Acute metabolic encephalopathy: Most likely combination of COVID-19 encephalopathy along with hyperammonemia, hypernatremia and possible drug withdrawal. For hypernatremia: Back to normal today. Decrease fluid to 50 cc/h. Change free water flushes to 100 cc every 6 hours. Repeat BMP in evening. Nephrology consult appreciated. ALEKSANDRA: Resolving. Likely secondary to COVID-19 pneumonia, dehydration Avoid nephrotoxic agents. Urine output minimal. Hyperammonemia: Having good bowel movements. Change lactulose to as needed for now. Monitor bowel movements. Rectal tube in place. Restart rifampin. Currently holding pregabalin, Robaxin. Takes oxycodone 15 mg 6 times a day at home. Hypothyroidism: continue levothyroxine 25 mcg, TSH 0.18 Rhabdomyolysis: Secondary dehydration, agitation Full code. NPO. Protonix for PUD prophylaxis. Lovenox for DVT prophylaxis. Discussed patient status in detail with over the phone. We discussed that patient has had 2 proning session is on minimal ventilation settings. Only thing keeping her intubated is her poor mentation. Plan for sedation vacation the next couple of days and if patient wakes up appropriately plan for extubation. Discussed that unfortunately patient does not recover appropriately the next 3 to 4 days we might have to go for tracheostomy and PEG tube placement. Discussed it is quite possible that patient mentation might improve within the next few weeks if it is secondary to Covid encephalopathy. verbalized understanding. He will discuss with his family regarding further goals of care. Plan for the day: 1 more session of sedation vacation. We will try to see if patient wakes up appropriately. Coming down on sedation and ventilator setting. 1 dose of lactulose. Increase D5W to 75 cc/h. Continue with free water flushes. Continue with fentanyl, propofol and Precedex. Continue with rifampin. Last day of Zosyn today. Increase hydrocodone to every 8 hourly. Repeat BMP at 4 PM Attestations Medical Necessity Statement*: Requires further hospitalization for management of acute hypoxic respiratory failure secondary COVID-19 pneumonia, Covid encephalopathy as patient remains intubated because of poor mentation and increased agitation on decrease sedation, hyper natremia, hyperammonemia Critical Care Time: The high probability of a clinically significant, sudden or life threatening deterioration of the patient's [respiratory, renal, GI, neurological system(s) required my full and direct attention, intervention and personal management. The critical care time is as shown. 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
[2021-12-10] MEDS: dexamethasone 10 mg/mL INJ 3 MG IVP (13:30)
[2021-12-10 15:17] LABS: Glucose Point of Care 139 mg/dL (70-110)
[2021-12-10 15:36] LABS: HSV 1 DNA NOT DETECTED; HSV 2 DNA NOT DETECTED; HSV Source CEREBROSPINAL FLUID
[2021-12-10 16:59] LABS: Anion Gap 16.1 (5-19); Blood Urea Nitrogen 11 mg/dL (6-20); Calcium 7.5 mg/dL (8.5-10.5); Carbon Dioxide 19 mmol/L (22-29); Chloride 111 mmol/L (98-107); Glomerular Filtration Rate 102.3 mL/min (90-130); Glucose 116 mg/dL (65-115); Osmolality Calculated 294 mOsm/kg (285-295); Potassium 4.1 mmol/L (3.5-5.1); Sodium 142 mmol/L (136-145)
[2021-12-10] MEDS: metoprolol tartrate 25 mg Tablet PO (17:26)
[2021-12-10] MEDS: FUROsemide 10 mg/mL SDV 4mL 40 MG IVP (17:46)
--- NOTE | 2021-12-10 18:11 | PC.NURSE ---
Shift Note Frequent safety and comfort rounds continue. Orders and/or nursing care completed as indicated. Patient monitored for response to intervention and treatment(s). Education provided includes treatment plan, medications. verbalizes understanding. VSS. Pt becomes tachypneic and hypertensive with slight stimulation. TF tolerated well. Worsening edema noted. MD notified and lasix ordered and given. No other issues noted at this time. Will continue to monitor.
--- NOTE | 2021-12-10 18:24 | PM.PN ---
Subjective Subjective: -Patient bedside seen at bedside today -Yesterday overnight she has not had 2 episode of agitation requiring to increase her sedation and FiO2 to 60% -Still requiring fentanyl 125 and propofol 50 in order to be compliant with ventilator, any attempt to wean off sedation patient becomes tachypneic and desaturates -Clinically volume overloaded-we will give 1 dose Lasix and albumin -Other labs and imaging reviewed Medications: Reviewed: Yes Vitals/I&O/Wt Last Vital Signs Temp 99.1 F 12/10/21 16:01 Pulse 77 12/10/21 16:31 Resp 29 H 12/10/21 16:37 BP 138/78 12/10/21 16:31 Pulse Ox 90 12/10/21 16:37 12/10/21 12/10/21 12/10/21 06:59 14:59 22:59 Intake Total 670.705 / 3320.056 1639.582 / 1639.582 450 / 2089.582 Output Total 2300 / 3200 1725 / 1725 Balance -1629.295 / 582.120 4043.582 / 1639.582 -1275 / 364.582 Weight last 48 hrs Weight 124 lb 8 oz Weight 123 lb Physical Exam Narrative: PHYSICAL EXAM: General: lying in bed, sedated and intubated. HEENT:NCAT, PERRLA, EOMI Neck: Supple Lungs: Bilateral mild diffuse crepitations Heart: s1/s2, RRR Abd: soft, NT, ND, BS + Normoactive Extremities: No edema FOREPART RASPER: sedated and limited FOREPART RASPER exam possible. SKIN: no rash Urinary Catheter Management: Ro: Cath Placed During This Visit: no Reason for Continuing Indwelling Catheter: Accurate Measurement of Urinary Output in Critically Ill Patients Data : 12/10/21 03:34 12/10/21 15:57 Other Labs: Radiology Impressions Head CT 11/28/21 15:00 IMPRESSION: 1. No acute intracranial hemorrhage or edema. 2. Mild atrophy and mild chronic microvascular ischemic type changes. Liver Ultrasound 12/02/21 13:17 IMPRESSION: Technically difficult examination due to bowel gas and patient motion due to pain. 1. Diffuse fatty infiltration of the liver. 2. Normal gallbladder. 3. Normal common bile duct measuring 5.9 mm. 4. No hydronephrosis in right kidney. 5. No ascites. Abdomen/Pelvis CT 12/04/21 12:53 IMPRESSION: 1. Very limited examination due to patient respiratory motion. 2. Basilar atelectasis and question of new basilar pulmonary infiltrates. 3. Findings of new Ro catheter, rectal tube and nasogastric tube. 4. Fluid in the colon which could represent enteritis. KUB X-Ray 12/06/21 11:49 IMPRESSION: 1. Nasogastric tube has its proximal port at GE junction, recommend advancement by 7-10 cm. 2. Stable bilateral pleuroparenchymal disease. 3. There is gaseous distention of the stomach noted. 4. Bowel gas pattern is mildly distended but nonobstructive. Chest/Abdomen/Pelvis CT 12/07/21 11:28 IMPRESSION: 1. Scattered perihilar and bibasal infiltrates.Imaging features can be seen with COVID-19 pneumonia, though are nonspecific and can occur with a variety IMPRESSION: There are air-fluid levels in the distal colon suggesting mild nonspecific colitis versus other diarrheal illness. A rectal tube is in place. Head/Neck CTA 12/07/21 11:28 IMPRESSION: No large vessel stenosis or occlusion. IMPRESSION: No stenosis or occlusion. REFERENCES: NASCET CRITERIA. The degree of internal carotid artery stenosis is based on NASCET criteria. Normal is no stenosis. Mild is less than 50% stenosis. Moderate is 50-69% stenosis. Severe is 70% to 99% stenosis. Total occlusion is no detectable patent lumen. Chest X-Ray 12/10/21 03:50 IMPRESSION: 1. No substantial interval change. Similar patchy bibasilar opacities, which may reflect pneumonia. 2. Endotracheal tube terminates approximately 4 cm above the ramirez. Laboratory Results WBC 15.9 10^3/uL (4.0-10.0) H 12/10/21 03:34 RBC 3.77 10^6/uL (4.1-5.3) L 12/10/21 03:34 Hgb 10.8 g/dL (11.5-15.3) L 12/10/21 03:34 Hct 32.8 % (37.0-47.0) L 12/10/21 03:34 MCV 87.0 fl (81-99) 12/10/21 03:34 MCH 28.6 pg (28.0-34.0) 12/10/21 03:34 MCHC 32.9 g/dL (30.0-36.0) 12/10/21 03:34 RDW 14.6 % (12.1-15.1) 12/10/21 03:34 Plt Count 251 10^3/cmm (130-400) 12/10/21 03:34 MPV 11.8 fL (7.4-10.4) H 12/10/21 03:34 Neut % (Auto) 73.8 % 12/10/21 03:34 Lymph % (Auto) 17.6 % 12/10/21 03:34 Delta % (Auto) 4.9 % 12/10/21 03:34 Eos % (Auto) 0.9 % 12/10/21 03:34 Baso % (Auto) 0.3 % 12/10/21 03:34 Neut # (Auto) 11.72 10^3/uL (1.8-7.7) H 12/10/21 03:34 Lymph # (Auto) 2.8 10^3/uL (0.8-4.8) 12/10/21 03:34 Delta # (Auto) 0.8 10^3/uL (0.2-0.9) 12/10/21 03:34 Eos # (Auto) 0.2 10^3/uL (0.0-0.8) 12/10/21 03:34 Baso # (Auto) 0.0 10^3/uL (0.0-0.1) 12/10/21 03:34 Nucleated RBC % (auto) 0.2 % 12/10/21 03:34 Nucleated RBCs # 0.0 /100WBC 12/10/21 03:34 ESR 17 mm/hr (0-15) H 12/02/21 15:45 PT 16.30 SECONDS (12.1-14.9) H 12/07/21 03:15 INR 1.28 (0.8-1.2) H 12/07/21 03:15 D-Dimer 1.25 ug/mIFEU (0-0.59) H 12/10/21 03:34 Specimen Type Arterial 12/10/21 04:37 Sample Site Radial, right 12/10/21 04:37 ABG pH 7.53 (7.35-7.45) H 12/10/21 04:37 ABG pCO2 30.5 mmHg (35-45) L 12/10/21 04:37 ABG pO2 66.0 mmHg (80.0-100.0) L 12/10/21 04:37 ABG HCO3 25.2 mmol/L (22-26) 12/10/21 04:37 ABG O2 Saturation 95.5 12/10/21 04:37 ABG Base Excess 2.8 mmol/L (-2.0-2.0) H 12/10/21 04:37 Juaquin Test Pos 12/10/21 04:37 A-a O2 Gradient 51.0 mmHg (5-10) H 12/10/21 04:37 Hematocrit 34.1 % (37-47) L 12/10/21 04:37 Hgb O2 Saturation 93.1 % (95-100) L 12/10/21 04:37 Carboxyhemoglobin 1.2 %THgb (0.4-20.1) 12/10/21 04:37 Methemoglobin 1.3 % (0.4-1.5) 12/10/21 04:37 Total Hemoglobin 11.1 g/dL (12-16) L 12/10/21 04:37 Sodium 142.0 mmol/L (131-143) 12/10/21 04:37 Potassium 3.2 mmol/L (3.5-5.0) L 12/10/21 04:37 Glucose 96.0 mg/dL (70-115) 12/10/21 04:37 Ionized Calcium 1.1 mmol/L (1.1-1.4) 12/10/21 04:37 O2 Delivery Device Vent 12/10/21 04:37 O2 Liters/Min 14.0 % 12/04/21 05:10 FiO2 70.0 % 12/10/21 04:37 Tidal Volume 0.35 12/10/21 04:37 PEEP 5.0 cmH20 12/10/21 04:37 Pattern Changer ID Herrera 12/10/21 04:37 Sodium 142 mmol/L (136-145) 12/10/21 15:57 Potassium 4.1 mmol/L (3.5-5.1) 12/10/21 15:57 Chloride 111 mmol/L (98-107) H 12/10/21 15:57 Carbon Dioxide 19 mmol/L (22-29) L 12/10/21 15:57 Anion Gap 16.1 (5-19) 12/10/21 15:57 BUN 11 mg/dL (6-20) 12/10/21 15:57 Creatinine 0.6 mg/dL (0.5-0.9) 12/10/21 15:57 GFR Calculation 102.3 mL/min (90-130) 12/10/21 15:57 Glucose 116 mg/dL (65-115) H 12/10/21 15:57 POC Glucose 139 mg/dL (70-110) H 12/10/21 15:13 Estimat Average Glucose 120 11/29/21 02:45 Hemoglobin A1c 5.8 % (4.0-6.0) 11/29/21 02:45 Calculated Osmolality 294 mOsm/kg (285-295) 12/10/21 15:57 Lactic Acid 2.1 mmol/L (0.5-2.2) 11/28/21 16:04 Lactic Acid (Sepsis) 1.2 mmol/L (0.5-2.2) 11/28/21 19:02 Lactate 1.4 mmol/L (0.5-2.2) 12/07/21 03:15 Calcium 7.5 mg/dL (8.5-10.5) L 12/10/21 15:57 Phosphorus 2.0 mg/dL (2.5-4.5) L 12/08/21 05:11 Magnesium 1.8 mg/dL (1.7-2.3) 12/08/21 05:11 Iron 37 ug/dL (37-145) 11/28/21 14:20 TIBC 287 mcg/dl 11/28/21 14:20 % Saturation 12.8 % (20-50) L 11/28/21 14:20 Unsat Iron Binding 250 ug/dL (112-347) 11/28/21 14:20 Total Bilirubin 0.9 mg/dL (0.15-1.2) 12/10/21 03:34 GGT 27 U/L (5-36) 12/02/21 15:45 GGT Cancelled 12/02/21 15:45 AST 20 U/L (0-32) 12/10/21 03:34 ALT 14 U/L (0-33) 12/10/21 03:34 Alkaline Phosphatase 100 IU/L (35-105) 12/10/21 03:34 Ammonia 73 umol/L (11-51) H 12/08/21 05:11 Lactate Dehydrogenase 510 U/L (135-214) H 11/29/21 18:00 Creatine Kinase 96 U/L (26-192) 12/07/21 03:15 CK-MB (CK-2) 13.4 ng/mL (0-5.34) H 11/28/21 14:20 CK-MB (CK-2) Rel Index 2.6 % (0.0-10.4) 11/28/21 14:20 Troponin T Baseline 12 ng/L (0-10) H 12/02/21 15:45 Troponin T 120 Minute 11.25 ng/L (0-10) H 12/02/21 17:45 Delta Troponin T -0.75 ABS# (0-10) L 12/02/21 17:45 Troponin T Hi Sens 6Hr 12.87 ng/L (0-10) H 12/02/21 21:40 Troponin T Hi Sens 6Hr Delta 0.87 ng/L (0-12) 12/02/21 21:40 C-Reactive Protein 117.0 mg/L (0.0-4.9) H 12/10/21 03:34 NT-Pro-B Natriuret Pep 364 pg/mL (0-125) H 12/07/21 03:15 Total Protein 4.2 g/dL (6.6-8.7) L 12/10/21 03:34 Albumin 2.4 g/dL (3.5-5.2) L 12/10/21 03:34 Globulin 1.8 g/dL (1.3-4.6) 12/10/21 03:34 Triglycerides 156 mg/dL (0-150) H 11/29/21 02:45 Cholesterol 137 mg/dL (0-200) 11/29/21 02:45 LDL Cholesterol, Calc 77 mg/dL (50-129) 11/29/21 02:45 Total VLDL Cholesterol 31 mg/dL (0-30) H 11/29/21 02:45 HDL Cholesterol 29 mg/dL (60-100) L 11/29/21 02:45 Cholesterol/HDL Ratio 4.72 mg/dL (0.0-4.40) H 11/29/21 02:45 Amylase 65 U/L (28-100) 12/02/21 15:45 Amylase Cancelled 12/02/21 15:45 Lipase 19 U/L (13-60) 12/02/21 15:45 Vitamin B12 Cancelled 11/28/21 19:02 Folate 8.2 ng/mL (4.8-37.3) 11/28/21 19:02 Procalcitonin 1.03 ng/mL (0-0.5) H 12/09/21 09:30 TSH Cancelled 11/28/21 19:02 Free T4 1.29 ng/dL (0.82-1.77) 11/30/21 10:00 Free T3 1.7 PG/ML (2.0-4.4) L 11/30/21 10:00 Urine Color Ciara (Yellow) 11/28/21 18:10 Urine Appearance Hazy (CLEAR) A 11/28/21 18:10 Urine pH 7 (5-7) 11/28/21 18:10 Ur Specific Dougherty 1.010 (1.005-1.030) 11/28/21 18:10 Urine Protein 2+ (Negative) H 11/28/21 18:10 Urine Glucose (UA) Norm (Normal) 11/28/21 18:10 Urine Ketones 2+ (Negative) H 11/28/21 18:10 Urine Blood 2+ (Negative) H 11/28/21 18:10 Urine Nitrate Negative (Negative) 11/28/21 18:10 Urine Bilirubin 1+ (Negative) H 11/28/21 18:10 Urine Urobilinogen 1 mg/dL (Negative) H 11/28/21 18:10 Ur Leukocyte Esterase Negative (Negative) 11/28/21 18:10 Urine RBC 0-4 /hpf (0-2) H 11/28/21 18:10 Urine WBC None /hpf (0-5) 11/28/21 18:10 Ur Squamous Epith Cells 0-4 /hpf (0-5) H 11/28/21 18:10 Amorphous Sediment Not Reportable 11/28/21 18:10 Urine Bacteria None /hpf (NONE) 11/28/21 18:10 Urine Mucus 2+ /hpf 11/28/21 18:10 Ur Random Sodium 40 mmol/L 11/28/21 18:10 Ur Random Potassium 67 mmol/L 11/28/21 18:10 Ur Random Chloride 47 mmol/L 11/28/21 18:10 CSF Appearance Clear (CLEAR) 12/03/21 17:01 CSF Color Colorless (COLORLESS) 12/03/21 17:01 CSF Specific Dougherty 1.020 12/03/21 17:01 CSF WBC 2 /uL (0-5) 12/03/21 17:01 CSF RBC 0 10^3/uL (0-0) 12/03/21 17:01 CSF Mononuclear # Auto 0.001 10^3/uL (50-90) L 12/03/21 17:01 CSF Mononuclear WBCs % 50 % (50-90) 12/03/21 17:01 CSF Polynuclear WBCs # 0.001 10^3/uL (0-10) 12/03/21 17:01 CSF Polynuclear WBCs % 50 % (0-10) H 12/03/21 17:01 CSF Glucose 75 mg/dL (40-70) H 12/03/21 17:01 CSF LDH 28 U/L 12/03/21 17:01 CSF Total Protein 24 mg/dL (15-45) 12/03/21 17:01 CSF Albumin 0.2 mg/dL (20.0-40.0) L 12/03/21 17:01 CSF/Ser Oligoclon Bands Cancelled 12/02/21 15:45 CSF VDRL Non-reactive 12/03/21 17:01 CSF [facility] IgG <1:1 12/03/21 17:01 CSF [facility] IgM IFA <1:1 12/03/21 17:01 CSF [facility] Intrp See note 12/03/21 17:01 Vancomycin Trough 21.3 ug/mL (10-15) H 12/07/21 19:54 Salicylates < 0.3 mg/dL (3-10) L 11/28/21 14:20 Urine Opiates Screen Negative ng/mL (Negative) 11/28/21 18:10 Acetaminophen < 5.0 ug/mL (10-30) L 11/28/21 14:20 Ur Barbiturates Screen Negative ng/mL (Negative) 11/28/21 18:10 Ur Phencyclidine Scrn Negative ng/mL (Negative) 11/28/21 18:10 Ur Amphetamines Screen Negative ng/mL (Negative) 11/28/21 18:10 U Benzodiazepines Scrn Negative ng/mL (Negative) 11/28/21 18:10 Urine Cocaine Screen Negative ng/mL (Negative) 11/28/21 18:10 U Marijuana (THC) Screen Negative ng/mL (Negative) 11/28/21 18:10 Ethyl Alcohol < 10 mg/dL (0-10) 11/28/21 14:20 Coronavirus 229E (PCR) Not detected (NOT DETECT) 11/28/21 18:41 CMV Culture Source Cerebrospinal fluid 12/03/21 17:01 CMV IgG Ab 2.30 U/mL H 12/02/21 15:45 CMV IgM Ab <30.00 AU/mL 12/02/21 15:45 CMV DNA Quant PCR Not detected IU/mL 12/03/21 17:01 CMV Qnt PCR Interp Not detected Log IU/mL 12/03/21 17:01 West Nile Virus IgG Ab <1.30 index 12/03/21 17:01 West Nile Virus IgM Ab <0.90 index 12/03/21 17:01 Hepatitis A IgM Ab Non-reactive (Nonreactive) 12/01/21 20:54 Hep Bs Antigen Non-reactive (Nonreactive) 12/01/21 20:54 Hep Bs Antibody 7.8 (11.5-1000) L 12/01/21 20:54 Hep B Core Total Ab Non-reactive (Nonreactive) 12/01/21 20:54 Hepatitis C Antibody Non-reactive (Nonreactive) 12/01/21 20:54 Herpes Simplex Source Cerebrospinal fluid 12/03/21 17:01 HIV 1&2 Ab & HIV 1 Ag Non-reactive (Non-Reactiv) 12/01/21 20:54 HIV 1&2 Antibody Non-reactive (Non-Reactiv) 12/01/21 20:54 Influenza Type A Ag Negative (Negative) 11/29/21 15:02 Influenza Type B Ag Negative (Negative) 11/29/21 15:02 SARS-CoV-2 (PCR) Detected (NOT DETECT) A 11/28/21 18:41 HSV 1 DNA Not detected 12/03/21 17:01 HSV 2 DNA Not detected 12/03/21 17:01 A&P Assessment and plan (1) Respiratory failure with hypoxia: Status: Acute (2) COVID-19: Status: Acute (3) Hepatic encephalopathy: Status: Acute (4) Opiate withdrawal: Status: Acute (5) Chronic prescription opiate use: Status: Acute (6) Hypernatremia: Status: Acute (7) Acute encephalopathy: Status: Acute (8) Chronic diastolic heart failure: Status: Acute (9) GERD (gastroesophageal reflux disease): Status: Chronic Qualifiers: Esophagitis presence: esophagitis presence not specified Qualified Code(s): K21.9 - Gastro-esophageal reflux disease without esophagitis (10) COPD (chronic obstructive pulmonary disease): Status: Chronic Qualifiers: COPD type: emphysema Emphysema type: panlobular Qualified Code(s): J43.1 - Panlobular emphysema (11) Rhabdomyolysis: Status: Acute (12) ALEKSANDRA (acute kidney injury): Status: Acute Plan #Altered mental status-Sepsis (Covid encephalopathy) vs Metabolic (hyperammonemia) vs Chronic opiate withdrawl vs Hypoxic driven in the context of Covid 19 - CT head, CTA, LP - Unremarkable - - Admission Ammonia 103 >> normalized and back up again to 61 - On lactulose BID target 2-3 soft BM -Liver ultrasound showed diffuse fatty liver but no evidence of cirrhosis, and other causes of hyperammonemia can be underlying sepsis - Na 142- monitor Na levels; nephrology on board and recommended to DC D5 -C. 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 Takes oxycodone 15 mg 6 times a day at home.We minimize fentanyl and Versed and manage sedation with Precedex and propofol while supine - Hypothyroidism - continue levothyroxine 25 mcg, TSH 0.18 -Neurology follow-up #Acute hypoxic respiratory failure in patient with COVID-19/MRSA nares positive/possible aspiration #Significant centrilobular emphysema as evidenced on CT chest #Chronic Diastolic heart failure - -She completed remdesivir 5 days; currently on dexamethasone 6 mg daily -On vancomycin and Zosyn- Procalcitonin elevated trending down in the absence of renal failure-;urine Legionella, bacterial antigen negative; sputum culture negative; blood cultures pending -Most recent ABG 7.5 3/66/25/95% on on CMV 350/5/70 % after the third proning session; plan for fourth proning session -We will go 1 dose of albumin and Lasix 40 mg -DuoNebs every 6 hour, budesonide twice daily -Echo 12/02/2021:?Grossly LV systolic function is normal.? Diastolic function is ?indeterminate because of tachycardia. -Off Levophed-discontinued amnio drip-started back on her home dose metoprolol # ALEKSANDRA: Resolved; Likely secondary to COVID-19 pneumonia, dehydration # Rhabdomyolysis -resolved #Hypokalemia-resolved - Avoid nephrotoxic agents.? Urine output 3200 but still +120 cc overall +8 L -We will give 1 dose of albumin and Lasix 40 mg - CK 928 >>> 96 # low grade fevers - so far cultures negative; currently patient is on Zosyn and vancomycin -Recent sputum cultures due to increasing FiO2 requirements We will taper off sedation and slowly plan for awakening trial and breathing trial Recommendations conveyed to hospitalist, RN, RT taking care of the patient Attestations Medical Necessity Statement*: Requires further hospitalization for management of respiratory failure secondary COVID-19 pneumonia, intubated, proned, metabolic encephalopathy secondary to hyperammonemia, hypernatremia Critical Care Time: The high probability of a clinically significant, sudden or life threatening deterioration of the patient's respiratory, renal, neurological,] system(s) required my full and direct attention, intervention and personal management. The critical care time is as shown. This time is in addition to time spent performing any reported procedures but includes the following: [x] Data and vital sign review and interpretation [x] Patient assessment, examination and intervention [x] Documentation [x] Medication orders and management Critical Care Time (min): 45 Coding Level of Care Code Established Pt Acute Office Workforce Planner for g Fwd Patient Type Established History Comprehensive Exam Comprehensive Medical Decision Making High Complexity Diagnoses Respiratory failure with hypoxia J96.91 COVID-19 U07.1 Hepatic encephalopathy K72.90 Opiate withdrawal F11.23 Chronic prescription opiate use Z79.891 Hypernatremia E87.0 Acute encephalopathy G93.40 Chronic diastolic heart failure I50.32 GERD (gastroesophageal reflux disease) K21.9 Esophagitis presence: esophagitis presence not specified COPD (chronic obstructive pulmonary disease) J43.1 COPD type: emphysema Emphysema type: panlobular Rhabdomyolysis M62.82 ALEKSANDRA (acute kidney injury) N17.9 Time Spent (min) 45
[2021-12-10 19:41] LABS: Glucose Point of Care 131 mg/dL (70-110)
[2021-12-10] MEDS: enoxaparin 40 mg/0.4 mL Syringe SUBCUT (19:45)
[2021-12-10] MEDS: cisatracurium 100 MG in sodium chloride 0.9% 50 ML IV (20:16)
--- NOTE | 2021-12-10 20:36 | PC.NURSE ---
Baseline TOF 02/02
--- NOTE | 2021-12-10 20:43 | PC.NURSE ---
Tube feedings stopped in anticipation of proning.
--- NOTE | 2021-12-10 21:12 | PC.NURSE ---
Rae solis requested from pharmacy at 2039.
--- NOTE | 2021-12-10 21:54 | PC.NURSE ---
Unable to titrate Nimbex due to inadequate sedation. Awaiting Ativan drip from pharmacy. TOF remains 4/4.
--- NOTE | 2021-12-10 22:56 | PC.NURSE ---
TOF 02/02
[2021-12-10] MEDS: dextrose 5% 1,000 ML 75 ML IV (23:18)
--- NOTE | 2021-12-10 23:29 | PC.NURSE ---
TOF 02/02
[2021-12-10 23:30] LABS: Glucose Point of Care 104 mg/dL (70-110)
--- NOTE | 2021-12-10 23:39 | PC.NURSE ---
TOF 02/02
--- NOTE | 2021-12-10 23:40 | PC.NURSE ---
Dressings used for padding casandra prominences prior to proning.
--- NOTE | 2021-12-10 23:53 | PC.NURSE ---
TOF 02/02
[2021-12-11] VITALS (73 sets, daily range): BP systolic 66–146; BP diastolic 46–83; PULSE 52–120; RESP 14–34; TEMP 33.6–37.4; O2SAT 86–97
--- NOTE | 2021-12-11 00:33 | PC.NURSE ---
TOF 02/02.
--- NOTE | 2021-12-11 01:05 | PC.NURSE ---
Pt breating 23 times per minute. TOF 02/02.
[2021-12-11] MEDS: dexmedeTOMIDine 0.9 % NaCL 400 MCG/100 ML PREMIX 16.33 MCG IV ×2 (01:09→07:12)
--- NOTE | 2021-12-11 01:26 | PC.NURSE ---
TOF 4/4, Respirations 22 per minute.
--- NOTE | 2021-12-11 01:45 | PC.NURSE ---
TOF 4/4, Respirations 16 per minute.
[2021-12-11] MEDS: ipratropium-albuterol 3 mL Neb INHALATION ×4 (02:33→20:40)
--- NOTE | 2021-12-11 02:36 | PC.NURSE ---
TOF 0/4, paralytic decreased.
[2021-12-11] MEDS: propofol 1,000 MG/100 ML INJ 15.74 MG IV (02:43)
--- NOTE | 2021-12-11 02:57 | PC.NURSE ---
RT notified that pt is paralyzed and adequately sedated at 0230 this morning.
[2021-12-11 03:31] LABS: Glucose Point of Care 127 mg/dL (70-110)
--- NOTE | 2021-12-11 03:39 | PC.NURSE ---
Pt proned and placed in swimmer's position with assistance of 5 people. TOF 0/4 following proning.
[2021-12-11 04:19] LABS: Basophils % 0.2 %; Eosinophils # 0.2 10^3/uL (0.0-0.8); Eosinophils % 1.5 %; Hematocrit 30.3 % (37.0-47.0); Hemoglobin 9.9 g/dL (11.5-15.3); Lymphocytes # 2.5 10^3/uL (0.8-4.8); Lymphocytes % 16.2 %; Mean Corpuscular HGB Conc 32.7 g/dL (30.0-36.0); Mean Corpuscular Hemoglobin 28.5 pg (28.0-34.0); Mean Corpuscular Volume 87.3 fl (81-99); Mean Platelet Volume 12.1 fL (7.4-10.4); Monocytes # 0.7 10^3/uL (0.2-0.9); Monocytes % 4.4 %; Nucleated Red Blood Cells % 0.2 %; Platelet Count 186 10^3/cmm (130-400); Red Blood Count 3.47 10^6/uL (4.1-5.3); Red Cell Distribution Width 14.5 % (12.1-15.1); White Blood Count 15.6 10^3/uL (4.0-10.0)
[2021-12-11 04:39] LABS: ABG PH Result 7.25 (7.35-7.45); Arterial Blood Gas Hematocrit 30.7 % (37-47); Base Excess ABG 1.1 mmol/L (-2.0-2.0); Blood Gas Allen Test Pos; Blood Gas Sample Site Radial, right; Blood Gas Sample Type Arterial; HCO3 ABG 29.5 mmol/L (22-26); HGB O2 Sat 88.7 % (95-100); Ionized Calcium Level - ABG 1.1 mmol/L (1.1-1.4); Methemoglobin 0.8 % (0.4-1.5); Oxygen Saturation ABG 90.3; PO2 ABG 68.7 mmHg (80.0-100.0); Potassium Level - ABG 2.8 mmol/L (3.5-5.0)
[2021-12-11 04:41] LABS: Alveolar-Arterial Oxygen Gradi 36.3 mmHg (5-10); Blood Gas Tidal Volume 0.35; Oxygen Device VENT
[2021-12-11 04:42] LABS: ABG PCO2 67.6 mmHg (35-45)
--- NOTE | 2021-12-11 04:47 | PC.NURSE ---
TOF 2/4
[2021-12-11] MEDS: norepinephrine 8 MG in dextrose 5 % 500 ML 7.62 MG IV (05:10)
[2021-12-11 05:21] LABS: Alanine Aminotransferase 12 U/L (0-33); Albumin Level 2.7 g/dL (3.5-5.2); Alkaline Phosphatase 106 IU/L (35-105); Anion Gap 16.2 (5-19); Aspartate Amino Transferase 27 U/L (0-32); Blood Urea Nitrogen 12 mg/dL (6-20); Calcium 7.6 mg/dL (8.5-10.5); Carbon Dioxide 24 mmol/L (22-29); Chloride 101 mmol/L (98-107); Globulin 2.7 g/dL (1.3-4.6); Glomerular Filtration Rate 102.3 mL/min (90-130); Glucose 118 mg/dL (65-115); Osmolality Calculated 287 mOsm/kg (285-295); Potassium 3.2 mmol/L (3.5-5.1); Sodium 138 mmol/L (136-145); Total Bilirubin 0.9 mg/dL (0.15-1.2); Total Protein 5.4 g/dL (6.6-8.7)
[2021-12-11] MEDS: HYDROcodone-acetaminophen 7.5-325 mg Tablet 1 TAB PO ×2 (05:32→22:34)
[2021-12-11] MEDS: propofol 1,000 MG/100 ML INJ 11.02 MG IV ×2 (05:32→13:48)
[2021-12-11] MEDS: levothyroxine 25 mcg Tablet PO (05:32)
--- NOTE | 2021-12-11 06:30 | PC.NURSE ---
TOF 11/04
[2021-12-11 07:18] LABS: Glucose Point of Care 163 mg/dL (70-110)
[2021-12-11] MEDS: insulin lispro 100 unit/1 mL SUBCUT ×2 (07:47→11:48)
[2021-12-11] MEDS: vancomycin 750 MG in sodium chloride 0.9% 250 ML 200 MG IV (07:48)
[2021-12-11] MEDS: potassium chloride oral liq 20 mEq/15 mL UDC 40 MEQ PO (07:57)
[2021-12-11] MEDS: pantoprazole 40 mg SDV IVP ×2 (07:58→22:34)
[2021-12-11] MEDS: rifAMPin 300 mg Capsule PO ×2 (07:58→17:04)
[2021-12-11] MEDS: aspirin 81 mg EC Tablet PO (07:58)
[2021-12-11] MEDS: ferrous gluconate 324 mg Tablet PO ×2 (07:58→17:04)
[2021-12-11] MEDS: budesonide 0.5 mg/2 mL Neb INHALATION ×2 (08:10→20:40)
[2021-12-11] MEDS: cisatracurium 100 MG in sodium chloride 0.9% 50 ML 8.47 MG IV ×2 (09:14→19:57)
[2021-12-11 11:37] LABS: Glucose Point of Care 179 mg/dL (70-110)
[2021-12-11] MEDS: pregabalin 100 mg Capsule PO ×2 (11:48→17:04)
[2021-12-11] MEDS: dexamethasone 10 mg/mL INJ 3 MG IVP (12:38)
[2021-12-11] MEDS: dextrose 5% 1,000 ML 50 ML IV (12:49)
[2021-12-11 13:11] LABS: Lyme Disease AB (IGG),IBL NO BANDS DETECTED; Lyme Disease AB (IGM), IBL NO BANDS DETECTED
[2021-12-11] MEDS: dexmedeTOMIDine 0.9 % NaCL 400 MCG/100 ML PREMIX 13.61 MCG IV ×2 (13:48→21:28)
--- NOTE | 2021-12-11 13:54 | PC.NUTR ---
Current TF is Jevity 1.2 @ 10 mls/hr. When medically appropriate, recommend advancing 10 mls/hr Q8H as tolerated until goal rate of 30 mls/hr is reached, with water flushes 100 mls Q4H - current water flushes are 400 ml Q4H which seem high for pt's needs. Details in RD assessment.
[2021-12-11 15:29] LABS: Glucose Point of Care 131 mg/dL (70-110)
--- NOTE | 2021-12-11 17:54 | PM.PN ---
Subjective Subjective: Overnight patient was proned. Still requiring fentanyl of 125, propofol of 30, Nimbex. Patient's heart rate is well controlled has remained hemodynamically stable. Had an episode of hypothermia for which she required Quinn hugger. Has remained on FiO2 of 45%. Current ventilator settings tidal volume 350, PEEP of 5, FiO2 45%. Plan to keep prone till late in the evening. Urine output has remained appropriate. Bowel movements appropriate. Medications: Reviewed: Yes Vitals/I&O/Wt Last Vital Signs Temp 94.6 F L 12/11/21 16:00 Pulse 80 12/11/21 16:30 Resp 18 12/11/21 14:07 BP 116/72 12/11/21 16:30 Pulse Ox 92 12/11/21 16:30 12/11/21 12/11/21 12/11/21 06:59 14:59 22:59 Intake Total 722.666 / 3420.330 1787.282 / 1787.282 60 / 1847.282 Output Total 850 / 5575 1525 / 1525 Balance -127.334 / -2154.670 1787.282 / 1787.282 -1465 / 322.282 Weight last 48 hrs Weight 58.967 kg Weight 56.472 kg Physical Exam Narrative: General: Intubated, sedated, Ro in place, rectal tube in place During sedation vacation patient is jittery, hyperventilating, tachycardic, not following commands, opening eyes in between Chest: Bilateral coarse crackles present all over the lung brock more on the left than the right , equal good air entry bilaterally CVS: S1-S2 regular, no murmurs, no tachycardia, no gallops, no rubs Abdomen: Bowel sounds hyperactive, guarding present Neuro: Intubated, sedated Urinary Catheter Management: Ro: Cath Placed During This Visit: no Reason for Continuing Indwelling Catheter: Accurate Measurement of Urinary Output in Critically Ill Patients Data : 12/11/21 03:34 12/11/21 03:34 A&P Assessment and plan (1) Respiratory failure with hypoxia: Status: Acute (2) Acute encephalopathy: Status: Acute (3) COVID-19: Status: Acute (4) Encephalopathy due to COVID-19 virus: Status: Acute (5) Hyperammonemia: Status: Acute (6) Hepatic encephalopathy: Status: Acute (7) Hypernatremia: Status: Acute (8) Diarrhea: Status: Acute (9) Dehydration: Status: Acute (10) Rhabdomyolysis: Status: Acute (11) Benign essential hypertension with target blood pressure below 140/90: Status: Acute (12) Carotid artery stenosis without cerebral infarction: Status: Acute Qualifiers: Laterality: left Qualified Code(s): I65.22 - Occlusion and stenosis of left carotid artery (13) Chronic prescription opiate use: Status: Acute (14) Anxiety and depression: Status: Chronic (15) Hypokalemia: Status: Acute (16) Opiate withdrawal: Status: Acute (17) Goals of care, counseling/discussion: Status: Acute Plan Acute hypoxic respiratory failure secondary to COVID-19 pneumonia, possible aspiration: Severe disease Oxygen supplementation keeping saturation over 88%. Currently intubated. Continue with propofol, fentanyl, Precedex. Plan for sedation vacation again tomorrow. Increase Costilla to every 8 hours. Dexamethasone 3 mg daily for 5 days. Has finished remdesivir course of 5 days Vitamin C, zinc. DuoNebs every 6 hour, budesonide twice daily We will monitor inflammatory markers including D-dimer, CRP every 48 hours D-dimer elevated. CTA negative for pulmonary embolism. Continue to monitor D-dimer. Continue with anticoagulation at prophylactic dose. Will monitor for anemia or blood loss. Procalcitonin elevated but trending down. urine Legionella, bacterial antigen negative. Sputum culture shows no growth. CSF culture negative. MRSA positive. Has finished a course of antibiotics with Zosyn on 12/10. Last oral vancomycin on 12/11. Has finished a course of antibiotics for overall 10 days. C. difficile negative. Acute metabolic encephalopathy: Most likely combination of COVID-19 encephalopathy along with hyperammonemia, hypernatremia and possible drug withdrawal. For hypernatremia: Back to normal today. Continue D5W at 50 cc/h. Change free water flushes to 100 cc every 6 hours. Check BMP daily. Nephrology consult appreciated. For possible drug withdrawal continue with Costilla 7.5 every 8 hourly. Restart Lyrica at 100 mg twice daily. ALEKSANDRA: Resolved. Likely secondary to COVID-19 pneumonia, dehydration Avoid nephrotoxic agents. Urine output minimal. Hyperammonemia: Having good bowel movements. Change lactulose to as needed for now. Monitor bowel movements. Rectal tube in place. Restart rifampin. Continue with albumin every 8 hourly for 1 more day. Hypothyroidism: continue levothyroxine 25 mcg, TSH 0.18 Rhabdomyolysis: Secondary dehydration, agitation Full code. NPO. Protonix for PUD prophylaxis. Lovenox for DVT prophylaxis. Plan for the day: Plan to supine in the evening. Monitor renal functions daily. Add Lyrica 1 mg twice daily. Continue Costilla every 8 hourly. Last dose of vancomycin today. Monitor input output. Goals of care discussion: Discussed in detail with patient's Mr. Lopez and daughter Ms. Escoto over the phone. We discussed unfortunately patients mentation continues to remain poor. Discussed that patient has failed multiple sedation medication. Whenever we are trying to come down on sedation she becomes restless, tachycardic and tachypneic which is making it difficult to get her off ventilator. Discussed her mentation is poor most likely secondary to COVID-19 encephalopathy because of all her parameters have improved. Discussed that her ammonia levels and hypernatremia seems to have resolved. Lumbar puncture was negative for any bacterial infection. Discussed going forward to options would be either to have tracheostomy and PEG for prolonged ventilator and nutrition while we wait for her mentation to improve versus possible comfort measures. Both Mr. Lopez and Ms. Escoto on separate occasions stated patient would not have wanted to live on life support and would go ahead with comfort measures. They would both speak with each other and let the caregiver know regarding further goals of care with the next 24 hours. Attestations Medical Necessity Statement*: Requires further hospitalization for management of acute hypoxic respiratory failure, COVID-19, metabolic encephalopathy, ventilator dependent Critical Care Time: The high probability of a clinically significant, sudden or life threatening deterioration of the patient's [pulmonary, cardiac, renal, neurological, goals of care system(s) required my full and direct attention, intervention and personal management. The critical care time is as shown. This time is in addition to time spent performing any reported procedures but includes the following: [x] Data and vital sign review and interpretation [x] Patient assessment, examination and intervention [x] Documentation [x] Medication orders and management Critical Care Time (min): 90 Coding Level of Care Code Acute [employer] for [facility] Diagnoses Respiratory failure with hypoxia J96.91 Acute encephalopathy G93.40 COVID-19 U07.1 Encephalopathy due to COVID-19 virus U07.1; G93.49 Hyperammonemia E72.20 Hepatic encephalopathy K72.90 Hypernatremia E87.0 Diarrhea R19.7 Dehydration E86.0 Rhabdomyolysis M62.82 Benign essential hypertension with target blood pressure below 140/90 I10 Carotid artery stenosis without cerebral infarction I65.22 Laterality: left Chronic prescription opiate use Z79.891 Anxiety and depression F41.9; F32.9 Hypokalemia E87.6 Opiate withdrawal F11.23 Goals of care, counseling/discussion Z71.89
--- NOTE | 2021-12-11 18:11 | PC.NURSE ---
Shift Note Frequent safety and comfort rounds continue. Orders and/or nursing care completed as indicated. Patient monitored for response to intervention and treatment(s). Education provided includes treatment plan, medications, proning. Family verbalizes understanding. VSS. Remains proned. TOF checked per protocol, 2/4 last check. Vent compliance maintained. BIS WNL. Temp up to 97.5 at this time, bob hugger remains in place. Pt to be supined around 1930 this evening. Pt on 45% fio2. No other issues noted. Will monitor.
[2021-12-11 19:06] LABS: Glucose Point of Care 114 mg/dL (70-110)
[2021-12-11] MEDS: enoxaparin 40 mg/0.4 mL Syringe SUBCUT (19:58)
--- NOTE | 2021-12-11 20:07 | PC.NURSE ---
Propofol increased to 35 mcg/kg/min due to BIS of 59.
--- NOTE | 2021-12-11 20:41 | PC.NURSE ---
TOF 2/4
--- NOTE | 2021-12-11 22:15 | PM.PN ---
Subjective Subjective: -Patient seen at bedside in prone position -On fentanyl of 125, propofol of 30, Nimbex and currently requiring FiO2 45% - Patient's heart rate is well controlled has remained hemodynamically stable. -Had an episode of hypothermia for which she required Quinn hugger. -Other labs and imaging reviewed Medications: Reviewed: Yes Vitals/I&O/Wt Last Vital Signs Temp 99.3 F 12/11/21 20:00 Pulse 105 H 12/11/21 20:37 Resp 30 H 12/11/21 21:55 BP 116/72 12/11/21 16:30 Pulse Ox 86 L 12/11/21 21:55 12/11/21 12/11/21 12/11/21 06:59 14:59 22:59 Intake Total 722.666 / 3420.330 1787.282 / 1787.282 459.755 / 2247.037 Output Total 850 / 5575 1525 / 1525 Balance -127.334 / -2154.670 1787.282 / 1787.282 -1065.245 / 722.037 Weight last 48 hrs Weight 130 lb Weight 124 lb 8 oz Physical Exam Narrative: PHYSICAL EXAM: General: lying in bed, sedated and intubated. HEENT:NCAT, PERRLA, EOMI Neck: Supple Lungs: Bilateral mild diffuse crepitations Heart: s1/s2, RRR Abd: soft, NT, ND, BS + Normoactive Extremities: No edema LIGHT CLEANER: sedated and limited LIGHT CLEANER exam possible. SKIN: no rash Urinary Catheter Management: Ro: Cath Placed During This Visit: no Reason for Continuing Indwelling Catheter: Accurate Measurement of Urinary Output in Critically Ill Patients Data : 12/11/21 03:34 12/11/21 03:34 Other Labs: Radiology Impressions Head CT 11/28/21 15:00 IMPRESSION: 1. No acute intracranial hemorrhage or edema. 2. Mild atrophy and mild chronic microvascular ischemic type changes. Liver Ultrasound 12/02/21 13:17 IMPRESSION: Technically difficult examination due to bowel gas and patient motion due to pain. 1. Diffuse fatty infiltration of the liver. 2. Normal gallbladder. 3. Normal common bile duct measuring 5.9 mm. 4. No hydronephrosis in right kidney. 5. No ascites. Abdomen/Pelvis CT 12/04/21 12:53 IMPRESSION: 1. Very limited examination due to patient respiratory motion. 2. Basilar atelectasis and question of new basilar pulmonary infiltrates. 3. Findings of new Or catheter, rectal tube and nasogastric tube. 4. Fluid in the colon which could represent enteritis. KUB X-Ray 12/06/21 11:49 IMPRESSION: 1. Nasogastric tube has its proximal port at GE junction, recommend advancement by 7-10 cm. 2. Stable bilateral pleuroparenchymal disease. 3. There is gaseous distention of the stomach noted. 4. Bowel gas pattern is mildly distended but nonobstructive. Chest/Abdomen/Pelvis CT 12/07/21 11:28 IMPRESSION: 1. Scattered perihilar and bibasal infiltrates.Imaging features can be seen with COVID-19 pneumonia, though are nonspecific and can occur with a variety IMPRESSION: There are air-fluid levels in the distal colon suggesting mild nonspecific colitis versus other diarrheal illness. A rectal tube is in place. Head/Neck CTA 12/07/21 11:28 IMPRESSION: No large vessel stenosis or occlusion. IMPRESSION: No stenosis or occlusion. REFERENCES: NASCET CRITERIA. The degree of internal carotid artery stenosis is based on NASCET criteria. Normal is no stenosis. Mild is less than 50% stenosis. Moderate is 50-69% stenosis. Severe is 70% to 99% stenosis. Total occlusion is no detectable patent lumen. Chest X-Ray 12/10/21 03:50 IMPRESSION: 1. No substantial interval change. Similar patchy bibasilar opacities, which may reflect pneumonia. 2. Endotracheal tube terminates approximately 4 cm above the ramirez. Laboratory Results WBC 15.6 10^3/uL (4.0-10.0) H 12/11/21 03:34 RBC 3.47 10^6/uL (4.1-5.3) L 12/11/21 03:34 Hgb 9.9 g/dL (11.5-15.3) L 12/11/21 03:34 Hct 30.3 % (37.0-47.0) L 12/11/21 03:34 MCV 87.3 fl (81-99) 12/11/21 03:34 MCH 28.5 pg (28.0-34.0) 12/11/21 03:34 MCHC 32.7 g/dL (30.0-36.0) 12/11/21 03:34 RDW 14.5 % (12.1-15.1) 12/11/21 03:34 Plt Count 186 10^3/cmm (130-400) 12/11/21 03:34 MPV 12.1 fL (7.4-10.4) H 12/11/21 03:34 Neut % (Auto) 73.0 % 12/11/21 03:34 Lymph % (Auto) 16.2 % 12/11/21 03:34 [place] % (Auto) 4.4 % 12/11/21 03:34 Eos % (Auto) 1.5 % 12/11/21 03:34 Baso % (Auto) 0.2 % 12/11/21 03:34 Neut # (Auto) 11.40 10^3/uL (1.8-7.7) H 12/11/21 03:34 Lymph # (Auto) 2.5 10^3/uL (0.8-4.8) 12/11/21 03:34 [place] # (Auto) 0.7 10^3/uL (0.2-0.9) 12/11/21 03:34 Eos # (Auto) 0.2 10^3/uL (0.0-0.8) 12/11/21 03:34 Baso # (Auto) 0.0 10^3/uL (0.0-0.1) 12/11/21 03:34 Nucleated RBC % (auto) 0.2 % 12/11/21 03:34 Nucleated RBCs # 0.0 /100WBC 12/11/21 03:34 ESR 17 mm/hr (0-15) H 12/02/21 15:45 PT 16.30 SECONDS (12.1-14.9) H 12/07/21 03:15 INR 1.28 (0.8-1.2) H 12/07/21 03:15 D-Dimer 1.25 ug/mIFEU (0-0.59) H 12/10/21 03:34 Specimen Type Arterial 12/11/21 04:35 Sample Site Radial, right 12/11/21 04:35 ABG pH 7.25 (7.35-7.45) L 12/11/21 04:35 ABG pCO2 67.6 mmHg (35-45) H* 12/11/21 04:35 ABG pO2 68.7 mmHg (80.0-100.0) L 12/11/21 04:35 ABG HCO3 29.5 mmol/L (22-26) H 12/11/21 04:35 ABG O2 Saturation 90.3 12/11/21 04:35 ABG Base Excess 1.1 mmol/L (-2.0-2.0) 12/11/21 04:35 Juaquin Test Pos 12/11/21 04:35 A-a O2 Gradient 36.3 mmHg (5-10) H 12/11/21 04:35 Hematocrit 30.7 % (37-47) L 12/11/21 04:35 Hgb O2 Saturation 88.7 % (95-100) L 12/11/21 04:35 Carboxyhemoglobin 1.0 %THgb (0.4-20.1) 12/11/21 04:35 Methemoglobin 0.8 % (0.4-1.5) 12/11/21 04:35 Total Hemoglobin 10.0 g/dL (12-16) L 12/11/21 04:35 Sodium 138.0 mmol/L (131-143) 12/11/21 04:35 Potassium 2.8 mmol/L (3.5-5.0) L 12/11/21 04:35 Glucose 136.0 mg/dL (70-115) H 12/11/21 04:35 Ionized Calcium 1.1 mmol/L (1.1-1.4) 12/11/21 04:35 O2 Delivery Device Vent 12/11/21 04:35 O2 Liters/Min 14.0 % 12/04/21 05:10 FiO2 60.0 % 12/11/21 04:35 Tidal Volume 0.35 12/11/21 04:35 PEEP 5.0 cmH20 12/11/21 04:35 Veterinary Technician Assistant ID Hinja 12/11/21 04:35 Sodium 138 mmol/L (136-145) 12/11/21 03:34 Potassium 3.2 mmol/L (3.5-5.1) L 12/11/21 03:34 Chloride 101 mmol/L (98-107) 12/11/21 03:34 Carbon Dioxide 24 mmol/L (22-29) 12/11/21 03:34 Anion Gap 16.2 (5-19) 12/11/21 03:34 BUN 12 mg/dL (6-20) 12/11/21 03:34 Creatinine 0.6 mg/dL (0.5-0.9) 12/11/21 03:34 GFR Calculation 102.3 mL/min (90-130) 12/11/21 03:34 Glucose 118 mg/dL (65-115) H 12/11/21 03:34 POC Glucose 114 mg/dL (70-110) H 12/11/21 18:56 Estimat Average Glucose 120 11/29/21 02:45 Hemoglobin A1c 5.8 % (4.0-6.0) 11/29/21 02:45 Calculated Osmolality 287 mOsm/kg (285-295) 12/11/21 03:34 Lactic Acid 2.1 mmol/L (0.5-2.2) 11/28/21 16:04 Lactic Acid (Sepsis) 1.2 mmol/L (0.5-2.2) 11/28/21 19:02 Lactate 1.4 mmol/L (0.5-2.2) 12/07/21 03:15 Calcium 7.6 mg/dL (8.5-10.5) L 12/11/21 03:34 Phosphorus 2.0 mg/dL (2.5-4.5) L 12/08/21 05:11 Magnesium 1.8 mg/dL (1.7-2.3) 12/08/21 05:11 Iron 37 ug/dL (37-145) 11/28/21 14:20 TIBC 287 mcg/dl 11/28/21 14:20 % Saturation 12.8 % (20-50) L 11/28/21 14:20 Unsat Iron Binding 250 ug/dL (112-347) 11/28/21 14:20 Total Bilirubin 0.9 mg/dL (0.15-1.2) 12/11/21 03:34 GGT 27 U/L (5-36) 12/02/21 15:45 GGT Cancelled 12/02/21 15:45 AST 27 U/L (0-32) 12/11/21 03:34 ALT 12 U/L (0-33) 12/11/21 03:34 Alkaline Phosphatase 106 IU/L (35-105) H 12/11/21 03:34 Ammonia 73 umol/L (11-51) H 12/08/21 05:11 Lactate Dehydrogenase 510 U/L (135-214) H 11/29/21 18:00 Creatine Kinase 96 U/L (26-192) 12/07/21 03:15 CK-MB (CK-2) 13.4 ng/mL (0-5.34) H 11/28/21 14:20 CK-MB (CK-2) Rel Index 2.6 % (0.0-10.4) 11/28/21 14:20 Troponin T Baseline 12 ng/L (0-10) H 12/02/21 15:45 Troponin T 120 Minute 11.25 ng/L (0-10) H 12/02/21 17:45 Delta Troponin T -0.75 ABS# (0-10) L 12/02/21 17:45 Troponin T Hi Sens 6Hr 12.87 ng/L (0-10) H 12/02/21 21:40 Troponin T Hi Sens 6Hr Delta 0.87 ng/L (0-12) 12/02/21 21:40 C-Reactive Protein 117.0 mg/L (0.0-4.9) H 12/10/21 03:34 NT-Pro-B Natriuret Pep 364 pg/mL (0-125) H 12/07/21 03:15 Total Protein 5.4 g/dL (6.6-8.7) L D 12/11/21 03:34 Albumin 2.7 g/dL (3.5-5.2) L 12/11/21 03:34 Globulin 2.7 g/dL (1.3-4.6) 12/11/21 03:34 Triglycerides 156 mg/dL (0-150) H 11/29/21 02:45 Cholesterol 137 mg/dL (0-200) 11/29/21 02:45 LDL Cholesterol, Calc 77 mg/dL (50-129) 11/29/21 02:45 Total VLDL Cholesterol 31 mg/dL (0-30) H 11/29/21 02:45 HDL Cholesterol 29 mg/dL (60-100) L 11/29/21 02:45 Cholesterol/HDL Ratio 4.72 mg/dL (0.0-4.40) H 11/29/21 02:45 Amylase 65 U/L (28-100) 12/02/21 15:45 Amylase Cancelled 12/02/21 15:45 Lipase 19 U/L (13-60) 12/02/21 15:45 Vitamin B12 Cancelled 11/28/21 19:02 Folate 8.2 ng/mL (4.8-37.3) 11/28/21 19:02 Procalcitonin 1.03 ng/mL (0-0.5) H 12/09/21 09:30 TSH Cancelled 11/28/21 19:02 Free T4 1.29 ng/dL (0.82-1.77) 11/30/21 10:00 Free T3 1.7 PG/ML (2.0-4.4) L 11/30/21 10:00 Urine Color Ciara (Yellow) 11/28/21 18:10 Urine Appearance Hazy (CLEAR) A 11/28/21 18:10 Urine pH 7 (5-7) 11/28/21 18:10 Ur Specific [place] 1.010 (1.005-1.030) 11/28/21 18:10 Urine Protein 2+ (Negative) H 11/28/21 18:10 Urine Glucose (UA) Norm (Normal) 11/28/21 18:10 Urine Ketones 2+ (Negative) H 11/28/21 18:10 Urine Blood 2+ (Negative) H 11/28/21 18:10 Urine Nitrate Negative (Negative) 11/28/21 18:10 Urine Bilirubin 1+ (Negative) H 11/28/21 18:10 Urine Urobilinogen 1 mg/dL (Negative) H 11/28/21 18:10 Ur Leukocyte Esterase Negative (Negative) 11/28/21 18:10 Urine RBC 0-4 /hpf (0-2) H 11/28/21 18:10 Urine WBC None /hpf (0-5) 11/28/21 18:10 Ur Squamous Epith Cells 0-4 /hpf (0-5) H 11/28/21 18:10 Amorphous Sediment Not Reportable 11/28/21 18:10 Urine Bacteria None /hpf (NONE) 11/28/21 18:10 Urine Mucus 2+ /hpf 11/28/21 18:10 Ur Random Sodium 40 mmol/L 11/28/21 18:10 Ur Random Potassium 67 mmol/L 11/28/21 18:10 Ur Random Chloride 47 mmol/L 11/28/21 18:10 CSF Appearance Clear (CLEAR) 12/03/21 17:01 CSF Color Colorless (COLORLESS) 12/03/21 17:01 CSF Specific [place] 1.020 12/03/21 17:01 CSF WBC 2 /uL (0-5) 12/03/21 17:01 CSF RBC 0 10^3/uL (0-0) 12/03/21 17:01 CSF Mononuclear # Auto 0.001 10^3/uL (50-90) L 12/03/21 17:01 CSF Mononuclear WBCs % 50 % (50-90) 12/03/21 17:01 CSF Polynuclear WBCs # 0.001 10^3/uL (0-10) 12/03/21 17:01 CSF Polynuclear WBCs % 50 % (0-10) H 12/03/21 17:01 CSF Glucose 75 mg/dL (40-70) H 12/03/21 17:01 CSF LDH 28 U/L 12/03/21 17:01 CSF Total Protein 24 mg/dL (15-45) 12/03/21 17:01 CSF Albumin 0.2 mg/dL (20.0-40.0) L 12/03/21 17:01 CSF/Ser Oligoclon Bands Cancelled 12/02/21 15:45 CSF VDRL Non-reactive 12/03/21 17:01 CSF Lyme IgG (Immblot) No bands detected 12/03/21 17:01 CSF Lyme IgM (Immblot) No bands detected 12/03/21 17:01 CSF Paty Enceph IgG <1:1 12/03/21 17:01 [facility] I[facility] <1:1 12/03/21 17:01 CSF [facility] Enceph Intrp See note 12/03/21 17:01 Vancomycin Trough 21.3 ug/mL (10-15) H 12/07/21 19:54 Salicylates < 0.3 mg/dL (3-10) L 11/28/21 14:20 Urine Opiates Screen Negative ng/mL (Negative) 11/28/21 18:10 Acetaminophen < 5.0 ug/mL (10-30) L 11/28/21 14:20 Ur Barbiturates Screen Negative ng/mL (Negative) 11/28/21 18:10 Ur Phencyclidine Scrn Negative ng/mL (Negative) 11/28/21 18:10 Ur Amphetamines Screen Negative ng/mL (Negative) 11/28/21 18:10 U Benzodiazepines Scrn Negative ng/mL (Negative) 11/28/21 18:10 Urine Cocaine Screen Negative ng/mL (Negative) 11/28/21 18:10 U Marijuana (THC) Screen Negative ng/mL (Negative) 11/28/21 18:10 Ethyl Alcohol < 10 mg/dL (0-10) 11/28/21 14:20 Lyme IgG Bands Present Not Reportable 12/03/21 17:01 Lyme IgM Bands Present Not Reportable 12/03/21 17:01 Coronavirus 229E (PCR) Not detected (NOT DETECT) 11/28/21 18:41 CMV Culture Source Cerebrospinal fluid 12/03/21 17:01 CMV IgG Ab 2.30 U/mL H 12/02/21 15:45 CMV IgM Ab <30.00 AU/mL 12/02/21 15:45 CMV DNA Quant PCR Not detected IU/mL 12/03/21 17:01 CMV Qnt PCR Interp Not detected Log IU/mL 12/03/21 17:01 West Nile Virus IgG Ab <1.30 index 12/03/21 17:01 West Nile Virus IgM Ab <0.90 index 12/03/21 17:01 Hepatitis A IgM Ab Non-reactive (Nonreactive) 12/01/21 20:54 Hep Bs Antigen Non-reactive (Nonreactive) 12/01/21 20:54 Hep Bs Antibody 7.8 (11.5-1000) L 12/01/21 20:54 Hep B Core Total Ab Non-reactive (Nonreactive) 12/01/21 20:54 Hepatitis C Antibody Non-reactive (Nonreactive) 12/01/21 20:54 Herpes Simplex Source Cerebrospinal fluid 12/03/21 17:01 HIV 1&2 Ab & HIV 1 Ag Non-reactive (Non-Reactiv) 12/01/21 20:54 HIV 1&2 Antibody Non-reactive (Non-Reactiv) 12/01/21 20:54 Influenza Type A Ag Negative (Negative) 11/29/21 15:02 Influenza Type B Ag Negative (Negative) 11/29/21 15:02 SARS-CoV-2 (PCR) Detected (NOT DETECT) A 11/28/21 18:41 HSV 1 DNA Not detected 12/03/21 17:01 HSV 2 DNA Not detected 12/03/21 17:01 A&P Assessment and plan (1) Respiratory failure with hypoxia: Status: Acute (2) COVID-19: Status: Acute (3) Hepatic encephalopathy: Status: Acute (4) Opiate withdrawal: Status: Acute (5) Chronic prescription opiate use: Status: Acute (6) Hypernatremia: Status: Acute (7) Acute encephalopathy: Status: Acute (8) Chronic diastolic heart failure: Status: Acute (9) GERD (gastroesophageal reflux disease): Status: Chronic Qualifiers: Esophagitis presence: esophagitis presence not specified Qualified Code(s): K21.9 - Gastro-esophageal reflux disease without esophagitis (10) COPD (chronic obstructive pulmonary disease): Status: Chronic Qualifiers: COPD type: emphysema Emphysema type: panlobular Qualified Code(s): J43.1 - Panlobular emphysema (11) Rhabdomyolysis: Status: Acute (12) ALEKSANDRA (acute kidney injury): Status: Acute Plan #Altered mental status-Sepsis (Covid encephalopathy) vs Metabolic (hyperammonemia) vs Chronic opiate withdrawl vs Hypoxic driven in the context of Covid 19 - CT head, CTA, LP - Unremarkable - - Admission Ammonia 103 >> normalized and back up again to 61 - On lactulose BID target 2-3 soft BM -Liver ultrasound showed diffuse fatty liver but no evidence of cirrhosis, and other causes of hyperammonemia can be underlying sepsis - Na 142- monitor Na levels; nephrology on board and recommended to DC D5 -C. 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 Takes oxycodone 15 mg 6 times a day at home.We minimize fentanyl and Versed and manage sedation with Precedex and propofol while supine - Hypothyroidism - continue levothyroxine 25 mcg, TSH 0.18 -Neurology follow-up #Acute hypoxic respiratory failure in patient with COVID-19/MRSA nares positive/possible aspiration #Significant centrilobular emphysema as evidenced on CT chest #Chronic Diastolic heart failure - -She completed remdesivir 5 days; currently on dexamethasone 6 mg daily -On vancomycin and Zosyn- Procalcitonin elevated trending down in the absence of renal failure-;urine Legionella, bacterial antigen negative; sputum culture negative; blood cultures pending -Today morning ABG 7.2 5//68/29/90% on on CMV 350/5/60 % during fourth proning session -Receiving albumin and Lasix -DuoNebs every 6 hour, budesonide twice daily -Echo 12/02/2021:?Grossly LV systolic function is normal.? Diastolic function is ?indeterminate because of tachycardia. -Off Levophed-and amiodarone drip-on metoprolol for rate control - # ALEKSANDRA: Resolved; Likely secondary to COVID-19 pneumonia, dehydration # Rhabdomyolysis -resolved #Hypokalemia-resolved - Avoid nephrotoxic agents.? Urine output 5.5 L net -2 L over last 24 hours -We will give 1 dose of albumin and Lasix 40 mg - CK 928 >>> 96 # low grade fevers - so far cultures negative; currently patient is on Zosyn and vancomycin -Ordered sputum cultures due to increasing FiO2 requirements We will taper off sedation and slowly plan for awakening trial and breathing trial-if she does not wake up needs goals of care discussion regarding trach/PEG placement or comfort care Recommendations conveyed to hospitalist, RN, RT taking care of the patient Attestations Medical Necessity Statement*: Requires further hospitalization for management of respiratory failure secondary COVID-19 pneumonia, intubated, proned, metabolic encephalopathy secondary to hyperammonemia, hypernatremia Critical Care Time: The high probability of a clinically significant, sudden or life threatening deterioration of the patient's respiratory, renal, neurological,] system(s) required my full and direct attention, intervention and personal management. The critical care time is as shown. This time is in addition to time spent performing any reported procedures but includes the following: [x] Data and vital sign review and interpretation [x] Patient assessment, examination and intervention [x] Documentation [x] Medication orders and management Critical Care Time (min): 45 Coding Level of Care Code Established Pt Acute Waist Cutter for Chg Fwd Patient Type Established History Comprehensive Exam Comprehensive Medical Decision Making High Complexity Diagnoses Respiratory failure with hypoxia J96.91 COVID-19 U07.1 Hepatic encephalopathy K72.90 Opiate withdrawal F11.23 Chronic prescription opiate use Z79.891 Hypernatremia E87.0 Acute encephalopathy G93.40 Chronic diastolic heart failure I50.32 GERD (gastroesophageal reflux disease) K21.9 Esophagitis presence: esophagitis presence not specified COPD (chronic obstructive pulmonary disease) J43.1 COPD type: emphysema Emphysema type: panlobular Rhabdomyolysis M62.82 ALEKSANDRA (acute kidney injury) N17.9 Time Spent (min) 45
[2021-12-11] MEDS: propofol 1,000 MG/100 ML INJ 12.6 MG IV (23:10)
[2021-12-11 23:18] LABS: Glucose Point of Care 80 mg/dL (70-110)
--- NOTE | 2021-12-11 23:26 | PC.NURSE ---
Pt supinated with assist of 4. Paralytic will be weaned off.
[2021-12-12] VITALS (66 sets, daily range): BP systolic 55–157; BP diastolic 40–88; PULSE 82–174; RESP 18–52; TEMP 36.8–39.3; O2SAT 52–96
[2021-12-12] MEDS: acetaminophen 325 mg Tablet 650 MG PO (00:21)
--- NOTE | 2021-12-12 00:49 | PC.NURSE ---
Pt's IV fluids infusing through ice water to aide with temperature reduction.
[2021-12-12 01:33] LABS: Glucose Point of Care 83 mg/dL (70-110)
--- NOTE | 2021-12-12 01:37 | PC.NURSE ---
Ice packs placed over right groin and under left arm.
--- NOTE | 2021-12-12 01:59 | PC.NURSE ---
85 mls of Ativan wasted with second RN witness.
--- NOTE | 2021-12-12 02:01 | PC.NURSE ---
This RN was a second witness to a waste of 85mls of ativan.
[2021-12-12] MEDS: dexmedeTOMIDine 0.9 % NaCL 400 MCG/100 ML PREMIX 16.33 MCG IV ×2 (03:50→09:35)
[2021-12-12 03:53] LABS: Glucose Point of Care 78 mg/dL (70-110)
[2021-12-12] MEDS: ipratropium-albuterol 3 mL Neb INHALATION ×2 (03:57→08:33)
--- NOTE | 2021-12-12 04:08 | PC.NURSE ---
Pt's physical assessment remains unchanged. Despite increasing sedation, respiratory rate remains elevated.
[2021-12-12 04:15] LABS: Basophils % 0.2 %; Eosinophils # 0.2 10^3/uL (0.0-0.8); Eosinophils % 1.1 %; Hematocrit 28.9 % (37.0-47.0); Hemoglobin 9.6 g/dL (11.5-15.3); Lymphocytes # 1.9 10^3/uL (0.8-4.8); Lymphocytes % 9.5 %; Mean Corpuscular HGB Conc 33.2 g/dL (30.0-36.0); Mean Corpuscular Hemoglobin 28.8 pg (28.0-34.0); Mean Corpuscular Volume 86.8 fl (81-99); Mean Platelet Volume 11.8 fL (7.4-10.4); Monocytes # 0.8 10^3/uL (0.2-0.9); Neutrophils # 16.67 10^3/uL (1.8-7.7); Neutrophils % 83.2 %; Nucleated Red Blood Cells % 0.1 %; Platelet Count 193 10^3/cmm (130-400); Red Blood Count 3.33 10^6/uL (4.1-5.3); Red Cell Distribution Width 14.5 % (12.1-15.1); White Blood Count 20.1 10^3/uL (4.0-10.0)
[2021-12-12 04:24] LABS: D Dimer 2.47 ug/mIFEU (0-0.59)
[2021-12-12 04:28] LABS: Alanine Aminotransferase 7 U/L (0-33); Albumin Level 3.2 g/dL (3.5-5.2); Alkaline Phosphatase 104 IU/L (35-105); Anion Gap 14.5 (5-19); Aspartate Amino Transferase 20 U/L (0-32); Blood Urea Nitrogen 7 mg/dL (6-20); Calcium 7.4 mg/dL (8.5-10.5); Carbon Dioxide 26 mmol/L (22-29); Chloride 104 mmol/L (98-107); Glomerular Filtration Rate 126.3 mL/min (90-130); Glucose 89 mg/dL (65-115); Osmolality Calculated 289 mOsm/kg (285-295); Potassium 3.5 mmol/L (3.5-5.1); Sodium 141 mmol/L (136-145); Total Bilirubin 1.6 mg/dL (0.15-1.2); Total Protein 5.2 g/dL (6.6-8.7)
[2021-12-12 04:47] LABS: C Reactive Protein 124.8 mg/L (0.0-4.9)
[2021-12-12 05:07] LABS: Glucose Point of Care 81 mg/dL (70-110)
[2021-12-12] MEDS: HYDROcodone-acetaminophen 7.5-325 mg Tablet 1 TAB PO (05:07)
[2021-12-12] MEDS: levothyroxine 25 mcg Tablet PO (05:07)
--- NOTE | 2021-12-12 05:20 | PC.NURSE ---
Less than 100 mls of stool noted in BMS. BMS flushed with 30 mls of water. Tube remains patent with no leakage noted.
[2021-12-12 05:53] LABS: ABG PCO2 34.6 mmHg (35-45); ABG PH Result 7.52 (7.35-7.45); Arterial Blood Gas Hematocrit 27.9 % (37-47); Base Excess ABG 5.3 mmol/L (-2.0-2.0); Blood Gas Allen Test Pos; Blood Gas Sample Type Arterial; HCO3 ABG 28.3 mmol/L (22-26); HGB O2 Sat 86.6 % (95-100); Methemoglobin < 0.0 % (0.4-1.5); Oxygen Saturation ABG 87.4; PO2 ABG 46.3 mmHg (80.0-100.0); Potassium Level - ABG 3.2 mmol/L (3.5-5.0); Total Hemoglobin 9.1 g/dL (12-16)
[2021-12-12] MEDS: propofol 1,000 MG/100 ML INJ 14.17 MG IV (05:53)
[2021-12-12 05:54] LABS: Alveolar-Arterial Oxygen Gradi 43.4 mmHg (5-10); Blood Gas Operator Identificat JB; Blood Gas Sample Site Brachial, right; Blood Gas Tidal Volume 0.35; Oxygen Device VENT
--- NOTE | 2021-12-12 06:00 | XR_ITS ---
WS: [id number] XR chest 1V portable [id number] REASON FOR EXAM: covid FINDINGS: Endotracheal tube and nasogastric tube remain in proper position. Diffuse bilateral lung opacities without interval improvement compared to 12/10/2021. No other interval change or new finding. XR/XR chest 1V portable [id number] IMPRESSION: Stable abnormal chest.
[2021-12-12 06:35] LABS: Glucose Point of Care 110 mg/dL (70-110)
[2021-12-12] MEDS: budesonide 0.5 mg/2 mL Neb INHALATION (08:33)
[2021-12-12] MEDS: rifAMPin 300 mg Capsule PO (09:16)
[2021-12-12] MEDS: pregabalin 100 mg Capsule PO (09:16)
[2021-12-12] MEDS: aspirin 81 mg EC Tablet PO (09:16)
[2021-12-12] MEDS: ferrous gluconate 324 mg Tablet PO (09:16)
[2021-12-12] MEDS: potassium chloride oral liq 20 mEq/15 mL UDC 40 MEQ PO (09:16)
[2021-12-12] MEDS: pantoprazole 40 mg SDV IVP (09:16)
[2021-12-12] MEDS: dextrose 5% 1,000 ML 50 ML IV (09:18)
[2021-12-12] MEDS: propofol 1,000 MG/100 ML INJ 9.45 MG IV (09:36)
--- NOTE | 2021-12-12 11:30 | PC.NURSE ---
MTs notified of planned terminal extubation, cleared to continue with extubation.
--- NOTE | 2021-12-12 11:45 | PC.NURSE ---
Terminal extubation to 2lpm/NC. O2 sats at 65%. Fentanyl gtt left on at 25 mcg/hr for her comfort. OG removed. Retal tube removed as ordered. Left peripheral IV removed.
[2021-12-12] MEDS: morphine 4 mg/mL SDV 1 mL IVP ×9 (12:41→19:25)
[2021-12-12] MEDS: glycopyrrolate 0.2 mg/mL SDV 2 mL IV (12:42)
[2021-12-12] MEDS: LORazepam 2 mg/mL INJ 1 mL IVP (14:15)
--- NOTE | 2021-12-12 18:36 | PC.NURSE ---
Shift Note Frequent safety and comfort rounds continue. Orders and/or nursing care completed as indicated. Patient monitored for response to intervention and treatment(s). Education provided includes comfort care, morphine and ativan. . Patient's sales representative electric service verbalized understanding of comfort care. Pt breathing on her own. Respirations have slowed down to 26, they have been as high as 54 after extubation. Her Os sat is hovering in the mid 60's, on 2lpm/NC. Her heart rate is now 124, it has been as high as 200. Heart rhythm has been regular up to this point. Pt not responding to external stimuli. Sister and sister's remain at bed side. and duaghters were in early, prior to extubation. To call when pt's expires.Will continue to monitor.
--- NOTE | 2021-12-12 19:42 | PC.NURSE ---
Pt on comfort measures. Family members at bedside.
--- NOTE | 2021-12-12 20:33 | PC.NURSE ---
[facility] notified of pt's . Per [facility], pt is not a candidate for donation through [facility] or [facility] due to Covid-19 infection within the last 14 days.
--- NOTE | 2021-12-12 21:33 | PM.DDS ---
Discharge Providers DDS Date of Admission: 11/28/21 17:43 Date Summary Completed: 12/13/21 Attending Provider at Admission: Jose Washington MD Time of : 20:00 Attending Provider at Discharge: Jose Washington MD Consults: Neuro: Dr. Bingham [employer] Hole Digger: Dr. Ricketts Telenephrology Primary Care Provider: DO RICARDO De Jesus Diagnoses Probable Cause of Encephalopathy due to [address] [place] [address] Diagnoses (1) Respiratory failure with hypoxia: (2) COVID-19: (3) Hepatic encephalopathy: (4) Opiate withdrawal: (5) Chronic prescription opiate use: (6) Hypernatremia: (7) Acute encephalopathy: (8) Chronic diastolic heart failure: (9) GERD (gastroesophageal reflux disease): Qualifiers: Esophagitis presence: esophagitis presence not specified Qualified Code(s): K21.9 - Gastro-esophageal reflux disease without esophagitis (10) COPD (chronic obstructive pulmonary disease): Qualifiers: COPD type: emphysema Emphysema type: panlobular Qualified Code(s): J43.1 - Panlobular emphysema (11) Rhabdomyolysis: (12) ALEKSANDRA (acute kidney injury): Reason for Visit Reason for Visit AMS Summary Date and Time of Date of : 12/12/21 Time of : 20:00 Summary Summary: History as per HPI: Admitted on 11/28/2021 History limited as taken through chart review and conversation through ER physician and daughter at bedside who lives at [place]. Kaela Sanchez is a 61 year old female with past medical history of anxiety, diastolic heart failure, COPD, fibromyalgia, hypertension on chronic opiates was brought into the ER by EMS today for altered mental status.? As per the history EMS was called and mother today because patient has been behaving oddly for last few days and not answering.? As per EMS when they arrived at home was sitting outside the room and he disappointed.? During gait the patient is and patient was directed to the ER.? In the ER patient was only following simple commands like squeezing hands but not able to have any conversation or follow any extensive commands.? On examination when touched in chest or abdomen patient would scream out in pain.? Patient's daughter is at bedside who states last he saw her was in [place] and after that spoke to her was on first week of November and at that time she had no complaint.? Daughter states she seems to have lost a lot of weight since [place].? Patient has soiled her bed during examination with copious green-colored foul-smelling bowel movements. Blood work in the ER showed hemoglobin of 18, white count of 8.9, ABG showing a pH of 7.5, PCO2 of 24, PO2 of 61, chemistry showing a sodium of 147, chloride of 108, creatinine of 0.5, CPK of 497, alkaline phosphatase of 150, alcohol level, salicylate and acetaminophen level negative with CT abdomen pelvis as below. In the ER tonight she received 1 dose of Narcan and Ativan. Hospital Course: Patient went to the hospital for further evaluation and management of altered mental status. At this time it was believed to be secondary to a combination of hypernatremia, hyperammonemia, possible drug withdrawal from multiple psych and pain medications along with a possible encephalopathy secondary to COVID-19. She was started on treatment with IV fluid resuscitation, lactulose for hyperammonemia, dexamethasone and remdesivir. At start patient did not require high oxygen supplementation. Even after resolution of hypernatremia and hyperammonemia patient continued to remain altered when neurology was consulted and patient underwent lumbar puncture which ruled out bacterial infection as well. Patient's hospitalization was complicated by her developing recurrent episodes of hyponatremia and hyperammonemia for which nephrology was consulted. Her sodium levels remained stable. During the course of her hospitalization her oxygen supplementation continue to worsen and she ended up being intubated on 12/06. Patient underwent 3 sessions of proning after which she was on minimal ventilatory settings. Patient could not be extubated as her mentation did not improve on weaning trials on multiple days. Multiple goals of care discussions were done in detail with the family members. Discussed in detail with patient's Mr. Lopez and daughter Ms. Escoto over the phone.? We discussed unfortunately patients mentation continues to remain poor.? Discussed that patient has failed multiple sedation medication.? Whenever we are trying to come down on sedation she becomes restless, tachycardic and tachypneic which is making it difficult to get her off ventilator.? Discussed her mentation is poor most likely secondary to COVID-19 encephalopathy because of all her parameters have improved.? Discussed that her ammonia levels and hypernatremia seems to have resolved.? Lumbar puncture was negative for any bacterial infection.? Discussed going forward to options would be either to have tracheostomy and PEG for prolonged ventilator and nutrition while we wait for her mentation to improve versus possible comfort measures.? Both Mr. Lopez and Ms. Escoto on separate occasions stated patient would not have wanted to live on life support and would go ahead with comfort measures. Family meeting was done and patient was made comfort measures on 12/12. Patient eventually on 12/12 on comfort measures at 8 PM. Additional Data Confirmation of as documented by pronouncing clinician: no pulse Family: at bedside and contacted Additional persons at bedside: nursing staff Attending/PCP notified?: I am attending Was code activated?: No Autopsy requested?: No Advance directives?: No Hospice patient?: No Discharge Plan Discharge Patient Disposition: Condition: Stable Prescriptions: No Action aspirin [Adult Aspirin Regimen] 81 mg tablet,delayed release (DR/EC) 81 mg PO DAILY 0RF methocarbamol 750 mg tablet 750 mg PO TID Qty: 90 1RF Symbicort 160-4.5 mcg/actuation HFA aerosol inhaler 2 puff INHALATION BID Qty: 10.2 5RF Spiriva Respimat 2.5 mcg/actuation mist 2 puff INHALATION DAILY Qty: 4 5RF albuterol sulfate [ProAir HFA] 90 mcg/actuation HFA aerosol inhaler 2 puff inhalation QID PRN (Reason: shortness of breath or wheezing) Qty: 8.5 5RF pregabalin [Lyrica] 300 mg capsule 300 mg PO BID 30 Days Qty: 60 1RF furosemide 20 mg tablet 20 mg PO DAILY PRN (Reason: edema) Qty: 90 3RF Rx Instructions: Take 1 tab daily as needed for swelling or shortness of breath, may take 1 additional tab when needed ibuprofen 800 mg tablet 800 mg PO TID PRN (Reason: pain) 30 Days Qty: 90 5RF potassium chloride 10 mEq tablet extended release 20 meq PO DAILY Qty: 180 3RF atorvastatin 40 mg tablet 40 mg PO DAILY 90 Days Qty: 90 0RF bupropion HCl [Wellbutrin SR] 200 mg tablet sustained-release 12 hr 200 mg PO BID Qty: 60 1RF omeprazole 40 mg capsule,delayed release(DR/EC) 40 mg PO DAILY 30 Days Qty: 90 0RF metoprolol tartrate 25 mg tablet 25 mg PO BID Qty: 60 5RF oxycodone 15 mg tablet 15 mg PO .6 times a day PRN (Reason: pain) 3 Days Qty: 18 0RF Rx Instructions: Do not fill until 11/15/2021 Referrals: Iman Galo DO [Primary Care Provider] - Probable Cause of Probable cause of : Encephalopathy due to 2019-nCoV DS Attestations Time Spent in /Discharge Care*: greater than 30 min Quality - AMI: AMI present?: No Quality - Stroke: CVA present?: No Quality - VTE: VTE present?: No Coding Level of Care Code Acute Director Of Sports Medicine for Chg Fwd History Comprehensive Exam Comprehensive Medical Decision Making High Complexity Diagnoses Respiratory failure with hypoxia J96.91 COVID-19 U07.1 Hepatic encephalopathy K72.90 Opiate withdrawal F11.23 Chronic prescription opiate use Z79.891 Hypernatremia E87.0 Acute encephalopathy G93.40 Chronic diastolic heart failure I50.32 GERD (gastroesophageal reflux disease) K21.9 Esophagitis presence: esophagitis presence not specified COPD (chronic obstructive pulmonary disease) J43.1 COPD type: emphysema Emphysema type: panlobular Rhabdomyolysis M62.82 ALEKSANDRA (acute kidney injury) N17.9
--- NOTE | 2021-12-12 21:41 | PC.NURSE ---
Pt's , John Sanchez, notified of pt's at 2007. John would like for [facility] to be notified.
--- NOTE | 2021-12-12 21:42 | PC.NURSE ---
Post-mortem care provided, PICC removed, collins catheter removed. Pt has gold toe ring on. Upper denture sent with home.
--- NOTE | 2021-12-12 21:45 | PC.NURSE ---
Hafsa at [facility] notified of pt's .
--- NOTE | 2021-12-12 21:50 | PC.NURSE ---
195 mls of Fentanyl wasted with a second RN witness.
--- NOTE | 2021-12-12 21:56 | PC.NURSE ---
Addendum entered by Kevin Billingsley RN 12/12/21 21:58: This nurse confirmed TOD, no apical HR auscultated and no RR noted Original Note: At 1999, pt went into asystole. No heart beat auscultated. Pt's sister and [id number] at bedside. TOD 1999, pronounced by myself and a second RN.
== END 2021-12-12 20:00 | disposition expired | DRG 207 ==
LOC: ER 18:38 → MEDSURG 19:15 → ICU 11-29 20:03
PROVIDERS: Family Medicine; Internal Medicine; Admitting Provider Student in an Organized Health Care Education/Training Program; Emergency Provider Family Medicine; PCP Family Medicine; Visit Provider Student in an Organized Health Care Education/Training Program
DX: U07.1 COVID-19 (principal); J12.82 Pneumonia due to coronavirus disease 2019; G93.41 Metabolic encephalopathy; J80 Acute respiratory distress syndrome; I50.32 Chronic diastolic (congestive) heart failure; M62.82 Rhabdomyolysis; E87.0 Hyperosmolality and hypernatremia; F11.23 Opioid dependence with withdrawal; N17.9 Acute kidney failure, unspecified; F41.8 Other specified anxiety disorders; I11.0 Hypertensive heart disease with heart failure; G89.29 Other chronic pain; M54.2 Cervicalgia; J43.2 Centrilobular emphysema; E78.5 Hyperlipidemia, unspecified; M79.7 Fibromyalgia; K21.9 Gastro-esophageal reflux disease without esophagitis; Z86.73 Personal history of transient ischemic attack (TIA), and cerebral infarction without residual deficits; K72.90 Hepatic failure, unspecified without coma; Z87.891 Personal history of nicotine dependence; E86.0 Dehydration; E03.9 Hypothyroidism, unspecified; R00.0 Tachycardia, unspecified; B95.62 Methicillin resistant Staphylococcus aureus infection as the cause of diseases classified elsewhere; R68.0 Hypothermia, not associated with low environmental temperature; Z51.5 Encounter for palliative care
CPT/HCPCS: 36415; 36416; 36569; 36592; 36600; 51702; 70450; 70496; 70498; 71045; 71275; 74018; 74177; 76705; 80048; 80051; 80053; 80061; 80202; 80306; 80307; 80500; 81001; 82042; 82140; 82150; 82274; 82330; 82436; 82550; 82553; 82607; 82746; 82803; 82805; 82945; 82962; 82977; 83036; 83540; 83550; 83605; 83615; 83630; 83690; 83735; 83880; 83916; 84100; 84133; 84145; 84157; 84295; 84300; 84315; 84439; 84443; 84481; 84484; 85025; 85378; 85610; 85651; 86140; 86403; 86592; 86617; 86653; 86705; 86706; 86709; 86788; 86789; 86803; 87040; 87070; 87075; 87086; 87205; 87327; 87340; 87449; 87493; 87496; 87506; 87530; 87635; 87641; 87804; 87806; 89050; 93005; 93306; 93880; 94002; 94003; 94640; 94660; 94664; 94799; 96361; 96372; 96374; 96375; 99285; A4570; C1751; C9113; J0133; J0282; J0330; J1100; J1170; J1630; J1650; J1815; J1940; J2060; J2250; J2270; J2310; J2405; J2543; J2704; J3010; J3370; J3430; J3480; J3486; J3490; J7030; J7050; J7060; J7626; P9047; Q3014; Q9967; S0030